=== PATIENT | male | born 1960 | race Caucasian/White ===

== ENCOUNTER 2017-11-05 21:56 | Emergency (ER) | payer MEDICAID, OTHER ==
[~2017-11-05] VITALS: Ht 182.9 cm; Wt 90.7 kg
[~2017-11-05 21:56] MED LIST: IBUPROFEN600 MG PO
[2017-11-05 23:00] VITALS: BP 135/86
[2017-11-05 23:13] VITALS: BP 135/86
--- NOTE | 2017-11-05 23:17 | Emergency Room Report ---
History of Present Illness General Chief Complaint: Behavioral Complaint Source: Patient Present Illness HPI This is a 57-year-old male with no significant past medical history. He presents with chief complaint of bilateral knee pain. Onset for years. He said he needed new placement surgery. He came in with pain. History is through triage and nurse taking care of him. He was waiting for 10 minutes and decided to leave prior to me seeing him. He said he wanted to wait to see the Dr. He now he came in a wheelchair, he put his belongings a chair and walked out without any difficulty. Allergies: Coded Allergies: No Known Allergies (Verified , 11/25/11) Patient History Past Medical History: see triage record, old chart reviewed Past Surgical History: other Pertinent Family History: none Social History: Denies: smoking Immunizations: other Reviewed Nursing Documentation: PMH: Agreed, PSxH: Agreed Nursing Documentation-PMH Hx Cardiac Problems: No Hx Hypertension: No History Of Psychiatric Problem: Yes - SCHIZO Physical Exam Vital Signs Date Time Temp Pulse Resp B/P (MAP) Pulse Ox O2 Delivery O2 Flow Rate FiO2 11/05/17 22:54 98.1 101 16 135/86 96 Room Air 98.1 Medical Decision Making Diagnostic Impression: Primary Impression: Knee pain, bilateral Qualified Codes: M25.561 - Pain in right knee; M25.562 - Pain in left knee; G89.29 - Other chronic pain ER Course Patient with bilateral knee pain. I did not get to see this patient. He left without me seeing him. Last Vital Signs Date Time Temp Pulse Resp B/P (MAP) Pulse Ox O2 Delivery O2 Flow Rate FiO2 11/05/17 23:00 98.1 101 16 135/86 96 Room Air 98.1 Disposition: LEFT W/OUT BEING SEEN Condition: Stable LLOYD DUCKWORTH M.D. Nov 05, 2017 23:17
== END 2017-11-05 23:19 | disposition left against medical advice (07) ==
LOC: EMR 23:08
DX: M25.562 Pain in left knee (principal); M25.561 Pain in right knee; Z53.21 Procedure and treatment not carried out due to patient leaving prior to being seen by health care provider
CPT/HCPCS: 99281

== ENCOUNTER 2018-03-03 15:13 | Emergency (ER) | payer MEDICAID ==
[~2018-03-03] VITALS: Ht 177.8 cm; Wt 90.7 kg
[2018-03-03] MEDS ORDERED: DiphenhydrAMINE 50mg/ml Inj IM ONE (15:45)
[2018-03-03] MEDS ORDERED: LORazepam Inj 2mg/ml 1ml IM ONE (15:45)
[2018-03-03] MEDS ORDERED: Haloperidol 5mg/ml Inj IM ONE (15:45)
[2018-03-03 16:46] VITALS: BP 121/68
[2018-03-03 17:06] LABS: BASOPHILS % (AUTO) 1.5 % (0.0-2.0); EOSINOPHILS % (AUTO) 0.8 % (0.0-3.0); HEMATOCRIT 45.9 % (42.0-52.0); HEMOGLOBIN 15.5 G/DL (14.2-18.0); LYMPHOCYTES % (AUTO) 28.5 % (20.0-45.0); MEAN CORPUSCULAR VOLUME 91 FL (80-99); MONOCYTES % (AUTO) 11.2 % (1.0-10.0); PLATELET COUNT 215 K/UL (150-450); RED BLOOD COUNT 5.04 M/UL (4.70-6.10); RED CELL DISTRIBUTION WIDTH 12.2 % (11.6-14.8); WHITE BLOOD COUNT 9.3 K/UL (4.8-10.8)
[2018-03-03 17:11] LABS: ANION GAP 17 mmol/L (5-15); BLOOD UREA NITROGEN 15 mg/dL (7-18); CALCIUM 9.3 MG/DL (8.5-10.1); CARBON DIOXIDE 18 MMOL/L (21-32); CHLORIDE 102 MMOL/L (98-107); CREATININE 1.5 MG/DL (0.55-1.30); POTASSIUM 4.1 MMOL/L (3.5-5.1); SODIUM 137 MMOL/L (136-145)
[2018-03-03 17:15] LABS: ALANINE AMINOTRANSFERASE 32 U/L (12-78); ALBUMIN 3.8 G/DL (3.4-5.0); ALBUMIN/GLOBULIN RATIO 0.9 (1.0-2.7); ALKALINE PHOSPHATASE 84 U/L (46-116); ASPARTATE AMINO TRANSFERASE 29 U/L (15-37); BILIRUBIN,TOTAL 0.4 MG/DL (0.2-1.0)
[2018-03-03 19:10] VITALS: BP 120/68
--- NOTE | 2018-03-03 21:39 | Emergency Room Report ---
History of Present Illness General Chief Complaint: Behavioral Complaint Source: Patient (Paige Villalobos) Present Illness HPI Pt. presents to the ED For irregular/erratic behavior. Bystander called 911 Because the patient was running in and out of traffic in a very unsafe manner, displaying unusual regard for his safety. Pt. has no complaints at this time. Patient is very uncooperative with history of present illness and ROS questions. During collection of history patient becomes very verbally and physically aggressive due to agitation and being asked questions. (Paige Villalobos) Allergies: Coded Allergies: LISINOPRIL (Unverified Allergy, Unknown, 03/03/18) Patient History Past Medical History: see triage record, old chart reviewed - external medication hx. , unable to obtain - refuses to answer Past Surgical History: unable to obtain Pertinent Family History: unable to obtain Reviewed Nursing Documentation: PMH: Agreed; PSxH: Agreed (Paige Villalobos) Nursing Documentation-PMH Past Medical History: No Stated History Hx Cardiac Problems: Yes - Pacemaker Hx Hypertension: No (Paige Villalobos) Review of Systems All Other Systems: limited - poor pt. cooperation. (Paige Villalobos) Physical Exam Vital Signs Date Time Temp Pulse Resp B/P (MAP) Pulse Ox O2 Delivery O2 Flow Rate FiO2 03/03/18 15:08 98.4 118 18 114/60 98 Room Air 98.4 Sp02 EP Interpretation: reviewed, normal General Appearance: alert, GCS 15, non-toxic, mild distress, other - Disheveled Head: normocephalic, atraumatic Eyes: bilateral eye normal inspection, bilateral eye PERRL ENT: hearing grossly normal, normal voice Neck: full range of motion, no bony tend Respiratory: lungs clear, normal breath sounds, speaking full sentences Cardiovascular #1: tachycardia Gastrointestinal: normal bowel sounds, non tender, soft Rectal: deferred Musculoskeletal: back normal, gait/station normal, normal range of motion, non- tender Neurologic: alert, oriented x3, responsive, motor strength/tone normal, sensory intact, speech normal, grossly normal Psychiatric: judgement/insight normal Skin: normal color, no rash, warm/dry, well hydrated, other - no obvious open wounds or abscess. (Paige Villalobos) Medical Decision Making PA Attestation Dr. Pollard is my supervising physician whom pt. management has been discussed with. (Paige Villalobos) Diagnostic Impression: Primary Impression: Behavioral disorder ER Course Pt. presents to the ED For irregular/erratic behavior. Bystander called 911 Because the patient was running in and out of traffic in a very unsafe manner, displaying unusual regard for his safety. Pt. has no complaints at this time. Patient is very uncooperative with history of present illness and ROS questions. During collection of history patient becomes very verbally and physically aggressive due to agitation and being asked questions. Pt is hyperactive, and has a very anxious and restless affect, He is physically and verbally aggressive. He refuses to answer questions, and is very noncooperative. View of his external medication history shows that several months ago he was prescribed Remeron. He is also prescribed multiple cardiac medications such as carvedilol and Elaquis. Pt. also rx'd two diuretic medications as well as gabapentin. Ddx considered but are not limited to OD, SI/HI, psychosis, UTI, intoxication Vital signs: Tachycardic otherwise WNL, pt. is afebrile H&PE are most consistent with behavioral/mental health issue- severe agitation. ORDERS: -CBC, CMP: Unremarkable -UA: negative for infection see results attached. -UDS: Positive for Cocaine -Salicylates and Acetaminophen - no acute intoxication. ED INTERVENTIONS: - Haldol, Benadryl and ativan IM DISPOSITION: Patient is medically cleared at this time however I do believe he needs psychiatric evaluation and possible psychiatric medication management. PET team valuation was ordered however patient states that he will voluntarily go to a psychiatric facility and therefore transfer to voluntary psychiatric facility is being facilitated. Labs Test 03/03/18 15:45 03/03/18 16:30 Urine Opiates Screen Negative (NEGATIVE) Urine Barbiturates Screen Negative (NEGATIVE) Phencyclidine (PCP) Screen Negative (NEGATIVE) Urine Amphetamines Screen Negative (NEGATIVE) Urine Benzodiazepines Screen Negative (NEGATIVE) Urine Cocaine Screen Positive (NEGATIVE) Urine Marijuana (THC) Screen Negative (NEGATIVE) White Blood Count 9.3 K/UL (4.8-10.8) Red Blood Count 5.04 M/UL (4.70-6.10) Hemoglobin 15.5 G/DL (14.2-18.0) Hematocrit 45.9 % (42.0-52.0) Mean Corpuscular Volume 91 FL (80-99) Mean Corpuscular Hemoglobin 30.7 PG (27.0-31.0) Mean Corpuscular Hemoglobin Concent 33.8 G/DL (32.0-36.0) Red Cell Distribution Width 12.2 % (11.6-14.8) Platelet Count 215 K/UL (150-450) Mean Platelet Volume 5.6 FL (6.5-10.1) Neutrophils (%) (Auto) 58.0 % (45.0-75.0) Lymphocytes (%) (Auto) 28.5 % (20.0-45.0) Monocytes (%) (Auto) 11.2 % (1.0-10.0) Eosinophils (%) (Auto) 0.8 % (0.0-3.0) Basophils (%) (Auto) 1.5 % (0.0-2.0) Sodium Level 137 MMOL/L (136-145) Potassium Level 4.1 MMOL/L (3.5-5.1) Chloride Level 102 MMOL/L (98-107) Carbon Dioxide Level 18 MMOL/L (21-32) Anion Gap 17 mmol/L (5-15) Blood Urea Nitrogen 15 mg/dL (7-18) Creatinine 1.5 MG/DL (0.55-1.30) Estimat Glomerular Filtration Rate 58.4 mL/min (>60) Glucose Level 80 MG/DL (74-106) Calcium Level 9.3 MG/DL (8.5-10.1) Total Bilirubin 0.4 MG/DL (0.2-1.0) Aspartate Amino Transf (AST/SGOT) 29 U/L (15-37) Alanine Aminotransferase (ALT/SGPT) 32 U/L (12-78) Alkaline Phosphatase 84 U/L (46-116) Total Protein 8.0 G/DL (6.4-8.2) Albumin 3.8 G/DL (3.4-5.0) Globulin 4.2 g/dL Albumin/Globulin Ratio 0.9 (1.0-2.7) Salicylates Level 2.7 ug/mL (2.8-20) Acetaminophen Level < 2 MCG/ML (10-30) Serum Alcohol 149 mg/dL (Paige Villalobos) ER Course Received signout from Dr [place] at 630am patient on 5150 Medically cleared previously by other provider On re-eval, patient states he knows why he was here - was trying to kill himself running into traffic last night Still endorses suicidal ideation States previous attempts to kill himself Asking for "another breakfast." Dr Bourgeois consulted 730am, pending her recommendations Patient monitored by sitter 1:1 1112am: Dr Bourgeois saw patient, recommends DC Will break 5150 (PALOMO HEWITT M.D.) Last Vital Signs Date Time Temp Pulse Resp B/P (MAP) Pulse Ox O2 Delivery O2 Flow Rate FiO2 03/03/18 19:10 98.4 100 18 120/68 99 Room Air 98.4 (Paige Villalobos) Status: improved (PALOMO HEWITT M.D.) Disposition: HOME, SELF-CARE Condition: Stable Referrals: [facility],REFERRING (PCP) Patient Instructions: Self-Destructive Behavior Paige Villalobos Mar 03, 2018 21:39 PALOMO HEWITT M.D. Mar 04, 2018 07:35
[2018-03-04 03:00] VITALS: BP 104/67
[2018-03-04 07:15] VITALS: BP 106/70
[2018-03-04 11:14] VITALS: BP 106/70
--- NOTE | 2018-03-04 17:15 | Consultation ---
DATE OF CONSULTATION: 03/04/2018 CONSULTING PHYSICIAN: Joey Bourgeois M.D. HISTORY: The patient is a 57-year-old male with a history of substance abuse disorder and depression who came to the hospital with having thoughts of hurt himself. The patient has been uncooperative during the hospitalization. No behavior issues. He has been demanding and angry. He has apparently been walking in the traffic and today his behavior has improved. He denies any suicidal or homicidal ideation. His urine is positive for cocaine. He stated that he still would like to be discharged to a psychiatric hospital. He denies any suicidal or homicidal ideation. No psychotic symptoms. PAST PSYCHIATRIC HISTORY: He states that he has a history of psychiatric history and depression. PAST MEDICAL HISTORY: None. ALLERGIES: No known drug allergies. SUBSTANCE ABUSE HISTORY: Significant for illicit drugs including cocaine. MENTAL STATUS EXAMINATION: The patient is alert and oriented times self, place, and situation he is in. Mood is depressed. Affect is constricted, congruent with mood. Thought process is concrete. Thought content, no suicidal or homicidal ideations. ASSESSMENT: Selma I Depressive disorder, cocaine abuse. Selma II Deferred. Selma III As above. Selma IV . Selma V Global assessment of functioning is 50. PLAN: The patient will be discharged. He was given referral to a psychiatric facility. At the time of discharge, he is not an imminent danger to self or others. We will continue to follow and readjust the medications. Joey Bourgeois M.D. DR: CHARANJIT JOB#: [id number] CC:
== END 2018-03-04 11:15 | disposition home or self-care (01) ==
LOC: EDBD 15:13 → EMR 15:55
DX: F91.9 Conduct disorder, unspecified (principal); Z95.0 Presence of cardiac pacemaker; F32.9 Major depressive disorder, single episode, unspecified; F14.10 Cocaine abuse, uncomplicated
CPT/HCPCS: 36415; 80053; 80307; 80329; 85025; 99284; J1200; J1630

== ENCOUNTER 2018-05-19 02:16 | Inpatient (IN) | payer MEDICAID ==
[~2018-05-19] VITALS: Ht 182.9 cm; Wt 83.1 kg
[2018-05-19] VITALS (12 sets, daily range): BP systolic 95–135; BP diastolic 54–99
[2018-05-19] MEDS ORDERED: Haloperidol 5mg/ml Inj IM ONE (02:30)
[2018-05-19] MEDS ORDERED: DiphenhydrAMINE 50mg/ml Inj IM ONE (02:30)
[2018-05-19] MEDS ORDERED: LORazepam Inj 2mg/ml 1ml IM ONE (02:30)
--- NOTE | 2018-05-19 02:34 | Emergency Room Report ---
History of Present Illness General Source: Patient, EMS Present Illness HPI Patient brought by EMS. He called us 911 and said that he wanted to hurt people. He stated he wanted to burn places down. Police were summoned also with paramedics and patient was transported here with police and EMS. He's not been violent with them but threatens to kill people. He admits to drinking alcohol. He denies doing other drugs however in February when he was evaluated he was positive for cocaine. The patient states he's not been taking his Risperdal and Seroquel. The patient denies any chest pain, shortness of breath, nausea, vomiting, diarrhea, headache, fever fevers, rash, joint pain. Patient has a wheelchair but is ambulatory. Patient was evaluated in February of this year. He presented similarly and was positive for cocaine and alcohol at that time. He was calm and agreed to voluntary hospitalization and was transferred to psychiatric facility. Allergies: Coded Allergies: LISINOPRIL (Unverified Allergy, Unknown, 03/03/18) Patient History Past Medical History: see triage record Past Surgical History: pacemaker Social History: Reports: alcohol use, drug use Social History Narrative from streets Reviewed Nursing Documentation: PMH: Agreed; PSxH: Agreed Nursing Documentation-PMH Hx Cardiac Problems: Yes - Pacemaker Hx Hypertension: No Review of Systems All Other Systems: negative except mentioned in HPI Physical Exam Vital Signs Date Time Temp Pulse Resp B/P (MAP) Pulse Ox O2 Delivery O2 Flow Rate FiO2 05/19/18 02:18 97.5 109 20 128/97 99 Room Air 97.5 Sp02 EP Interpretation: reviewed, normal General Appearance: well appearing, no apparent distress, GCS 15 Head: normocephalic, atraumatic Eyes: bilateral eye PERRL, bilateral eye EOMI, bilateral eye Scleral Injection ENT: moist mucus membranes Neck: supple Respiratory: lungs clear, normal breath sounds, other - pacer L Cardiovascular #1: tachycardia Cardiovascular #2: 2+ radial (R) Gastrointestinal: normal inspection, normal bowel sounds, non tender, no mass, non-distended, scaphoid Genitourinary: no CVA tenderness Musculoskeletal: back normal, gait/station normal, normal range of motion Neurologic: alert, motor strength/tone normal, DTRs symmetric, sensory intact, cerebellar normal, speech normal - pressured, oriented - X2 Psychiatric: other - Homicidal ideation states that he wants to burn down houses. Agitated and threatening however responds to calming intervention. Skin: normal inspection, warm/dry Medical Decision Making Medical: Substance Abuse, Other Behavioral: Bipolar Disorder Reaction to Intervention: Other - Unpredictable as calm then threatening Restraint Reassesment I, Maxx Barreto MD, have personally evaluated this patient. Laboratory tests have been reviewed and addressed accordingly. The patient is deemed to present a danger to themselves and/or others. This is based on the exam, history ( provided by patient, EMS/[employer]) and observed or reported behavior. Attempts for non-invasive measures have been considered and/or attempted, however, have been futile. It is in the best interest of the nursing staff, the patient, and others involved in this patient's care that behavioral restraints be applied. Patient evaluation reveals the following: see eval Diagnostic Impression: Primary Impression: NSTEMI (non-ST elevated myocardial infarction) Additional Impressions: Homicidal ideation Cocaine abuse ER Course Patient presents with homicidal ideation. Differential includes medication noncompliance, alcohol intoxication, other toxic substance use, exacerbation of bipolar disorder amongst others. Patient needs medical evaluation. At this time is threatening staff and will be placed in restraints. Sedation is been ordered. EKG with sinus tachycardia. No injury. LVH. Chest x-ray with cardiomegaly and pacemaker no infiltrate or effusions. Lab called with positive troponin. Other labs are significant for positive cocaine. Patient was given aspirin and nitroglycerin paste was applied. Sedation was successful and the patient was removed from restraints. Metoprolol given. Patient stable VS. Still sedated. Discussed with Dr. Salinas and Dr. Bourgeois. Admit SDU with sitter (due to HI). Laboratory Tests Test 05/19/18 02:30 05/19/18 02:41 Urine Color Pale yellow Urine Appearance Clear Urine pH 5 (4.5-8.0) Urine Specific Gallant 1.015 (1.005-1.035) Urine Protein 2+ (NEGATIVE) H Urine Glucose (UA) Negative (NEGATIVE) Urine Ketones Negative (NEGATIVE) Urine Blood 1+ (NEGATIVE) H Urine Nitrite Negative (NEGATIVE) Urine Bilirubin Negative (NEGATIVE) Urine Urobilinogen Normal MG/DL (0.0-1.0) Urine Leukocyte Esterase Negative (NEGATIVE) Urine RBC 0-2 /HPF (0 - 0) H Urine WBC 0 /HPF (0 - 0) Urine Squamous Epithelial Cells Few /LPF (NONE/OCC) Urine Bacteria None /HPF (NONE) Urine Opiates Screen Negative (NEGATIVE) Urine Barbiturates Screen Negative (NEGATIVE) Phencyclidine (PCP) Screen Negative (NEGATIVE) Urine Amphetamines Screen Negative (NEGATIVE) Urine Benzodiazepines Screen Negative (NEGATIVE) Urine Cocaine Screen Positive (NEGATIVE) H Urine Marijuana (THC) Screen Positive (NEGATIVE) H White Blood Count 5.8 K/UL (4.8-10.8) Red Blood Count 5.34 M/UL (4.70-6.10) Hemoglobin 16.6 G/DL (14.2-18.0) Hematocrit 49.2 % (42.0-52.0) Mean Corpuscular Volume 92 FL (80-99) Mean Corpuscular Hemoglobin 31.2 PG (27.0-31.0) H Mean Corpuscular Hemoglobin Concent 33.8 G/DL (32.0-36.0) Red Cell Distribution Width 13.2 % (11.6-14.8) Platelet Count 236 K/UL (150-450) Mean Platelet Volume 6.3 FL (6.5-10.1) L Neutrophils (%) (Auto) 55.2 % (45.0-75.0) Lymphocytes (%) (Auto) 29.9 % (20.0-45.0) Monocytes (%) (Auto) 12.6 % (1.0-10.0) H Eosinophils (%) (Auto) 0.7 % (0.0-3.0) Basophils (%) (Auto) 1.7 % (0.0-2.0) Sodium Level 140 MMOL/L (136-145) Potassium Level 3.8 MMOL/L (3.5-5.1) Chloride Level 105 MMOL/L (98-107) Carbon Dioxide Level 20 MMOL/L (21-32) L Anion Gap 15 mmol/L (5-15) Blood Urea Nitrogen 12 mg/dL (7-18) Creatinine 1.7 MG/DL (0.55-1.30) H Estimate Glomerular Filtration Rate 50.7 mL/min (>60) Glucose Level 84 MG/DL (74-106) Calcium Level 8.6 MG/DL (8.5-10.1) Total Bilirubin 0.5 MG/DL (0.2-1.0) Aspartate Amino Transferase (AST) 34 U/L (15-37) Alanine Aminotransferase (ALT) 23 U/L (12-78) Alkaline Phosphatase 83 U/L (46-116) Troponin I 0.609 ng/mL (0.000-0.056) Total Protein 7.8 G/DL (6.4-8.2) Albumin 3.7 G/DL (3.4-5.0) Globulin 4.1 g/dL Thyroid Stimulating Hormone (TSH) 0.823 uiU/mL (0.358-3.740) Salicylates Level 3.4 ug/mL (2.8-20) Acetaminophen Level < 2 MCG/ML (10-30) L Serum Alcohol 154 mg/dL EKG Diagnostic Results Rate: tachycardiac ST Segments: no acute changes Rhythm Strip Diag. Results EP Interpretation: yes Rhythm: no PVC's, no ectopy - ST Chest X-Ray Diagnostic Results Chest X-Ray Diagnostic Results : Chest X-Ray Ordered: Yes # of Views/Limited/Complete: 1 View Indication: Other EP Interpretation: Yes Interpretation: no consolidation, no effusion, no pneumothorax, other - pacer and inc cor Impression: Other Electronically Signed by: Electronically signed by Maxx Barreto MD Last Vital Signs Date Time Temp Pulse Resp B/P (MAP) Pulse Ox O2 Delivery O2 Flow Rate FiO2 05/19/18 20:28 98.4 94 20 101/54 (70) 98 98.4 94 05/19/18 20:00 Room Air Status: improved Disposition: ADMITTED INPATIENT Condition: Serious Maxx Barreto M.D. May 19, 2018 02:34
[2018-05-19 03:00] LABS: APPEARANCE,URINE CLEAR; BILIRUBIN, URINE NEGATIVE (NEGATIVE); COLOR,URINE PALE YELLOW; GLUCOSE, URINE (UA) NEGATIVE (NEGATIVE); KETONES,URINE NEGATIVE (NEGATIVE); LEUKOCYTE ESTERASE ,URINE NEGATIVE (NEGATIVE); NITRITE,URINE NEGATIVE (NEGATIVE); PH,URINE 5 (4.5-8.0); PROTEIN,URINE 2+ (NEGATIVE); UROBILINOGEN,URINE NORMAL MG/DL (0.0-1.0)
[2018-05-19 03:02] LABS: BASOPHILS % (AUTO) 1.7 % (0.0-2.0); EOSINOPHILS % (AUTO) 0.7 % (0.0-3.0); HEMATOCRIT 49.2 % (42.0-52.0); HEMOGLOBIN 16.6 G/DL (14.2-18.0); LYMPHOCYTES % (AUTO) 29.9 % (20.0-45.0); MEAN CORPUSCULAR VOLUME 92 FL (80-99); MONOCYTES % (AUTO) 12.6 % (1.0-10.0); NEUTROPHILS % (AUTO) 55.2 % (45.0-75.0); PLATELET COUNT 236 K/UL (150-450); RED BLOOD COUNT 5.34 M/UL (4.70-6.10); RED CELL DISTRIBUTION WIDTH 13.2 % (11.6-14.8); WHITE BLOOD COUNT 5.8 K/UL (4.8-10.8)
[2018-05-19 03:06] LABS: ANION GAP 15 mmol/L (5-15); BLOOD UREA NITROGEN 12 mg/dL (7-18); CALCIUM 8.6 MG/DL (8.5-10.1); CARBON DIOXIDE 20 MMOL/L (21-32); CHLORIDE 105 MMOL/L (98-107); CREATININE 1.7 MG/DL (0.55-1.30); POTASSIUM 3.8 MMOL/L (3.5-5.1); SODIUM 140 MMOL/L (136-145)
[2018-05-19 03:18] LABS: ALANINE AMINOTRANSFERASE 23 U/L (12-78); ALKALINE PHOSPHATASE 83 U/L (46-116); ASPARTATE AMINO TRANSFERASE 34 U/L (15-37); BILIRUBIN,TOTAL 0.5 MG/DL (0.2-1.0)
[2018-05-19 03:27] LABS: ALBUMIN 3.7 G/DL (3.4-5.0)
[2018-05-19] MEDS ORDERED: Nitroglycerin 2% oint pkt TOPIC ONE (03:30)
[2018-05-19] MEDS ORDERED: Metoprolol 5mg/5ml Inj IVP STA (04:24)
[2018-05-19] MEDS ORDERED: RISPERDAL0.25 MG ORAL (04:48)
[2018-05-19] MEDS ORDERED: QUETIAPINE FUMA25 MG ORAL (04:48)
[2018-05-19] MEDS ORDERED: Albuterol/Ipratropium 3ml neb HHN PRN (07:30)
[2018-05-19] MEDS ORDERED: dilTIAZem HCl 25mg/5ml Inj IV PRN (07:30)
[2018-05-19] MEDS ORDERED: Nitroglycerin Subl 0.4mg tab SL PRN (07:30)
[2018-05-19] MEDS ORDERED: Ketorolac 30mg Inj IV PRN (07:30)
[2018-05-19] MEDS ORDERED: Miralax 17gm pkt ORAL PRN (07:30)
[2018-05-19] MEDS ORDERED: Morphine Sulfate 2mg/ml Inj(IV/IM USE ONLY) IVP PRN (07:30)
[2018-05-19] MEDS: Aspirin Baby 81mg ORAL SCH (09:00)
--- NOTE | 2018-05-19 11:00 | Diagnostic Imaging Report ---
Indication: Dyspnea Comparison: None A single view chest radiograph was obtained. Findings: No definite infiltrate or pulmonary vascular congestion identified. The heart is borderline enlarged. There is a pacemaker on the left with a single lead projected over the right ventricle. Bones are unremarkable. Impression: No acute disease
[2018-05-19] MEDS: Heparin 5000 units/ml inj SUBQ SCH ×2 (12:00→21:55)
--- NOTE | 2018-05-19 18:46 | Cardiology Report ---
APPROVED REPORT EKG Measurement Heart [id number] Sinus tachycardia Right atrial enlargement Voltage criteria for left ventricular hypertrophy Nonspecific T wave abnormality Abnormal ECG
--- NOTE | 2018-05-19 19:02 | Cardiology Report ---
APPROVED REPORT EXAM: Two-dimensional and M-mode echocardiogram with Doppler and color Doppler. INDICATION Left Ventricular Function M-Mode DIMENSIONS IVSd0.9 (0.7-1.1cm)Left Atrium (MM)3.4 (1.6-4.0cm) LVDd7.1 (3.5-5.6cm)Aortic Root2.8 (2.0-3.7cm) PWd0.8 (0.7-1.1cm)Aortic Cusp Exc.2.0 (1.5-2.0cm) LVDs6.1 (2.5-4.0cm) PWs1.1 cm Severe left ventricular enlargement. Mid to apical anteroseptal wall, lateral wall, inferolareal wall akinesia, setal wall dyskinesia. Left ventricular ejection fraction estimated to be 15%. Ischemic cardiomyopathy cannot be excluded. No evidence of left ventricular hypertrophy. No evidence of pericardial effusion. Mild left atrial enlargement. Right cardiac chamber sizes are within normal limits. Focal aortic valve sclerosis with adequate cusp excursion. Mildly thickened mitral valve leaflets with normal excursion. Mild mitral annulus and aortic root calcification. Normal pulmonic valve structure. Normal tricuspid valve structure. IVC dilated at 2.3 cm without physiological collapse, suggestive of increased RA pressure. A color flow and spectral Doppler study was performed and revealed: Moderate aortic insufficiency. LVOT pressure gradient may be underestimated due to low systolic function. Moderate mitral regurgitation. Mitral diastolic velocities suggest mild left ventricular diastolic dysfunction (Grade I). Mild tricuspid regurgitation. Tricuspid systolic velocities suggests peak right ventricular systolic pressure of 37 mmHg, consistent with mild pulmonary hypertension. Trace pulmonic regurgitation present.
--- NOTE | 2018-05-19 22:45 | History and Physical Report ---
DATE OF ADMISSION: 05/19/2018 CHIEF COMPLAINT: Altered mental status, elevated troponin, toxic metabolic encephalopathy, and psychosis. HISTORY OF PRESENT ILLNESS: The patient is a 57-year-old male. He has history of schizophrenia, conduction system disease, status post pacemaker, history of substance abuse, who presented with complaints of altered mental status, agitation, and threatening behavior. He was apparently brought in by police. This history is taken from review of the chart as the patient is currently sedated and unresponsive. The patient has been apparently threatening to hurt people and burn the houses down. He was agitated and combative. He was sedated. He was positive for cocaine. His medical workup was significant for elevated troponin. EKG showed no significant changes. Chest x-ray was clear except for some cardiomegaly. Laboratory showed white count of 5, hemoglobin 13, creatinine 1.7, normal potassium. The patient's toxicology screen was positive for cocaine and marijuana. The patient apparently has not been taking his Risperdal and Seroquel for several days. He is now admitted for further care. PAST MEDICAL HISTORY: As above. PAST SURGICAL HISTORY: Includes a pacemaker. CURRENT MEDICATIONS: Reconciled and reviewed. ALLERGIES: Include [place] inhibitors. FAMILY HISTORY: Noncontributory. SOCIAL HISTORY: There is no known history of tobacco or ethanol use. The patient was positive for cocaine and marijuana. REVIEW OF SYSTEMS: Unobtainable as the patient is sedated. PHYSICAL EXAMINATION: VITAL SIGNS: Temperature 98, pulse 94, respirations 20, and blood pressure 101/54. GENERAL: The patient is in no distress, sedated, difficult to arouse. NECK: Supple. No jugular venous distention. HEART: Regular rate and rhythm. LUNGS: Clear. ABDOMEN: Soft. EXTREMITIES: Without clubbing or cyanosis. LABORATORY DATA: As above. ASSESSMENT: This is a 57-year-old male with complaints of psychosis, agitation, suspect secondary to the patient's underlying schizophrenia in combination with drugs. The patient does have elevated troponin, suspect this is secondary to his cocaine use. PLAN: Observation. Anxiolytics as needed. Serial troponins. Followup echo. Continue baby aspirin. Psychiatric consultation. Anthony Salinas M.D. DR: Mark JOB#: [id number] CC:
[2018-05-20] VITALS: BP 110/64
[2018-05-20 04:00] VITALS: BP 115/74
[2018-05-20 07:44] LABS: BASOPHILS % (AUTO) 1.7 % (0.0-2.0); EOSINOPHILS % (AUTO) 3.3 % (0.0-3.0); HEMATOCRIT 51.1 % (42.0-52.0); LYMPHOCYTES % (AUTO) 29.6 % (20.0-45.0); MEAN CORPUSCULAR VOLUME 92 FL (80-99); MONOCYTES % (AUTO) 15.8 % (1.0-10.0); NEUTROPHILS % (AUTO) 49.7 % (45.0-75.0); PLATELET COUNT 245 K/UL (150-450); RED BLOOD COUNT 5.52 M/UL (4.70-6.10); RED CELL DISTRIBUTION WIDTH 13.2 % (11.6-14.8); WHITE BLOOD COUNT 5.1 K/UL (4.8-10.8)
[2018-05-20 08:05] VITALS: BP 107/59
[2018-05-20] MEDS: Aspirin Baby 81mg ORAL SCH (08:21)
[2018-05-20 08:22] LABS: CHOLESTEROL 152 MG/DL (< 200); HDL CHOLESTEROL 91 MG/DL (40-60); TRIGLYCERIDES 55 MG/DL (30-150)
[2018-05-20] MEDS: Heparin 5000 units/ml inj SUBQ SCH ×2 (08:27→20:42)
[2018-05-20 11:33] VITALS: BP 146/91
[2018-05-20] MEDS ORDERED: Depakote 500mg tab ORAL SCH (11:45)
--- NOTE | 2018-05-20 11:57 | Consultation ---
History of Present Illness General Date patient seen: May 20, 2018 Chief Complaint: Behavioral Complaint Present Illness HPI 57-year-old male WITH history of schizoaffective, conduction system disease, status post pacemaker, history of substance abuse, who presented with complaints of altered mental status, agitation, and threatening behavior. the pt had a sitter the pt was agitated and stated that he didn't have thoughts to hurt himself however hurt others. The pt didn't elaborate on his comments. He stated that he ran out of the money using drugs. the pt stated that he was homeless. the pt denied AVH Allergies: Coded Allergies: LISINOPRIL (Unverified Allergy, Unknown, 03/03/18) Medication History Scheduled Ibuprofen* (Motrin*), 600 MG PO TID Quetiapine Fumarate* (Seroquel*), 25 MG ORAL DAILY, (Reported) Risperidone* (Risperdal*), 0.25 MG ORAL DAILY, (Reported) Patient History Limited by: medical condition History Provided By: Patient, Medical Record, PMD Healthcare decision maker Resuscitation status Full Code Advanced Directive on File Past Medical/Surgical History Past Medical/Surgical History: (1) Cocaine abuse (2) NSTEMI (non-ST elevated myocardial infarction) (3) Homicidal ideation Review of Systems Psychiatric: Reports: prior hx, anxiety, depressed feelings Physical Exam General Appearance: no apparent distress, alert Neurologic: oriented x 3, responsive, depressed affect Last 24 Hour Vital Signs Date Time Temp Pulse Resp B/P (MAP) Pulse Ox O2 Delivery O2 Flow Rate FiO2 05/20/18 11:33 98.1 92 20 146/91 (109) 97 98.1 05/20/18 09:26 92 18 Room Air 21 05/20/18 08:05 98.4 98 20 107/59 (75) 96 98.4 05/20/18 08:00 Room Air 05/20/18 08:00 97 05/20/18 04:00 89 05/20/18 04:00 Room Air 05/20/18 04:00 98.0 88 20 115/74 (88) 99 98.0 88 05/20/18 00:00 97.7 90 20 110/64 (79) 98 97.7 90 05/20/18 00:00 90 05/20/18 00:00 Room Air 05/19/18 20:28 98.4 94 20 101/54 (70) 98 98.4 94 05/19/18 20:00 Room Air 05/19/18 20:00 100 05/19/18 19:30 98 18 Room Air 05/19/18 16:00 95 05/19/18 16:00 Room Air 05/19/18 16:00 98.0 90 20 102/61 (75) 97 98.0 05/19/18 14:10 98.0 90 18 135/70 (91) 100 98.0 05/19/18 12:00 Room Air Intake and Output 05/19/18 05/20/18 19:00 07:00 Intake Total 970 ml 240 ml Output Total 1300 ml 1200 ml Balance -330 ml -960 ml Intake Oral 970 ml 240 ml Output Urine Total 1300 ml 1200 ml Stool Total 0 ml # Voids 2 Laboratory Tests Test 05/20/18 07:25 White Blood Count 5.1 K/UL (4.8-10.8) Red Blood Count 5.52 M/UL (4.70-6.10) Hemoglobin 17.0 G/DL (14.2-18.0) Hematocrit 51.1 % (42.0-52.0) Mean Corpuscular Volume 92 FL (80-99) Mean Corpuscular Hemoglobin 30.7 PG (27.0-31.0) Mean Corpuscular Hemoglobin Concent 33.3 G/DL (32.0-36.0) Red Cell Distribution Width 13.2 % (11.6-14.8) Platelet Count 245 K/UL (150-450) Mean Platelet Volume 5.9 FL (6.5-10.1) L Neutrophils (%) (Auto) 49.7 % (45.0-75.0) Lymphocytes (%) (Auto) 29.6 % (20.0-45.0) Monocytes (%) (Auto) 15.8 % (1.0-10.0) H Eosinophils (%) (Auto) 3.3 % (0.0-3.0) H Basophils (%) (Auto) 1.7 % (0.0-2.0) Prothrombin Time 10.9 SEC (9.30-11.50) Prothromb Time International Ratio 1.0 (0.9-1.1) Activated Partial Thromboplast Time 35 SEC (23-33) H Troponin I 0.493 ng/mL (0.000-0.056) C-Reactive Protein, Quantitative < 0.4 mg/dL (0.00-0.90) Triglycerides Level 55 MG/DL (30-150) Cholesterol Level 152 MG/DL (< 200) LDL Cholesterol 47 mg/dL (<100) HDL Cholesterol 91 MG/DL (40-60) H Cholesterol/HDL Ratio 1.7 (3.3-4.4) L Thyroid Stimulating Hormone (TSH) 0.468 uiU/mL (0.358-3.740) Height (Feet): 6 Weight (Pounds): 186 Medications Current Medications Medications (Trade) Dose Ordered Sig/Sarwat Route PRN Reason Start Time Stop Time Status Last Admin Dose Admin Acetaminophen (Tylenol) 650 mg Q4H PRN ORAL FEVER 05/19/18 07:30 06/18/18 07:29 Albuterol/ Ipratropium (Albuterol/ Ipratropium) 3 ml Q4H PRN HHN Shortness of Breath 05/19/18 07:30 05/24/18 07:29 Aspirin (ASA) 162 mg DAILY ORAL 05/19/18 09:00 06/18/18 08:59 05/20/18 08:21 Diltiazem HCl (Cardizem) 10 mg Q1H PRN IV heart rate more than 120, 05/19/18 07:30 06/18/18 07:29 Heparin Sodium (Porcine) (Heparin 5000 units/ml) 5,000 units EVERY 12 HOURS SUBQ 05/19/18 09:00 06/18/18 08:59 05/20/18 08:27 Ketorolac Tromethamine (Toradol 30mg) 30 mg Q6H PRN IV moderate pain ( 4-6) 05/19/18 07:30 05/24/18 07:29 Morphine Sulfate (Morphine Sulfate) 2 mg Q4H PRN IVP severe Pain (Pain Scale 7-10) 05/19/18 07:30 05/26/18 07:29 05/20/18 11:26 Nitroglycerin (Ntg) 0.4 mg Q5M PRN SL Prn Chest Pain 05/19/18 07:30 06/18/18 07:29 Ondansetron HCl (Zofran) 4 mg Q6H PRN IVP Nausea & Vomiting 05/19/18 07:30 06/18/18 07:29 Polyethylene Glycol (Miralax) 17 gm DAILYPRN PRN ORAL Constipation 05/19/18 07:30 06/18/18 07:29 Quetiapine Fumarate (SEROquel) 25 mg DAILY ORAL 05/19/18 09:00 06/18/18 08:59 05/20/18 08:21 Risperidone (RisperDAL) 0.25 mg DAILY ORAL 05/19/18 09:00 06/18/18 08:59 05/20/18 08:21 Temazepam (Restoril) 15 mg HSPRN PRN ORAL Insomnia 05/19/18 21:00 05/26/18 20:59 Assessment/Plan Status: stable Assessment/Plan Schizoaffective d/o the pt is not a dts/dto the pt should be discharged after medically cleared the pt is not holdable dc risperdal start seroquel 100mg qhs depakote 500mg bid zeke the Joey Mramolejo MD May 20, 2018 11:57
[2018-05-20] MEDS ORDERED: Nitroglycerin Subl 0.4mg tab SL PRN (14:00)
[2018-05-20] MEDS ORDERED: dilTIAZem HCl 25mg/5ml Inj IV PRN (14:00)
[2018-05-20] MEDS ORDERED: Ketorolac 30mg Inj IV PRN (14:00)
[2018-05-20] MEDS ORDERED: Albuterol/Ipratropium 3ml neb HHN PRN (14:00)
[2018-05-20] MEDS ORDERED: Morphine Sulfate 2mg/ml Inj(IV/IM USE ONLY) IVP PRN (15:30)
[2018-05-20 15:43] VITALS: BP 116/78
[2018-05-20 20:00] VITALS: BP 139/88
--- NOTE | 2018-05-20 20:02 | General Progress Note ---
Assessment/Plan Problem List: (1) Cocaine abuse ICD Codes: F14.10 - Cocaine abuse, uncomplicated SNOMED: 03537145 (2) NSTEMI (non-ST elevated myocardial infarction) ICD Codes: I21.4 - Non-ST elevation (NSTEMI) myocardial infarction SNOMED: 397091436 (3) Homicidal ideation ICD Codes: R45.850 - Homicidal ideations SNOMED: 795825353 Status: stable Assessment/Plan antiplt rx acei suspect cocaine related cardiomyopathy to d/w pt further w/u Subjective ROS Limited/Unobtainable: Yes Constitutional: Reports: malaise, weakness HEENT: Reports: no symptoms Cardiovascular: Reports: no symptoms Respiratory: Reports: no symptoms Gastrointestinal/Abdominal: Reports: no symptoms Genitourinary: Reports: no symptoms Neurologic/Psychiatric: Reports: pre-existing deficit Endocrine: Reports: no symptoms Hematologic/Lymphatic: Reports: no symptoms Allergies: Coded Allergies: LISINOPRIL (Unverified Allergy, Unknown, 03/03/18) All Systems: reviewed and negative except above Subjective sedated/sleeping. elevated trop. EF 15% Objective Last 24 Hour Vital Signs Date Time Temp Pulse Resp B/P (MAP) Pulse Ox O2 Delivery O2 Flow Rate FiO2 05/20/18 16:00 87 05/20/18 15:43 98.0 72 20 116/78 (91) 98 98.0 05/20/18 12:00 Room Air 05/20/18 12:00 101 05/20/18 11:33 98.1 92 20 146/91 (109) 97 98.1 05/20/18 09:26 92 18 Room Air 21 05/20/18 08:05 98.4 98 20 107/59 (75) 96 98.4 05/20/18 08:00 Room Air 05/20/18 08:00 97 05/20/18 04:00 89 05/20/18 04:00 Room Air 05/20/18 04:00 98.0 88 20 115/74 (88) 99 98.0 88 05/20/18 00:00 97.7 90 20 110/64 (79) 98 97.7 90 05/20/18 00:00 90 05/20/18 00:00 Room Air 05/19/18 20:28 98.4 94 20 101/54 (70) 98 98.4 94 Intake and Output 8/27/18 8/28/18 19:00 07:00 Intake Total 970 ml 240 ml Output Total 1300 ml 1200 ml Balance -330 ml -960 ml Intake Oral 970 ml 240 ml Output Urine Total 1300 ml 1200 ml Stool Total 0 ml # Voids 2 Laboratory Tests 05/20/18 07:25: White Blood Count 5.1, Red Blood Count 5.52, Hemoglobin 17.0, Hematocrit 51.1, Mean Corpuscular Volume 92, Mean Corpuscular Hemoglobin 30.7, Mean Corpuscular Hemoglobin Concent 33.3, Red Cell Distribution Width 13.2, Platelet Count 245, Mean Platelet Volume 5.9L, Neutrophils (%) (Auto) 49.7, Lymphocytes (%) (Auto) 29.6, Monocytes (%) (Auto) 15.8H, Eosinophils (%) (Auto) 3.3H, Basophils (%) ( Auto) 1.7, Prothrombin Time 10.9, Prothromb Time International Ratio 1.0, Activated Partial Thromboplast Time 35H, Troponin I 0.493H, C-Reactive Protein, Quantitative < 0.4, Triglycerides Level 55, Cholesterol Level 152, LDL Cholesterol 47, HDL Cholesterol 91H, Cholesterol/HDL Ratio 1.7L, Thyroid Stimulating Hormone (TSH) 0.468 Height (Feet): 6 Weight (Pounds): 186 General Appearance: WD/WN, lethargic, confused Neck: supple Cardiovascular: normal rate, regular rhythm Respiratory/Chest: lungs clear, normal breath sounds, no respiratory distress Abdomen: normal bowel sounds, non tender, soft, no organomegaly Edema: no edema noted Arm (L), no edema noted Arm (R), no edema noted Leg (L), no edema noted Leg (R), no edema noted Pedal (L), no edema noted Pedal (R), no edema noted Generalized Neurologic: disoriented Anthony Salinas MD May 20, 2018 20:02
[2018-05-20] MEDS: Depakote 500mg tab ORAL SCH (20:41)
[2018-05-21] VITALS: BP 135/83
[2018-05-21 04:00] VITALS: BP 135/85
--- NOTE | 2018-05-21 05:00 | Consultation ---
DATE OF CONSULTATION: 05/20/2018 CARDIOLOGY CONSULTATION CONSULTING PHYSICIAN: Maxx Dominguez M.D. REQUESTING PHYSICIAN: Anthony Salinas M.D. REASON FOR CONSULTATION: Elevated troponin level. HISTORY OF PRESENT ILLNESS: This 57-year-old male, who has a history of schizophrenia and substance abuse as well as a known history of cardiac disease with permanent pacemaker implant for conduction system disease, who was brought into the hospital emergency room via police and was sedated because he was agitated and combative. On admission, abnormal laboratory values included an elevated troponin level and a tox screen positive for cocaine and marijuana. PAST MEDICAL HISTORY: Includes permanent pacemaker and schizophrenia. MEDICATIONS: Reviewed and reconciled. ALLERGIES: Include angiotensin-converting enzyme inhibitors. SOCIAL HISTORY: Notable for substance abuse. There is no known history of tobacco or alcohol abuse. FAMILY HISTORY: Noncontributory. REVIEW OF SYSTEMS: Not obtainable. PHYSICAL EXAMINATION: GENERAL: No acute respiratory distress. VITAL SIGNS: Blood pressure 101/54, pulse 94, and respirations 20. No fevers. HEENT: Conjunctiva pink. Sclerae are anicteric. Oropharynx clear. Mucous membranes moist. NECK: Supple. No jugular venous distention. LUNGS: Clear. CARDIAC: Regular rhythm and rate. Normal S1, S2 with a fourth heart sound. Chest wall pacemaker site without signs of skin breakdown. EXTREMITIES: Good pulses and no edema. NEUROLOGIC: Limited due to his sedation. LABORATORY AND DIAGNOSTIC DATA: EKG reveals sinus tachycardia, right atrial enlargement, voltage for left ventricular hypertrophy, and nonspecific T-wave changes. Echocardiogram is pending. White count 5.8 and hemoglobin 16. Chemistry panel notable for BUN 12, creatinine 1.7, bicarb 20, sodium 140, potassium 3.8, and troponin 0.609. IMPRESSION: 1. Acute myocardial infarction, likely precipitated by cocaine use. 2. Cardiomyopathy. 3. Acute versus chronic kidney injury. 4. Permanent pacemaker. 5. Psychosis. PLAN: 1. Cardiac monitoring. 2. Antiplatelet therapy. 3. Nitrates. 4. Diltiazem IV for tachyarrhythmias. 5. We will follow. Maxx Dominguez M.D. DR: DAHLIA JOB#: [id number] CC:
[2018-05-21] MEDS: Nitroglycerin 2% oint pkt TOPIC SCH ×2 (06:03→12:09)
[2018-05-21] MEDS ORDERED: Miralax 17gm pkt ORAL PRN (07:30)
[2018-05-21 08:00] VITALS: BP 126/75
[2018-05-21] MEDS: Depakote 500mg tab ORAL SCH (08:27)
[2018-05-21] MEDS: Heparin 5000 units/ml inj SUBQ SCH (08:27)
[2018-05-21] MEDS ORDERED: Aspirin Baby 81mg ORAL SCH (09:00)
[2018-05-21] MEDS ORDERED: LOSARTAN POTASS25 MG ORAL (09:44)
[2018-05-21] MEDS ORDERED: ELIQUIS5 MG PO ×2 (09:44→16:58)
[2018-05-21] MEDS ORDERED: NORCO 10-325 T1 EACH ORAL (09:44)
[2018-05-21] MEDS ORDERED: FUROSEMIDE40 MG ORAL (09:44)
[2018-05-21] MEDS ORDERED: CLONIDINE HCL0.1 MG PO (09:44)
[2018-05-21] MEDS ORDERED: ALDACTONE25 MG ORAL (09:44)
[2018-05-21] MEDS ORDERED: COREG3.125 MG ORAL ×2 (09:44→16:58)
[2018-05-21] MEDS ORDERED: NEURONTIN300 MG ORAL ×2 (09:44→16:57)
--- NOTE | 2018-05-21 10:00 | Progress Note ---
DATE: 05/20/2018 CARDIOLOGY PROGRESS NOTE SUBJECTIVE: The patient is still sedated at times. Episodes of tachyarrhythmias, self-limited. No apparent chest pain. OBJECTIVE: VITAL SIGNS: Blood pressure 139/88, pulse 98, respiratory rate 18, and afebrile. LUNGS: Clear. CARDIAC: Regular. Normal S1, S2 with a fourth heart sound and a 1/6 systolic murmur at the apex. ABDOMEN: Soft. EXTREMITIES: Trace edema. LABORATORY AND DIAGNOSTIC DATA: Echocardiogram revealed ejection fraction of less than 20% with elevated PA systolic pressures and valvular regurgitation. IMPRESSION: 1. Cocaine-associated cardiomyopathy. 2. Acute myocardial infarction. 3. Acute on chronic systolic congestive heart failure. 4. Permanent pacemaker. 5. Hypertension with hypertensive heart disease. 6. Acute on chronic kidney injury. PLAN: 1. Maximize anti-failure therapy. 2. No angiotensin-converting enzyme inhibitor due to allergy. 3. Topical nitrates. 4. Avoid beta-blockers in view of cocaine intoxication. 5. Continue anti-platelet therapy with aspirin. 6. Trend natriuretic peptide assay and troponin levels. Maxx Dominguez M.D. DR: Yoli JOB#: [id number] CC:
[2018-05-21 12:00] VITALS: BP 116/63
--- NOTE | 2018-05-21 12:47 | General Progress Note ---
Assessment/Plan Status: stable Assessment/Plan substance use disorder the pt is not a dts seroquel 100mg qhs the pt does not meet the criteria for hold not psych facility Subjective Date patient seen: May 21, 2018 Neurologic/Psychiatric: Reports: emotional problems Allergies: Coded Allergies: LISINOPRIL (Unverified Allergy, Unknown, 03/03/18) All Systems: reviewed and negative except above Subjective the pt is defiant and uncooperative the pt removed the monitor from his chest and stated that he wont leave till we find him a facility Objective Last 24 Hour Vital Signs Date Time Temp Pulse Resp B/P (MAP) Pulse Ox O2 Delivery O2 Flow Rate FiO2 05/21/18 12:09 126/75 05/21/18 12:00 97.7 70 18 116/63 (80) 97 97.7 05/21/18 09:00 Room Air 05/21/18 08:00 97.7 92 21 126/75 (92) 97 97.7 05/21/18 06:03 135/85 05/21/18 04:00 97.7 91 17 135/85 (102) 96 97.7 05/21/18 00:00 98.1 95 17 135/83 (100) 97 98.1 05/21/18 00:00 85 05/20/18 21:00 Room Air 05/20/18 20:07 95 18 Room Air 21 05/20/18 20:00 98 05/20/18 20:00 98.2 96 16 139/88 (105) 97 98.2 05/20/18 16:00 87 05/20/18 15:43 98.0 72 20 116/78 (91) 98 98.0 Intake and Output 05/20/18 05/21/18 19:00 07:00 Intake Total 600 ml 780 ml Output Total 400 ml Balance 200 ml 780 ml Intake Oral 600 ml 780 ml Output Urine Total 400 ml # Voids 3 Height (Feet): 6 Weight (Pounds): 183 General Appearance: no apparent distress, alert Neurologic: alert, oriented x 3, responsive, normal mood/affect Joey Bourgeois MD May 21, 2018 12:47
[2018-05-21 15:46] LABS: BASOPHILS % (AUTO) 1.5 % (0.0-2.0); EOSINOPHILS % (AUTO) 2.4 % (0.0-3.0); HEMATOCRIT 47.8 % (42.0-52.0); HEMOGLOBIN 16.3 G/DL (14.2-18.0); LYMPHOCYTES % (AUTO) 34.6 % (20.0-45.0); MEAN CORPUSCULAR VOLUME 94 FL (80-99); MONOCYTES % (AUTO) 10.6 % (1.0-10.0); NEUTROPHILS % (AUTO) 50.9 % (45.0-75.0); PLATELET COUNT 213 K/UL (150-450); RED BLOOD COUNT 5.07 M/UL (4.70-6.10); RED CELL DISTRIBUTION WIDTH 13.2 % (11.6-14.8)
[2018-05-21 16:00] VITALS: BP 124/75
[2018-05-21 16:24] LABS: ALANINE AMINOTRANSFERASE 26 U/L (12-78); ALBUMIN 3.2 G/DL (3.4-5.0); ALBUMIN/GLOBULIN RATIO 0.8 (1.0-2.7); ALKALINE PHOSPHATASE 81 U/L (46-116); ANION GAP 8 mmol/L (5-15); ASPARTATE AMINO TRANSFERASE 28 U/L (15-37); BILIRUBIN,TOTAL 0.7 MG/DL (0.2-1.0); BLOOD UREA NITROGEN 16 mg/dL (7-18); CALCIUM 9.3 MG/DL (8.5-10.1); CARBON DIOXIDE 24 MMOL/L (21-32); CHLORIDE 103 MMOL/L (98-107); CREATININE 1.2 MG/DL (0.55-1.30); POTASSIUM 4.1 MMOL/L (3.5-5.1); SODIUM 135 MMOL/L (136-145)
[2018-05-21] MEDS ORDERED: SEROQUEL50 MG ORAL (17:01)
--- NOTE | 2018-05-22 04:45 | Progress Note ---
DATE: 05/21/2018 CARDIOLOGY PROGRESS NOTE SUBJECTIVE: The patient has no chest pain or shortness of breath. He is yet to be transferred to a psych facility. His troponin levels have decreased to 0.222. His chemistry panel is within normal limits. Monitored rhythm sinus with rare atrial ectopics. OBJECTIVE: VITAL SIGNS: Blood pressure 126/75, pulse 92, and respirations 21. LUNGS: With clear breath sounds. CARDIAC: Regular rhythm and rate. Normal S1, S2 with no murmur. ABDOMEN: Soft. EXTREMITIES: No edema. IMPRESSION: 1. Cocaine-associated cardiomyopathy. 2. Acute myocardial infarction. 3. Acute on chronic systolic congestive heart failure, now compensated. 4. Permanent pacemaker. 5. Chronic kidney disease. 6. Hypertensive heart disease. 7. Angiotensin-converting enzyme inhibitor allergy. PLAN: 1. Stable for transfer to psych facility. 2. Maintain current cardiovascular regimen, but not giving beta-blockers in view of cocaine intoxication and risk of vasospasm. 3. Maintain anti-platelet therapy. Maxx Dominguez M.D. DR: CONSUELO JOB#: [id number] CC:
--- NOTE | 2018-05-22 10:00 | Discharge Summary ---
Discharge Summary Discharge Summary _ DATE OF ADMISSION: 05/19/2018 DATE OF DISCHARGE: 05/21/2018 CONSULTANTS: Dr. Joey Dominguez BRIEF HOSPITAL COURSE: Patient is a 57-year-old male, with history of schizophrenia, conduction system disease, status post pacemaker, history of substance abuse, who presented with complaints of altered mental status, agitation, and threatening behavior. He was brought in by police. Patient apparently had been threatening to hurt people and burn the houses down. He was agitated and combative. He was at the emergency room on February 2018 for similar presentation when he was intoxicated with cocaine and alcohol, at that time, he was admitted and was transferred to a psychiatric facility. On evaluation at ED, patient was threatening staff and was placed on restraints. He was given IV sedation. EKG showed sinus tachycardia. Chest x- ray showed cardiomegaly with pacemaker, no infiltrate or effusions. Blood work was without leukocytosis, but troponin was elevated to 0.609. He was given aspirin and nitroglycerin. Urine toxicology was positive for marijuana and cocaine. Sedation was successful, restraints were taken off. He was eventually admitted for further evaluation. He was provided a sitter. He underwent psychiatric evaluation. Patient was agitated and stated he ran out of money using drugs. He was homeless. He was diagnosed with substance abuse and schizoaffective disorder. Risperdal was discontinued. He was started on Seroquel 100 mg daily at bedtime and Depakote 500 mg twice a day. He underwent cardiac evaluation. Cardiac enzymes were monitored. He was given antiplatelet therapy and nitrates. Unable to give beta ivan in view of cocaine intoxication and risk of vasospasms. Unable to give EVERETT inhibitor's due to allergy. He had an echocardiogram done that showed ejection fraction of 15% with elevated PA systolic pressure and valvular regurgitation. Troponins down trended. He was cleared by psychiatrist to be not a danger to self or to others. Patient did not meet criteria for psychiatric hold. He was strongly counseled against drug use. He was given physical and occupational therapy. He was eventually cleared for discharge. FINAL DIAGNOSES: Acute myocardial infarction Cocaine abuse Cocaine associated cardiomyopathy Acute on chronic systolic congestive heart failure Permanent pacemaker Hypertension with hypertensive heart disease Acute on chronic kidney injury EVERETT inhibitor allergy Substance use disorder Schizoaffective disorder Homicidal ideation DISPOSITION: Patient was transferred to [facility]. I have been assigned to dictate discharge summary on this account, and I was not involved in the patient's management. Karen Cota NP May 22, 2018 10:00
== END 2018-05-21 18:30 | DRG 190 ==
LOC: EDBD 02:16 → EMR 02:27 → EDBEDREQ 03:47 → 2W 03:56 → EDBEDREQ 07:41 → 2W 10:00 → 2E 05-20 13:56
DX: I21.9 Acute myocardial infarction, unspecified (principal); I50.23 Acute on chronic systolic (congestive) heart failure; I42.8 Other cardiomyopathies; F25.9 Schizoaffective disorder, unspecified; I13.0 Hypertensive heart and chronic kidney disease with heart failure and stage 1 through stage 4 chronic kidney disease, or unspecified chronic kidney disease; N18.9 Chronic kidney disease, unspecified; F14.188 Cocaine abuse with other cocaine-induced disorder; Z95.0 Presence of cardiac pacemaker; Z88.8 Allergy status to other drugs, medicaments and biological substances; R45.850 Homicidal ideations; R45.1 Restlessness and agitation; Z59.0 Homelessness
CPT/HCPCS: 36415; 71045; 80053; 80061; 80307; 80329; 81003; 83735; 83880; 84443; 84484; 85025; 85610; 85730; 86140; 87081; 93005; 93306; 94664

== ENCOUNTER 2018-06-03 11:47 | Inpatient (IN) | payer MEDICAID ==
[~2018-06-03] VITALS: Ht 175.3 cm; Wt 81.6 kg
[~2018-06-03 11:47] MED LIST changes: +ALDACTONE25 MG ORAL; +CLONIDINE HCL0.1 MG PO; +COREG3.125 MG ORAL; +ELIQUIS5 MG PO; +FUROSEMIDE40 MG ORAL; +LOSARTAN POTASS25 MG ORAL; +NEURONTIN300 MG ORAL; +NORCO 10-325 T1 EACH ORAL; +QUETIAPINE FUMA25 MG ORAL; +RISPERDAL0.25 MG ORAL; +SEROQUEL50 MG ORAL
[2018-06-03 11:50] VITALS: BP 113/78
[2018-06-03] MEDS ORDERED: Ipratropium 0.02% Inh Soln 2.5ml UD HHN ONE (12:00)
[2018-06-03] MEDS ORDERED: Albuterol ud Inhalation HHN ONE (12:00)
[2018-06-03 12:44] LABS: BASOPHILS % (AUTO) 1.8 % (0.0-2.0); HEMOGLOBIN 15.2 G/DL (14.2-18.0); LYMPHOCYTES % (AUTO) 27.4 % (20.0-45.0); MEAN CORPUSCULAR VOLUME 93 FL (80-99); MONOCYTES % (AUTO) 11.7 % (1.0-10.0); NEUTROPHILS % (AUTO) 57.1 % (45.0-75.0); PLATELET COUNT 221 K/UL (150-450); RED BLOOD COUNT 5.04 M/UL (4.70-6.10); RED CELL DISTRIBUTION WIDTH 12.5 % (11.6-14.8); WHITE BLOOD COUNT 5.6 K/UL (4.8-10.8)
[2018-06-03 13:04] LABS: ALANINE AMINOTRANSFERASE 31 U/L (12-78); ALBUMIN/GLOBULIN RATIO 0.8 (1.0-2.7); ALKALINE PHOSPHATASE 89 U/L (46-116); ANION GAP 10 mmol/L (5-15); ASPARTATE AMINO TRANSFERASE 29 U/L (15-37); BILIRUBIN,TOTAL 0.5 MG/DL (0.2-1.0); BLOOD UREA NITROGEN 14 mg/dL (7-18); CALCIUM 8.9 MG/DL (8.5-10.1); CARBON DIOXIDE 23 MMOL/L (21-32); CHLORIDE 107 MMOL/L (98-107); CREATININE 1.3 MG/DL (0.55-1.30); POTASSIUM 4.1 MMOL/L (3.5-5.1); SODIUM 139 MMOL/L (136-145)
--- NOTE | 2018-06-03 13:29 | Diagnostic Imaging Report ---
Indication: Cough Comparison: None A single view chest radiograph was obtained. Findings: There is minimal interstitial density suggestive of edema. Correlate clinically. There is a pacemaker on the left side noted. The heart is enlarged. The aorta is mildly enlarged consistent with atherosclerotic vascular disease. The bones are osteopenic. Impression: Possible mild interstitial edema. Correlate clinically
[2018-06-03 13:58] LABS: CKMB 2.4 NG/ML (0.0-3.6)
[2018-06-03 14:41] LABS: APPEARANCE,URINE CLEAR; BILIRUBIN, URINE NEGATIVE (NEGATIVE); GLUCOSE, URINE (UA) NEGATIVE (NEGATIVE); KETONES,URINE NEGATIVE (NEGATIVE); LEUKOCYTE ESTERASE ,URINE 1+ (NEGATIVE); NITRITE,URINE NEGATIVE (NEGATIVE); PH,URINE 7 (4.5-8.0); PROTEIN,URINE NEGATIVE (NEGATIVE); UROBILINOGEN,URINE 1 MG/DL (0.0-1.0)
[2018-06-03 14:42] LABS: COLOR,URINE YELLOW
[2018-06-03] MEDS ORDERED: Solu-MEDROL 125mg Inj IVP ONE (15:00)
--- NOTE | 2018-06-03 15:07 | Emergency Room Report ---
History of Present Illness General Chief Complaint: Upper Respiratory Illness Source: Patient, Medical Record Present Illness HPI Patient presents emergency department today complaint 2-3 days of worsening shortness of breath. Patient apparently was recently admitted to the hospital for CHF and he signed out AMA. Patient has not been taking his medications and as result he is well worsening shortness breath leg swelling. He denies any fever. Denies any nausea vomiting diarrhea or chills. Symptoms noted to be moderate to severe. No other modifying factors. No other associated signs and symptoms. No other complaints were noted. Allergies: Coded Allergies: LISINOPRIL (Unverified Allergy, Unknown, 03/03/18) Patient History Past Medical History: HTN, CHF Past Surgical History: none Pertinent Family History: none Social History: Denies: smoking, alcohol use, drug use Reviewed Nursing Documentation: PMH: Agreed; PSxH: Agreed Nursing Documentation-PMH Hx Cardiac Problems: Yes - Pacemaker Hx Hypertension: No Review of Systems All Other Systems: negative except mentioned in HPI Physical Exam Vital Signs Date Time Temp Pulse Resp B/P (MAP) Pulse Ox O2 Delivery O2 Flow Rate FiO2 06/03/18 11:26 98.2 60 15 113/78 100 Room Air 98.2 06/03/18 12:14 21 Sp02 EP Interpretation: reviewed, normal General Appearance: alert, moderate distress Head: atraumatic Eyes: bilateral eye normal inspection ENT: normal ENT inspection, hearing grossly normal, normal voice Neck: normal inspection, full range of motion, supple, no bony tend Respiratory: decreased breath sounds, crackles - basilar, wheezing, expiration Cardiovascular #1: regular rate, rhythm, no edema Gastrointestinal: normal inspection, normal bowel sounds, non tender, soft, no guarding, no hernia Genitourinary: no CVA tenderness Musculoskeletal: normal inspection, back normal, normal range of motion Neurologic: normal inspection, alert, responsive, speech normal Psychiatric: normal inspection, memory normal, mood/affect normal, other - decreased insight Skin: normal inspection, normal color, no rash Medical Decision Making Diagnostic Impression: Primary Impression: Acute exacerbation of CHF (congestive heart failure) Additional Impression: COPD (chronic obstructive pulmonary disease) with acute bronchitis ER Course Patient presents emergency department today complaining of shortness of breath. Differential diagnoses include acute pneumonia, CHF, acute coronary syndrome, pneumothorax, asthma, COPD flare, just to name a few.Given the severity of the patient's presentation I felt this is a highly complex patient. This patient required extensive workup. Patient laboratory workup shows evidence of CHF. Patient was given Lasix. Patient was given albuterol and Atrovent as well as signed Medrol. Given severe he patient's presentation of fatty signed out AMA and poor compliance of felt the patient require admission to the hospital. Case was discussed with Dr. Anne Guillory for admission. Labs Test 06/03/18 12:26 06/03/18 14:30 White Blood Count 5.6 K/UL (4.8-10.8) Red Blood Count 5.04 M/UL (4.70-6.10) Hemoglobin 15.2 G/DL (14.2-18.0) Hematocrit 47.0 % (42.0-52.0) Mean Corpuscular Volume 93 FL (80-99) Mean Corpuscular Hemoglobin 30.1 PG (27.0-31.0) Mean Corpuscular Hemoglobin Concent 32.4 G/DL (32.0-36.0) Red Cell Distribution Width 12.5 % (11.6-14.8) Platelet Count 221 K/UL (150-450) Mean Platelet Volume 5.7 FL (6.5-10.1) Neutrophils (%) (Auto) 57.1 % (45.0-75.0) Lymphocytes (%) (Auto) 27.4 % (20.0-45.0) Monocytes (%) (Auto) 11.7 % (1.0-10.0) Eosinophils (%) (Auto) 2.0 % (0.0-3.0) Basophils (%) (Auto) 1.8 % (0.0-2.0) Sodium Level 139 MMOL/L (136-145) Potassium Level 4.1 MMOL/L (3.5-5.1) Chloride Level 107 MMOL/L (98-107) Carbon Dioxide Level 23 MMOL/L (21-32) Anion Gap 10 mmol/L (5-15) Blood Urea Nitrogen 14 mg/dL (7-18) Creatinine 1.3 MG/DL (0.55-1.30) Estimat Glomerular Filtration Rate > 60 mL/min (>60) Glucose Level 87 MG/DL (74-106) Calcium Level 8.9 MG/DL (8.5-10.1) Total Bilirubin 0.5 MG/DL (0.2-1.0) Aspartate Amino Transf (AST/SGOT) 29 U/L (15-37) Alanine Aminotransferase (ALT/SGPT) 31 U/L (12-78) Alkaline Phosphatase 89 U/L (46-116) Creatine Kinase MB 2.4 NG/ML (0.0-3.6) Troponin I 0.072 ng/mL (0.000-0.056) Pro-B-Type Natriuretic Peptide 1638 pg/mL (0-125) Total Protein 6.7 G/DL (6.4-8.2) Albumin 3.0 G/DL (3.4-5.0) Globulin 3.7 g/dL Albumin/Globulin Ratio 0.8 (1.0-2.7) Urine Color Yellow Urine Appearance Clear Urine pH 7 (4.5-8.0) Urine Specific Almo 1.005 (1.005-1.035) Urine Protein Negative (NEGATIVE) Urine Glucose (UA) Negative (NEGATIVE) Urine Ketones Negative (NEGATIVE) Urine Blood Negative (NEGATIVE) Urine Nitrite Negative (NEGATIVE) Urine Bilirubin Negative (NEGATIVE) Urine Urobilinogen 1 MG/DL (0.0-1.0) Urine Leukocyte Esterase 1+ (NEGATIVE) Urine RBC 0 /HPF (0 - 0) Urine WBC 2-4 /HPF (0 - 0) Urine Squamous Epithelial Cells None /LPF (NONE/OCC) Urine Bacteria None /HPF (NONE) EKG Diagnostic Results Rate: normal Rhythm: NSR ST Segments: no acute changes Rhythm Strip Diag. Results EP Interpretation: yes Rate: 90 Rhythm: NSR, no PVC's, no ectopy Chest X-Ray Diagnostic Results Chest X-Ray Diagnostic Results : Chest X-Ray Ordered: Yes # of Views/Limited/Complete: 1 View Indication: Shortness of Breath EP Interpretation: Yes Interpretation: no consolidation, no effusion, no pneumothorax, other - pulmonary congestion Impression: Other - mild CHF Electronically Signed by: Electronically signed by Travon Hercules MD Last Vital Signs Date Time Temp Pulse Resp B/P (MAP) Pulse Ox O2 Delivery O2 Flow Rate FiO2 06/03/18 12:29 65 22 100 Room Air 21 06/03/18 11:50 98.2 113/78 98.2 Status: improved Disposition: ADMITTED INPATIENT Condition: Serious Referrals: [facility],REFERRING (PCP) Travon Hercules MD Jun 03, 2018 15:07
--- NOTE | 2018-06-03 16:49 | Cardiac Electrophysiology PN ---
Subjective Subjective Dictated [id number] Objective Last 24 Hour Vital Signs Date Time Temp Pulse Resp B/P (MAP) Pulse Ox O2 Delivery O2 Flow Rate FiO2 06/03/18 12:29 65 22 100 Room Air 21 06/03/18 12:14 62 19 99 Room Air 21 06/03/18 12:10 62 21 Room Air 06/03/18 11:50 60 15 Room Air 06/03/18 11:50 98.2 89 15 113/78 100 Room Air 98.2 06/03/18 11:26 98.2 60 15 113/78 100 Room Air 98.2 Laboratory Tests Test 06/03/18 12:26 06/03/18 14:30 White Blood Count 5.6 K/UL (4.8-10.8) Red Blood Count 5.04 M/UL (4.70-6.10) Hemoglobin 15.2 G/DL (14.2-18.0) Hematocrit 47.0 % (42.0-52.0) Mean Corpuscular Volume 93 FL (80-99) Mean Corpuscular Hemoglobin 30.1 PG (27.0-31.0) Mean Corpuscular Hemoglobin Concent 32.4 G/DL (32.0-36.0) Red Cell Distribution Width 12.5 % (11.6-14.8) Platelet Count 221 K/UL (150-450) Mean Platelet Volume 5.7 FL (6.5-10.1) L Neutrophils (%) (Auto) 57.1 % (45.0-75.0) Lymphocytes (%) (Auto) 27.4 % (20.0-45.0) Monocytes (%) (Auto) 11.7 % (1.0-10.0) H Eosinophils (%) (Auto) 2.0 % (0.0-3.0) Basophils (%) (Auto) 1.8 % (0.0-2.0) Sodium Level 139 MMOL/L (136-145) Potassium Level 4.1 MMOL/L (3.5-5.1) Chloride Level 107 MMOL/L (98-107) Carbon Dioxide Level 23 MMOL/L (21-32) Anion Gap 10 mmol/L (5-15) Blood Urea Nitrogen 14 mg/dL (7-18) Creatinine 1.3 MG/DL (0.55-1.30) Estimat Glomerular Filtration Rate > 60 mL/min (>60) Glucose Level 87 MG/DL (74-106) Calcium Level 8.9 MG/DL (8.5-10.1) Total Bilirubin 0.5 MG/DL (0.2-1.0) Aspartate Amino Transf (AST/SGOT) 29 U/L (15-37) Alanine Aminotransferase (ALT/SGPT) 31 U/L (12-78) Alkaline Phosphatase 89 U/L (46-116) Creatine Kinase MB 2.4 NG/ML (0.0-3.6) Troponin I 0.072 ng/mL (0.000-0.056) Pro-B-Type Natriuretic Peptide 1638 pg/mL (0-125) H Total Protein 6.7 G/DL (6.4-8.2) Albumin 3.0 G/DL (3.4-5.0) L Globulin 3.7 g/dL Albumin/Globulin Ratio 0.8 (1.0-2.7) L Urine Color Yellow Urine Appearance Clear Urine pH 7 (4.5-8.0) Urine Specific [place] 1.005 (1.005-1.035) Urine Protein Negative (NEGATIVE) Urine Glucose (UA) Negative (NEGATIVE) Urine Ketones Negative (NEGATIVE) Urine Blood Negative (NEGATIVE) Urine Nitrite Negative (NEGATIVE) Urine Bilirubin Negative (NEGATIVE) Urine Urobilinogen 1 MG/DL (0.0-1.0) H Urine Leukocyte Esterase 1+ (NEGATIVE) H Urine RBC 0 /HPF (0 - 0) Urine WBC 2-4 /HPF (0 - 0) Urine Squamous Epithelial Cells None /LPF (NONE/OCC) Urine Bacteria None /HPF (NONE) Microbiology Date/Time Source Procedure Growth Status 06/03/18 16:00 Rectum Received Mitch Butt MD Jun 03, 2018 16:48
[2018-06-03 17:00] VITALS: BP 121/85
[2018-06-03] MEDS ORDERED: HYDROcodone/Acetamin 10/325 tab ORAL PRN (17:00)
[2018-06-03] MEDS: Eliquis 2.5mg tablet ORAL SCH (17:55)
[2018-06-03 20:00] VITALS: BP 132/83
--- NOTE | 2018-06-03 20:30 | Consultation ---
DATE OF CONSULTATION: 06/03/2018 CARDIOLOGY CONSULTATION CONSULTING PHYSICIAN: Mitch Butt M.D. REFERRING PHYSICIAN: Anne Calzada M.D. REASON FOR CONSULTATION: Evaluation of the patient's defibrillator, management of congestive heart failure. HISTORY OF PRESENT ILLNESS: The patient is a 57-year-old gentleman with history of hypertension and severe cardiomyopathy, who had undergone a [employer] defibrillator implantation by ne as well in [facility]. The patient presented to the emergency room for increasing shortness of breath. The patient was recently admitted to the hospital for CHF and signed out against medical advice. The patient states that he has not been taking his medication and is currently homeless. The patient admits that he did use cocaine yesterday. REVIEW OF SYSTEMS: Negative other than what was mentioned in history of present illness. ALLERGIES: He is allergic to lisinopril. PAST MEDICAL HISTORY: 1. Hypertension. 2. Congestive heart failure. 3. Status post [employer] defibrillator implantation. 4. History of bipolar disorder. FAMILY HISTORY: Noncontributory. SOCIAL HISTORY: He is homeless. Continues to use cocaine. PHYSICAL EXAMINATION: VITAL SIGNS: Blood pressure 139/78, pulse is 70, respirations 18, and he is afebrile. HEAD AND NECK: Shows mild JVD. LUNGS: Clear. CARDIOVASCULAR: Shows regular S1 and S2 with no gallop or murmur. CHEST: Defibrillator in left subclavian is intact. ABDOMEN: Soft. EXTREMITIES: No pitting edema. LABORATORY AND DIAGNOSTIC DATA: Labs show white count of 5.6, hemoglobin 15, hematocrit 47. Sodium 139, potassium 4.1, BUN of 14, creatinine 1.3. Troponin is 0.072. ASSESSMENT AND PLAN: 1. Troponin elevation. The patient has history of chronic troponin leak. On May 21, troponin was 0.22 and on May 20, it was 0.49. This is likely due to congestive heart failure. His BNP is 1638. We will start the patient on Coreg and Aldactone as well as hydralazine and nitrate as he states he is allergic to lisinopril. We will give him also Lasix 40 mg IV b.i.d. 2. Status post [employer] defibrillator implantation. We will interrogate defibrillator for further evaluation. 3. Substance abuse with cocaine. Avoid beta-ivan for active cocaine use. Thank you very much, Dr. Calzada, for allowing me to participate in the care of this patient. Please do not hesitate to contact me for any questions regarding my evaluation. Mitch Butt M.D. DR: Saroj JOB#: [id number] CC:
[2018-06-03] MEDS: HydrALAZINE 25mg tab ORAL SCH (21:00)
[2018-06-03 21:48] VITALS: BP 121/82
[2018-06-04] VITALS (7 sets, daily range): BP systolic 109–139; BP diastolic 67–81
[2018-06-04 07:26] LABS: HEMATOCRIT 48.5 % (42.0-52.0); HEMOGLOBIN 16.3 G/DL (14.2-18.0); MEAN CORPUSCULAR VOLUME 92 FL (80-99); PLATELET COUNT 267 K/UL (150-450); RED BLOOD COUNT 5.27 M/UL (4.70-6.10); RED CELL DISTRIBUTION WIDTH 12.6 % (11.6-14.8); WHITE BLOOD COUNT 10.3 K/UL (4.8-10.8)
[2018-06-04 07:45] LABS: ALANINE AMINOTRANSFERASE 31 U/L (12-78); ALBUMIN 3.2 G/DL (3.4-5.0); ALBUMIN/GLOBULIN RATIO 0.7 (1.0-2.7); ALKALINE PHOSPHATASE 89 U/L (46-116); ANION GAP 12 mmol/L (5-15); ASPARTATE AMINO TRANSFERASE 23 U/L (15-37); BILIRUBIN,TOTAL 0.5 MG/DL (0.2-1.0); BLOOD UREA NITROGEN 21 mg/dL (7-18); CALCIUM 9.2 MG/DL (8.5-10.1); CARBON DIOXIDE 23 MMOL/L (21-32); CHLORIDE 101 MMOL/L (98-107); CREATININE 1.5 MG/DL (0.55-1.30); POTASSIUM 3.8 MMOL/L (3.5-5.1); SODIUM 136 MMOL/L (136-145)
[2018-06-04] MEDS: Aspirin EC 81mg tab ORAL SCH (08:45)
[2018-06-04] MEDS: HydrALAZINE 25mg tab ORAL SCH ×2 (08:45→21:00)
[2018-06-04] MEDS: Spironolactone 25mg tab ORAL SCH (08:45)
[2018-06-04] MEDS: Eliquis 2.5mg tablet ORAL SCH ×2 (08:45→17:21)
[2018-06-04] MEDS: Losartan 25mg tab ORAL SCH (08:45)
[2018-06-04] MEDS ORDERED: Furosemide 40mg tab ORAL SCH (09:00)
--- NOTE | 2018-06-04 09:10 | Pulmonology Progress Note ---
Assessment/Plan Assessment/Plan Pulmonary Consultation HPI Patient presents emergency dep artment today complaint 2-3 days of worsening shortness of breath. Patient apparently was recently admitted to the hospital for CHF and he signed out AMA. Patient has not been taking his medications and as result he is well worsening shortness breath leg swelling. He denies any fever. Denies any nausea vomiting diarrhea or chills. Symptoms noted to be moderate to severe. No other modifying factors. No other associated signs and symptoms. No other complaints were noted. PMH: COPD, Hypertension, severe cardiomyopathy, previous ICD, Bipolar Disorder. The patient was recently admitted to the hospital for CHF and signed out against medical advice. The patient has not been taking his medication and is currently homeless. H/o cocaine use. Allergies: LISINOPRIL Patient History Past Medical History: HTN, CHF Past Surgical History: none Pertinent Family History: none Social History: Denies: smoking, alcohol use, drug use Reviewed Nursing Documentation: PMH: Agreed; PSxH: Agreed Review of Systems All Other Systems: negative except mentioned in HPI Physical Exam Vital Signs Date Time Temp Pulse Resp B/P (MAP) Pulse Ox O2 Delivery O2 Flow Rate FiO2 06/03/18 11:26 98.2 60 15 113/78 100 Room Air 98.2 06/03/18 12:14 21 Sp02 EP Interpretation: reviewed, normal General Appearance: alert, moderate distress Head: atraumatic Eyes: bilateral eye normal inspection ENT: normal ENT inspection, hearing grossly normal, normal voice Neck: normal inspection, full range of motion, supple, no bony tend Respiratory: decreased breath sounds, crackles - basilar, wheezing, expiration Cardiovascular #1: regular rate, rhythm, no edema Gastrointestinal: normal inspection, normal bowel sounds, non tender, soft, no guarding, no hernia Genitourinary: no CVA tenderness Musculoskeletal: normal inspection, back normal, normal range of motion Neurologic: normal inspection, alert, responsive, speech normal Psychiatric: normal inspection, memory normal, mood/affect normal, other - decreased insight Skin: normal inspection, normal color, no rash Assessment Acute exacerbation of CHF (congestive heart failure) Cardiomyopathy S/p ICD COPD (chronic obstructive pulmonary disease) with acute bronchitis Bipolar disorder Plan Diuresis PRN per Cardiology Oxygen for O2 sats 90-96% PRN Albuterol/Atrovent HHN Continue Solumedrol, wean as tolerated PPX: Heparin Labs Test 06/03/18 12:26 06/03/18 14:30 White Blood Count 5.6 K/UL (4.8-10.8) Red Blood Count 5.04 M/UL (4.70-6.10) Hemoglobin 15.2 G/DL (14.2-18.0) Hematocrit 47.0 % (42.0-52.0) Mean Corpuscular Volume 93 FL (80-99) Mean Corpuscular Hemoglobin 30.1 PG (27.0-31.0) Mean Corpuscular Hemoglobin Concent 32.4 G/DL (32.0-36.0) Red Cell Distribution Width 12.5 % (11.6-14.8) Platelet Count 221 K/UL (150-450) Mean Platelet Volume 5.7 FL (6.5-10.1) Neutrophils (%) (Auto) 57.1 % (45.0-75.0) Lymphocytes (%) (Auto) 27.4 % (20.0-45.0) Monocytes (%) (Auto) 11.7 % (1.0-10.0) Eosinophils (%) (Auto) 2.0 % (0.0-3.0) Basophils (%) (Auto) 1.8 % (0.0-2.0) Sodium Level 139 MMOL/L (136-145) Potassium Level 4.1 MMOL/L (3.5-5.1) Chloride Level 107 MMOL/L (98-107) Carbon Dioxide Level 23 MMOL/L (21-32) Anion Gap 10 mmol/L (5-15) Blood Urea Nitrogen 14 mg/dL (7-18) Creatinine 1.3 MG/DL (0.55-1.30) Estimat Glomerular Filtration Rate > 60 mL/min (>60) Glucose Level 87 MG/DL (74-106) Calcium Level 8.9 MG/DL (8.5-10.1) Total Bilirubin 0.5 MG/DL (0.2-1.0) Aspartate Amino Transf (AST/SGOT) 29 U/L (15-37) Alanine Aminotransferase (ALT/SGPT) 31 U/L (12-78) Alkaline Phosphatase 89 U/L (46-116) Creatine Kinase MB 2.4 NG/ML (0.0-3.6) Troponin I 0.072 ng/mL (0.000-0.056) Pro-B-Type Natriuretic Peptide 1638 pg/mL (0-125) Total Protein 6.7 G/DL (6.4-8.2) Albumin 3.0 G/DL (3.4-5.0) Globulin 3.7 g/dL Albumin/Globulin Ratio 0.8 (1.0-2.7) Urine Color Yellow Urine Appearance Clear Urine pH 7 (4.5-8.0) Urine Specific [place] 1.005 (1.005-1.035) Urine Protein Negative (NEGATIVE) Urine Glucose (UA) Negative (NEGATIVE) Urine Ketones Negative (NEGATIVE) Urine Blood Negative (NEGATIVE) Urine Nitrite Negative (NEGATIVE) Urine Bilirubin Negative (NEGATIVE) Urine Urobilinogen 1 MG/DL (0.0-1.0) Urine Leukocyte Esterase 1+ (NEGATIVE) Urine RBC 0 /HPF (0 - 0) Urine WBC 2-4 /HPF (0 - 0) Urine Squamous Epithelial Cells None /LPF (NONE/OCC) Urine Bacteria None /HPF (NONE) EKG: Rate: normal Rhythm: NSR ST Segments: no acute changes Rate: 90 Rhythm: NSR, no PVC's, no ectopy Chest X-Ray Diagnostic Results : Chest X-Ray Ordered: Yes # of Views/Limited/Complete: 1 View Indication: Shortness of Breath EP Interpretation: Yes Interpretation: no consolidation, no effusion, no pneumothorax, other - pulmonary congestion Impression: Other - mild CHF Subjective ROS Limited/Unobtainable: No Respiratory: Reports: shortness of breath Allergies: Coded Allergies: LISINOPRIL (Unverified Allergy, Unknown, 03/03/18) Objective Last 24 Hour Vital Signs Date Time Temp Pulse Resp B/P (MAP) Pulse Ox O2 Delivery O2 Flow Rate FiO2 06/04/18 08:45 139/72 06/04/18 08:45 93 139/72 06/04/18 08:45 139/72 06/04/18 08:45 139/72 06/04/18 08:00 97.9 93 20 139/72 (94) 94 97.9 06/04/18 04:00 97.0 90 20 125/70 (88) 99 97.0 06/04/18 04:00 91 06/04/18 00:00 98.1 58 20 136/74 (94) 97 98.1 06/04/18 00:00 100 06/03/18 21:48 92 121/82 (95) 06/03/18 21:00 Room Air 06/03/18 20:00 101 06/03/18 20:00 98.4 89 20 132/83 (99) 97 98.4 06/03/18 17:30 Room Air 06/03/18 17:00 98.1 94 18 121/85 (97) 98 98.1 06/03/18 16:55 98.2 89 22 126/72 100 Room Air 21 98.2 06/03/18 16:30 98 06/03/18 12:29 65 22 100 Room Air 21 06/03/18 12:14 62 19 99 Room Air 21 06/03/18 12:10 62 21 Room Air 06/03/18 11:50 60 15 Room Air 06/03/18 11:50 98.2 89 15 113/78 100 Room Air 98.2 06/03/18 11:26 98.2 60 15 113/78 100 Room Air 98.2 Intake and Output 06/03/18 06/04/18 19:00 07:00 Intake Total 200 ml 600 ml Output Total 300 ml Balance -100 ml 600 ml Intake Oral 200 ml Other 600 ml Output Urine Total 300 ml # Voids 1 4 Microbiology Date/Time Source Procedure Growth Status 06/03/18 16:00 Rectum Received Laboratory Tests 06/03/18 12:26: White Blood Count 5.6, Red Blood Count 5.04, Hemoglobin 15.2, Hematocrit 47.0, Mean Corpuscular Volume 93, Mean Corpuscular Hemoglobin 30.1, Mean Corpuscular Hemoglobin Concent 32.4, Red Cell Distribution Width 12.5, Platelet Count 221, Mean Platelet Volume 5.7L, Neutrophils (%) (Auto) 57.1, Lymphocytes (%) (Auto) 27.4, Monocytes (%) (Auto) 11.7H, Eosinophils (%) (Auto) 2.0, Basophils (%) ( Auto) 1.8, Sodium Level 139, Potassium Level 4.1, Chloride Level 107, Carbon Dioxide Level 23, Anion Gap 10, Blood Urea Nitrogen 14, Creatinine 1.3, Estimat Glomerular Filtration Rate > 60, Glucose Level 87, Calcium Level 8.9, Total Bilirubin 0.5, Aspartate Amino Transf (AST/SGOT) 29, Alanine Aminotransferase ( ALT/SGPT) 31, Alkaline Phosphatase 89, Creatine Kinase MB 2.4, Troponin I 0.072H , Pro-B-Type Natriuretic Peptide 1638H, Total Protein 6.7, Albumin 3.0L, Globulin 3.7, Albumin/Globulin Ratio 0.8L 06/03/18 14:30: Urine Color Yellow, Urine Appearance Clear, Urine pH 7, Urine Specific [place] 1.005, Urine Protein Negative, Urine Glucose (UA) Negative, Urine Ketones Negative, Urine Blood Negative, Urine Nitrite Negative, Urine Bilirubin Negative , Urine Urobilinogen 1H, Urine Leukocyte Esterase 1+H, Urine RBC 0, Urine WBC 2- 4, Urine Squamous Epithelial Cells None, Urine Bacteria None 06/04/18 06:35: White Blood Count 10.3#, Red Blood Count 5.27, Hemoglobin 16.3, Hematocrit 48.5 , Mean Corpuscular Volume 92, Mean Corpuscular Hemoglobin 31.0, Mean Corpuscular Hemoglobin Concent 33.7, Red Cell Distribution Width 12.6, Platelet Count 267, Mean Platelet Volume 5.9L, Neutrophils (%) (Auto) , Lymphocytes (%) ( Auto) , Monocytes (%) (Auto) , Eosinophils (%) (Auto) , Basophils (%) (Auto) , Sodium Level 136, Potassium Level 3.8, Chloride Level 101, Carbon Dioxide Level 23, Anion Gap 12, Blood Urea Nitrogen 21H, Creatinine 1.5H, Estimat Glomerular Filtration Rate 58.4, Glucose Level 121H, Calcium Level 9.2, Total Bilirubin 0.5 , Aspartate Amino Transf (AST/SGOT) 23, Alanine Aminotransferase (ALT/SGPT) 31, Alkaline Phosphatase 89, Troponin I 0.042, Pro-B-Type Natriuretic Peptide 2667H , Total Protein 7.5, Albumin 3.2L, Globulin 4.3, Albumin/Globulin Ratio 0.7L, Neutrophils % (Manual) [Pending], Lymphocytes % (Manual) [Pending], Platelet Estimate [Pending], Platelet Morphology [Pending] Current Medications Medications (Trade) Dose Ordered Sig/[place] Route PRN Reason Start Time Stop Time Status Last Admin Dose Admin Acetaminophen (Tylenol) 650 mg Q4H PRN ORAL fever (temp>100.5F) 06/03/18 17:00 07/03/18 16:59 Acetaminophen/ Hydrocodone Bitart ([place] 10/325) 1 tab Q6H PRN ORAL For Pain 06/03/18 17:00 06/10/18 16:59 Apixaban (Eliquis) 5 mg BID ORAL 06/03/18 18:00 07/03/18 17:59 06/04/18 08:45 Aspirin (Ecotrin) 81 mg DAILY ORAL 06/04/18 09:00 07/04/18 08:59 06/04/18 08:45 Carvedilol (Coreg) 3.125 mg EVERY 12 HOURS ORAL 06/03/18 21:00 07/03/18 20:59 06/04/18 08:45 Dextrose (Dextrose 50%) 25 ml STAT PRN IV Hypoglycemia 06/03/18 17:00 07/03/18 16:59 Dextrose (Dextrose 50%) 50 ml STAT PRN IV Hypoglycemia 06/03/18 17:00 07/03/18 16:59 Furosemide (Lasix) 40 mg EVERY 12 HOURS IV 06/03/18 21:00 07/03/18 20:59 06/04/18 08:46 Gabapentin (Neurontin) 300 mg BEDTIME ORAL 06/03/18 21:00 07/03/18 20:59 06/03/18 21:49 Hydralazine HCl (Apresoline) 25 mg Q12HR ORAL 06/03/18 21:00 07/03/18 20:59 06/04/18 08:45 Isosorbide Dinitrate (Isordil) 10 mg Q12HR ORAL 06/03/18 21:00 07/03/18 20:59 06/04/18 08:45 Losartan Potassium (Cozaar) 25 mg DAILY ORAL 06/04/18 09:00 07/04/18 08:59 06/04/18 08:45 Quetiapine Fumarate (SEROquel) 25 mg BEDTIME ORAL 06/03/18 21:00 07/03/18 20:59 06/03/18 21:49 Risperidone (RisperDAL) 0.25 mg DAILY ORAL 06/04/18 09:00 07/04/18 08:59 06/04/18 08:44 Spironolactone (Aldactone) 25 mg DAILY ORAL 06/04/18 09:00 07/04/18 08:59 06/04/18 08:45 Maxx Ashley MD Jun 04, 2018 09:10
--- NOTE | 2018-06-04 12:10 | Cardiac Electrophysiology PN ---
Assessment/Plan Assessment/Plan 1. Troponin elevation. The patient has history of chronic troponin leak. On May 21, troponin was 0.22 and on May 20, it was 0.49. This is likely due to congestive heart failure. His BNP is 1638. Continue Aldactone as well as hydralazine and nitrate as he states he is allergic to lisinopril. We will give him also Lasix 40 mg IV b.i.d. Off betablocker for cocaine use 2. Status post [employer] defibrillator implantation. With Nl Fx 3. Substance abuse with cocaine. Avoid beta-ivan for active cocaine use. Subjective Subjective Feeling better. Objective Last 24 Hour Vital Signs Date Time Temp Pulse Resp B/P (MAP) Pulse Ox O2 Delivery O2 Flow Rate FiO2 06/04/18 09:00 Room Air 06/04/18 08:45 139/72 06/04/18 08:45 93 139/72 06/04/18 08:45 139/72 06/04/18 08:45 139/72 06/04/18 08:00 92 06/04/18 08:00 97.9 93 20 139/72 (94) 94 97.9 06/04/18 04:00 97.0 90 20 125/70 (88) 99 97.0 06/04/18 04:00 91 06/04/18 00:00 98.1 58 20 136/74 (94) 97 98.1 06/04/18 00:00 100 06/03/18 21:48 92 121/82 (95) 06/03/18 21:00 Room Air 06/03/18 20:00 101 06/03/18 20:00 98.4 89 20 132/83 (99) 97 98.4 06/03/18 17:30 Room Air 06/03/18 17:00 98.1 94 18 121/85 (97) 98 98.1 06/03/18 16:55 98.2 89 22 126/72 100 Room Air 21 98.2 06/03/18 16:30 98 06/03/18 12:29 65 22 100 Room Air 21 06/03/18 12:14 62 19 99 Room Air 21 06/03/18 12:10 62 21 Room Air Intake and Output 06/03/18 06/04/18 19:00 07:00 Intake Total 200 ml 600 ml Output Total 300 ml Balance -100 ml 600 ml Intake Oral 200 ml Other 600 ml Output Urine Total 300 ml # Voids 1 4 Laboratory Tests Test 06/03/18 12:26 06/03/18 14:30 06/04/18 06:35 White Blood Count 5.6 K/UL (4.8-10.8) 10.3 K/UL (4.8-10.8) # Red Blood Count 5.04 M/UL (4.70-6.10) 5.27 M/UL (4.70-6.10) Hemoglobin 15.2 G/DL (14.2-18.0) 16.3 G/DL (14.2-18.0) Hematocrit 47.0 % (42.0-52.0) 48.5 % (42.0-52.0) Mean Corpuscular Volume 93 FL (80-99) 92 FL (80-99) Mean Corpuscular Hemoglobin 30.1 PG (27.0-31.0) 31.0 PG (27.0-31.0) Mean Corpuscular Hemoglobin Concent 32.4 G/DL (32.0-36.0) 33.7 G/DL (32.0-36.0) Red Cell Distribution Width 12.5 % (11.6-14.8) 12.6 % (11.6-14.8) Platelet Count 221 K/UL (150-450) 267 K/UL (150-450) Mean Platelet Volume 5.7 FL (6.5-10.1) L 5.9 FL (6.5-10.1) L Neutrophils (%) (Auto) 57.1 % (45.0-75.0) % (45.0-75.0) Lymphocytes (%) (Auto) 27.4 % (20.0-45.0) % (20.0-45.0) Monocytes (%) (Auto) 11.7 % (1.0-10.0) H % (1.0-10.0) Eosinophils (%) (Auto) 2.0 % (0.0-3.0) % (0.0-3.0) Basophils (%) (Auto) 1.8 % (0.0-2.0) % (0.0-2.0) Sodium Level 139 MMOL/L (136-145) 136 MMOL/L (136-145) Potassium Level 4.1 MMOL/L (3.5-5.1) 3.8 MMOL/L (3.5-5.1) Chloride Level 107 MMOL/L (98-107) 101 MMOL/L (98-107) Carbon Dioxide Level 23 MMOL/L (21-32) 23 MMOL/L (21-32) Anion Gap 10 mmol/L (5-15) 12 mmol/L (5-15) Blood Urea Nitrogen 14 mg/dL (7-18) 21 mg/dL (7-18) H Creatinine 1.3 MG/DL (0.55-1.30) 1.5 MG/DL (0.55-1.30) H Estimat Glomerular Filtration Rate > 60 mL/min (>60) 58.4 mL/min (>60) Glucose Level 87 MG/DL (74-106) 121 MG/DL (74-106) H Calcium Level 8.9 MG/DL (8.5-10.1) 9.2 MG/DL (8.5-10.1) Total Bilirubin 0.5 MG/DL (0.2-1.0) 0.5 MG/DL (0.2-1.0) Aspartate Amino Transf (AST/SGOT) 29 U/L (15-37) 23 U/L (15-37) Alanine Aminotransferase (ALT/SGPT) 31 U/L (12-78) 31 U/L (12-78) Alkaline Phosphatase 89 U/L (46-116) 89 U/L (46-116) Creatine Kinase MB 2.4 NG/ML (0.0-3.6) Troponin I 0.072 ng/mL (0.000-0.056) 0.042 ng/mL (0.000-0.056) Pro-B-Type Natriuretic Peptide 1638 pg/mL (0-125) H 2667 pg/mL (0-125) H Total Protein 6.7 G/DL (6.4-8.2) 7.5 G/DL (6.4-8.2) Albumin 3.0 G/DL (3.4-5.0) L 3.2 G/DL (3.4-5.0) L Globulin 3.7 g/dL 4.3 g/dL Albumin/Globulin Ratio 0.8 (1.0-2.7) L 0.7 (1.0-2.7) L Urine Color Yellow Urine Appearance Clear Urine pH 7 (4.5-8.0) Urine Specific [place] 1.005 (1.005-1.035) Urine Protein Negative (NEGATIVE) Urine Glucose (UA) Negative (NEGATIVE) Urine Ketones Negative (NEGATIVE) Urine Blood Negative (NEGATIVE) Urine Nitrite Negative (NEGATIVE) Urine Bilirubin Negative (NEGATIVE) Urine Urobilinogen 1 MG/DL (0.0-1.0) H Urine Leukocyte Esterase 1+ (NEGATIVE) H Urine RBC 0 /HPF (0 - 0) Urine WBC 2-4 /HPF (0 - 0) Urine Squamous Epithelial Cells None /LPF (NONE/OCC) Urine Bacteria None /HPF (NONE) Differential Total Cells Counted 100 Neutrophils % (Manual) 87 % (45-75) H Lymphocytes % (Manual) 9 % (20-45) L Monocytes % (Manual) 4 % (1-10) Eosinophils % (Manual) 0 % (0-3) Basophils % (Manual) 0 % (0-2) Band Neutrophils 0 % (0-8) Platelet Estimate Adequate Platelet Morphology Normal Red Blood Cell Morphology Normal Microbiology Date/Time Source Procedure Growth Status 06/03/18 16:00 Rectum Received Objective HEAD AND NECK: No JVD. LUNGS: Clear. CARDIOVASCULAR: Shows regular S1 and S2 with no gallop or murmur. CHEST: Defibrillator in left subclavian is intact. ABDOMEN: Soft. EXTREMITIES: No pitting edema. Mitch Butt MD Jun 04, 2018 12:10
--- NOTE | 2018-06-04 19:20 | Cardiology Report ---
APPROVED REPORT EKG Measurement Heart [id number] Normal sinus rhythm Voltage criteria for left ventricular hypertrophy Nonspecific T wave abnormality Prolonged QT Abnormal ECG
--- NOTE | 2018-06-04 22:23 | Consultation ---
History of Present Illness General Date patient seen: Jun 04, 2018 Chief Complaint: Upper Respiratory Illness Present Illness HPI 57-year-old male with history of hypertension and severe cardiomyopathy, who pw anxiety agitation and depressed mood. the pt stated that he has been drinking and has been noncompliant with his meds Allergies: Coded Allergies: LISINOPRIL (Unverified Allergy, Unknown, 03/03/18) Medication History Scheduled Apixaban (Eliquis), 5 MG PO BID, (Reported) Carvedilol (Coreg), 3.125 MG ORAL EVERY 12 HOURS, (Reported) Carvedilol (Coreg), 3.125 MG ORAL EVERY 12 HOURS, (Reported) Furosemide* (Lasix*), 40 MG ORAL DAILY, (Reported) Gabapentin (Neurontin), 300 MG ORAL BEDTIME, (Reported) Gabapentin (Neurontin), 300 MG ORAL THREE TIMES A DAY, (Reported) Ibuprofen* (Motrin*), 600 MG PO TID Losartan Potassium* (Losartan Potassium*), 25 MG ORAL DAILY, (Reported) Quetiapine Fumarate (Seroquel), 25 MG ORAL BEDTIME, (Reported) Quetiapine Fumarate* (Seroquel*), 25 MG ORAL DAILY, (Reported) Risperidone* (Risperdal*), 0.25 MG ORAL DAILY, (Reported) Spironolactone (Aldactone), 25 MG ORAL DAILY, (Reported) Scheduled PRN Hydrocodone Bit/Acetaminophen 10-325* ([place] 10-325*), 1 TAB ORAL Q6H PRN for For Pain, (Reported) Miscellaneous Medications Apixaban (Eliquis), 5 MG PO, (Reported) Clonidine Hcl (Clonidine Hcl), 0.1 MG PO, (Reported) Patient History History Provided By: Patient, Medical Record, PMD Healthcare decision maker Resuscitation status Advanced Directive on File Past Medical/Surgical History Past Medical/Surgical History: (1) COPD (chronic obstructive pulmonary disease) with acute bronchitis (2) ACS (acute coronary syndrome) (3) Acute exacerbation of CHF (congestive heart failure) (4) Acute kidney injury (5) Chronic paranoid schizophrenia (6) Pacemaker Review of Systems Psychiatric: Reports: prior hx, anxiety, depressed feelings Physical Exam General Appearance: no apparent distress, alert Neurologic: oriented x 3, responsive, depressed affect Last 24 Hour Vital Signs Date Time Temp Pulse Resp B/P (MAP) Pulse Ox O2 Delivery O2 Flow Rate FiO2 06/04/18 21:21 100 109/81 (90) 06/04/18 16:00 97 06/04/18 15:59 97.9 100 20 112/67 (82) 95 97.9 06/04/18 12:00 96 06/04/18 12:00 97.0 99 20 126/68 (87) 96 97.0 06/04/18 09:00 Room Air 06/04/18 08:45 139/72 06/04/18 08:45 93 139/72 06/04/18 08:45 139/72 06/04/18 08:45 139/72 06/04/18 08:00 92 06/04/18 08:00 97.9 93 20 139/72 (94) 94 97.9 06/04/18 04:00 97.0 90 20 125/70 (88) 99 97.0 06/04/18 04:00 91 06/04/18 00:00 98.1 58 20 136/74 (94) 97 98.1 06/04/18 00:00 100 Intake and Output 06/03/18 06/04/18 19:00 07:00 Intake Total 200 ml 600 ml Output Total 300 ml Balance -100 ml 600 ml Intake Oral 200 ml Other 600 ml Output Urine Total 300 ml # Voids 1 4 Laboratory Tests Test 06/04/18 06:35 White Blood Count 10.3 K/UL (4.8-10.8) # Red Blood Count 5.27 M/UL (4.70-6.10) Hemoglobin 16.3 G/DL (14.2-18.0) Hematocrit 48.5 % (42.0-52.0) Mean Corpuscular Volume 92 FL (80-99) Mean Corpuscular Hemoglobin 31.0 PG (27.0-31.0) Mean Corpuscular Hemoglobin Concent 33.7 G/DL (32.0-36.0) Red Cell Distribution Width 12.6 % (11.6-14.8) Platelet Count 267 K/UL (150-450) Mean Platelet Volume 5.9 FL (6.5-10.1) L Neutrophils (%) (Auto) % (45.0-75.0) Lymphocytes (%) (Auto) % (20.0-45.0) Monocytes (%) (Auto) % (1.0-10.0) Eosinophils (%) (Auto) % (0.0-3.0) Basophils (%) (Auto) % (0.0-2.0) Differential Total Cells Counted 100 Neutrophils % (Manual) 87 % (45-75) H Lymphocytes % (Manual) 9 % (20-45) L Monocytes % (Manual) 4 % (1-10) Eosinophils % (Manual) 0 % (0-3) Basophils % (Manual) 0 % (0-2) Band Neutrophils 0 % (0-8) Platelet Estimate Adequate Platelet Morphology Normal Red Blood Cell Morphology Normal Sodium Level 136 MMOL/L (136-145) Potassium Level 3.8 MMOL/L (3.5-5.1) Chloride Level 101 MMOL/L (98-107) Carbon Dioxide Level 23 MMOL/L (21-32) Anion Gap 12 mmol/L (5-15) Blood Urea Nitrogen 21 mg/dL (7-18) H Creatinine 1.5 MG/DL (0.55-1.30) H Estimat Glomerular Filtration Rate 58.4 mL/min (>60) Glucose Level 121 MG/DL (74-106) H Calcium Level 9.2 MG/DL (8.5-10.1) Total Bilirubin 0.5 MG/DL (0.2-1.0) Aspartate Amino Transf (AST/SGOT) 23 U/L (15-37) Alanine Aminotransferase (ALT/SGPT) 31 U/L (12-78) Alkaline Phosphatase 89 U/L (46-116) Troponin I 0.042 ng/mL (0.000-0.056) Pro-B-Type Natriuretic Peptide 2667 pg/mL (0-125) H Total Protein 7.5 G/DL (6.4-8.2) Albumin 3.2 G/DL (3.4-5.0) L Globulin 4.3 g/dL Albumin/Globulin Ratio 0.7 (1.0-2.7) L Height (Feet): 5 Height (Inches): 9.00 Weight (Pounds): 182 Medications Current Medications Medications (Trade) Dose Ordered Sig/[place] Route PRN Reason Start Time Stop Time Status Last Admin Dose Admin Acetaminophen (Tylenol) 650 mg Q4H PRN ORAL fever (temp>100.5F) 06/03/18 17:00 07/03/18 16:59 Acetaminophen/ Hydrocodone Bitart ([place] 10/325) 1 tab Q6H PRN ORAL For Pain 06/03/18 17:00 06/10/18 16:59 Apixaban (Eliquis) 5 mg BID ORAL 06/03/18 18:00 07/03/18 17:59 06/04/18 17:21 Aspirin (Ecotrin) 81 mg DAILY ORAL 06/04/18 09:00 07/04/18 08:59 06/04/18 08:45 Carvedilol (Coreg) 3.125 mg EVERY 12 HOURS ORAL 06/03/18 21:00 07/03/18 20:59 06/04/18 08:45 Dextrose (Dextrose 50%) 25 ml STAT PRN IV Hypoglycemia 06/03/18 17:00 07/03/18 16:59 Dextrose (Dextrose 50%) 50 ml STAT PRN IV Hypoglycemia 06/03/18 17:00 07/03/18 16:59 Furosemide (Lasix) 40 mg EVERY 12 HOURS IV 06/03/18 21:00 07/03/18 20:59 06/04/18 21:15 Gabapentin (Neurontin) 300 mg BEDTIME ORAL 06/03/18 21:00 07/03/18 20:59 06/04/18 21:15 Hydralazine HCl (Apresoline) 25 mg Q12HR ORAL 06/03/18 21:00 07/03/18 20:59 06/04/18 08:45 Isosorbide Dinitrate (Isordil) 10 mg Q12HR ORAL 06/03/18 21:00 07/03/18 20:59 06/04/18 08:45 Losartan Potassium (Cozaar) 25 mg DAILY ORAL 06/04/18 09:00 07/04/18 08:59 06/04/18 08:45 Quetiapine Fumarate (SEROquel) 25 mg BEDTIME ORAL 06/03/18 21:00 07/03/18 20:59 06/04/18 21:15 Risperidone (RisperDAL) 0.25 mg DAILY ORAL 06/04/18 09:00 07/04/18 08:59 06/04/18 08:44 Spironolactone (Aldactone) 25 mg DAILY ORAL 06/04/18 09:00 07/04/18 08:59 06/04/18 08:45 Assessment/Plan Assessment/Plan bipolar d/o cont stephanieoJoey Marroquin dc, MD Jun 04, 2018 22:23
[2018-06-05] VITALS: BP 107/74
--- NOTE | 2018-06-05 01:45 | History and Physical Report ---
DATE OF ADMISSION: 06/03/2018 HISTORY OF PRESENT ILLNESS: The patient is admitted for chest pain, rule out acute coronary syndrome. The patient also has been having shortness of breath for three days. He sleeps on one pillow at night. The patient has been having worsening edema in the lower extremity and also diagnosis of CHF as well. The patient has history of UT in the past with a high risk of CAD and hyperlipidemia. The patient also has history of COPD. Troponin was borderline elevated, also has a pacemaker. The patient admitted for CHF exacerbation, chest pain, rule out acute coronary syndrome. PAST MEDICAL HISTORY: History of atrial fibrillation, hypertension, psychosis, CHF, CAD, hyperlipidemia, status post UT, neuropathy, chronic pain syndrome, degenerative joint disease, and atrial fibrillation. PAST SURGICAL HISTORY: Left knee arthroplasty surgery and pacemaker. ALLERGIES: Lisinopril. MEDICATIONS: Eliquis, Coreg, Lasix, Neurontin, Motrin, losartan, Seroquel, Aldactone. FAMILY HISTORY: Noncontributory. SOCIAL HISTORY: History of smoking, history of drug abuse. No history of alcohol abuse. REVIEW OF SYSTEMS: HEENT: Denies headaches. RESPIRATORY: Reports shortness of breath. Denies cough. CARDIOVASCULAR: Does have chest pain x1 day. GASTROINTESTINAL: Denies nausea, vomiting, or diarrhea. heartburn. EXTREMITY: Denies pain in the lower extremity. CENTRAL NERVOUS SYSTEM: Denies changes in vision or speech pattern. PHYSICAL EXAMINATION: VITAL SIGNS: Temperature is 98.1 degrees, pulse , blood pressure 136/74. HEENT: PERRLA. NECK: Supple. No lymphadenopathy. CHEST: Clear to auscultation. CARDIOVASCULAR: Regular rate and rhythm. GASTROINTESTINAL: Soft, nontender, and nondistended. No organomegaly. EXTREMITY: A 1+ edema in the lower extremities. Dorsal pedal pulses are present in both sides. He is able move all extremities. The patient does have some pain in the left knee, which is chronic. He is able to moves all extremities otherwise. LABORATORY AND DIAGNOSTIC DATA: WBC of 5.6, hemoglobin 15.2, and platelets of 221. Sodium 139, potassium 4.1, BUN 14, creatinine 1.3, and glucose of 87. BNP of 1638. ASSESSMENT AND PLAN: Significant EKG changes. The patient has a pacemaker and CHF exacerbation, chest pain, rule out acute coronary syndrome, has history of COPD. I have asked Dr. Tristan Dr. , Dr. Thorne to see the patient for the above-mentioned diagnoses and treatment. Anne Calzada M.D. DR: JOHN JOB#: [id number] CC:
[2018-06-05 04:00] VITALS: BP 107/73
[2018-06-05 08:00] VITALS: BP 121/75
[2018-06-05] MEDS: Spironolactone 25mg tab ORAL SCH (09:25)
[2018-06-05] MEDS: HydrALAZINE 25mg tab ORAL SCH ×2 (09:26→21:17)
[2018-06-05] MEDS: Aspirin EC 81mg tab ORAL SCH (09:26)
[2018-06-05] MEDS: Eliquis 2.5mg tablet ORAL SCH ×2 (09:26→19:10)
[2018-06-05] MEDS: Losartan 25mg tab ORAL SCH (09:26)
--- NOTE | 2018-06-05 10:27 | Cardiac Electrophysiology PN ---
Assessment/Plan Assessment/Plan 1.Chronic Troponin elevation. On May 21, troponin was 0.22 and on May 20 , it was 0.49. This is likely due to congestive heart failure. His BNP is 1638. Continue Aldactone , hydralazine and nitrate as he states he is allergic to lisinopril and Lasix 40 mg IV b.i.d. Off betablocker for cocaine use 2. Status post [employer] defibrillator implantation. With Nl Fx 3. Substance abuse with cocaine. Avoid beta-ivan for active cocaine use. Subjective Subjective Diuresing. No CP or SOB Objective Last 24 Hour Vital Signs Date Time Temp Pulse Resp B/P (MAP) Pulse Ox O2 Delivery O2 Flow Rate FiO2 06/05/18 09:26 121/75 06/05/18 09:26 121/75 06/05/18 09:25 89 121/75 06/05/18 09:25 121/75 06/05/18 08:00 97.3 92 20 121/75 (90) 97 97.3 06/05/18 08:00 89 06/05/18 04:00 97.9 95 18 107/73 (84) 96 97.9 06/05/18 04:00 88 06/05/18 00:00 98.1 91 20 107/74 (85) 96 98.1 06/05/18 00:00 94 06/04/18 21:21 100 109/81 (90) 06/04/18 21:00 Room Air 06/04/18 20:00 98.2 92 20 121/80 (94) 96 98.2 06/04/18 20:00 89 06/04/18 16:00 97 06/04/18 15:59 97.9 100 20 112/67 (82) 95 97.9 06/04/18 12:00 96 06/04/18 12:00 97.0 99 20 126/68 (87) 96 97.0 Intake and Output 06/04/18 06/05/18 19:00 07:00 Intake Total 720 ml Output Total 1300 ml 375 ml Balance -580 ml -375 ml Intake Oral 720 ml Output Urine Total 1300 ml 375 ml # Voids 4 Microbiology Date/Time Source Procedure Growth Status 06/03/18 16:00 Nasal Nares MRSA Culture - Final NO METHICILLIN RESISTANT STAPH AUREUS... Complete 06/03/18 16:00 Rectum - Final NO CARBAPENEM-RESISTANT ENTEROBACTERI... Complete 06/03/18 16:00 Rectum VRE Culture - Final NO VANCOMYCIN RESISTANT ENTEROCOCCUS ... Complete Objective HEAD AND NECK: No JVD. LUNGS: Clear. CARDIOVASCULAR: Shows regular S1 and S2 with no gallop or murmur. CHEST: Defibrillator in left subclavian is intact. ABDOMEN: Soft. EXTREMITIES: No pitting edema. Mitch Butt MD Jun 05, 2018 10:27
[2018-06-05 12:00] VITALS: BP 102/70
--- NOTE | 2018-06-05 14:59 | Pulmonology Progress Note ---
Assessment/Plan Problems: (1) Acute kidney injury (2) Acute exacerbation of CHF (congestive heart failure) (3) ACS (acute coronary syndrome) (4) COPD (chronic obstructive pulmonary disease) with acute bronchitis (5) Chronic paranoid schizophrenia (6) Pacemaker Assessment/Plan Optimize pulmonary hygiene/mobilize as tolerated PRN O2 RTC and PRN ATROVENT HHN Monitor volumes and renal function, cautious diuresis Aspiration precautions DVT Px: Eliquis Needs outpatient pulmonary follow up, needs PFT's, needs a screening CT chest Subjective Allergies: Coded Allergies: LISINOPRIL (Unverified Allergy, Unknown, 03/03/18) Subjective -955, AFVSS, stable on RA, Cr 1.5 + SOB, no wheezing, no cough, no CP, no F/C Objective Last 24 Hour Vital Signs Date Time Temp Pulse Resp B/P (MAP) Pulse Ox O2 Delivery O2 Flow Rate FiO2 06/05/18 12:00 95 06/05/18 09:26 121/75 06/05/18 09:26 121/75 06/05/18 09:25 89 121/75 06/05/18 09:25 121/75 06/05/18 09:00 Room Air 06/05/18 08:00 97.3 92 20 121/75 (90) 97 97.3 06/05/18 08:00 89 06/05/18 04:00 97.9 95 18 107/73 (84) 96 97.9 06/05/18 04:00 88 06/05/18 00:00 98.1 91 20 107/74 (85) 96 98.1 06/05/18 00:00 94 06/04/18 21:21 100 109/81 (90) 06/04/18 21:00 Room Air 06/04/18 20:00 98.2 92 20 121/80 (94) 96 98.2 06/04/18 20:00 89 06/04/18 16:00 97 06/04/18 15:59 97.9 100 20 112/67 (82) 95 97.9 Intake and Output 06/04/18 06/05/18 19:00 07:00 Intake Total 720 ml Output Total 1300 ml 375 ml Balance -580 ml -375 ml Intake Oral 720 ml Output Urine Total 1300 ml 375 ml # Voids 4 General Appearance: WD/WN, no acute distress HEENT: normocephalic, atraumatic, anicteric, mucous membranes moist Respiratory/Chest: chest wall non-tender, lungs clear, normal breath sounds - but decreased @ bases Cardiovascular: normal peripheral pulses, normal rate, regular rhythm Abdomen: normal bowel sounds, soft, non tender, no organomegaly, non distended , no mass Extremities: no cyanosis, no clubbing, no edema Microbiology Date/Time Source Procedure Growth Status 06/03/18 16:00 Nasal Nares MRSA Culture - Final NO METHICILLIN RESISTANT STAPH AUREUS... Complete 06/03/18 16:00 Rectum - Final NO CARBAPENEM-RESISTANT ENTEROBACTERI... Complete 06/03/18 16:00 Rectum VRE Culture - Final NO VANCOMYCIN RESISTANT ENTEROCOCCUS ... Complete Current Medications Medications (Trade) Dose Ordered Sig/[place] Route PRN Reason Start Time Stop Time Status Last Admin Dose Admin Acetaminophen (Tylenol) 650 mg Q4H PRN ORAL fever (temp>100.5F) 06/03/18 17:00 07/03/18 16:59 Acetaminophen/ Hydrocodone Bitart ([place] 10/325) 1 tab Q6H PRN ORAL For Pain 06/03/18 17:00 06/10/18 16:59 Apixaban (Eliquis) 5 mg BID ORAL 06/03/18 18:00 07/03/18 17:59 06/05/18 09:26 Aspirin (Ecotrin) 81 mg DAILY ORAL 06/04/18 09:00 07/04/18 08:59 06/05/18 09:26 Carvedilol (Coreg) 3.125 mg EVERY 12 HOURS ORAL 06/03/18 21:00 07/03/18 20:59 06/05/18 09:25 Dextrose (Dextrose 50%) 25 ml STAT PRN IV Hypoglycemia 06/03/18 17:00 07/03/18 16:59 Dextrose (Dextrose 50%) 50 ml STAT PRN IV Hypoglycemia 06/03/18 17:00 07/03/18 16:59 Furosemide (Lasix) 40 mg EVERY 12 HOURS IV 06/03/18 21:00 07/03/18 20:59 06/04/18 21:15 Gabapentin (Neurontin) 300 mg BEDTIME ORAL 06/03/18 21:00 07/03/18 20:59 06/04/18 21:15 Hydralazine HCl (Apresoline) 25 mg Q12HR ORAL 06/03/18 21:00 07/03/18 20:59 06/05/18 09:26 Ipratropium [place] (Atrovent) 500 mcg Q6HR PRN HHN Shortness of Breath 06/04/18 23:00 06/09/18 22:59 Isosorbide Dinitrate (Isordil) 10 mg Q12HR ORAL 06/03/18 21:00 07/03/18 20:59 06/05/18 09:25 Losartan Potassium (Cozaar) 25 mg DAILY ORAL 06/04/18 09:00 07/04/18 08:59 06/05/18 09:26 Quetiapine Fumarate (SEROquel) 25 mg BEDTIME ORAL 06/03/18 21:00 07/03/18 20:59 06/04/18 21:15 Risperidone (RisperDAL) 0.25 mg DAILY ORAL 06/04/18 09:00 07/04/18 08:59 06/05/18 09:25 Spironolactone (Aldactone) 25 mg DAILY ORAL 06/04/18 09:00 07/04/18 08:59 06/05/18 09:25 Ananda Vance MD Jun 05, 2018 14:59
[2018-06-05 20:00] VITALS: BP 98/71
--- NOTE | 2018-06-05 20:56 | General Progress Note ---
Assessment/Plan Problem List: (1) ACS (acute coronary syndrome) ICD Codes: I24.9 - Acute ischemic heart disease, unspecified SNOMED: 676989374 (2) Acute exacerbation of CHF (congestive heart failure) ICD Codes: I50.9 - Heart failure, unspecified SNOMED: 08746699 (3) Pacemaker ICD Codes: Z95.0 - Presence of cardiac pacemaker SNOMED: 361804764 (4) COPD (chronic obstructive pulmonary disease) with acute bronchitis ICD Codes: J44.0 - Chronic obstructive pulmonary disease with acute lower respiratory infection; J20.9 - Acute bronchitis, unspecified SNOMED: 920482720371020 Status: progressing Assessment/Plan sob is improving afebrile chf r/o acs reviewed chart and labs Subjective ROS Limited/Unobtainable: Yes Allergies: Coded Allergies: LISINOPRIL (Unverified Allergy, Unknown, 03/03/18) Objective Last 24 Hour Vital Signs Date Time Temp Pulse Resp B/P (MAP) Pulse Ox O2 Delivery O2 Flow Rate FiO2 06/05/18 20:39 93 102/70 06/05/18 19:49 93 20 Room Air 21 06/05/18 17:26 73 20 Room Air 21 06/05/18 16:00 98.1 86 20 97 98.1 06/05/18 16:00 101 06/05/18 12:00 95 06/05/18 12:00 98.1 73 20 102/70 (81) 100 98.1 06/05/18 09:26 121/75 06/05/18 09:26 121/75 06/05/18 09:25 89 121/75 06/05/18 09:25 121/75 06/05/18 09:00 Room Air 06/05/18 08:00 97.3 92 20 121/75 (90) 97 97.3 06/05/18 08:00 89 06/05/18 04:00 97.9 95 18 107/73 (84) 96 97.9 06/05/18 04:00 88 06/05/18 00:00 98.1 91 20 107/74 (85) 96 98.1 06/05/18 00:00 94 06/04/18 21:21 100 109/81 (90) 06/04/18 21:00 Room Air Intake and Output 06/04/18 06/05/18 19:00 07:00 Intake Total 720 ml Output Total 1300 ml 375 ml Balance -580 ml -375 ml Intake Oral 720 ml Output Urine Total 1300 ml 375 ml # Voids 4 Height (Feet): 5 Height (Inches): 9.00 Weight (Pounds): 174 Neck: supple Cardiovascular: normal rate Respiratory/Chest: lungs clear Abdomen: soft Anne Calzada MD Jun 05, 2018 20:56
--- NOTE | 2018-06-05 23:01 | General Progress Note ---
Assessment/Plan Status: stable Assessment/Plan bipolar d/o cont seroquel dc risperdal Subjective Date patient seen: Jun 05, 2018 Neurologic/Psychiatric: Reports: anxiety, depressed, emotional problems Allergies: Coded Allergies: LISINOPRIL (Unverified Allergy, Unknown, 03/03/18) Objective Last 24 Hour Vital Signs Date Time Temp Pulse Resp B/P (MAP) Pulse Ox O2 Delivery O2 Flow Rate FiO2 06/05/18 21:17 98/71 06/05/18 21:16 102/70 06/05/18 20:39 93 102/70 06/05/18 19:49 93 20 Room Air 21 06/05/18 17:26 73 20 Room Air 21 06/05/18 16:00 98.1 86 20 97 98.1 06/05/18 16:00 101 06/05/18 12:00 95 06/05/18 12:00 98.1 73 20 102/70 (81) 100 98.1 06/05/18 09:26 121/75 06/05/18 09:26 121/75 06/05/18 09:25 89 121/75 06/05/18 09:25 121/75 06/05/18 09:00 Room Air 06/05/18 08:00 97.3 92 20 121/75 (90) 97 97.3 06/05/18 08:00 89 06/05/18 04:00 97.9 95 18 107/73 (84) 96 97.9 06/05/18 04:00 88 06/05/18 00:00 98.1 91 20 107/74 (85) 96 98.1 06/05/18 00:00 94 Intake and Output 06/04/18 06/05/18 19:00 07:00 Intake Total 720 ml Output Total 1300 ml 375 ml Balance -580 ml -375 ml Intake Oral 720 ml Output Urine Total 1300 ml 375 ml # Voids 4 Height (Feet): 5 Height (Inches): 9.00 Weight (Pounds): 174 General Appearance: no apparent distress, alert Neurologic: oriented x 3, responsive, depressed affect Joey Bourgeois MD Jun 05, 2018 23:00
[2018-06-06] VITALS: BP 136/95
[2018-06-06] MEDS: Ipratropium 0.02% Inh Soln 2.5ml UD HHN PRN ×2 (00:21→14:44)
[2018-06-06 08:00] VITALS: BP 124/65
[2018-06-06] MEDS: Aspirin EC 81mg tab ORAL SCH (09:23)
[2018-06-06] MEDS: Spironolactone 25mg tab ORAL SCH (09:23)
[2018-06-06] MEDS: Eliquis 2.5mg tablet ORAL SCH ×2 (09:23→17:30)
[2018-06-06] MEDS: HydrALAZINE 25mg tab ORAL SCH (09:24)
[2018-06-06] MEDS: Losartan 25mg tab ORAL SCH (09:25)
--- NOTE | 2018-06-06 11:32 | Cardiac Electrophysiology PN ---
Assessment/Plan Assessment/Plan 1.Chronic Troponin elevation. This is likely due to congestive heart failure. His BNP is 1638. Continue Aldactone, Losartan 25 daily and Lasix 40 mg IV b.i.d. Off betablocker for cocaine use. He states he is allergic to lisinopri. DC hydralazine and nitrate 2. Status post [employer] defibrillator implantation. With Nl Fx 3. Substance abuse with cocaine. Avoid beta-ivan for active cocaine use. Subjective Subjective No CP or SOB. BP was low earlier Objective Last 24 Hour Vital Signs Date Time Temp Pulse Resp B/P (MAP) Pulse Ox O2 Delivery O2 Flow Rate FiO2 06/06/18 09:25 125/75 06/06/18 09:24 105 125/75 06/06/18 09:24 125/75 06/06/18 09:24 125/75 06/06/18 09:00 Room Air 06/06/18 08:00 98.1 46 20 124/65 (84) 100 98.1 06/06/18 06:50 88 136/95 06/06/18 04:00 88 06/06/18 00:31 68 18 99 Room Air 21 06/06/18 00:21 68 18 94 Room Air 21 06/06/18 00:00 104 06/06/18 00:00 97.7 52 18 136/95 (109) 100 97.7 06/05/18 21:17 98/71 06/05/18 21:16 102/70 06/05/18 21:00 Room Air 06/05/18 20:39 93 102/70 06/05/18 20:00 97 06/05/18 20:00 98.1 95 20 98/71 (80) 96 98.1 06/05/18 19:49 93 20 Room Air 21 06/05/18 17:26 73 20 Room Air 21 06/05/18 16:00 98.1 86 20 97 98.1 06/05/18 16:00 101 06/05/18 12:00 95 06/05/18 12:00 98.1 73 20 102/70 (81) 100 98.1 Intake and Output 06/05/18 06/06/18 19:00 07:00 Intake Total 480 ml 500 ml Output Total 450 ml 1200 ml Balance 30 ml -700 ml Intake Oral 480 ml 500 ml Output Urine Total 450 ml 1200 ml # Bowel Movements 1 Microbiology Date/Time Source Procedure Growth Status 06/03/18 16:00 Nasal Nares MRSA Culture - Final NO METHICILLIN RESISTANT STAPH AUREUS... Complete 06/03/18 16:00 Rectum - Final NO CARBAPENEM-RESISTANT ENTEROBACTERI... Complete 06/03/18 16:00 Rectum VRE Culture - Final NO VANCOMYCIN RESISTANT ENTEROCOCCUS ... Complete Objective HEAD AND NECK: No JVD. LUNGS: Clear. CARDIOVASCULAR: Shows regular S1 and S2 with no gallop or murmur. CHEST: Defibrillator in left subclavian is intact. ABDOMEN: Soft. EXTREMITIES: No pitting edema. Mitch Butt MD Jun 06, 2018 11:32
[2018-06-06 12:00] VITALS: BP 68/46
--- NOTE | 2018-06-06 14:42 | Pulmonology Progress Note ---
Assessment/Plan Problems: (1) Acute kidney injury (2) Acute exacerbation of CHF (congestive heart failure) (3) ACS (acute coronary syndrome) (4) COPD (chronic obstructive pulmonary disease) with acute bronchitis (5) Chronic paranoid schizophrenia (6) Pacemaker Assessment/Plan Recheck BP Optimize pulmonary hygiene/mobilize as tolerated PRN O2 PRN ATROVENT HHN Monitor volumes and renal function, cautious diuresis Repeat labs ordered F/U cards recs Aspiration precautions DVT Px: Eliquis Needs outpatient pulmonary follow up, needs PFT's, needs a screening CT chest D/W RN Subjective Allergies: Coded Allergies: LISINOPRIL (Unverified Allergy, Unknown, 03/03/18) Subjective JOS, sinus namita, one episode of decreased BP unclear if real, stable on RA, no labs today + SOB, no wheezing, no cough, no CP, no F/C Objective Last 24 Hour Vital Signs Date Time Temp Pulse Resp B/P (MAP) Pulse Ox O2 Delivery O2 Flow Rate FiO2 06/06/18 12:00 97.5 48 20 68/46 (53) 100 97.5 06/06/18 12:00 108 06/06/18 09:25 125/75 06/06/18 09:24 105 125/75 06/06/18 09:24 125/75 06/06/18 09:24 125/75 06/06/18 09:00 Room Air 06/06/18 08:00 98.1 46 20 124/65 (84) 100 98.1 06/06/18 08:00 103 06/06/18 06:50 88 136/95 06/06/18 04:00 88 06/06/18 00:31 68 18 99 Room Air 21 06/06/18 00:21 68 18 94 Room Air 21 06/06/18 00:00 104 06/06/18 00:00 97.7 52 18 136/95 (109) 100 97.7 06/05/18 21:17 98/71 06/05/18 21:16 102/70 06/05/18 21:00 Room Air 06/05/18 20:39 93 102/70 06/05/18 20:00 97 06/05/18 20:00 98.1 95 20 98/71 (80) 96 98.1 06/05/18 19:49 93 20 Room Air 21 06/05/18 17:26 73 20 Room Air 21 06/05/18 16:00 98.1 86 20 97 98.1 06/05/18 16:00 101 Intake and Output 06/05/18 06/06/18 19:00 07:00 Intake Total 480 ml 500 ml Output Total 450 ml 1200 ml Balance 30 ml -700 ml Intake Oral 480 ml 500 ml Output Urine Total 450 ml 1200 ml # Bowel Movements 1 General Appearance: WD/WN, no acute distress HEENT: normocephalic, atraumatic, anicteric, mucous membranes moist Respiratory/Chest: chest wall non-tender, lungs clear, normal breath sounds, no respiratory distress, no accessory muscle use Cardiovascular: bradycardia Abdomen: normal bowel sounds, soft, non tender, no organomegaly, non distended , no mass Extremities: no cyanosis, no clubbing, no edema Microbiology Date/Time Source Procedure Growth Status 06/03/18 16:00 Nasal Nares MRSA Culture - Final NO METHICILLIN RESISTANT STAPH AUREUS... Complete 06/03/18 16:00 Rectum - Final NO CARBAPENEM-RESISTANT ENTEROBACTERI... Complete 06/03/18 16:00 Rectum VRE Culture - Final NO VANCOMYCIN RESISTANT ENTEROCOCCUS ... Complete Current Medications Medications (Trade) Dose Ordered Sig/[place] Route PRN Reason Start Time Stop Time Status Last Admin Dose Admin Acetaminophen (Tylenol) 650 mg Q4H PRN ORAL fever (temp>100.5F) 06/03/18 17:00 07/03/18 16:59 Acetaminophen/ Hydrocodone Bitart ([place] 10/325) 1 tab Q6H PRN ORAL For Pain 06/03/18 17:00 06/10/18 16:59 Apixaban (Eliquis) 5 mg BID ORAL 06/03/18 18:00 07/03/18 17:59 06/06/18 09:23 Aspirin (Ecotrin) 81 mg DAILY ORAL 06/04/18 09:00 07/04/18 08:59 06/06/18 09:23 Carvedilol (Coreg) 3.125 mg EVERY 12 HOURS ORAL 06/03/18 21:00 07/03/18 20:59 06/06/18 09:24 Dextrose (Dextrose 50%) 25 ml STAT PRN IV Hypoglycemia 06/03/18 17:00 07/03/18 16:59 Dextrose (Dextrose 50%) 50 ml STAT PRN IV Hypoglycemia 06/03/18 17:00 07/03/18 16:59 Furosemide (Lasix) 40 mg EVERY 12 HOURS IV 06/03/18 21:00 07/03/18 20:59 06/06/18 09:25 Gabapentin (Neurontin) 300 mg BEDTIME ORAL 06/03/18 21:00 07/03/18 20:59 06/05/18 21:16 Ipratropium [place] (Atrovent) 500 mcg Q6HR PRN HHN Shortness of Breath 06/04/18 23:00 06/09/18 22:59 06/06/18 00:21 Losartan Potassium (Cozaar) 25 mg DAILY ORAL 06/04/18 09:00 07/04/18 08:59 06/06/18 09:25 Quetiapine Fumarate (SEROquel) 25 mg BEDTIME ORAL 06/03/18 21:00 07/03/18 20:59 06/05/18 21:18 Risperidone (RisperDAL) 0.25 mg DAILY ORAL 06/04/18 09:00 07/04/18 08:59 06/06/18 09:24 Spironolactone (Aldactone) 25 mg DAILY ORAL 06/04/18 09:00 07/04/18 08:59 06/06/18 09:23 Ananda Vance MD Jun 06, 2018 14:42
[2018-06-06 15:59] VITALS: BP 117/74
[2018-06-06 16:20] LABS: BASOPHILS % (AUTO) 2.1 % (0.0-2.0); EOSINOPHILS % (AUTO) 2.5 % (0.0-3.0); HEMATOCRIT 48.1 % (42.0-52.0); HEMOGLOBIN 16.4 G/DL (14.2-18.0); LYMPHOCYTES % (AUTO) 37.4 % (20.0-45.0); MEAN CORPUSCULAR VOLUME 93 FL (80-99); MONOCYTES % (AUTO) 10.9 % (1.0-10.0); NEUTROPHILS % (AUTO) 47.2 % (45.0-75.0); PLATELET COUNT 297 K/UL (150-450); RED BLOOD COUNT 5.16 M/UL (4.70-6.10); WHITE BLOOD COUNT 8.3 K/UL (4.8-10.8)
[2018-06-06 16:44] LABS: ALANINE AMINOTRANSFERASE 27 U/L (12-78); ALBUMIN 3.1 G/DL (3.4-5.0); ALBUMIN/GLOBULIN RATIO 0.9 (1.0-2.7); ALKALINE PHOSPHATASE 80 U/L (46-116); ANION GAP 6 mmol/L (5-15); ASPARTATE AMINO TRANSFERASE 15 U/L (15-37); BILIRUBIN,TOTAL 0.4 MG/DL (0.2-1.0); BLOOD UREA NITROGEN 22 mg/dL (7-18); CALCIUM 9.2 MG/DL (8.5-10.1); CARBON DIOXIDE 30 MMOL/L (21-32); CHLORIDE 103 MMOL/L (98-107); CREATININE 1.4 MG/DL (0.55-1.30); SODIUM 139 MMOL/L (136-145)
[2018-06-06 20:00] VITALS: BP 106/72
--- NOTE | 2018-06-06 21:38 | General Progress Note ---
Assessment/Plan Problem List: (1) ACS (acute coronary syndrome) ICD Codes: I24.9 - Acute ischemic heart disease, unspecified SNOMED: 153946645 (2) Acute exacerbation of CHF (congestive heart failure) ICD Codes: I50.9 - Heart failure, unspecified SNOMED: 39142602 (3) Pacemaker ICD Codes: Z95.0 - Presence of cardiac pacemaker SNOMED: 230231432 (4) COPD (chronic obstructive pulmonary disease) with acute bronchitis ICD Codes: J44.0 - Chronic obstructive pulmonary disease with acute lower respiratory infection; J20.9 - Acute bronchitis, unspecified SNOMED: 900597861874138 Status: progressing Assessment/Plan afebrile chf r/o acs no wheezinng resp insuff Subjective ROS Limited/Unobtainable: Yes Allergies: Coded Allergies: LISINOPRIL (Unverified Allergy, Unknown, 03/03/18) Objective Last 24 Hour Vital Signs Date Time Temp Pulse Resp B/P (MAP) Pulse Ox O2 Delivery O2 Flow Rate FiO2 06/06/18 20:00 93 06/06/18 20:00 97.0 93 20 106/72 (83) 98 97.0 06/06/18 19:45 90 117/74 06/06/18 16:00 90 06/06/18 15:59 96.6 97 20 117/74 (88) 100 96.6 06/06/18 14:49 97 18 99 Room Air 21 06/06/18 14:45 98 18 99 Room Air 21 06/06/18 12:00 97.5 48 20 68/46 (53) 100 97.5 06/06/18 12:00 108 06/06/18 09:25 125/75 06/06/18 09:24 105 125/75 06/06/18 09:24 125/75 06/06/18 09:24 125/75 06/06/18 09:00 Room Air 06/06/18 08:00 98.1 46 20 124/65 (84) 100 98.1 06/06/18 08:00 103 06/06/18 06:50 88 136/95 06/06/18 04:00 88 06/06/18 00:31 68 18 99 Room Air 21 06/06/18 00:21 68 18 94 Room Air 21 06/06/18 00:00 104 06/06/18 00:00 97.7 52 18 136/95 (109) 100 97.7 Intake and Output 06/05/18 06/06/18 19:00 07:00 Intake Total 480 ml 500 ml Output Total 450 ml 1200 ml Balance 30 ml -700 ml Intake Oral 480 ml 500 ml Output Urine Total 450 ml 1200 ml # Bowel Movements 1 Laboratory Tests 06/06/18 16:00: White Blood Count 8.3, Red Blood Count 5.16, Hemoglobin 16.4, Hematocrit 48.1, Mean Corpuscular Volume 93, Mean Corpuscular Hemoglobin 31.7H, Mean Corpuscular Hemoglobin Concent 34.1, Red Cell Distribution Width 13.0, Platelet Count 297, Mean Platelet Volume 5.8L, Neutrophils (%) (Auto) 47.2, Lymphocytes (%) (Auto) 37.4, Monocytes (%) (Auto) 10.9H, Eosinophils (%) (Auto) 2.5, Basophils (%) ( Auto) 2.1H, Sodium Level 139, Potassium Level 4.0, Chloride Level 103, Carbon Dioxide Level 30, Anion Gap 6, Blood Urea Nitrogen 22H, Creatinine 1.4H, Estimat Glomerular Filtration Rate > 60, Glucose Level 84, Calcium Level 9.2, Total Bilirubin 0.4, Aspartate Amino Transf (AST/SGOT) 15, Alanine Aminotransferase (ALT/SGPT) 27, Alkaline Phosphatase 80, Total Protein 6.7, Albumin 3.1L, Globulin 3.6, Albumin/Globulin Ratio 0.9L Height (Feet): 5 Height (Inches): 9.00 Weight (Pounds): 182 Cardiovascular: normal rate Respiratory/Chest: lungs clear Abdomen: soft Anne Calzada MD Jun 06, 2018 21:38
--- NOTE | 2018-06-06 23:18 | General Progress Note ---
Assessment/Plan Assessment/Plan bipolar d/o cont seroquel dc risperdal Subjective Date patient seen: Jun 06, 2018 Neurologic/Psychiatric: Reports: anxiety, depressed, emotional problems Allergies: Coded Allergies: LISINOPRIL (Unverified Allergy, Unknown, 03/03/18) Objective Last 24 Hour Vital Signs Date Time Temp Pulse Resp B/P (MAP) Pulse Ox O2 Delivery O2 Flow Rate FiO2 06/06/18 20:00 93 06/06/18 20:00 97.0 93 20 106/72 (83) 98 97.0 06/06/18 19:45 90 117/74 06/06/18 16:00 90 06/06/18 15:59 96.6 97 20 117/74 (88) 100 96.6 06/06/18 14:49 97 18 99 Room Air 21 06/06/18 14:45 98 18 99 Room Air 21 06/06/18 12:00 97.5 48 20 68/46 (53) 100 97.5 06/06/18 12:00 108 06/06/18 09:25 125/75 06/06/18 09:24 105 125/75 06/06/18 09:24 125/75 06/06/18 09:24 125/75 06/06/18 09:00 Room Air 06/06/18 08:00 98.1 46 20 124/65 (84) 100 98.1 06/06/18 08:00 103 06/06/18 06:50 88 136/95 06/06/18 04:00 88 06/06/18 00:31 68 18 99 Room Air 21 06/06/18 00:21 68 18 94 Room Air 21 06/06/18 00:00 104 06/06/18 00:00 97.7 52 18 136/95 (109) 100 97.7 Intake and Output 06/05/18 06/06/18 19:00 07:00 Intake Total 480 ml 500 ml Output Total 450 ml 1200 ml Balance 30 ml -700 ml Intake Oral 480 ml 500 ml Output Urine Total 450 ml 1200 ml # Bowel Movements 1 Laboratory Tests 06/06/18 16:00: White Blood Count 8.3, Red Blood Count 5.16, Hemoglobin 16.4, Hematocrit 48.1, Mean Corpuscular Volume 93, Mean Corpuscular Hemoglobin 31.7H, Mean Corpuscular Hemoglobin Concent 34.1, Red Cell Distribution Width 13.0, Platelet Count 297, Mean Platelet Volume 5.8L, Neutrophils (%) (Auto) 47.2, Lymphocytes (%) (Auto) 37.4, Monocytes (%) (Auto) 10.9H, Eosinophils (%) (Auto) 2.5, Basophils (%) ( Auto) 2.1H, Sodium Level 139, Potassium Level 4.0, Chloride Level 103, Carbon Dioxide Level 30, Anion Gap 6, Blood Urea Nitrogen 22H, Creatinine 1.4H, Estimat Glomerular Filtration Rate > 60, Glucose Level 84, Calcium Level 9.2, Total Bilirubin 0.4, Aspartate Amino Transf (AST/SGOT) 15, Alanine Aminotransferase (ALT/SGPT) 27, Alkaline Phosphatase 80, Total Protein 6.7, Albumin 3.1L, Globulin 3.6, Albumin/Globulin Ratio 0.9L Height (Feet): 5 Height (Inches): 9.00 Weight (Pounds): 182 General Appearance: no apparent distress, alert Neurologic: oriented x 3, responsive, depressed affect Joey Bourgeois MD Jun 06, 2018 23:18
[2018-06-07] VITALS: BP 110/59
[2018-06-07 08:01] VITALS: BP 116/66
[2018-06-07] MEDS: Spironolactone 25mg tab ORAL SCH (08:09)
[2018-06-07] MEDS: Aspirin EC 81mg tab ORAL SCH (08:10)
[2018-06-07] MEDS: Eliquis 2.5mg tablet ORAL SCH ×2 (08:10→17:00)
[2018-06-07] MEDS: Losartan 25mg tab ORAL SCH (08:11)
[2018-06-07 11:54] VITALS: BP 127/76
--- NOTE | 2018-06-07 12:20 | Pulmonology Progress Note ---
Assessment/Plan Problems: (1) Acute kidney injury (2) Acute exacerbation of CHF (congestive heart failure) (3) ACS (acute coronary syndrome) (4) COPD (chronic obstructive pulmonary disease) with acute bronchitis (5) Chronic paranoid schizophrenia (6) Pacemaker Assessment/Plan Optimize pulmonary hygiene/mobilize as tolerated PRN O2 PRN ATROVENT HHN Monitor volumes and renal function, cautious diuresi F/U cards recs Aspiration precautions DVT Px: Eliquis Needs outpatient pulmonary follow up, needs PFT's, needs a screening CT chest D/W RN Subjective Allergies: Coded Allergies: LISINOPRIL (Unverified Allergy, Unknown, 03/03/18) Subjective JOS, AFVSS, stable on RA Denies SOB, no wheezing, no cough, no CP, no F/C Objective Last 24 Hour Vital Signs Date Time Temp Pulse Resp B/P (MAP) Pulse Ox O2 Delivery O2 Flow Rate FiO2 06/07/18 11:54 97.7 51 20 127/76 (93) 98 97.7 06/07/18 09:39 94 20 Room Air 21 06/07/18 09:00 Room Air 06/07/18 08:11 116/66 06/07/18 08:01 97.7 86 20 116/66 (83) 98 97.7 06/07/18 04:00 88 06/07/18 04:00 89 06/07/18 00:00 97.5 90 22 110/59 (76) 96 97.5 06/07/18 00:00 98 06/07/18 00:00 90 06/06/18 22:16 90 20 Room Air 21 06/06/18 21:00 Room Air 06/06/18 20:00 93 06/06/18 20:00 97.0 93 20 106/72 (83) 98 97.0 06/06/18 19:45 90 117/74 06/06/18 16:00 90 06/06/18 15:59 96.6 97 20 117/74 (88) 100 96.6 06/06/18 14:49 97 18 99 Room Air 21 06/06/18 14:45 98 18 99 Room Air 21 Intake and Output 06/06/18 06/07/18 19:00 07:00 Intake Total 1250 ml Output Total 1100 ml 1100 ml Balance 150 ml -1100 ml Intake Oral 1250 ml Output Urine Total 1100 ml 1100 ml General Appearance: WD/WN, no acute distress HEENT: normocephalic, atraumatic, anicteric, mucous membranes moist Respiratory/Chest: chest wall non-tender, lungs clear, normal breath sounds, no respiratory distress, no accessory muscle use Cardiovascular: normal peripheral pulses, normal rate, regular rhythm Abdomen: normal bowel sounds, soft, non tender, no organomegaly, non distended , no mass Extremities: no cyanosis, no clubbing, no edema Laboratory Tests 06/06/18 16:00: White Blood Count 8.3, Red Blood Count 5.16, Hemoglobin 16.4, Hematocrit 48.1, Mean Corpuscular Volume 93, Mean Corpuscular Hemoglobin 31.7H, Mean Corpuscular Hemoglobin Concent 34.1, Red Cell Distribution Width 13.0, Platelet Count 297, Mean Platelet Volume 5.8L, Neutrophils (%) (Auto) 47.2, Lymphocytes (%) (Auto) 37.4, Monocytes (%) (Auto) 10.9H, Eosinophils (%) (Auto) 2.5, Basophils (%) ( Auto) 2.1H, Sodium Level 139, Potassium Level 4.0, Chloride Level 103, Carbon Dioxide Level 30, Anion Gap 6, Blood Urea Nitrogen 22H, Creatinine 1.4H, Estimat Glomerular Filtration Rate > 60, Glucose Level 84, Calcium Level 9.2, Total Bilirubin 0.4, Aspartate Amino Transf (AST/SGOT) 15, Alanine Aminotransferase (ALT/SGPT) 27, Alkaline Phosphatase 80, Total Protein 6.7, Albumin 3.1L, Globulin 3.6, Albumin/Globulin Ratio 0.9L Current Medications Medications (Trade) Dose Ordered Sig/[place]wat Route PRN Reason Start Time Stop Time Status Last Admin Dose Admin Acetaminophen (Tylenol) 650 mg Q4H PRN ORAL fever (temp>100.5F) 06/03/18 17:00 07/03/18 16:59 Acetaminophen/ Hydrocodone Bitart ([place] 10325) 1 tab Q6H PRN ORAL For Pain 06/03/18 17:00 06/10/18 16:59 Apixaban (Eliquis) 5 mg BID ORAL 06/03/18 18:00 07/03/18 17:59 06/07/18 08:10 Aspirin (Ecotrin) 81 mg DAILY ORAL 06/04/18 09:00 07/04/18 08:59 06/07/18 08:10 Carvedilol (Coreg) 3.125 mg EVERY 12 HOURS ORAL 06/03/18 21:00 07/03/18 20:59 06/06/18 19:45 Dextrose (Dextrose 50%) 25 ml STAT PRN IV Hypoglycemia 06/03/18 17:00 07/03/18 16:59 Dextrose (Dextrose 50%) 50 ml STAT PRN IV Hypoglycemia 06/03/18 17:00 07/03/18 16:59 Furosemide (Lasix) 40 mg EVERY 12 HOURS IV 06/03/18 21:00 07/03/18 20:59 06/07/18 08:10 Gabapentin (Neurontin) 300 mg BEDTIME ORAL 06/03/18 21:00 07/03/18 20:59 06/06/18 19:46 Ipratropium [place] (Atrovent) 500 mcg Q6HR PRN HHN Shortness of Breath 06/04/18 23:00 06/09/18 22:59 06/06/18 14:44 Losartan Potassium (Cozaar) 25 mg DAILY ORAL 06/04/18 09:00 07/04/18 08:59 06/06/18 09:25 Quetiapine Fumarate (SEROquel) 25 mg BEDTIME ORAL 06/03/18 21:00 07/03/18 20:59 06/06/18 19:46 Risperidone (RisperDAL) 0.25 mg DAILY ORAL 06/04/18 09:00 07/04/18 08:59 06/07/18 08:11 Spironolactone (Aldactone) 25 mg DAILY ORAL 06/04/18 09:00 07/04/18 08:59 06/07/18 08:09 Ananda Vance MD Jun 07, 2018 12:20
--- NOTE | 2018-06-07 13:12 | Cardiac Electrophysiology PN ---
Assessment/Plan Assessment/Plan 1.Chronic Troponin elevation likely due to congestive heart failure. His BNP is 1638. Continue Aldactone, Losartan 25 daily and Lasix 40 mg IV b.i.d. Off betablocker for cocaine use. He states he is allergic to lisinopril. 2. Status post [employer] defibrillator implantation. With Nl Fx 3. Substance abuse with cocaine. Avoid beta-ivan for active cocaine use. JULIEN RN DC today Subjective Subjective No CP or SOB. DC planning in progress Objective Last 24 Hour Vital Signs Date Time Temp Pulse Resp B/P (MAP) Pulse Ox O2 Delivery O2 Flow Rate FiO2 06/07/18 11:54 97.7 51 20 127/76 (93) 98 97.7 06/07/18 09:39 94 20 Room Air 21 06/07/18 09:00 Room Air 06/07/18 08:11 116/66 06/07/18 08:01 97.7 86 20 116/66 (83) 98 97.7 06/07/18 04:00 88 06/07/18 04:00 89 06/07/18 00:00 97.5 90 22 110/59 (76) 96 97.5 06/07/18 00:00 98 06/07/18 00:00 90 06/06/18 22:16 90 20 Room Air 21 06/06/18 21:00 Room Air 06/06/18 20:00 93 06/06/18 20:00 97.0 93 20 106/72 (83) 98 97.0 06/06/18 19:45 90 117/74 06/06/18 16:00 90 06/06/18 15:59 96.6 97 20 117/74 (88) 100 96.6 06/06/18 14:49 97 18 99 Room Air 21 06/06/18 14:45 98 18 99 Room Air 21 Intake and Output 06/06/18 06/07/18 19:00 07:00 Intake Total 1250 ml Output Total 1100 ml 1100 ml Balance 150 ml -1100 ml Intake Oral 1250 ml Output Urine Total 1100 ml 1100 ml Laboratory Tests Test 06/06/18 16:00 White Blood Count 8.3 K/UL (4.8-10.8) Red Blood Count 5.16 M/UL (4.70-6.10) Hemoglobin 16.4 G/DL (14.2-18.0) Hematocrit 48.1 % (42.0-52.0) Mean Corpuscular Volume 93 FL (80-99) Mean Corpuscular Hemoglobin 31.7 PG (27.0-31.0) H Mean Corpuscular Hemoglobin Concent 34.1 G/DL (32.0-36.0) Red Cell Distribution Width 13.0 % (11.6-14.8) Platelet Count 297 K/UL (150-450) Mean Platelet Volume 5.8 FL (6.5-10.1) L Neutrophils (%) (Auto) 47.2 % (45.0-75.0) Lymphocytes (%) (Auto) 37.4 % (20.0-45.0) Monocytes (%) (Auto) 10.9 % (1.0-10.0) H Eosinophils (%) (Auto) 2.5 % (0.0-3.0) Basophils (%) (Auto) 2.1 % (0.0-2.0) H Sodium Level 139 MMOL/L (136-145) Potassium Level 4.0 MMOL/L (3.5-5.1) Chloride Level 103 MMOL/L (98-107) Carbon Dioxide Level 30 MMOL/L (21-32) Anion Gap 6 mmol/L (5-15) Blood Urea Nitrogen 22 mg/dL (7-18) H Creatinine 1.4 MG/DL (0.55-1.30) H Estimat Glomerular Filtration Rate > 60 mL/min (>60) Glucose Level 84 MG/DL (74-106) Calcium Level 9.2 MG/DL (8.5-10.1) Total Bilirubin 0.4 MG/DL (0.2-1.0) Aspartate Amino Transf (AST/SGOT) 15 U/L (15-37) Alanine Aminotransferase (ALT/SGPT) 27 U/L (12-78) Alkaline Phosphatase 80 U/L (46-116) Total Protein 6.7 G/DL (6.4-8.2) Albumin 3.1 G/DL (3.4-5.0) L Globulin 3.6 g/dL Albumin/Globulin Ratio 0.9 (1.0-2.7) L Objective HEAD AND NECK: No JVD. LUNGS: Clear. CARDIOVASCULAR: Regular S1 and S2 with no gallop or murmur. CHEST: Defibrillator in left subclavian is intact. ABDOMEN: Soft. EXTREMITIES: No pitting edema. Mitch Butt MD Jun 07, 2018 13:12
--- NOTE | 2018-06-07 15:25 | General Progress Note ---
Assessment/Plan Problem List: (1) ACS (acute coronary syndrome) ICD Codes: I24.9 - Acute ischemic heart disease, unspecified SNOMED: 049449703 (2) Acute exacerbation of CHF (congestive heart failure) ICD Codes: I50.9 - Heart failure, unspecified SNOMED: 84351293 (3) Pacemaker ICD Codes: Z95.0 - Presence of cardiac pacemaker SNOMED: 585357981 (4) COPD (chronic obstructive pulmonary disease) with acute bronchitis ICD Codes: J44.0 - Chronic obstructive pulmonary disease with acute lower respiratory infection; J20.9 - Acute bronchitis, unspecified SNOMED: 119950559742484 Status: progressing Assessment/Plan sob improved no acute events chf improving reviewed chart and labs resp insuff Subjective ROS Limited/Unobtainable: Yes Allergies: Coded Allergies: LISINOPRIL (Unverified Allergy, Unknown, 03/03/18) Objective Last 24 Hour Vital Signs Date Time Temp Pulse Resp B/P (MAP) Pulse Ox O2 Delivery O2 Flow Rate FiO2 06/07/18 11:54 97.7 51 20 127/76 (93) 98 97.7 06/07/18 09:39 94 20 Room Air 21 06/07/18 09:00 Room Air 06/07/18 08:11 116/66 06/07/18 08:01 97.7 86 20 116/66 (83) 98 97.7 06/07/18 04:00 88 06/07/18 04:00 89 06/07/18 00:00 97.5 90 22 110/59 (76) 96 97.5 06/07/18 00:00 98 06/07/18 00:00 90 06/06/18 22:16 90 20 Room Air 21 06/06/18 21:00 Room Air 06/06/18 20:00 93 06/06/18 20:00 97.0 93 20 106/72 (83) 98 97.0 06/06/18 19:45 90 117/74 06/06/18 16:00 90 06/06/18 15:59 96.6 97 20 117/74 (88) 100 96.6 Intake and Output 06/06/18 06/07/18 19:00 07:00 Intake Total 1250 ml Output Total 1100 ml 1100 ml Balance 150 ml -1100 ml Intake Oral 1250 ml Output Urine Total 1100 ml 1100 ml Laboratory Tests 06/06/18 16:00: White Blood Count 8.3, Red Blood Count 5.16, Hemoglobin 16.4, Hematocrit 48.1, Mean Corpuscular Volume 93, Mean Corpuscular Hemoglobin 31.7H, Mean Corpuscular Hemoglobin Concent 34.1, Red Cell Distribution Width 13.0, Platelet Count 297, Mean Platelet Volume 5.8L, Neutrophils (%) (Auto) 47.2, Lymphocytes (%) (Auto) 37.4, Monocytes (%) (Auto) 10.9H, Eosinophils (%) (Auto) 2.5, Basophils (%) ( Auto) 2.1H, Sodium Level 139, Potassium Level 4.0, Chloride Level 103, Carbon Dioxide Level 30, Anion Gap 6, Blood Urea Nitrogen 22H, Creatinine 1.4H, Estimat Glomerular Filtration Rate > 60, Glucose Level 84, Calcium Level 9.2, Total Bilirubin 0.4, Aspartate Amino Transf (AST/SGOT) 15, Alanine Aminotransferase (ALT/SGPT) 27, Alkaline Phosphatase 80, Total Protein 6.7, Albumin 3.1L, Globulin 3.6, Albumin/Globulin Ratio 0.9L Height (Feet): 5 Height (Inches): 9.00 Weight (Pounds): 181 Cardiovascular: normal rate Respiratory/Chest: lungs clear Anne Calzada MD Jun 07, 2018 15:25
[2018-06-07 15:33] VITALS: BP 126/62
[2018-06-07 18:45] VITALS: BP 103/65
[2018-06-07] MEDS ORDERED: Ipratropium 0.02% Inh Soln 2.5ml UD HHN PRN (19:00)
[2018-06-07] MEDS ORDERED: HYDROcodone/Acetamin 10/325 tab ORAL PRN (19:00)
[2018-06-07 20:00] VITALS: BP 112/79
--- NOTE | 2018-06-07 23:59 | General Progress Note ---
Assessment/Plan Assessment/Plan bipolar d/o cont seroquel dc risperdal Subjective Neurologic/Psychiatric: Reports: anxiety, depressed, emotional problems Allergies: Coded Allergies: LISINOPRIL (Unverified Allergy, Unknown, 03/03/18) Objective Last 24 Hour Vital Signs Date Time Temp Pulse Resp B/P (MAP) Pulse Ox O2 Delivery O2 Flow Rate FiO2 06/07/18 21:00 Room Air 06/07/18 20:30 93 20 Room Air 21 06/07/18 20:00 98.1 96 17 112/79 (90) 98 98.1 06/07/18 18:45 98.6 77 18 103/65 (78) 98 98.6 06/07/18 16:00 97 06/07/18 15:33 97.3 49 20 126/62 (83) 97 97.3 06/07/18 12:00 95 06/07/18 11:54 97.7 51 20 127/76 (93) 98 97.7 06/07/18 09:39 94 20 Room Air 21 06/07/18 09:00 Room Air 06/07/18 08:11 116/66 06/07/18 08:01 97.7 86 20 116/66 (83) 98 97.7 06/07/18 08:00 93 06/07/18 04:00 88 06/07/18 04:00 89 06/07/18 00:00 97.5 90 22 110/59 (76) 96 97.5 06/07/18 00:00 98 06/07/18 00:00 90 Intake and Output 06/06/18 06/07/18 19:00 07:00 Intake Total 1250 ml Output Total 1100 ml 1100 ml Balance 150 ml -1100 ml Intake Oral 1250 ml Output Urine Total 1100 ml 1100 ml Height (Feet): 5 Height (Inches): 9.00 Weight (Pounds): 181 Joey Bourgeois MD Jun 07, 2018 23:59
[2018-06-08] VITALS: BP 114/68
[2018-06-08 08:00] VITALS: BP 106/65
[2018-06-08] MEDS: Spironolactone 25mg tab ORAL SCH ×2 (09:00→09:56)
[2018-06-08] MEDS: Losartan 25mg tab ORAL SCH (09:00)
[2018-06-08] MEDS: Aspirin EC 81mg tab ORAL SCH (09:55)
[2018-06-08] MEDS: Eliquis 2.5mg tablet ORAL SCH ×2 (09:56→17:01)
[2018-06-08 12:00] VITALS: BP 123/64
[2018-06-08 15:34] VITALS: BP 107/77
--- NOTE | 2018-06-08 16:11 | Cardiology Report ---
APPROVED REPORT EKG Measurement Heart [id number] Sinus tachycardia Right atrial enlargement Voltage criteria for left ventricular hypertrophy T wave abnormality, consider inferolateral ischemia Abnormal ECG
[2018-06-08 19:58] VITALS: BP 117/79
--- NOTE | 2018-06-08 21:20 | General Progress Note ---
Assessment/Plan Problem List: (1) ACS (acute coronary syndrome) ICD Codes: I24.9 - Acute ischemic heart disease, unspecified SNOMED: 495151923 (2) Acute exacerbation of CHF (congestive heart failure) ICD Codes: I50.9 - Heart failure, unspecified SNOMED: 44914566 (3) Pacemaker ICD Codes: Z95.0 - Presence of cardiac pacemaker SNOMED: 101708423 (4) COPD (chronic obstructive pulmonary disease) with acute bronchitis ICD Codes: J44.0 - Chronic obstructive pulmonary disease with acute lower respiratory infection; J20.9 - Acute bronchitis, unspecified SNOMED: 653430412200933 Status: progressing Assessment/Plan no sob no cp afebrile dc planning chf improving resp insuff Subjective ROS Limited/Unobtainable: Yes Allergies: Coded Allergies: LISINOPRIL (Unverified Allergy, Unknown, 03/03/18) Objective Last 24 Hour Vital Signs Date Time Temp Pulse Resp B/P (MAP) Pulse Ox O2 Delivery O2 Flow Rate FiO2 06/08/18 19:58 97.8 93 20 117/79 (92) 98 97.8 06/08/18 15:34 98.1 92 20 107/77 (87) 98 98.1 06/08/18 12:00 98.2 51 18 123/64 (83) 98 98.2 06/08/18 09:00 106/65 06/08/18 09:00 Room Air 06/08/18 08:00 98.0 50 18 106/65 (79) 95 98.0 06/08/18 00:00 98.3 96 18 114/68 (83) 95 98.3 Intake and Output 06/07/18 06/08/18 19:00 07:00 Intake Total 1520 ml 460 ml Output Total 1900 ml 800 ml Balance -380 ml -340 ml Intake Oral 1520 ml 460 ml Output Urine Total 1700 ml 800 ml Stool Total 200 ml Height (Feet): 5 Height (Inches): 9.00 Weight (Pounds): 173 Cardiovascular: normal rate Respiratory/Chest: lungs clear Abdomen: soft Anne Calzada MD Jun 08, 2018 21:20
[2018-06-09 04:00] VITALS: BP 107/69
[2018-06-09 08:00] VITALS: BP 114/71
[2018-06-09] MEDS: Losartan 25mg tab ORAL SCH (09:00)
[2018-06-09] MEDS: Aspirin EC 81mg tab ORAL SCH (09:42)
[2018-06-09] MEDS: Spironolactone 25mg tab ORAL SCH (09:42)
[2018-06-09] MEDS: Eliquis 2.5mg tablet ORAL SCH ×2 (09:42→17:50)
[2018-06-09 12:00] VITALS: BP 145/65
[2018-06-09] MEDS ORDERED: ASPIRIN-LOW81 MG ORAL (12:27)
--- NOTE | 2018-06-09 12:30 | Cardiac Electrophysiology PN ---
Assessment/Plan Assessment/Plan 1.Chronic Troponin elevation likely due to congestive heart failure. His BNP is 1638. Continue Aldactone, Losartan 25 daily and change Lasix to 40 mg po daily Off betablocker for cocaine use. He states he is allergic to lisinopril. 2. Status post [employer] defibrillator implantation. With Nl Fx 3. Substance abuse with cocaine. Avoid beta-ivan for active cocaine use. JULIEN RN Subjective Subjective No CP or SOB. Awaiting SNIF placement Objective Last 24 Hour Vital Signs Date Time Temp Pulse Resp B/P (MAP) Pulse Ox O2 Delivery O2 Flow Rate FiO2 06/09/18 12:00 98.0 90 20 145/65 (91) 100 98.0 06/09/18 09:00 114/71 06/09/18 08:15 Room Air 06/09/18 08:00 98.3 70 19 114/71 (85) 96 98.3 06/09/18 04:00 97.6 91 20 107/69 (82) 98 97.6 06/08/18 21:44 90 20 Room Air 21 06/08/18 21:00 Room Air 06/08/18 19:58 97.8 93 20 117/79 (92) 98 97.8 06/08/18 15:34 98.1 92 20 107/77 (87) 98 98.1 Intake and Output 06/08/18 06/09/18 19:00 07:00 Intake Total 740 ml 300 ml Output Total 1150 ml 900 ml Balance -410 ml -600 ml Intake Oral 740 ml 300 ml Output Urine Total 1150 ml 900 ml # Voids 3 # Bowel Movements 1 Objective HEAD AND NECK: No JVD. LUNGS: Clear. CARDIOVASCULAR: Regular S1 and S2 with no gallop or murmur. CHEST: Defibrillator in left subclavian is intact. ABDOMEN: Soft. EXTREMITIES: No edema. Mitch Butt MD Jun 09, 2018 12:30
[2018-06-09] MEDS ORDERED: FUROSEMIDE40 MG ORAL (12:31)
--- NOTE | 2018-06-09 13:08 | Pulmonology Progress Note ---
Assessment/Plan Problems: (1) Acute kidney injury (2) Acute exacerbation of CHF (congestive heart failure) (3) ACS (acute coronary syndrome) (4) COPD (chronic obstructive pulmonary disease) with acute bronchitis (5) Chronic paranoid schizophrenia (6) Pacemaker Assessment/Plan Optimize pulmonary hygiene/mobilize as tolerated PRN O2 PRN ATROVENT HHN Monitor volumes and renal function, PO lasix per cards F/U cards recs Aspiration precautions DVT Px: Eliquis Needs outpatient pulmonary follow up, needs PFT's, needs a screening CT chest Dispo planning to SNF D/W RN Subjective Allergies: Coded Allergies: LISINOPRIL (Unverified Allergy, Unknown, 03/03/18) Subjective JOS, AFVSS, stable on RA Denies SOB, no wheezing, no cough, no CP, no F/C Objective Last 24 Hour Vital Signs Date Time Temp Pulse Resp B/P (MAP) Pulse Ox O2 Delivery O2 Flow Rate FiO2 06/09/18 12:00 98.0 90 20 145/65 (91) 100 98.0 06/09/18 09:00 114/71 06/09/18 08:15 Room Air 06/09/18 08:00 98.3 70 19 114/71 (85) 96 98.3 06/09/18 04:00 97.6 91 20 107/69 (82) 98 97.6 06/08/18 21:44 90 20 Room Air 21 06/08/18 21:00 Room Air 06/08/18 19:58 97.8 93 20 117/79 (92) 98 97.8 06/08/18 15:34 98.1 92 20 107/77 (87) 98 98.1 Intake and Output 06/08/18 06/09/18 19:00 07:00 Intake Total 740 ml 300 ml Output Total 1150 ml 900 ml Balance -410 ml -600 ml Intake Oral 740 ml 300 ml Output Urine Total 1150 ml 900 ml # Voids 3 # Bowel Movements 1 General Appearance: WD/WN, no acute distress HEENT: normocephalic, atraumatic, anicteric, mucous membranes moist Respiratory/Chest: chest wall non-tender, lungs clear, normal breath sounds, no respiratory distress, no accessory muscle use Cardiovascular: normal peripheral pulses, normal rate, regular rhythm Abdomen: normal bowel sounds, soft, non tender, no organomegaly, non distended , no mass Extremities: no cyanosis, no clubbing, no edema Current Medications Medications (Trade) Dose Ordered Sig/[place] Route PRN Reason Start Time Stop Time Status Last Admin Dose Admin Acetaminophen (Tylenol) 650 mg Q4H PRN ORAL fever (temp>100.5F) 06/07/18 19:00 07/07/18 18:59 Acetaminophen/ Hydrocodone Bitart ([place] 10/325) 1 tab Q6H PRN ORAL For Pain 06/07/18 19:00 06/10/18 18:59 Apixaban (Eliquis) 5 mg BID ORAL 06/08/18 09:00 07/03/18 17:59 06/09/18 09:42 Aspirin (Ecotrin) 81 mg DAILY ORAL 06/08/18 09:00 07/04/18 08:59 06/09/18 09:42 Dextrose (Dextrose 50%) 25 ml STAT PRN IV Hypoglycemia 06/07/18 19:00 07/07/18 18:59 Dextrose (Dextrose 50%) 50 ml STAT PRN IV Hypoglycemia 06/07/18 19:00 07/07/18 18:59 Furosemide (Lasix) 40 mg DAILY ORAL 06/10/18 09:00 07/10/18 08:59 Gabapentin (Neurontin) 300 mg BEDTIME ORAL 06/07/18 21:00 07/03/18 20:59 06/08/18 20:28 Ipratropium [place] (Atrovent) 500 mcg Q6H PRN HHN Shortness of Breath 06/07/18 19:00 06/12/18 18:59 Losartan Potassium (Cozaar) 25 mg DAILY ORAL 06/08/18 09:00 07/04/18 08:59 Quetiapine Fumarate (SEROquel) 25 mg BEDTIME ORAL 06/07/18 21:00 07/03/18 20:59 06/08/18 20:28 Risperidone (RisperDAL) 0.25 mg DAILY ORAL 06/08/18 09:00 07/04/18 08:59 06/09/18 09:42 Spironolactone (Aldactone) 25 mg DAILY ORAL 06/08/18 09:00 07/04/18 08:59 06/09/18 09:42 Ananda Vance MD Jun 09, 2018 13:08
--- NOTE | 2018-06-09 15:09 | General Progress Note ---
Assessment/Plan Status: stable, progressing Assessment/Plan bipolar d/o cont Seroquel provided ro/st Subjective Date patient seen: Jun 09, 2018 Neurologic/Psychiatric: Reports: anxiety, depressed, emotional problems Allergies: Coded Allergies: LISINOPRIL (Unverified Allergy, Unknown, 03/03/18) Objective Last 24 Hour Vital Signs Date Time Temp Pulse Resp B/P (MAP) Pulse Ox O2 Delivery O2 Flow Rate FiO2 06/09/18 14:37 92 20 Room Air 21 06/09/18 12:00 98.0 90 20 145/65 (91) 100 98.0 06/09/18 09:00 114/71 06/09/18 08:15 Room Air 06/09/18 08:00 98.3 70 19 114/71 (85) 96 98.3 06/09/18 04:00 97.6 91 20 107/69 (82) 98 97.6 06/08/18 21:44 90 20 Room Air 21 06/08/18 21:00 Room Air 06/08/18 19:58 97.8 93 20 117/79 (92) 98 97.8 06/08/18 15:34 98.1 92 20 107/77 (87) 98 98.1 Intake and Output 06/08/18 06/09/18 19:00 07:00 Intake Total 740 ml 300 ml Output Total 1150 ml 900 ml Balance -410 ml -600 ml Intake Oral 740 ml 300 ml Output Urine Total 1150 ml 900 ml # Voids 3 # Bowel Movements 1 Height (Feet): 5 Height (Inches): 9.00 Weight (Pounds): 180 General Appearance: no apparent distress, alert Neurologic: oriented x 3, responsive, depressed affect Joey Bourgeois MD Jun 09, 2018 15:09
[2018-06-09 16:00] VITALS: BP 107/74
[2018-06-09 16:10] VITALS: BP 114/71
[2018-06-10] MEDS ORDERED: Furosemide 40mg tab ORAL SCH (09:00)
--- NOTE | 2018-06-12 14:44 | Discharge Summary ---
Discharge Summary Discharge Summary _ DATE OF ADMISSION: 06/03/2018 DATE OF DISCHARGE: 06/09/2018 CONSULTANTS: Dr. Jeoy Vance BRIEF HOSPITAL COURSE: Patient is a 57-year-old male who presented to ED complaining of 2-3 day worsening shortness of breath. He was recently admitted to the hospital for CHF when he signed out AGAINST MEDICAL ADVICE. Patient had not been taking his medications. He noted leg swelling and worsening shortness of breath. He denied any fever, no nausea, no vomiting, no diarrhea or chills. He has medical history significant for atrial fibrillation, hypertension, CHF, CAD, psychosis, hyperlipidemia, status post [place], pacemaker, chronic pain syndrome, and degenerative joint disease.. On evaluation at ED, vital signs were stable. Blood work showed elevated BNP 1638, troponin was 0.072. He had chest x-ray that showed interstitial edema. Due to his risk factors for coronary artery disease, he was admitted for evaluation of elevated troponin. He was seen by housekeeping associate. Patient has history of chronic troponin leak, likely due to congestive heart failure. He was given aspirin and Aldactone. He was given hydralazine. He is allergic to lisinopril. He was given losartan. He was placed on diuretics 40 mg IV twice a day. Unable to give beta- ivan due to cocaine use. He was given respiratory treatments. He was continued on Eliquis for DVT prophylaxis. Patient with agitation, anxiety and depressed mood. He was seen by psychiatrist and was diagnosed with bipolar disorder. He was given Seroquel. Risperdal was discontinued. Troponin down trended. IV diuretics was transitioned to by mouth. Patient is status post [employer] pacemaker implantation with normal function. He was recommended need for outpatient PFT and lung CT for screening. He was strongly counselled against cocaine use. He was given physical therapy. There was less SOB, no wheezing, no cough, no chest pain. He was eventually discharged to SNF. FINAL DIAGNOSES: Acute coronary syndrome Acute CHF exacerbation Status post [employer] defibrillator implantation with normal function COPD with acute bronchitis Bipolar disorder Chronic troponin elevation Substance abuse with cocaine DISPOSITION: Patient was discharged to rehabilitation on [place]. DISCHARGE MEDICATIONS: Refer to Discharge Medication List. DISCHARGE INSTRUCTIONS: Needs outpatient pulmonary follow-up, needs PFT, needs screening CT chest I have been assigned to dictate discharge summary on this account, and I was not involved in the patient's management. Karen Cota NP Jun 12, 2018 14:44
== END 2018-06-09 19:45 | DRG 198 ==
LOC: EDBD 11:47 → EMR 12:05 → 2E 14:28 → EDBEDREQ 15:16 → 3E 06-07 18:36
DX: I24.9 Acute ischemic heart disease, unspecified (principal); N17.9 Acute kidney failure, unspecified; I42.9 Cardiomyopathy, unspecified; F20.0 Paranoid schizophrenia; I50.9 Heart failure, unspecified; I11.0 Hypertensive heart disease with heart failure; J44.9 Chronic obstructive pulmonary disease, unspecified; Z59.0 Homelessness; J20.9 Acute bronchitis, unspecified; J44.0 Chronic obstructive pulmonary disease with (acute) lower respiratory infection; Z88.8 Allergy status to other drugs, medicaments and biological substances; F14.10 Cocaine abuse, uncomplicated; F31.9 Bipolar disorder, unspecified; Z91.14 Patient's other noncompliance with medication regimen; Z95.810 Presence of automatic (implantable) cardiac defibrillator; R74.8 Abnormal levels of other serum enzymes; I25.10 Atherosclerotic heart disease of native coronary artery without angina pectoris; E78.5 Hyperlipidemia, unspecified; G89.4 Chronic pain syndrome
CPT/HCPCS: 36415; 71045; 80053; 81003; 82553; 83880; 84484; 85007; 85025; 87081; 93005; 94640; 94664; 96374; 96375; 99285

== ENCOUNTER 2018-07-16 19:46 | Inpatient (IN) | payer MEDICAID ==
[~2018-07-16] VITALS: Ht 180.3 cm; Wt 90.7 kg
[~2018-07-16 19:46] MED LIST changes: +ASPIRIN-LOW81 MG ORAL
[2018-07-16] MEDS ORDERED: SIMVASTATIN5 MG ORAL (19:54)
--- NOTE | 2018-07-16 20:07 | Emergency Room Report ---
History of Present Illness General Chief Complaint: Dyspnea/Respdistress Source: Patient Present Illness HPI This patient is off meds at least two weeks. He says they were "stolen." He has said this to our staff in the past but later he admits to being noncompliant. He is still using cocaine. Homeless. He c/o constant malaise, weakness, mild sob , +/- mild cp. No cough, no fever, no leg pain. He does have good urine output. echocardiogram: April 2018 Severe left ventricular enlargement. Mid to apical anteroseptal wall, lateral wall, inferolareal wall akinesia, septal wall dyskinesia. Left ventricular ejection fraction estimated to be 15%. Ischemic cardiomyopathy cannot be excluded. Discharge Summary Discharge Summary _ DATE OF ADMISSION: 06/03/2018 DATE OF DISCHARGE: 06/09/2018 CONSULTANTS: Dr. Joey Vance BRIEF HOSPITAL COURSE: Patient is a 57-year-old male who presented to ED complaining of 2-3 day worsening shortness of breath. He was recently admitted to the hospital for CHF when he signed out AGAINST MEDICAL ADVICE. Patient had not been taking his medications. He noted leg swelling and worsening shortness of breath. He denied any fever, no nausea, no vomiting, no diarrhea or chills. He has medical history significant for atrial fibrillation, hypertension, CHF, CAD, psychosis, hyperlipidemia, status post [place], pacemaker, chronic pain syndrome, and degenerative joint disease.. On evaluation at ED, vital signs were stable. Blood work showed elevated BNP 1638, troponin was 0.072. He had chest x-ray that showed interstitial edema. Due to his risk factors for coronary artery disease, he was admitted for evaluation of elevated troponin. He was seen by trade analyst. Patient has history of chronic troponin leak, likely due to congestive heart failure. He was given aspirin and Aldactone. He was given hydralazine. He is allergic to lisinopril. He was given losartan. He was placed on diuretics 40 mg IV twice a day. Unable to give beta- ivan due to cocaine use. He was given respiratory treatments. He was continued on Eliquis for DVT prophylaxis. Patient with agitation, anxiety and depressed mood. He was seen by psychiatrist and was diagnosed with bipolar disorder. He was given Seroquel. Risperdal was discontinued. Troponin down trended. IV diuretics was transitioned to by mouth. Patient is status post [employer] pacemaker implantation with normal function. He was recommended need for outpatient PFT and lung CT for screening. He was strongly counselled against cocaine use. He was given physical therapy. There was less SOB, no wheezing, no cough, no chest pain. He was eventually discharged to SNF. FINAL DIAGNOSES: Acute coronary syndrome Acute CHF exacerbation Status post [employer] defibrillator implantation with normal function COPD with acute bronchitis Bipolar disorder Chronic troponin elevation Substance abuse with cocaine Allergies: Coded Allergies: LISINOPRIL (Unverified Allergy, Unknown, 03/03/18) Nursing Documentation-[facility] Past Medical History: No History, Except For Hx Cardiac Problems: Yes Hx Hypertension: Yes Hx Pacemaker: Yes - Left Pacemaker Hx Cancer: No Hx Gastrointestinal Problems: No Hx Neurological Problems: No Review of Systems Constitutional: Reports: no symptoms Eye: Reports: no symptoms ENT: Reports: no symptoms Respiratory: Reports: shortness of breath Cardiovascular: Reports: see HPI, chest pain Gastrointestinal: Reports: no symptoms Genitourinary: Reports: no symptoms Musculoskeletal: Reports: no symptoms Skin: Reports: no symptoms Psychiatric: Reports: no symptoms Neurological: Reports: no symptoms Endocrine: Reports: no symptoms Hematologic/Lymphatic: Reports: no symptoms Allergic: Reports: no symptoms All Other Systems: negative except mentioned in HPI Physical Exam Vital Signs Date Time Temp Pulse Resp B/P (MAP) Pulse Ox O2 Delivery O2 Flow Rate FiO2 07/16/18 19:49 98.4 105 16 122/79 95 Room Air Sp02 EP Interpretation: reviewed, normal General Appearance: normal inspection, no apparent distress, alert, GCS 15, non -toxic, Chronically Ill - poor hygiene, malodorous Head: normocephalic, atraumatic Eyes: bilateral eye normal inspection, bilateral eye PERRL, bilateral eye EOMI ENT: normal ENT inspection, hearing grossly normal, normal pharynx, no angioedema, normal voice, moist mucus membranes Neck: normal inspection, full range of motion, supple, no meningismus, no bony tend Respiratory: normal inspection, lungs clear, normal breath sounds, no rhonchi, no respiratory distress, no retraction, no accessory muscle use, no wheezing Cardiovascular #1: regular rate, rhythm, other - defibrillator Gastrointestinal: normal inspection, normal bowel sounds, non tender, soft, no mass, non-distended Musculoskeletal: gait/station normal, normal range of motion Neurologic: normal inspection, alert, oriented x3, responsive, motor strength/ tone normal Psychiatric: normal inspection, judgement/insight normal, memory normal Suicide Risk Assessment: Suicidal Ideation: No Had intent to initiate attempt: No Pt's plan for suicide attempt: No Has means to complete attempt: No Skin: normal inspection, normal color, no rash, warm/dry Medical Decision Making Diagnostic Impression: Primary Impression: ACS (acute coronary syndrome) Additional Impression: Noncompliance ER Course DD: ACS, myocardial infarction, angina, pericarditis, aortic dissection, pleurisy, pleural effusion, pneumothorax, pneumonia, PE, costochondritis, PUD, gastritis, GERD, muscular. MDM: no additional complaints. trop 0.54, bnp elevated, cxr mild vasc congestion This patient is severe cardiomyopathy, poor EF and noncompliance, elevated troponin today (higher than most recent.) Received aspirin in ED. Recommend inpatient management to re-start meds. EKG Diagnostic Results EKG Time: 21:14 Rate: normal Rhythm: NSR ST Segments: no acute changes Other Impression LVH, NSST ASA given to the pt in ED: Yes Rhythm Strip Diag. Results Rhythm Strip Time: 20:07 EP Interpretation: yes Rate: 92 Rhythm: NSR Chest X-Ray Diagnostic Results Chest X-Ray Diagnostic Results : Chest X-Ray Ordered: Yes # of Views/Limited/Complete: 1 View Indication: Chest Pain EP Interpretation: Yes Interpretation: no consolidation, no pneumothorax, other - cardiomegaly, defib, some mild congestion Last Vital Signs Date Time Temp Pulse Resp B/P (MAP) Pulse Ox O2 Delivery O2 Flow Rate FiO2 07/16/18 19:49 98.4 105 16 122/79 95 Room Air Disposition: ADMITTED INPATIENT Landen Peacock M.D. Jul 16, 2018 20:07
[2018-07-16 20:21] VITALS: BP 118/70
[2018-07-16 20:26] LABS: BASOPHILS % (AUTO) 1.7 % (0.0-2.0); EOSINOPHILS % (AUTO) 2.1 % (0.0-3.0); HEMATOCRIT 44.3 % (42.0-52.0); HEMOGLOBIN 15.1 G/DL (14.2-18.0); LYMPHOCYTES % (AUTO) 40.1 % (20.0-45.0); MEAN CORPUSCULAR VOLUME 92 FL (80-99); MONOCYTES % (AUTO) 10.3 % (1.0-10.0); NEUTROPHILS % (AUTO) 45.8 % (45.0-75.0); PLATELET COUNT 274 K/UL (150-450); RED BLOOD COUNT 4.84 M/UL (4.70-6.10); RED CELL DISTRIBUTION WIDTH 12.6 % (11.6-14.8); WHITE BLOOD COUNT 6.7 K/UL (4.8-10.8)
[2018-07-16 20:42] LABS: ANION GAP 13 mmol/L (5-15); BLOOD UREA NITROGEN 12 mg/dL (7-18); CALCIUM 8.9 MG/DL (8.5-10.1); CARBON DIOXIDE 21 MMOL/L (21-32); CHLORIDE 106 MMOL/L (98-107); CREATININE 1.6 MG/DL (0.55-1.30); POTASSIUM 3.6 MMOL/L (3.5-5.1); SODIUM 140 MMOL/L (136-145)
[2018-07-16 20:53] LABS: ALANINE AMINOTRANSFERASE 32 U/L (12-78); ALBUMIN 3.2 G/DL (3.4-5.0); ALBUMIN/GLOBULIN RATIO 0.8 (1.0-2.7); ALKALINE PHOSPHATASE 93 U/L (46-116); ASPARTATE AMINO TRANSFERASE 42 U/L (15-37); BILIRUBIN,TOTAL 0.8 MG/DL (0.2-1.0)
[2018-07-16 20:54] LABS: INR 1.1 (0.9-1.1)
[2018-07-16 21:52] VITALS: BP 93/54
[2018-07-17] VITALS: BP 131/82
[2018-07-17 08:00] VITALS: BP 124/88
[2018-07-17 08:21] LABS: INR 1.1 (0.9-1.1)
[2018-07-17 08:25] LABS: BASOPHILS % (AUTO) 2.2 % (0.0-2.0); HEMATOCRIT 44.6 % (42.0-52.0); HEMOGLOBIN 15.2 G/DL (14.2-18.0); LYMPHOCYTES % (AUTO) 28.7 % (20.0-45.0); MEAN CORPUSCULAR VOLUME 90 FL (80-99); MONOCYTES % (AUTO) 10.7 % (1.0-10.0); NEUTROPHILS % (AUTO) 55.4 % (45.0-75.0); PLATELET COUNT 261 K/UL (150-450); RED BLOOD COUNT 4.93 M/UL (4.70-6.10); RED CELL DISTRIBUTION WIDTH 12.3 % (11.6-14.8); WHITE BLOOD COUNT 5.2 K/UL (4.8-10.8)
[2018-07-17 08:47] LABS: ALANINE AMINOTRANSFERASE 35 U/L (12-78); ALBUMIN 2.9 G/DL (3.4-5.0); ALBUMIN/GLOBULIN RATIO 0.9 (1.0-2.7); ALKALINE PHOSPHATASE 111 U/L (46-116); ANION GAP 11 mmol/L (5-15); ASPARTATE AMINO TRANSFERASE 41 U/L (15-37); BILIRUBIN,TOTAL 0.6 MG/DL (0.2-1.0); BLOOD UREA NITROGEN 18 mg/dL (7-18); CALCIUM 8.6 MG/DL (8.5-10.1); CARBON DIOXIDE 23 MMOL/L (21-32); CHLORIDE 107 MMOL/L (98-107); CREATININE 1.5 MG/DL (0.55-1.30); POTASSIUM 4.4 MMOL/L (3.5-5.1); SODIUM 141 MMOL/L (136-145)
--- NOTE | 2018-07-17 09:06 | Consultation ---
History of Present Illness General Date patient seen: Jul 17, 2018 Present Illness Allergies: Coded Allergies: LISINOPRIL (Unverified Allergy, Unknown, 03/03/18) Medication History Discontinued Medications Apixaban (Eliquis), 5 MG PO, (Reported) Discontinued Reason: MD discontinued med Apixaban (Eliquis), 5 MG PO BID, (Reported) Discontinued Reason: MD discontinued med Aspirin (Aspirin EC), 81 MG ORAL DAILY, (Reported) Discontinued Reason: MD discontinued med Carvedilol (Coreg), 3.125 MG ORAL EVERY 12 HOURS, (Reported) Discontinued Reason: MD discontinued med Carvedilol (Coreg), 3.125 MG ORAL EVERY 12 HOURS, (Reported) Discontinued Reason: MD discontinued med Clonidine Hcl (Clonidine Hcl), 0.1 MG PO, (Reported) Discontinued Reason: MD discontinued med Furosemide* (Lasix*), 40 MG ORAL DAILY, (Reported) Discontinued Reason: MD discontinued med Furosemide* (Lasix*), 40 MG ORAL DAILY, (Reported) Discontinued Reason: MD discontinued med Gabapentin (Neurontin), 300 MG ORAL BEDTIME, (Reported) Discontinued Reason: MD discontinued med Gabapentin (Neurontin), 300 MG ORAL THREE TIMES A DAY, (Reported) Discontinued Reason: MD discontinued med Hydrocodone Bit/Acetaminophen 10-325* ([place] 10-325*), 1 TAB ORAL Q6H PRN for For Pain, (Reported) Discontinued Reason: MD discontinued med Ibuprofen* (Motrin*), 600 MG PO TID Discontinued Reason: MD discontinued med Losartan Potassium* (Losartan Potassium*), 25 MG ORAL DAILY, (Reported) Discontinued Reason: MD discontinued med Quetiapine Fumarate (Seroquel), 25 MG ORAL BEDTIME, (Reported) Discontinued Reason: MD discontinued med Quetiapine Fumarate* (Seroquel*), 25 MG ORAL DAILY, (Reported) Discontinued Reason: MD discontinued med Risperidone* (Risperdal*), 0.25 MG ORAL DAILY, (Reported) Discontinued Reason: MD discontinued med Simvastatin (Zocor), Unknown Dose ORAL BEDTIME, (Reported) Discontinued Reason: MD discontinued med Spironolactone (Aldactone), 25 MG ORAL DAILY, (Reported) Discontinued Reason: MD discontinued med Patient History Healthcare decision maker Resuscitation status Full Code Advanced Directive on File Physical Exam Last 24 Hour Vital Signs Date Time Temp Pulse Resp B/P (MAP) Pulse Ox O2 Delivery O2 Flow Rate FiO2 07/17/18 04:00 102 07/17/18 00:00 98.0 94 19 131/82 (98) 96 07/16/18 23:38 Room Air 07/16/18 22:50 98.2 72 17 107/69 94 Room Air 07/16/18 21:52 98.4 95 16 93/54 94 Room Air 07/16/18 20:21 98.4 100 17 118/70 95 Room Air 07/16/18 20:21 100 17 Room Air 100 07/16/18 19:49 98.4 105 16 122/79 95 Room Air Intake and Output 07/16/18 07/17/18 18:59 06:59 Intake Total 780 ml Output Total 525 ml Balance 255 ml Intake Oral 780 ml Output Urine Total 525 ml Laboratory Tests Test 07/16/18 20:15 07/17/18 07:35 White Blood Count 6.7 K/UL (4.8-10.8) 5.2 K/UL (4.8-10.8) Red Blood Count 4.84 M/UL (4.70-6.10) 4.93 M/UL (4.70-6.10) Hemoglobin 15.1 G/DL (14.2-18.0) 15.2 G/DL (14.2-18.0) Hematocrit 44.3 % (42.0-52.0) 44.6 % (42.0-52.0) Mean Corpuscular Volume 92 FL (80-99) 90 FL (80-99) Mean Corpuscular Hemoglobin 31.3 PG (27.0-31.0) H 30.9 PG (27.0-31.0) Mean Corpuscular Hemoglobin Concent 34.1 G/DL (32.0-36.0) 34.2 G/DL (32.0-36.0) Red Cell Distribution Width 12.6 % (11.6-14.8) 12.3 % (11.6-14.8) Platelet Count 274 K/UL (150-450) 261 K/UL (150-450) Mean Platelet Volume 5.1 FL (6.5-10.1) L 5.3 FL (6.5-10.1) L Neutrophils (%) (Auto) 45.8 % (45.0-75.0) 55.4 % (45.0-75.0) Lymphocytes (%) (Auto) 40.1 % (20.0-45.0) 28.7 % (20.0-45.0) Monocytes (%) (Auto) 10.3 % (1.0-10.0) H 10.7 % (1.0-10.0) H Eosinophils (%) (Auto) 2.1 % (0.0-3.0) 3.0 % (0.0-3.0) Basophils (%) (Auto) 1.7 % (0.0-2.0) 2.2 % (0.0-2.0) H Prothrombin Time 11.1 SEC (9.30-11.50) 11.2 SEC (9.30-11.50) Prothromb Time International Ratio 1.1 (0.9-1.1) 1.1 (0.9-1.1) Sodium Level 140 MMOL/L (136-145) 141 MMOL/L (136-145) Potassium Level 3.6 MMOL/L (3.5-5.1) 4.4 MMOL/L (3.5-5.1) Chloride Level 106 MMOL/L (98-107) 107 MMOL/L (98-107) Carbon Dioxide Level 21 MMOL/L (21-32) 23 MMOL/L (21-32) Anion Gap 13 mmol/L (5-15) 11 mmol/L (5-15) Blood Urea Nitrogen 12 mg/dL (7-18) 18 mg/dL (7-18) Creatinine 1.6 MG/DL (0.55-1.30) H 1.5 MG/DL (0.55-1.30) H Estimat Glomerular Filtration Rate 54.1 mL/min (>60) 58.3 mL/min (>60) Glucose Level 117 MG/DL (74-106) H 120 MG/DL (74-106) H Calcium Level 8.9 MG/DL (8.5-10.1) 8.6 MG/DL (8.5-10.1) Total Bilirubin 0.8 MG/DL (0.2-1.0) 0.6 MG/DL (0.2-1.0) Aspartate Amino Transf (AST/SGOT) 42 U/L (15-37) H 41 U/L (15-37) H Alanine Aminotransferase (ALT/SGPT) 32 U/L (12-78) 35 U/L (12-78) Alkaline Phosphatase 93 U/L (46-116) 111 U/L (46-116) Troponin I 0.504 ng/mL (0.000-0.056) 0.460 ng/mL (0.000-0.056) Pro-B-Type Natriuretic Peptide 2606 pg/mL (0-125) H Total Protein 7.2 G/DL (6.4-8.2) 6.3 G/DL (6.4-8.2) L Albumin 3.2 G/DL (3.4-5.0) L 2.9 G/DL (3.4-5.0) L Globulin 4.0 g/dL 3.4 g/dL Albumin/Globulin Ratio 0.8 (1.0-2.7) L 0.9 (1.0-2.7) L Height (Feet): 5 Height (Inches): 11.00 Weight (Pounds): 200 Medications Current Medications Medications (Trade) Dose Ordered Sig/[place] Route PRN Reason Start Time Stop Time Status Last Admin Dose Admin Acetaminophen (Tylenol) 650 mg Q4H PRN ORAL Mild Pain/Temp > 100.5 07/16/18 23:30 08/15/18 23:29 Assessment/Plan Assessment/Plan (1) B/L Knee pain (2) B/L Knee osteoarthritis (3) Cocaine abuse (4) Congestive heart failure (5) Acute coronary syndrome seen dictated Mike De La Rosa Jul 17, 2018 09:06
[2018-07-17] MEDS ORDERED: HYDROcodone/Acetamin 10/325 tab ORAL PRN (09:15)
--- NOTE | 2018-07-17 11:27 | Diagnostic Imaging Report ---
Indication: Chest pain Comparison: 06/03/2018 A single view chest radiograph was obtained. Findings: There is a pacemaker on the left. The heart is enlarged. Mild vascular congestion suspected. IMPRESSION: Mild CHF suspected
[2018-07-17 12:00] VITALS: BP 127/71
--- NOTE | 2018-07-17 12:59 | Consultation ---
Consult Note Consult Note This patient is off meds at least two weeks. He says they were "stolen." He has said this to our staff in the past but later he admits to being noncompliant. He is still using cocaine. Homeless. He c/o constant malaise, weakness, mild sob , +/- mild cp. No cough, no fever, no leg pain. He does have good urine output. echocardiogram: April 2018 Severe left ventricular enlargement. Mid to apical anteroseptal wall, lateral wall, inferolareal wall akinesia, septal wall dyskinesia. Left ventricular ejection fraction estimated to be 15%. Ischemic cardiomyopathy cannot be excluded. Past Medical History: No History, Except For Hx Cardiac Problems: Yes Hx Hypertension: Yes Hx Pacemaker: Yes - Left Pacemaker interviewed examined data reviewed Assessment/Plan (1) Renal failure , acute on chronic (2) Acute exacerbation of CHF (congestive heart failure), Low Ej Fx 15% (3) ACS (acute coronary syndrome) (4) COPD (chronic obstructive pulmonary disease) with acute bronchitis (5) Chronic paranoid schizophrenia (6) Pacemaker (7) Cocaine and Mj abuse (8) Defibrilator Optimize cardiac status urine studies avoid nephrotoxics per orders Elias Thorne MD Jul 17, 2018 12:59
[2018-07-17] MEDS: Losartan 25mg tab ORAL SCH (13:09)
--- NOTE | 2018-07-17 15:33 | Cardiac Electrophysiology PN ---
Subjective Subjective Cardiology consult dictated: [id number] 1.Chronic Troponin elevation likely due to congestive heart failure. His BNP is 1638. Continue Aldactone, Losartan 25 daily and add Lasix 40 iv daily Off betablocker for cocaine use. He states he is allergic to lisinopril. 2. Status post [employer] defibrillator implantation. With Nl Fx 3. Substance abuse with cocaine. Avoid beta-ivan for active cocaine use. Objective Last 24 Hour Vital Signs Date Time Temp Pulse Resp B/P (MAP) Pulse Ox O2 Delivery O2 Flow Rate FiO2 07/17/18 12:00 98.3 97 18 127/71 (89) 98 07/17/18 12:00 92 07/17/18 09:00 Room Air 07/17/18 08:00 99.5 99 18 124/88 (100) 99 07/17/18 08:00 97 07/17/18 04:00 102 07/17/18 00:00 98.0 94 19 131/82 (98) 96 07/16/18 23:38 Room Air 07/16/18 22:50 98.2 72 17 107/69 94 Room Air 07/16/18 21:52 98.4 95 16 93/54 94 Room Air 07/16/18 20:21 98.4 100 17 118/70 95 Room Air 07/16/18 20:21 100 17 Room Air 100 07/16/18 19:49 98.4 105 16 122/79 95 Room Air Intake and Output 07/16/18 07/17/18 19:00 07:00 Intake Total 780 ml Output Total 525 ml Balance 255 ml Intake Oral 780 ml Output Urine Total 525 ml Laboratory Tests Test 07/16/18 20:15 07/17/18 07:35 White Blood Count 6.7 K/UL (4.8-10.8) 5.2 K/UL (4.8-10.8) Red Blood Count 4.84 M/UL (4.70-6.10) 4.93 M/UL (4.70-6.10) Hemoglobin 15.1 G/DL (14.2-18.0) 15.2 G/DL (14.2-18.0) Hematocrit 44.3 % (42.0-52.0) 44.6 % (42.0-52.0) Mean Corpuscular Volume 92 FL (80-99) 90 FL (80-99) Mean Corpuscular Hemoglobin 31.3 PG (27.0-31.0) H 30.9 PG (27.0-31.0) Mean Corpuscular Hemoglobin Concent 34.1 G/DL (32.0-36.0) 34.2 G/DL (32.0-36.0) Red Cell Distribution Width 12.6 % (11.6-14.8) 12.3 % (11.6-14.8) Platelet Count 274 K/UL (150-450) 261 K/UL (150-450) Mean Platelet Volume 5.1 FL (6.5-10.1) L 5.3 FL (6.5-10.1) L Neutrophils (%) (Auto) 45.8 % (45.0-75.0) 55.4 % (45.0-75.0) Lymphocytes (%) (Auto) 40.1 % (20.0-45.0) 28.7 % (20.0-45.0) Monocytes (%) (Auto) 10.3 % (1.0-10.0) H 10.7 % (1.0-10.0) H Eosinophils (%) (Auto) 2.1 % (0.0-3.0) 3.0 % (0.0-3.0) Basophils (%) (Auto) 1.7 % (0.0-2.0) 2.2 % (0.0-2.0) H Prothrombin Time 11.1 SEC (9.30-11.50) 11.2 SEC (9.30-11.50) Prothromb Time International Ratio 1.1 (0.9-1.1) 1.1 (0.9-1.1) Sodium Level 140 MMOL/L (136-145) 141 MMOL/L (136-145) Potassium Level 3.6 MMOL/L (3.5-5.1) 4.4 MMOL/L (3.5-5.1) Chloride Level 106 MMOL/L (98-107) 107 MMOL/L (98-107) Carbon Dioxide Level 21 MMOL/L (21-32) 23 MMOL/L (21-32) Anion Gap 13 mmol/L (5-15) 11 mmol/L (5-15) Blood Urea Nitrogen 12 mg/dL (7-18) 18 mg/dL (7-18) Creatinine 1.6 MG/DL (0.55-1.30) H 1.5 MG/DL (0.55-1.30) H Estimat Glomerular Filtration Rate 54.1 mL/min (>60) 58.3 mL/min (>60) Glucose Level 117 MG/DL (74-106) H 120 MG/DL (74-106) H Calcium Level 8.9 MG/DL (8.5-10.1) 8.6 MG/DL (8.5-10.1) Total Bilirubin 0.8 MG/DL (0.2-1.0) 0.6 MG/DL (0.2-1.0) Aspartate Amino Transf (AST/SGOT) 42 U/L (15-37) H 41 U/L (15-37) H Alanine Aminotransferase (ALT/SGPT) 32 U/L (12-78) 35 U/L (12-78) Alkaline Phosphatase 93 U/L (46-116) 111 U/L (46-116) Troponin I 0.504 ng/mL (0.000-0.056) 0.460 ng/mL (0.000-0.056) Pro-B-Type Natriuretic Peptide 2606 pg/mL (0-125) H Total Protein 7.2 G/DL (6.4-8.2) 6.3 G/DL (6.4-8.2) L Albumin 3.2 G/DL (3.4-5.0) L 2.9 G/DL (3.4-5.0) L Globulin 4.0 g/dL 3.4 g/dL Albumin/Globulin Ratio 0.8 (1.0-2.7) L 0.9 (1.0-2.7) L C-Reactive Protein, Quantitative 0.7 mg/dL (0.00-0.90) Mitch Butt MD Jul 17, 2018 15:33
[2018-07-17 16:00] VITALS: BP 145/93
[2018-07-17] MEDS: Docusate 100mg cap ORAL SCH (17:39)
--- NOTE | 2018-07-17 19:15 | Consultation ---
DATE OF CONSULTATION: 07/17/2018 PAIN MANAGEMENT CONSULTATION CONSULTING PHYSICIAN: Marcela Sanchez M.D. REFERRING PHYSICIAN: Anne Calzada M.D. PHYSICIAN LOAD BUILDER: REJI Arshad. CHIEF COMPLAINT: Bilateral knee pain. HISTORY OF PRESENT ILLNESS: This is a 58-year-old male, who is being seen on the telemetry floor of [facility] for comprehensive pain management consultation. The patient is a known patient from [facility] and now has been admitted under the care of Dr. Calzada here in to [facility] due to acute coronary syndrome. He has a history of cocaine abuse causing congestive heart failure and has been complaining of chest pain with weakness. He still has bilateral knee pain due to osteoarthritis. [facility] showing the patient receiving Arnett 10 45 tablets a month from his physician as an outpatient and now has been admitted to the hospital. We were consulted so that te patient would have adequate pain control while here in the hospital. REVIEW OF SYSTEMS: Denies rash, fever, chills, sweating, dizziness, drowsiness, blurred vision, sore throat, change in her weight. No nausea, vomiting, diarrhea, or blood in the stool or urine. No bowel or bladder incontinence. No dysuria. He is complaining of knee pain. PHYSICAL EXAMINATION: GENERAL: Alert, awake, and oriented. VITAL SIGNS: Blood pressure 131/82, heart rate is 94, oxygen saturation 96%, respiratory rate is 19, and temperature is 98 degrees Fahrenheit. HEENT: PERRLA. LUNGS: Decreased breath sounds bilaterally. HEART: S1 and S2 irregular. ABDOMEN: Benign. EXTREMITIES: Upper and lower extremity range of motion is decreased due to the patient's clinical condition. No cyanosis. No clubbing. Sensory is reduced. Reflexes are not obtainable. No adenopathy. ASSESSMENT AND PLAN: This is a 58-year-old male with bilateral knee pain, bilateral knee osteoarthritis, cocaine abuse, congestive heart failure, and acute coronary syndrome. The patient will be started on Arnett 10/325 one tablet every 8 hours as needed for severe pain. The patient was discussed with Dr. Sanchez and Dr. Sanchez concurred. We will follow the patient. Thank you very much for the courtesy of this consultation. Marcela Sanchez M.D. REJI Arshad DR: FELICITAS JOB#: [id number] CC: NIA
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
[2018-07-17 19:47] VITALS: BP 113/75
[2018-07-18 06:30] LABS: BASOPHILS % (AUTO) 1.2 % (0.0-2.0); HEMATOCRIT 46.1 % (42.0-52.0); LYMPHOCYTES % (AUTO) 37.3 % (20.0-45.0); MEAN CORPUSCULAR VOLUME 91 FL (80-99); MONOCYTES % (AUTO) 11.2 % (1.0-10.0); NEUTROPHILS % (AUTO) 46.3 % (45.0-75.0); PLATELET COUNT 269 K/UL (150-450); RED BLOOD COUNT 5.07 M/UL (4.70-6.10); RED CELL DISTRIBUTION WIDTH 12.3 % (11.6-14.8); WHITE BLOOD COUNT 5.8 K/UL (4.8-10.8)
[2018-07-18 07:02] LABS: ALANINE AMINOTRANSFERASE 24 U/L (12-78); ALBUMIN 2.7 G/DL (3.4-5.0); ALBUMIN/GLOBULIN RATIO 0.7 (1.0-2.7); ALKALINE PHOSPHATASE 83 U/L (46-116); ANION GAP 10 mmol/L (5-15); ASPARTATE AMINO TRANSFERASE 36 U/L (15-37); BILIRUBIN,TOTAL 0.7 MG/DL (0.2-1.0); BLOOD UREA NITROGEN 17 mg/dL (7-18); CALCIUM 8.9 MG/DL (8.5-10.1); CARBON DIOXIDE 23 MMOL/L (21-32); CHLORIDE 105 MMOL/L (98-107); CHOLESTEROL 142 MG/DL (< 200); CREATINE KINASE 114 U/L (26-308); CREATININE 1.4 MG/DL (0.55-1.30); GAMMA GLUTAMYL TRANSPEPTIDASE 29 U/L (5-85); HDL CHOLESTEROL 73 MG/DL (40-60); POTASSIUM 3.9 MMOL/L (3.5-5.1); SODIUM 138 MMOL/L (136-145); TRIGLYCERIDES 65 MG/DL (30-150)
[2018-07-18 08:00] VITALS: BP 118/86
--- NOTE | 2018-07-18 08:30 | History and Physical Report ---
DATE OF ADMISSION: 07/16/2018 HISTORY OF PRESENT ILLNESS: The patient is noncompliant and comes with end-stage cardiomyopathy and CHF. The patient also has a history of drug abuse and has elevated troponin. Chest x-ray showed mild congestion and admitted for CHF exacerbation. Basically, the patient denies nausea, vomiting, or diarrhea. The patient has been off medications since 2 weeks and and reports weakness and shortness of breath as well. Denies cough. Denies fever or chills. most likely due to cocaine use. PAST MEDICAL HISTORY: CHF, CAD, psychosis, hyperlipidemia, status post NM, arrhythmia, chronic pain syndrome, drug abuse, and degenerative joint disease. PAST SURGICAL HISTORY: Pacemaker. The patient has a history of bipolar. . MEDICATIONS: Not taking any at this point. ALLERGIES: Lisinopril. SOCIAL HISTORY: History of smoking and history of drug abuse. REVIEW OF SYSTEMS: HEENT: Denies headaches. Reports shortness of breath. Denies cough. CARDIOVASCULAR: Denies orthopnea. Denies chest pain. GASTROINTESTINAL: Denies nausea, vomiting, or diarrhea. No abdominal pain. EXTREMITIES: Reports leg edema. CENTRAL NERVOUS SYSTEM: No change in vision or speech pattern. PHYSICAL EXAMINATION: VITAL SIGNS: Temperature 99.5, pulse is 97 degrees, blood pressure 124/88. HEENT: PERRLA. NECK: Supple. CHEST: Bibasilar rales. CARDIOVASCULAR: Irregularly irregular. GASTROINTESTINAL: Soft. Positive bowel sounds. EXTREMITIES: Does have edema 1+. NEUROLOGIC: Reflexes equal in both sides. Generalized weakness. LABORATORY DATA: WBC of 6.7, hemoglobin 15.1, and platelets of 274,000. Sodium 140, potassium 3.6, BUN of 12, creatinine 1.6 and glucose of 117. Troponin 0.54. EKG shows irregularly irregular rate. ASSESSMENT: 1. Cocaine-induced cardiomyopathy, rule out acute coronary syndrome. The patient has a history of NM in the past. The patient is noncompliant with drug abuse. Chest x-ray shows mild congestion and elevated troponin. 2. Azotemia. PLAN: I have asked Dr. Thorne, Dr. Butt, and Dr. Sanchez to see the patient for the above-mentioned diagnoses and treatment. Ali Sammy Calzada DR: DALIA JOB#: [id number] CC:
--- NOTE | 2018-07-18 09:10 | General Progress Note ---
Assessment/Plan Assessment/Plan (1) B/L Knee pain (2) B/L Knee osteoarthritis (3) Cocaine abuse (4) Congestive heart failure (5) Acute coronary syndrome Patient to be continued on [place]. D/w Dr. Sanchez and he concurred. Subjective Date patient seen: Jul 18, 2018 Time patient seen: 07:15 - am Allergies: Coded Allergies: LISINOPRIL (Unverified Allergy, Unknown, 03/03/18) Subjective REVIEW OF SYSTEMS: Denies rash, fever, chills, sweating, dizziness, drowsiness, blurred vision, sore throat, change in her weight. No nausea, vomiting, diarrhea, or blood in the stool or urine. No bowel or bladder incontinence. No dysuria. He is complaining of knee pain. SUBJECTIVE: Patient is in bed and showing no signs of pain. Has not requested the [place]. Objective Last 24 Hour Vital Signs Date Time Temp Pulse Resp B/P (MAP) Pulse Ox O2 Delivery O2 Flow Rate FiO2 07/18/18 08:00 98.3 96 18 118/86 (97) 97 07/17/18 21:00 Room Air 07/17/18 19:47 97.9 93 20 113/75 (88) 92 07/17/18 16:00 98.2 99 18 145/93 (110) 99 07/17/18 12:00 98.3 97 18 127/71 (89) 98 07/17/18 12:00 92 Intake and Output 07/17/18 07/18/18 18:59 06:59 Intake Total 360 ml 300 ml Output Total 850 ml Balance -490 ml 300 ml Intake Oral 360 ml 300 ml Output Urine Total 850 ml # Voids 4 Laboratory Tests 07/18/18 04:50: White Blood Count 5.8, Red Blood Count 5.07, Hemoglobin 16.0, Hematocrit 46.1, Mean Corpuscular Volume 91, Mean Corpuscular Hemoglobin 31.6H, Mean Corpuscular Hemoglobin Concent 34.8, Red Cell Distribution Width 12.3, Platelet Count 269, Mean Platelet Volume 5.5L, Neutrophils (%) (Auto) 46.3, Lymphocytes (%) (Auto) 37.3, Monocytes (%) (Auto) 11.2H, Eosinophils (%) (Auto) 4.0H, Basophils (%) ( Auto) 1.2, Sodium Level 138, Potassium Level 3.9, Chloride Level 105, Carbon Dioxide Level 23, Anion Gap 10, Blood Urea Nitrogen 17, Creatinine 1.4H, Estimat Glomerular Filtration Rate > 60, Glucose Level 99, Hemoglobin A1c 5.7, Uric Acid 6.4, Calcium Level 8.9, Phosphorus Level 3.0, Magnesium Level 1.9, Total Bilirubin 0.7, Gamma Glutamyl Transpeptidase 29, Aspartate Amino Transf ( AST/SGOT) 36, Alanine Aminotransferase (ALT/SGPT) 24, Alkaline Phosphatase 83, Total Creatine Kinase 114, Troponin I 0.182H, Pro-B-Type Natriuretic Peptide 1938H, Total Protein 6.5, Albumin 2.7L, Globulin 3.8, Albumin/Globulin Ratio 0.7L, Triglycerides Level 65, Cholesterol Level 142, LDL Cholesterol 56, HDL Cholesterol 73H, Cholesterol/HDL Ratio 1.9L, Thyroid Stimulating Hormone (TSH) 1.088 Height (Feet): 5 Height (Inches): 11.00 Weight (Pounds): 200 Objective GENERAL: Alert, awake, and oriented. LUNGS: Decreased breath sounds bilaterally. HEART: S1 and S2 irregular. ABDOMEN: Benign. EXTREMITIES: No cyanosis. No clubbing. NEURO: No changes. Mike De La Rosa Jul 18, 2018 09:10
[2018-07-18] MEDS: Losartan 25mg tab ORAL SCH (10:06)
[2018-07-18] MEDS: Docusate 100mg cap ORAL SCH ×3 (10:06→18:00)
[2018-07-18] MEDS: Spironolactone 25mg tab ORAL SCH (10:06)
--- NOTE | 2018-07-18 11:04 | Nephrology Progress Note ---
Assessment/Plan Problem List: (1) Acute on chronic renal failure (2) Cardiomyopathy (3) Cocaine abuse (4) Cardiac defibrillator in place Assessment (1) Renal failure , acute on chronic (2) Acute exacerbation of CHF (congestive heart failure), Low Ej Fx 15% (3) ACS (acute coronary syndrome) (4) COPD (chronic obstructive pulmonary disease) with acute bronchitis (5) Chronic paranoid schizophrenia (6) Pacemaker (7) Cocaine and Mj abuse (8) Defibrilator Plan Optimize cardiac status urine studies avoid nephrotoxics per orders Subjective ROS Limited/Unobtainable: No Objective Objective Last 24 Hour Vital Signs Date Time Temp Pulse Resp B/P (MAP) Pulse Ox O2 Delivery O2 Flow Rate FiO2 07/18/18 10:06 118/86 07/18/18 08:00 98.3 96 18 118/86 (97) 97 07/17/18 21:00 Room Air 07/17/18 19:47 97.9 93 20 113/75 (88) 92 07/17/18 16:00 98.2 99 18 145/93 (110) 99 07/17/18 12:00 98.3 97 18 127/71 (89) 98 07/17/18 12:00 92 Intake and Output 07/17/18 07/18/18 18:59 06:59 Intake Total 360 ml 300 ml Output Total 850 ml Balance -490 ml 300 ml Intake Oral 360 ml 300 ml Output Urine Total 850 ml # Voids 4 Laboratory Tests 07/18/18 04:50: White Blood Count 5.8, Red Blood Count 5.07, Hemoglobin 16.0, Hematocrit 46.1, Mean Corpuscular Volume 91, Mean Corpuscular Hemoglobin 31.6H, Mean Corpuscular Hemoglobin Concent 34.8, Red Cell Distribution Width 12.3, Platelet Count 269, Mean Platelet Volume 5.5L, Neutrophils (%) (Auto) 46.3, Lymphocytes (%) (Auto) 37.3, Monocytes (%) (Auto) 11.2H, Eosinophils (%) (Auto) 4.0H, Basophils (%) ( Auto) 1.2, Sodium Level 138, Potassium Level 3.9, Chloride Level 105, Carbon Dioxide Level 23, Anion Gap 10, Blood Urea Nitrogen 17, Creatinine 1.4H, Estimat Glomerular Filtration Rate > 60, Glucose Level 99, Hemoglobin A1c 5.7, Uric Acid 6.4, Calcium Level 8.9, Phosphorus Level 3.0, Magnesium Level 1.9, Total Bilirubin 0.7, Gamma Glutamyl Transpeptidase 29, Aspartate Amino Transf ( AST/SGOT) 36, Alanine Aminotransferase (ALT/SGPT) 24, Alkaline Phosphatase 83, Total Creatine Kinase 114, Troponin I 0.182H, Pro-B-Type Natriuretic Peptide 1938H, Total Protein 6.5, Albumin 2.7L, Globulin 3.8, Albumin/Globulin Ratio 0.7L, Triglycerides Level 65, Cholesterol Level 142, LDL Cholesterol 56, HDL Cholesterol 73H, Cholesterol/HDL Ratio 1.9L, Thyroid Stimulating Hormone (TSH) 1.088 Height (Feet): 5 Height (Inches): 11.00 Weight (Pounds): 200 General Appearance: no apparent distress Cardiovascular: tachycardia Respiratory/Chest: decreased breath sounds Abdomen: soft Elias Thorne MD Jul 18, 2018 11:04
--- NOTE | 2018-07-18 11:48 | Cardiac Electrophysiology PN ---
Assessment/Plan Assessment/Plan 1.Chronic Troponin elevation likely due to congestive heart failure. His BNP is 1638. Continue Aldactone, Losartan 25 daily and Lasix 40 iv daily Off beta ivan for cocaine use. He states he is allergic to lisinopril. 2. Status post [employer] defibrillator implantation. With Nl Fx 3. Substance abuse with cocaine. Avoid beta-ivan for active cocaine use. Subjective Subjective No CP. SOB better. Objective Last 24 Hour Vital Signs Date Time Temp Pulse Resp B/P (MAP) Pulse Ox O2 Delivery O2 Flow Rate FiO2 07/18/18 10:06 118/86 07/18/18 08:00 98.3 96 18 118/86 (97) 97 07/17/18 21:00 Room Air 07/17/18 19:47 97.9 93 20 113/75 (88) 92 07/17/18 16:00 98.2 99 18 145/93 (110) 99 07/17/18 12:00 98.3 97 18 127/71 (89) 98 07/17/18 12:00 92 Intake and Output 07/17/18 07/18/18 18:59 06:59 Intake Total 360 ml 300 ml Output Total 850 ml Balance -490 ml 300 ml Intake Oral 360 ml 300 ml Output Urine Total 850 ml # Voids 4 Laboratory Tests Test 07/18/18 04:50 White Blood Count 5.8 K/UL (4.8-10.8) Red Blood Count 5.07 M/UL (4.70-6.10) Hemoglobin 16.0 G/DL (14.2-18.0) Hematocrit 46.1 % (42.0-52.0) Mean Corpuscular Volume 91 FL (80-99) Mean Corpuscular Hemoglobin 31.6 PG (27.0-31.0) H Mean Corpuscular Hemoglobin Concent 34.8 G/DL (32.0-36.0) Red Cell Distribution Width 12.3 % (11.6-14.8) Platelet Count 269 K/UL (150-450) Mean Platelet Volume 5.5 FL (6.5-10.1) L Neutrophils (%) (Auto) 46.3 % (45.0-75.0) Lymphocytes (%) (Auto) 37.3 % (20.0-45.0) Monocytes (%) (Auto) 11.2 % (1.0-10.0) H Eosinophils (%) (Auto) 4.0 % (0.0-3.0) H Basophils (%) (Auto) 1.2 % (0.0-2.0) Sodium Level 138 MMOL/L (136-145) Potassium Level 3.9 MMOL/L (3.5-5.1) Chloride Level 105 MMOL/L (98-107) Carbon Dioxide Level 23 MMOL/L (21-32) Anion Gap 10 mmol/L (5-15) Blood Urea Nitrogen 17 mg/dL (7-18) Creatinine 1.4 MG/DL (0.55-1.30) H Estimat Glomerular Filtration Rate > 60 mL/min (>60) Glucose Level 99 MG/DL (74-106) Hemoglobin A1c 5.7 % (4.3-6.0) Uric Acid 6.4 MG/DL (2.6-7.2) Calcium Level 8.9 MG/DL (8.5-10.1) Phosphorus Level 3.0 MG/DL (2.5-4.9) Magnesium Level 1.9 MG/DL (1.8-2.4) Total Bilirubin 0.7 MG/DL (0.2-1.0) Gamma Glutamyl Transpeptidase 29 U/L (5-85) Aspartate Amino Transf (AST/SGOT) 36 U/L (15-37) Alanine Aminotransferase (ALT/SGPT) 24 U/L (12-78) Alkaline Phosphatase 83 U/L (46-116) Total Creatine Kinase 114 U/L (26-308) Troponin I 0.182 ng/mL (0.000-0.056) Pro-B-Type Natriuretic Peptide 1938 pg/mL (0-125) H Total Protein 6.5 G/DL (6.4-8.2) Albumin 2.7 G/DL (3.4-5.0) L Globulin 3.8 g/dL Albumin/Globulin Ratio 0.7 (1.0-2.7) L Triglycerides Level 65 MG/DL (30-150) Cholesterol Level 142 MG/DL (< 200) LDL Cholesterol 56 mg/dL (<100) HDL Cholesterol 73 MG/DL (40-60) H Cholesterol/HDL Ratio 1.9 (3.3-4.4) L Thyroid Stimulating Hormone (TSH) 1.088 uiU/mL (0.358-3.740) Objective HEAD AND NECK: Showed no JVD. LUNGS: Decreased breath sounds. CARDIOVASCULAR: Shows regular S1 and S2 with no gallop. ABDOMEN: Soft. EXTREMITIES: He has 1+ pitting edema. SKIN: ICD in the left subclavian is intact. Mitch Butt MD Jul 18, 2018 11:48
[2018-07-18 12:00] VITALS: BP 128/91
--- NOTE | 2018-07-18 12:03 | Consultation ---
History of Present Illness General Date patient seen: Jul 18, 2018 Chief Complaint: Dyspnea/Respdistress Present Illness HPI 58-year-old gentleman with history of hypertension and severe cardiomyopathy as well as history of defibrillator implantation, who presented to the emergency room complaining of shortness of breath. the pt c/o depressed mood, anxiety and insomnia. the pt denied si and requested antidepressants. Allergies: Coded Allergies: LISINOPRIL (Unverified Allergy, Unknown, 03/03/18) Medication History Discontinued Medications Apixaban (Eliquis), 5 MG PO, (Reported) Discontinued Reason: MD discontinued med Apixaban (Eliquis), 5 MG PO BID, (Reported) Discontinued Reason: MD discontinued med Aspirin (Aspirin EC), 81 MG ORAL DAILY, (Reported) Discontinued Reason: MD discontinued med Carvedilol (Coreg), 3.125 MG ORAL EVERY 12 HOURS, (Reported) Discontinued Reason: MD discontinued med Carvedilol (Coreg), 3.125 MG ORAL EVERY 12 HOURS, (Reported) Discontinued Reason: MD discontinued med Clonidine Hcl (Clonidine Hcl), 0.1 MG PO, (Reported) Discontinued Reason: MD discontinued med Furosemide* (Lasix*), 40 MG ORAL DAILY, (Reported) Discontinued Reason: MD discontinued med Furosemide* (Lasix*), 40 MG ORAL DAILY, (Reported) Discontinued Reason: MD discontinued med Gabapentin (Neurontin), 300 MG ORAL BEDTIME, (Reported) Discontinued Reason: MD discontinued med Gabapentin (Neurontin), 300 MG ORAL THREE TIMES A DAY, (Reported) Discontinued Reason: MD discontinued med Hydrocodone Bit/Acetaminophen 10-325* ([place] 10-325*), 1 TAB ORAL Q6H PRN for For Pain, (Reported) Discontinued Reason: MD discontinued med Ibuprofen* (Motrin*), 600 MG PO TID Discontinued Reason: MD discontinued med Losartan Potassium* (Losartan Potassium*), 25 MG ORAL DAILY, (Reported) Discontinued Reason: MD discontinued med Quetiapine Fumarate (Seroquel), 25 MG ORAL BEDTIME, (Reported) Discontinued Reason: MD discontinued med Quetiapine Fumarate* (Seroquel*), 25 MG ORAL DAILY, (Reported) Discontinued Reason: MD discontinued med Risperidone* (Risperdal*), 0.25 MG ORAL DAILY, (Reported) Discontinued Reason: MD discontinued med Simvastatin (Zocor), Unknown Dose ORAL BEDTIME, (Reported) Discontinued Reason: MD discontinued med Spironolactone (Aldactone), 25 MG ORAL DAILY, (Reported) Discontinued Reason: MD discontinued med Patient History History Provided By: Patient, Medical Record, PMD Healthcare decision maker Resuscitation status Full Code Advanced Directive on File Past Medical/Surgical History Past Medical/Surgical History: (1) Acute kidney injury (2) Chronic paranoid schizophrenia (3) Pacemaker (4) Noncompliance (5) Dyspnea (6) ACS (acute coronary syndrome) (7) Acute on chronic renal failure (8) Cardiomyopathy (9) Cocaine abuse (10) Cardiac defibrillator in place Review of Systems Psychiatric: Reports: prior hx, anxiety, depressed feelings, emotional problems Physical Exam General Appearance: no apparent distress, alert Neurologic: oriented x 3, responsive, depressed affect Last 24 Hour Vital Signs Date Time Temp Pulse Resp B/P (MAP) Pulse Ox O2 Delivery O2 Flow Rate FiO2 07/18/18 10:06 118/86 07/18/18 09:00 Room Air 07/18/18 08:00 98.3 96 18 118/86 (97) 97 07/17/18 21:00 Room Air 07/17/18 19:47 97.9 93 20 113/75 (88) 92 07/17/18 16:00 98.2 99 18 145/93 (110) 99 Intake and Output 07/17/18 07/18/18 18:59 06:59 Intake Total 360 ml 300 ml Output Total 850 ml Balance -490 ml 300 ml Intake Oral 360 ml 300 ml Output Urine Total 850 ml # Voids 4 Laboratory Tests Test 07/18/18 04:50 White Blood Count 5.8 K/UL (4.8-10.8) Red Blood Count 5.07 M/UL (4.70-6.10) Hemoglobin 16.0 G/DL (14.2-18.0) Hematocrit 46.1 % (42.0-52.0) Mean Corpuscular Volume 91 FL (80-99) Mean Corpuscular Hemoglobin 31.6 PG (27.0-31.0) H Mean Corpuscular Hemoglobin Concent 34.8 G/DL (32.0-36.0) Red Cell Distribution Width 12.3 % (11.6-14.8) Platelet Count 269 K/UL (150-450) Mean Platelet Volume 5.5 FL (6.5-10.1) L Neutrophils (%) (Auto) 46.3 % (45.0-75.0) Lymphocytes (%) (Auto) 37.3 % (20.0-45.0) Monocytes (%) (Auto) 11.2 % (1.0-10.0) H Eosinophils (%) (Auto) 4.0 % (0.0-3.0) H Basophils (%) (Auto) 1.2 % (0.0-2.0) Sodium Level 138 MMOL/L (136-145) Potassium Level 3.9 MMOL/L (3.5-5.1) Chloride Level 105 MMOL/L (98-107) Carbon Dioxide Level 23 MMOL/L (21-32) Anion Gap 10 mmol/L (5-15) Blood Urea Nitrogen 17 mg/dL (7-18) Creatinine 1.4 MG/DL (0.55-1.30) H Estimat Glomerular Filtration Rate > 60 mL/min (>60) Glucose Level 99 MG/DL (74-106) Hemoglobin A1c 5.7 % (4.3-6.0) Uric Acid 6.4 MG/DL (2.6-7.2) Calcium Level 8.9 MG/DL (8.5-10.1) Phosphorus Level 3.0 MG/DL (2.5-4.9) Magnesium Level 1.9 MG/DL (1.8-2.4) Total Bilirubin 0.7 MG/DL (0.2-1.0) Gamma Glutamyl Transpeptidase 29 U/L (5-85) Aspartate Amino Transf (AST/SGOT) 36 U/L (15-37) Alanine Aminotransferase (ALT/SGPT) 24 U/L (12-78) Alkaline Phosphatase 83 U/L (46-116) Total Creatine Kinase 114 U/L (26-308) Troponin I 0.182 ng/mL (0.000-0.056) Pro-B-Type Natriuretic Peptide 1938 pg/mL (0-125) H Total Protein 6.5 G/DL (6.4-8.2) Albumin 2.7 G/DL (3.4-5.0) L Globulin 3.8 g/dL Albumin/Globulin Ratio 0.7 (1.0-2.7) L Triglycerides Level 65 MG/DL (30-150) Cholesterol Level 142 MG/DL (< 200) LDL Cholesterol 56 mg/dL (<100) HDL Cholesterol 73 MG/DL (40-60) H Cholesterol/HDL Ratio 1.9 (3.3-4.4) L Thyroid Stimulating Hormone (TSH) 1.088 uiU/mL (0.358-3.740) Height (Feet): 5 Height (Inches): 11.00 Weight (Pounds): 200 Medications Current Medications Medications (Trade) Dose Ordered Sig/[place] Route PRN Reason Start Time Stop Time Status Last Admin Dose Admin Acetaminophen (Tylenol) 650 mg Q4H PRN ORAL Mild Pain/Temp > 100.5 07/16/18 23:30 08/15/18 23:29 Acetaminophen/ Hydrocodone Bitart (Andale ) 1 tab Q8H PRN ORAL Severe Pain (Pain Scale 7-10) 07/17/18 09:15 07/24/18 09:14 Docusate Sodium (Colace) 100 mg THREE TIMES A DAY ORAL 07/17/18 18:00 08/16/18 17:59 07/18/18 10:06 Furosemide (Lasix) 40 mg DAILY IV 07/18/18 09:00 08/17/18 08:59 07/18/18 10:06 Losartan Potassium (Cozaar) 25 mg DAILY ORAL 07/17/18 13:09 08/16/18 13:08 07/18/18 10:06 Pantoprazole (Protonix) 40 mg DAILY ORAL 07/18/18 09:00 08/17/18 08:59 07/18/18 10:06 Spironolactone (Aldactone) 25 mg DAILY ORAL 07/18/18 09:00 08/17/18 08:59 07/18/18 10:06 Assessment/Plan Problem List: (1) Cocaine abuse ICD Codes: F14.10 - Cocaine abuse, uncomplicated SNOMED: 17743291 (2) Chronic paranoid schizophrenia ICD Codes: F20.0 - Paranoid schizophrenia SNOMED: 69964706 Status: stable Assessment/Plan MDD remeron 15mg qhs provided doni/Joey Crain MD Jul 18, 2018 12:03
[2018-07-18 16:00] VITALS: BP 121/83
--- NOTE | 2018-07-18 16:14 | Cardiology Report ---
APPROVED REPORT EKG Measurement Heart [id number] Sinus tachycardia Right atrial enlargement Voltage criteria for left ventricular hypertrophy Nonspecific T wave abnormality Abnormal ECG
[2018-07-18 20:00] VITALS: BP 125/96
--- NOTE | 2018-07-18 20:39 | General Progress Note ---
Assessment/Plan Problem List: (1) Noncompliance ICD Codes: Z91.19 - Patient's noncompliance with other medical treatment and regimen SNOMED: 0168841 (2) Cardiomyopathy ICD Codes: I42.9 - Cardiomyopathy, unspecified SNOMED: 27617780 (3) Cardiac defibrillator in place ICD Codes: Z95.810 - Presence of automatic (implantable) cardiac defibrillator SNOMED: 668242164 (4) Cocaine abuse ICD Codes: F14.10 - Cocaine abuse, uncomplicated SNOMED: 17718041 (5) Dyspnea ICD Codes: R06.00 - Dyspnea, unspecified SNOMED: 779831396 (6) Chronic paranoid schizophrenia ICD Codes: F20.0 - Paranoid schizophrenia SNOMED: 00316473 (7) Pacemaker ICD Codes: Z95.0 - Presence of cardiac pacemaker SNOMED: 797880747 (8) ACS (acute coronary syndrome) ICD Codes: I24.9 - Acute ischemic heart disease, unspecified SNOMED: 818517612 Status: progressing Assessment/Plan afebrile chf drug abuse noncompliance cardiomyopathy azotemia fluid management Subjective ROS Limited/Unobtainable: Yes Allergies: Coded Allergies: LISINOPRIL (Unverified Allergy, Unknown, 03/03/18) Objective Last 24 Hour Vital Signs Date Time Temp Pulse Resp B/P (MAP) Pulse Ox O2 Delivery O2 Flow Rate FiO2 07/18/18 20:00 90 07/18/18 20:00 98.6 92 20 125/96 (106) 97 07/18/18 16:00 98.7 93 18 121/83 (96) 97 07/18/18 12:00 92 07/18/18 12:00 98.3 113 18 128/91 (103) 98 07/18/18 10:06 118/86 07/18/18 09:00 Room Air 07/18/18 08:00 86 07/18/18 08:00 98.3 96 18 118/86 (97) 97 07/17/18 21:00 Room Air Intake and Output 07/17/18 07/18/18 19:00 07:00 Intake Total 360 ml 300 ml Output Total 850 ml Balance -490 ml 300 ml Intake Oral 360 ml 300 ml Output Urine Total 850 ml # Voids 4 Laboratory Tests 07/18/18 04:50: White Blood Count 5.8, Red Blood Count 5.07, Hemoglobin 16.0, Hematocrit 46.1, Mean Corpuscular Volume 91, Mean Corpuscular Hemoglobin 31.6H, Mean Corpuscular Hemoglobin Concent 34.8, Red Cell Distribution Width 12.3, Platelet Count 269, Mean Platelet Volume 5.5L, Neutrophils (%) (Auto) 46.3, Lymphocytes (%) (Auto) 37.3, Monocytes (%) (Auto) 11.2H, Eosinophils (%) (Auto) 4.0H, Basophils (%) ( Auto) 1.2, Sodium Level 138, Potassium Level 3.9, Chloride Level 105, Carbon Dioxide Level 23, Anion Gap 10, Blood Urea Nitrogen 17, Creatinine 1.4H, Estimat Glomerular Filtration Rate > 60, Glucose Level 99, Hemoglobin A1c 5.7, Uric Acid 6.4, Calcium Level 8.9, Phosphorus Level 3.0, Magnesium Level 1.9, Total Bilirubin 0.7, Gamma Glutamyl Transpeptidase 29, Aspartate Amino Transf ( AST/SGOT) 36, Alanine Aminotransferase (ALT/SGPT) 24, Alkaline Phosphatase 83, Total Creatine Kinase 114, Troponin I 0.182H, Pro-B-Type Natriuretic Peptide 1938H, Total Protein 6.5, Albumin 2.7L, Globulin 3.8, Albumin/Globulin Ratio 0.7L, Triglycerides Level 65, Cholesterol Level 142, LDL Cholesterol 56, HDL Cholesterol 73H, Cholesterol/HDL Ratio 1.9L, Thyroid Stimulating Hormone (TSH) 1.088 Height (Feet): 5 Height (Inches): 11.00 Weight (Pounds): 200 Respiratory/Chest: crackles/rales Anne Calzada MD Jul 18, 2018 20:39
[2018-07-19] MEDS: Spironolactone 25mg tab ORAL SCH (08:57)
[2018-07-19] MEDS: Losartan 25mg tab ORAL SCH (08:58)
[2018-07-19] MEDS: Docusate 100mg cap ORAL SCH ×3 (08:58→17:38)
--- NOTE | 2018-07-19 11:47 | Cardiac Electrophysiology PN ---
Assessment/Plan Assessment/Plan 1.Chronic Troponin elevation likely due to congestive heart failure. His BNP is 1638. Continue Aldactone, Losartan 25 daily and Lasix 40 iv daily O ff beta ivan for cocaine use. He states he is allergic to lisinopril. 2. Status post [employer] defibrillator implantation. With Nl Fx 3. Substance abuse with cocaine. Avoid beta-ivan for active cocaine use. 4. Noncompliance 5. Homelessness DW RN Subjective Subjective No CP.Very non compliant. Objective Last 24 Hour Vital Signs Date Time Temp Pulse Resp B/P (MAP) Pulse Ox O2 Delivery O2 Flow Rate FiO2 07/19/18 09:00 Room Air 07/19/18 07:53 91 07/19/18 04:00 91 07/19/18 00:00 97 07/18/18 21:00 Room Air 07/18/18 20:00 90 07/18/18 20:00 98.6 92 20 125/96 (106) 97 07/18/18 16:00 98.7 93 18 121/83 (96) 97 07/18/18 12:00 92 07/18/18 12:00 98.3 113 18 128/91 (103) 98 Intake and Output 07/18/18 07/19/18 18:59 06:59 Intake Total 480 ml Output Total 1800 ml Balance -1320 ml Intake Oral 480 ml Output Urine Total 1800 ml # Bowel Movements 1 Microbiology Date/Time Source Procedure Growth Status 07/16/18 20:55 Nasal Nares MRSA Culture - Final NO METHICILLIN RESISTANT STAPH AUREUS... Complete Objective HEAD AND NECK: Showed no JVD. LUNGS: Decreased breath sounds. CARDIOVASCULAR: Shows regular S1 and S2 with no gallop. ICD in the left subclavian is intact. ABDOMEN: Soft. EXTREMITIES: 1+ pitting edema. Mitch Butt MD Jul 19, 2018 11:47
[2018-07-19 12:00] VITALS: BP 113/80
--- NOTE | 2018-07-19 12:56 | Nephrology Progress Note ---
Assessment/Plan Problem List: (1) Acute on chronic renal failure (2) Cardiomyopathy (3) Cocaine abuse (4) Cardiac defibrillator in place Assessment (1) Renal failure , acute on chronic (2) Acute exacerbation of CHF (congestive heart failure), Low Ej Fx 15% (3) ACS (acute coronary syndrome) (4) COPD (chronic obstructive pulmonary disease) with acute bronchitis (5) Chronic paranoid schizophrenia (6) Pacemaker (7) Cocaine and Mj abuse (8) Defibrilator Plan Optimize cardiac status urine studies avoid nephrotoxics per orders Subjective ROS Limited/Unobtainable: No Objective Objective Last 24 Hour Vital Signs Date Time Temp Pulse Resp B/P (MAP) Pulse Ox O2 Delivery O2 Flow Rate FiO2 07/19/18 12:00 98.2 93 22 113/80 (91) 97 07/19/18 09:00 Room Air 07/19/18 07:53 91 07/19/18 04:00 91 07/19/18 00:00 97 07/18/18 21:00 Room Air 07/18/18 20:00 90 07/18/18 20:00 98.6 92 20 125/96 (106) 97 07/18/18 16:00 98.7 93 18 121/83 (96) 97 Intake and Output 07/18/18 07/19/18 18:59 06:59 Intake Total 480 ml Output Total 1800 ml Balance -1320 ml Intake Oral 480 ml Output Urine Total 1800 ml # Bowel Movements 1 Height (Feet): 5 Height (Inches): 11.00 Weight (Pounds): 200 General Appearance: no apparent distress Objective no change Elias Thorne MD Jul 19, 2018 12:56
[2018-07-19 14:02] LABS: APPEARANCE,URINE CLEAR; BILIRUBIN, URINE NEGATIVE (NEGATIVE); COLOR,URINE PALE YELLOW; GLUCOSE, URINE (UA) NEGATIVE (NEGATIVE); KETONES,URINE NEGATIVE (NEGATIVE); LEUKOCYTE ESTERASE ,URINE NEGATIVE (NEGATIVE); NITRITE,URINE NEGATIVE (NEGATIVE); PH,URINE 8 (4.5-8.0); PROTEIN,URINE NEGATIVE (NEGATIVE); UROBILINOGEN,URINE NORMAL MG/DL (0.0-1.0)
[2018-07-19 16:00] VITALS: BP 128/93
[2018-07-19 20:00] VITALS: BP 116/83
--- NOTE | 2018-07-19 21:17 | General Progress Note ---
Assessment/Plan Problem List: (1) Noncompliance ICD Codes: Z91.19 - Patient's noncompliance with other medical treatment and regimen SNOMED: 9341473 (2) Cardiomyopathy ICD Codes: I42.9 - Cardiomyopathy, unspecified SNOMED: 55502793 (3) Cardiac defibrillator in place ICD Codes: Z95.810 - Presence of automatic (implantable) cardiac defibrillator SNOMED: 472320851 (4) Cocaine abuse ICD Codes: F14.10 - Cocaine abuse, uncomplicated SNOMED: 59595314 (5) Dyspnea ICD Codes: R06.00 - Dyspnea, unspecified SNOMED: 471556154 (6) Chronic paranoid schizophrenia ICD Codes: F20.0 - Paranoid schizophrenia SNOMED: 69651063 (7) Pacemaker ICD Codes: Z95.0 - Presence of cardiac pacemaker SNOMED: 988921363 (8) ACS (acute coronary syndrome) ICD Codes: I24.9 - Acute ischemic heart disease, unspecified SNOMED: 873114881 Status: progressing Assessment/Plan no sob no wheezing chf drug abuse noncompliance with meds cardiomyopathy Subjective ROS Limited/Unobtainable: Yes Allergies: Coded Allergies: LISINOPRIL (Unverified Allergy, Unknown, 03/03/18) Objective Last 24 Hour Vital Signs Date Time Temp Pulse Resp B/P (MAP) Pulse Ox O2 Delivery O2 Flow Rate FiO2 07/19/18 16:00 98.0 93 21 128/93 (105) 97 07/19/18 12:00 98.2 93 22 113/80 (91) 97 07/19/18 09:00 Room Air 07/19/18 07:53 91 07/19/18 04:00 91 07/19/18 00:00 97 Intake and Output 07/18/18 07/19/18 19:00 07:00 Intake Total 480 ml Output Total 1800 ml Balance -1320 ml Intake Oral 480 ml Output Urine Total 1800 ml # Bowel Movements 1 Laboratory Tests 07/19/18 13:00: Urine Color Pale yellow, Urine Appearance Clear, Urine pH 8, Urine Specific [place] 1.015, Urine Protein Negative, Urine Glucose (UA) Negative, Urine Ketones Negative, Urine Blood Negative, Urine Nitrite Negative, Urine Bilirubin Negative, Urine Urobilinogen Normal, Urine Leukocyte Esterase Negative, Urine RBC 0, Urine WBC 0, Urine Squamous Epithelial Cells None, Urine Bacteria Occasional, Urine Opiates Screen Negative, Urine Barbiturates Screen Negative, Phencyclidine (PCP) Screen Negative, Urine Amphetamines Screen Negative, Urine Benzodiazepines Screen Negative, Urine Cocaine Screen PositiveH, Urine Marijuana (THC) Screen PositiveH Height (Feet): 5 Height (Inches): 11.00 Weight (Pounds): 200 Neck: supple Cardiovascular: normal rate Respiratory/Chest: lungs clear Abdomen: soft Anne Calzada MD Jul 19, 2018 21:17
[2018-07-20] VITALS: BP 99/62
[2018-07-20 08:00] VITALS: BP 104/66
[2018-07-20] MEDS: Spironolactone 25mg tab ORAL SCH (08:53)
[2018-07-20] MEDS: Docusate 100mg cap ORAL SCH ×3 (08:53→17:44)
[2018-07-20] MEDS: Losartan 25mg tab ORAL SCH (08:53)
--- NOTE | 2018-07-20 10:13 | General Progress Note ---
Assessment/Plan Assessment/Plan (1) B/L Knee pain (2) B/L Knee osteoarthritis (3) Cocaine abuse (4) Congestive heart failure (5) Acute coronary syndrome Patient to be continued on [place]. D/w Dr. Sanchez and he concurred. Subjective Date patient seen: Jul 20, 2018 Time patient seen: 10:00 - am Allergies: Coded Allergies: LISINOPRIL (Unverified Allergy, Unknown, 03/03/18) Subjective REVIEW OF SYSTEMS: Denies rash, fever, chills, sweating, dizziness, drowsiness, blurred vision, sore throat, change in weight. No nausea, vomiting, diarrhea, or blood in the stool or urine. No bowel or bladder incontinence. No dysuria. He is complaining of knee pain. SUBJECTIVE: Patient resting in bed and reports no pain at this time. Pain is worse with movement and reduced on the [place] when used. Objective Last 24 Hour Vital Signs Date Time Temp Pulse Resp B/P (MAP) Pulse Ox O2 Delivery O2 Flow Rate FiO2 07/20/18 09:00 Room Air 07/20/18 08:53 104/66 07/20/18 08:00 97.2 99 21 104/66 (79) 99 07/20/18 07:57 91 07/20/18 04:00 91 07/20/18 00:00 86 07/20/18 00:00 97.9 95 22 99/62 (74) 95 07/19/18 21:00 Room Air 07/19/18 20:00 98.5 93 20 116/83 (94) 97 07/19/18 16:00 98.0 93 21 128/93 (105) 97 07/19/18 12:00 98.2 93 22 113/80 (91) 97 Intake and Output 07/19/18 07/20/18 19:00 07:00 Intake Total 600 ml 500 ml Output Total 1000 ml Balance -400 ml 500 ml Intake Oral 600 ml 500 ml Output Urine Total 1000 ml Laboratory Tests 07/19/18 13:00: Urine Color Pale yellow, Urine Appearance Clear, Urine pH 8, Urine Specific [place] 1.015, Urine Protein Negative, Urine Glucose (UA) Negative, Urine Ketones Negative, Urine Blood Negative, Urine Nitrite Negative, Urine Bilirubin Negative, Urine Urobilinogen Normal, Urine Leukocyte Esterase Negative, Urine RBC 0, Urine WBC 0, Urine Squamous Epithelial Cells None, Urine Bacteria Occasional, Urine Opiates Screen Negative, Urine Barbiturates Screen Negative, Phencyclidine (PCP) Screen Negative, Urine Amphetamines Screen Negative, Urine Benzodiazepines Screen Negative, Urine Cocaine Screen PositiveH, Urine Marijuana (THC) Screen PositiveH Height (Feet): 5 Height (Inches): 11.00 Weight (Pounds): 200 Objective GENERAL: Alert, awake, and oriented. LUNGS: Decreased breath sounds bilaterally. HEART: S1 and S2 irregular. ABDOMEN: Benign. EXTREMITIES: No cyanosis. No clubbing. NEURO: No changes. Mike De La Rosa Jul 20, 2018 10:13
[2018-07-20 12:00] VITALS: BP 117/75
--- NOTE | 2018-07-20 14:59 | Nephrology Progress Note ---
Assessment/Plan Problem List: (1) Acute on chronic renal failure (2) Cardiomyopathy (3) Cocaine abuse (4) Cardiac defibrillator in place Assessment (1) Renal failure , acute on chronic (2) Acute exacerbation of CHF (congestive heart failure), Low Ej Fx 15% (3) ACS (acute coronary syndrome) (4) COPD (chronic obstructive pulmonary disease) with acute bronchitis (5) Chronic paranoid schizophrenia (6) Pacemaker (7) Cocaine and Mj abuse (8) Defibrilator Plan Optimize cardiac status urine studies: indicates Cocaine and Mj avoid nephrotoxics per orders Subjective ROS Limited/Unobtainable: No Constitutional: Reports: malaise Objective Objective Last 24 Hour Vital Signs Date Time Temp Pulse Resp B/P (MAP) Pulse Ox O2 Delivery O2 Flow Rate FiO2 07/20/18 12:00 98.1 91 21 117/75 (89) 97 07/20/18 11:44 99 07/20/18 09:00 Room Air 07/20/18 08:53 104/66 07/20/18 08:00 97.2 99 21 104/66 (79) 99 07/20/18 07:57 91 07/20/18 04:00 91 07/20/18 00:00 86 07/20/18 00:00 97.9 95 22 99/62 (74) 95 07/19/18 21:00 Room Air 07/19/18 20:00 98.5 93 20 116/83 (94) 97 07/19/18 16:00 98.0 93 21 128/93 (105) 97 Intake and Output 07/19/18 07/20/18 18:59 06:59 Intake Total 600 ml 500 ml Output Total 1000 ml Balance -400 ml 500 ml Intake Oral 600 ml 500 ml Output Urine Total 1000 ml Height (Feet): 5 Height (Inches): 11.00 Weight (Pounds): 200 General Appearance: no apparent distress Objective no change Elias Thorne MD Jul 20, 2018 14:59
[2018-07-20 16:00] VITALS: BP 103/66
[2018-07-20 20:00] VITALS: BP 106/75
--- NOTE | 2018-07-20 21:00 | General Progress Note ---
Assessment/Plan Problem List: (1) Noncompliance ICD Codes: Z91.19 - Patient's noncompliance with other medical treatment and regimen SNOMED: 8003211 (2) Cardiomyopathy ICD Codes: I42.9 - Cardiomyopathy, unspecified SNOMED: 22640595 (3) Cardiac defibrillator in place ICD Codes: Z95.810 - Presence of automatic (implantable) cardiac defibrillator SNOMED: 656433029 (4) Cocaine abuse ICD Codes: F14.10 - Cocaine abuse, uncomplicated SNOMED: 73034113 (5) Dyspnea ICD Codes: R06.00 - Dyspnea, unspecified SNOMED: 637429606 (6) Chronic paranoid schizophrenia ICD Codes: F20.0 - Paranoid schizophrenia SNOMED: 81945730 (7) Pacemaker ICD Codes: Z95.0 - Presence of cardiac pacemaker SNOMED: 649597890 (8) ACS (acute coronary syndrome) ICD Codes: I24.9 - Acute ischemic heart disease, unspecified SNOMED: 020803622 Status: progressing Assessment/Plan neg trop no significant arrythmia chf drug abuse noncompliance with meds cardiomyopathy Subjective ROS Limited/Unobtainable: Yes Allergies: Coded Allergies: LISINOPRIL (Unverified Allergy, Unknown, 03/03/18) Objective Last 24 Hour Vital Signs Date Time Temp Pulse Resp B/P (MAP) Pulse Ox O2 Delivery O2 Flow Rate FiO2 07/20/18 16:36 95 07/20/18 16:00 98.7 96 20 103/66 (78) 98 07/20/18 12:00 98.1 91 21 117/75 (89) 97 07/20/18 11:44 99 07/20/18 09:00 Room Air 07/20/18 08:53 104/66 07/20/18 08:00 97.2 99 21 104/66 (79) 99 07/20/18 07:57 91 07/20/18 04:00 91 07/20/18 00:00 86 07/20/18 00:00 97.9 95 22 99/62 (74) 95 Intake and Output 07/19/18 07/20/18 19:00 07:00 Intake Total 600 ml 500 ml Output Total 1000 ml Balance -400 ml 500 ml Intake Oral 600 ml 500 ml Output Urine Total 1000 ml Height (Feet): 5 Height (Inches): 11.00 Weight (Pounds): 200 Neck: normal alignment Cardiovascular: normal rate Respiratory/Chest: lungs clear Abdomen: soft Anne Calzada MD Jul 20, 2018 21:00
[2018-07-21] VITALS: BP 102/69
[2018-07-21 06:07] LABS: BASOPHILS % (AUTO) 1.8 % (0.0-2.0); EOSINOPHILS % (AUTO) 2.7 % (0.0-3.0); HEMATOCRIT 50.4 % (42.0-52.0); HEMOGLOBIN 16.9 G/DL (14.2-18.0); LYMPHOCYTES % (AUTO) 34.4 % (20.0-45.0); MEAN CORPUSCULAR VOLUME 91 FL (80-99); MONOCYTES % (AUTO) 12.7 % (1.0-10.0); NEUTROPHILS % (AUTO) 48.4 % (45.0-75.0); PLATELET COUNT 277 K/UL (150-450); RED BLOOD COUNT 5.54 M/UL (4.70-6.10); RED CELL DISTRIBUTION WIDTH 12.9 % (11.6-14.8); WHITE BLOOD COUNT 6.9 K/UL (4.8-10.8)
[2018-07-21 06:34] LABS: ALANINE AMINOTRANSFERASE 24 U/L (12-78); ALBUMIN 2.9 G/DL (3.4-5.0); ALBUMIN/GLOBULIN RATIO 0.7 (1.0-2.7); ALKALINE PHOSPHATASE 79 U/L (46-116); ANION GAP 9 mmol/L (5-15); ASPARTATE AMINO TRANSFERASE 21 U/L (15-37); BILIRUBIN,TOTAL 0.5 MG/DL (0.2-1.0); BLOOD UREA NITROGEN 19 mg/dL (7-18); CALCIUM 9.3 MG/DL (8.5-10.1); CARBON DIOXIDE 23 MMOL/L (21-32); CHLORIDE 103 MMOL/L (98-107); CREATININE 1.4 MG/DL (0.55-1.30); PHOSPHORUS 4.6 MG/DL (2.5-4.9); POTASSIUM 4.2 MMOL/L (3.5-5.1); SODIUM 135 MMOL/L (136-145)
[2018-07-21 07:54] VITALS: BP 92/64
[2018-07-21] MEDS: Spironolactone 25mg tab ORAL SCH (08:40)
[2018-07-21] MEDS: Docusate 100mg cap ORAL SCH ×3 (08:40→18:29)
[2018-07-21] MEDS: Losartan 25mg tab ORAL SCH (08:40)
--- NOTE | 2018-07-21 08:46 | General Progress Note ---
Assessment/Plan Assessment/Plan (1) B/L Knee pain (2) B/L Knee osteoarthritis (3) Cocaine abuse (4) Congestive heart failure (5) Acute coronary syndrome Patient to be continued on [place]. D/w Dr. Sanchez and he concurred. Subjective Date patient seen: Jul 21, 2018 Time patient seen: 07:30 - am Allergies: Coded Allergies: LISINOPRIL (Unverified Allergy, Unknown, 03/03/18) Subjective REVIEW OF SYSTEMS: Denies rash, fever, chills, sweating, dizziness, drowsiness, blurred vision, sore throat, change in weight. No nausea, vomiting, diarrhea, or blood in the stool or urine. No bowel or bladder incontinence. No dysuria. He is complaining of knee pain. SUBJECTIVE: Patient showing no signs of pain or distress. Objective Last 24 Hour Vital Signs Date Time Temp Pulse Resp B/P (MAP) Pulse Ox O2 Delivery O2 Flow Rate FiO2 07/21/18 08:40 92/64 07/21/18 07:54 98.7 89 18 92/64 (73) 100 07/21/18 04:00 86 07/21/18 00:00 98.2 96 18 102/69 (80) 96 07/21/18 00:00 99 07/20/18 21:00 Room Air 07/20/18 20:00 98.7 95 16 106/75 (85) 98 07/20/18 16:36 95 07/20/18 16:00 98.7 96 20 103/66 (78) 98 07/20/18 12:00 98.1 91 21 117/75 (89) 97 07/20/18 11:44 99 07/20/18 09:00 Room Air 07/20/18 08:53 104/66 Intake and Output 07/20/18 07/21/18 19:00 07:00 Intake Total 600 ml 480 ml Balance 600 ml 480 ml Intake Oral 600 ml 480 ml # Voids 5 4 Laboratory Tests 07/21/18 05:41: White Blood Count 6.9, Red Blood Count 5.54, Hemoglobin 16.9, Hematocrit 50.4, Mean Corpuscular Volume 91, Mean Corpuscular Hemoglobin 30.5, Mean Corpuscular Hemoglobin Concent 33.6, Red Cell Distribution Width 12.9, Platelet Count 277, Mean Platelet Volume 5.6L, Neutrophils (%) (Auto) 48.4, Lymphocytes (%) (Auto) 34.4, Monocytes (%) (Auto) 12.7H, Eosinophils (%) (Auto) 2.7, Basophils (%) ( Auto) 1.8, Sodium Level 135L, Potassium Level 4.2, Chloride Level 103, Carbon Dioxide Level 23, Anion Gap 9, Blood Urea Nitrogen 19H, Creatinine 1.4H, Estimat Glomerular Filtration Rate > 60, Glucose Level 108H, Calcium Level 9.3, Phosphorus Level 4.6, Magnesium Level 1.7L, Total Bilirubin 0.5, Aspartate Amino Transf (AST/SGOT) 21, Alanine Aminotransferase (ALT/SGPT) 24, Alkaline Phosphatase 79, Total Protein 7.1, Albumin 2.9L, Globulin 4.2, Albumin/Globulin Ratio 0.7L Height (Feet): 5 Height (Inches): 11.00 Weight (Pounds): 200 Objective GENERAL: Alert, awake, and oriented. LUNGS: Decreased breath sounds bilaterally. HEART: S1 and S2 irregular. ABDOMEN: Benign. EXTREMITIES: No cyanosis. No clubbing. NEURO: No changes. Mike De La Rosa Jul 21, 2018 08:46
[2018-07-21 12:00] VITALS: BP 110/72
--- NOTE | 2018-07-21 13:57 | Nephrology Progress Note ---
Assessment/Plan Problem List: (1) Acute on chronic renal failure (2) Cardiomyopathy (3) Cocaine abuse (4) Cardiac defibrillator in place Assessment (1) Renal failure , acute on chronic (2) Acute exacerbation of CHF (congestive heart failure), Low Ej Fx 15% (3) ACS (acute coronary syndrome) (4) COPD (chronic obstructive pulmonary disease) with acute bronchitis (5) Chronic paranoid schizophrenia (6) Pacemaker (7) Cocaine and Mj abuse (8) Defibrilator Plan Optimize cardiac status urine studies: indicates Cocaine and Mj avoid nephrotoxics per orders Subjective ROS Limited/Unobtainable: No Constitutional: Reports: malaise Objective Objective Last 24 Hour Vital Signs Date Time Temp Pulse Resp B/P (MAP) Pulse Ox O2 Delivery O2 Flow Rate FiO2 07/21/18 12:00 97.2 91 18 110/72 (85) 100 07/21/18 11:39 94 07/21/18 09:00 Room Air 07/21/18 08:40 92/64 07/21/18 07:54 98.7 89 18 92/64 (73) 100 07/21/18 07:42 91 07/21/18 04:00 86 07/21/18 00:00 98.2 96 18 102/69 (80) 96 07/21/18 00:00 99 07/20/18 21:00 Room Air 07/20/18 20:00 98.7 95 16 106/75 (85) 98 07/20/18 16:36 95 07/20/18 16:00 98.7 96 20 103/66 (78) 98 Intake and Output 07/20/18 07/21/18 19:00 07:00 Intake Total 600 ml 480 ml Balance 600 ml 480 ml Intake Oral 600 ml 480 ml # Voids 5 4 Laboratory Tests 07/21/18 05:41: White Blood Count 6.9, Red Blood Count 5.54, Hemoglobin 16.9, Hematocrit 50.4, Mean Corpuscular Volume 91, Mean Corpuscular Hemoglobin 30.5, Mean Corpuscular Hemoglobin Concent 33.6, Red Cell Distribution Width 12.9, Platelet Count 277, Mean Platelet Volume 5.6L, Neutrophils (%) (Auto) 48.4, Lymphocytes (%) (Auto) 34.4, Monocytes (%) (Auto) 12.7H, Eosinophils (%) (Auto) 2.7, Basophils (%) ( Auto) 1.8, Sodium Level 135L, Potassium Level 4.2, Chloride Level 103, Carbon Dioxide Level 23, Anion Gap 9, Blood Urea Nitrogen 19H, Creatinine 1.4H, Estimat Glomerular Filtration Rate > 60, Glucose Level 108H, Calcium Level 9.3, Phosphorus Level 4.6, Magnesium Level 1.7L, Total Bilirubin 0.5, Aspartate Amino Transf (AST/SGOT) 21, Alanine Aminotransferase (ALT/SGPT) 24, Alkaline Phosphatase 79, Total Protein 7.1, Albumin 2.9L, Globulin 4.2, Albumin/Globulin Ratio 0.7L Height (Feet): 5 Height (Inches): 11.00 Weight (Pounds): 200 General Appearance: no apparent distress Objective no change Elias Thorne MD Jul 21, 2018 13:57
--- NOTE | 2018-07-21 14:54 | Cardiac Electrophysiology PN ---
Assessment/Plan Assessment/Plan 1.Chronic Troponin elevation likely due to congestive heart failure. His BNP is 1638. Continue Aldactone, Losartan 25 daily and Lasix 40 iv daily Off beta ivan for cocaine use. Allergic to lisinopril. 2. Status post [employer] defibrillator implantation. With Nl Fx 3. Substance abuse with cocaine. Avoid beta-ivan for active cocaine use. 4. Noncompliance 5. Homelessness. Wants a new wheel chair JULIEN RN Subjective Subjective No CP or SOB. On tele now. in SR Objective Last 24 Hour Vital Signs Date Time Temp Pulse Resp B/P (MAP) Pulse Ox O2 Delivery O2 Flow Rate FiO2 07/21/18 12:00 97.2 91 18 110/72 (85) 100 07/21/18 11:39 94 07/21/18 09:00 Room Air 07/21/18 08:40 92/64 07/21/18 07:54 98.7 89 18 92/64 (73) 100 07/21/18 07:42 91 07/21/18 04:00 86 07/21/18 00:00 98.2 96 18 102/69 (80) 96 07/21/18 00:00 99 07/20/18 21:00 Room Air 07/20/18 20:00 98.7 95 16 106/75 (85) 98 07/20/18 16:36 95 07/20/18 16:00 98.7 96 20 103/66 (78) 98 Intake and Output 07/20/18 07/21/18 19:00 07:00 Intake Total 600 ml 480 ml Balance 600 ml 480 ml Intake Oral 600 ml 480 ml # Voids 5 4 Laboratory Tests Test 07/21/18 05:41 White Blood Count 6.9 K/UL (4.8-10.8) Red Blood Count 5.54 M/UL (4.70-6.10) Hemoglobin 16.9 G/DL (14.2-18.0) Hematocrit 50.4 % (42.0-52.0) Mean Corpuscular Volume 91 FL (80-99) Mean Corpuscular Hemoglobin 30.5 PG (27.0-31.0) Mean Corpuscular Hemoglobin Concent 33.6 G/DL (32.0-36.0) Red Cell Distribution Width 12.9 % (11.6-14.8) Platelet Count 277 K/UL (150-450) Mean Platelet Volume 5.6 FL (6.5-10.1) L Neutrophils (%) (Auto) 48.4 % (45.0-75.0) Lymphocytes (%) (Auto) 34.4 % (20.0-45.0) Monocytes (%) (Auto) 12.7 % (1.0-10.0) H Eosinophils (%) (Auto) 2.7 % (0.0-3.0) Basophils (%) (Auto) 1.8 % (0.0-2.0) Sodium Level 135 MMOL/L (136-145) L Potassium Level 4.2 MMOL/L (3.5-5.1) Chloride Level 103 MMOL/L (98-107) Carbon Dioxide Level 23 MMOL/L (21-32) Anion Gap 9 mmol/L (5-15) Blood Urea Nitrogen 19 mg/dL (7-18) H Creatinine 1.4 MG/DL (0.55-1.30) H Estimat Glomerular Filtration Rate > 60 mL/min (>60) Glucose Level 108 MG/DL (74-106) H Calcium Level 9.3 MG/DL (8.5-10.1) Phosphorus Level 4.6 MG/DL (2.5-4.9) Magnesium Level 1.7 MG/DL (1.8-2.4) L Total Bilirubin 0.5 MG/DL (0.2-1.0) Aspartate Amino Transf (AST/SGOT) 21 U/L (15-37) Alanine Aminotransferase (ALT/SGPT) 24 U/L (12-78) Alkaline Phosphatase 79 U/L (46-116) Total Protein 7.1 G/DL (6.4-8.2) Albumin 2.9 G/DL (3.4-5.0) L Globulin 4.2 g/dL Albumin/Globulin Ratio 0.7 (1.0-2.7) L Objective HEAD AND NECK: No JVD. LUNGS: Decreased breath sounds. CARDIOVASCULAR: Regular S1 and S2 with no gallop. ICD in the left subclavian is intact. ABDOMEN: Soft. EXTREMITIES: 1+ pitting edema. Mitch Butt MD Jul 21, 2018 14:54
[2018-07-21 16:00] VITALS: BP 115/75
[2018-07-21 20:00] VITALS: BP 101/73
--- NOTE | 2018-07-21 20:15 | General Progress Note ---
Assessment/Plan Problem List: (1) Noncompliance ICD Codes: Z91.19 - Patient's noncompliance with other medical treatment and regimen SNOMED: 9399445 (2) Cardiomyopathy ICD Codes: I42.9 - Cardiomyopathy, unspecified SNOMED: 97316807 (3) Cardiac defibrillator in place ICD Codes: Z95.810 - Presence of automatic (implantable) cardiac defibrillator SNOMED: 391148644 (4) Cocaine abuse ICD Codes: F14.10 - Cocaine abuse, uncomplicated SNOMED: 19137344 (5) Dyspnea ICD Codes: R06.00 - Dyspnea, unspecified SNOMED: 318795816 (6) Chronic paranoid schizophrenia ICD Codes: F20.0 - Paranoid schizophrenia SNOMED: 01371928 (7) Pacemaker ICD Codes: Z95.0 - Presence of cardiac pacemaker SNOMED: 509034544 (8) ACS (acute coronary syndrome) ICD Codes: I24.9 - Acute ischemic heart disease, unspecified SNOMED: 675309914 Status: progressing Assessment/Plan dc in am fluid management chf drug abuse noncompliance with meds cardiomyopathy Subjective ROS Limited/Unobtainable: Yes Allergies: Coded Allergies: LISINOPRIL (Unverified Allergy, Unknown, 03/03/18) Objective Last 24 Hour Vital Signs Date Time Temp Pulse Resp B/P (MAP) Pulse Ox O2 Delivery O2 Flow Rate FiO2 07/21/18 20:00 97.7 94 20 101/73 (82) 94 07/21/18 16:00 97.5 97 18 115/75 (88) 97 07/21/18 15:09 97 07/21/18 12:00 97.2 91 18 110/72 (85) 100 07/21/18 11:39 94 07/21/18 09:00 Room Air 07/21/18 08:40 92/64 07/21/18 07:54 98.7 89 18 92/64 (73) 100 07/21/18 07:42 91 07/21/18 04:00 86 07/21/18 00:00 98.2 96 18 102/69 (80) 96 07/21/18 00:00 99 07/20/18 21:00 Room Air Intake and Output 07/20/18 07/21/18 18:59 06:59 Intake Total 600 ml 480 ml Balance 600 ml 480 ml Intake Oral 600 ml 480 ml # Voids 5 4 Laboratory Tests 07/21/18 05:41: White Blood Count 6.9, Red Blood Count 5.54, Hemoglobin 16.9, Hematocrit 50.4, Mean Corpuscular Volume 91, Mean Corpuscular Hemoglobin 30.5, Mean Corpuscular Hemoglobin Concent 33.6, Red Cell Distribution Width 12.9, Platelet Count 277, Mean Platelet Volume 5.6L, Neutrophils (%) (Auto) 48.4, Lymphocytes (%) (Auto) 34.4, Monocytes (%) (Auto) 12.7H, Eosinophils (%) (Auto) 2.7, Basophils (%) ( Auto) 1.8, Sodium Level 135L, Potassium Level 4.2, Chloride Level 103, Carbon Dioxide Level 23, Anion Gap 9, Blood Urea Nitrogen 19H, Creatinine 1.4H, Estimat Glomerular Filtration Rate > 60, Glucose Level 108H, Calcium Level 9.3, Phosphorus Level 4.6, Magnesium Level 1.7L, Total Bilirubin 0.5, Aspartate Amino Transf (AST/SGOT) 21, Alanine Aminotransferase (ALT/SGPT) 24, Alkaline Phosphatase 79, Total Protein 7.1, Albumin 2.9L, Globulin 4.2, Albumin/Globulin Ratio 0.7L Height (Feet): 5 Height (Inches): 11.00 Weight (Pounds): 200 Neck: supple Cardiovascular: normal rate Respiratory/Chest: lungs clear Abdomen: soft Anne Calzada MD Jul 21, 2018 20:15
[2018-07-22 08:00] VITALS: BP 108/77
--- NOTE | 2018-07-22 08:56 | General Progress Note ---
Assessment/Plan Assessment/Plan (1) B/L Knee pain (2) B/L Knee osteoarthritis (3) Cocaine abuse (4) Congestive heart failure (5) Acute coronary syndrome Patient to be continued on [place]. D/w Dr. Sanchez and he concurred. Subjective Date patient seen: Jul 22, 2018 Time patient seen: 07:00 - am Allergies: Coded Allergies: LISINOPRIL (Unverified Allergy, Unknown, 03/03/18) Subjective REVIEW OF SYSTEMS: Denies rash, fever, chills, sweating, dizziness, drowsiness, blurred vision, sore throat, change in weight. No nausea, vomiting, diarrhea, or blood in the stool or urine. No bowel or bladder incontinence. No dysuria. SUBJECTIVE: Patient in bed no pain at this time. Objective Last 24 Hour Vital Signs Date Time Temp Pulse Resp B/P (MAP) Pulse Ox O2 Delivery O2 Flow Rate FiO2 07/22/18 04:00 92 07/22/18 00:00 88 07/21/18 21:00 Room Air 07/21/18 20:00 93 07/21/18 20:00 97.7 94 20 101/73 (82) 94 07/21/18 16:00 97.5 97 18 115/75 (88) 97 07/21/18 15:09 97 07/21/18 12:00 97.2 91 18 110/72 (85) 100 07/21/18 11:39 94 07/21/18 09:00 Room Air Intake and Output 07/21/18 07/22/18 19:00 07:00 Intake Total 360 ml Output Total 1400 ml 1500 ml Balance -1040 ml -1500 ml Intake Oral 360 ml Output Urine Total 1400 ml 1500 ml Height (Feet): 5 Height (Inches): 11.00 Weight (Pounds): 200 Objective GENERAL: Alert, awake, and oriented. LUNGS: Decreased breath sounds bilaterally. HEART: S1 and S2 irregular. ABDOMEN: Benign. EXTREMITIES: No cyanosis. No clubbing. NEURO: No changes. Mike De La Rosa Jul 22, 2018 08:56
[2018-07-22] MEDS: Docusate 100mg cap ORAL SCH ×2 (10:21→13:14)
[2018-07-22] MEDS: Spironolactone 25mg tab ORAL SCH (10:22)
[2018-07-22] MEDS: Losartan 25mg tab ORAL SCH (10:22)
[2018-07-22 11:34] VITALS: BP 124/68
--- NOTE | 2018-07-22 12:43 | Nephrology Progress Note ---
Assessment/Plan Problem List: (1) Acute on chronic renal failure (2) Cardiomyopathy (3) Cocaine abuse (4) Cardiac defibrillator in place Assessment (1) Renal failure , acute on chronic (2) Acute exacerbation of CHF (congestive heart failure), Low Ej Fx 15% (3) ACS (acute coronary syndrome) (4) COPD (chronic obstructive pulmonary disease) with acute bronchitis (5) Chronic paranoid schizophrenia (6) Pacemaker (7) Cocaine and Mj abuse (8) Defibrilator Plan Optimize cardiac status urine studies: indicates Cocaine and Mj avoid nephrotoxics per orders Subjective ROS Limited/Unobtainable: No Constitutional: Reports: malaise Objective Objective Last 24 Hour Vital Signs Date Time Temp Pulse Resp B/P (MAP) Pulse Ox O2 Delivery O2 Flow Rate FiO2 07/22/18 11:34 97.6 88 18 124/68 (86) 96 07/22/18 10:22 108/77 07/22/18 09:00 Room Air 07/22/18 08:00 97.5 69 21 108/77 (87) 97 07/22/18 08:00 94 07/22/18 04:00 92 07/22/18 00:00 88 07/21/18 21:00 Room Air 07/21/18 20:00 93 07/21/18 20:00 97.7 94 20 101/73 (82) 94 07/21/18 16:00 97.5 97 18 115/75 (88) 97 07/21/18 15:09 97 Intake and Output 07/21/18 07/22/18 19:00 07:00 Intake Total 360 ml Output Total 1400 ml 1500 ml Balance -1040 ml -1500 ml Intake Oral 360 ml Output Urine Total 1400 ml 1500 ml Height (Feet): 5 Height (Inches): 11.00 Weight (Pounds): 200 General Appearance: no apparent distress Objective no change Elias Thorne MD Jul 22, 2018 12:43
--- NOTE | 2018-07-22 13:30 | Cardiology Report ---
APPROVED REPORT EXAM: Two-dimensional and M-mode echocardiogram with Doppler and color Doppler. INDICATION High Troponins M-Mode DIMENSIONS IVSd0.6 (0.7-1.1cm)Left Atrium (MM)4.1 (1.6-4.0cm) LVDd8.5 (3.5-5.6cm)Aortic Root3.2 (2.0-3.7cm) PWd0.8 (0.7-1.1cm)Aortic Cusp Exc.2.1 (1.5-2.0cm) LVDs7.7 (2.5-4.0cm) PWs0.9 cm Severe left ventricular enlargement. Severe global left ventricular hypokinesis. cardiomyopathy cannot be excluded. Left ventricular ejection fraction estimated to be 10-15%. No evidence of left ventricular hypertrophy. No evidence of pericardial effusion. Severe left atrial enlargement. Right cardiac chamber sizes are within normal limits. Mild focal aortic valve sclerosis with adequate cusp excursion. Mildly thickened mitral valve leaflets with normal excursion. Mild mitral annulus and aortic root calcification. Normal pulmonic valve structure. Normal tricuspid valve structure. IVC dilated at 2.4 cm without physiological collapse, suggestive of increased RA pressure. Pacemaker wire present in the right side chambers. A color flow and spectral Doppler study was performed and revealed: Trace aortic insufficiency. Moderate to severe mitral regurgitation. Mitral inflow indicates restrictive pattern, implying severely elevated left atrial pressure (Grade III ). Mild tricuspid regurgitation. Tricuspid systolic velocities suggests peak right ventricular systolic pressure of 53 mmHg, consistent with moderate pulmonary hypertension. Mild pulmonic regurgitation present.
--- NOTE | 2018-07-22 15:10 | Cardiac Electrophysiology PN ---
Assessment/Plan Assessment/Plan 1.Chronic Troponin elevation likely due to congestive heart failure. His BNP is 1638. Continue Aldactone, Losartan 25 daily and Lasix Off beta ivan for cocaine use. Allergic to lisinopril. 2. Status post [employer] defibrillator implantation. With Nl Fx 3. Substance abuse with cocaine. Avoid beta-ivan for active cocaine use. 4. Noncompliance 5. Homelessness. Wants a new wheel chair DW RN OK to DC Subjective Subjective No CP or SOB. Awaiting DC Objective Last 24 Hour Vital Signs Date Time Temp Pulse Resp B/P (MAP) Pulse Ox O2 Delivery O2 Flow Rate FiO2 07/22/18 11:34 97.6 88 18 124/68 (86) 96 07/22/18 10:22 108/77 07/22/18 09:00 Room Air 07/22/18 08:00 97.5 69 21 108/77 (87) 97 07/22/18 08:00 94 07/22/18 04:00 92 07/22/18 00:00 88 07/21/18 21:00 Room Air 07/21/18 20:00 93 07/21/18 20:00 97.7 94 20 101/73 (82) 94 07/21/18 16:00 97.5 97 18 115/75 (88) 97 Intake and Output 07/21/18 07/22/18 19:00 07:00 Intake Total 360 ml Output Total 1400 ml 1500 ml Balance -1040 ml -1500 ml Intake Oral 360 ml Output Urine Total 1400 ml 1500 ml Objective HEAD AND NECK: No JVD. LUNGS: Decreased breath sounds. CARDIOVASCULAR: Regular S1 and S2 with no gallop. ICD in the left subclavian is intact. ABDOMEN: Soft. EXTREMITIES: 1+ pitting edema. Mitch Butt MD Jul 22, 2018 15:10
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
== END 2018-07-22 15:30 | disposition home or self-care (01) | DRG 205 ==
LOC: EMR 20:29 → 2E 20:40 → EDBEDREQ 22:09 → 2E 07-17 22:31
DX: I42.8 Other cardiomyopathies (principal); N17.9 Acute kidney failure, unspecified; I24.9 Acute ischemic heart disease, unspecified; I27.20 Pulmonary hypertension, unspecified; F14.288 Cocaine dependence with other cocaine-induced disorder; F20.0 Paranoid schizophrenia; I50.9 Heart failure, unspecified; I13.0 Hypertensive heart and chronic kidney disease with heart failure and stage 1 through stage 4 chronic kidney disease, or unspecified chronic kidney disease; J44.9 Chronic obstructive pulmonary disease, unspecified; Z95.810 Presence of automatic (implantable) cardiac defibrillator; F31.9 Bipolar disorder, unspecified; Z59.0 Homelessness; Z91.14 Patient's other noncompliance with medication regimen; I34.0 Nonrheumatic mitral (valve) insufficiency; N18.9 Chronic kidney disease, unspecified; M17.0 Bilateral primary osteoarthritis of knee; Z88.8 Allergy status to other drugs, medicaments and biological substances; F12.10 Cannabis abuse, uncomplicated; J20.9 Acute bronchitis, unspecified; I48.91 Unspecified atrial fibrillation; I25.10 Atherosclerotic heart disease of native coronary artery without angina pectoris
CPT/HCPCS: 36415; 71045; 80053; 80061; 80307; 81001; 82550; 82977; 83036; 83735; 83880; 84100; 84443; 84484; 84550; 85025; 85610; 86140; 87081; 93005; 93306; 99285

== ENCOUNTER 2018-09-07 09:47 | Inpatient (IN) | payer MEDICAID, OTHER ==
[~2018-09-07] VITALS: Ht 182.9 cm; Wt 83.2 kg
[2018-09-07] VITALS (8 sets, daily range): BP systolic 100–128; BP diastolic 42–79
[~2018-09-07 09:47] MED LIST changes: +SIMVASTATIN5 MG ORAL
[2018-09-07] MEDS ORDERED: ASPIR 8181 MG ORAL (10:05)
[2018-09-07] MEDS ORDERED: PROCARDIA10 MG ORAL (10:05)
[2018-09-07] MEDS ORDERED: Ipratropium 0.02% Inh Soln 2.5ml UD HHN ONE (10:15)
[2018-09-07] MEDS ORDERED: Albuterol ud Inhalation HHN ONE (10:15)
[2018-09-07] MEDS ORDERED: Aspirin Baby 81mg ORAL ONE (10:15)
--- NOTE | 2018-09-07 10:25 | Emergency Room Report ---
History of Present Illness General Chief Complaint: Dyspnea/Respdistress Source: Patient Present Illness HPI Patient is a 58-year-old male who presented after increased difficulty breathing. Benadryl gradual onset of symptoms. Patient reports having prior history of a blood clot in the past and states he takes Elliquis. The patient reports having a prior history of cardiac failure as well as taking Coreg. He reports having increased nonproductive cough.Per patient's old records he's had prior history of cocaine abuse.The patient reports being a smoker. Allergies: Coded Allergies: LISINOPRIL (Unverified Allergy, Unknown, 03/03/18) Patient History Past Medical History: see triage record Reviewed Nursing Documentation: PMH: Agreed; PSxH: Agreed Nursing Documentation-PMH Past Medical History: No History, Except For Hx Cardiac Problems: Yes - CHF Hx Hypertension: Yes Hx Pacemaker: Yes - left chest Hx Cancer: No Hx Gastrointestinal Problems: No Hx Neurological Problems: No Review of Systems All Other Systems: negative except mentioned in HPI Physical Exam Vital Signs Date Time Temp Pulse Resp B/P (MAP) Pulse Ox O2 Delivery O2 Flow Rate FiO2 09/07/18 09:59 97.5 106 24 123/74 96 Room Air Sp02 EP Interpretation: reviewed, normal General Appearance: normal inspection, well appearing, no apparent distress, alert, GCS 15, Chronically Ill Head: atraumatic ENT: normal ENT inspection, hearing grossly normal, normal voice Neck: normal inspection, full range of motion, supple, no bony tend Respiratory: normal inspection, lungs clear, normal breath sounds, no respiratory distress, no retraction, no wheezing Cardiovascular #1: regular rate, rhythm, no edema Gastrointestinal: normal inspection, normal bowel sounds, non tender, soft, no guarding, no hernia Genitourinary: no CVA tenderness Musculoskeletal: normal inspection, back normal, normal range of motion Neurologic: normal inspection, alert, oriented x3, responsive, speech normal Psychiatric: normal inspection, judgement/insight normal, mood/affect normal Skin: normal inspection, normal color, no rash Medical Decision Making Diagnostic Impression: Primary Impression: ACS (acute coronary syndrome) Additional Impressions: Cardiomyopathy Cocaine abuse ER Course Patient presented for chest discomfort. Differential diagnosis included was not limited to congestive heart failure, arrhythmia, aortic dissection among others.Because of complexity of patient's case laboratory testing and imaging studies were ordered. The laboratory testing was notable for a markedly elevated BNP consistent with congestive heart failure. Patient noted have a minimally elevated troponin. EKG interpreted by me showed sinus tachycardia without acute ST or T wave changes. Urine drug was positive for cocaine as well as marijuana.The patient was given IV Lasix as well as aspirin. Dr. Anne Munguia was contacted for inpatient management Laboratory Tests Test 09/07/18 10:14 09/07/18 11:50 White Blood Count 11.3 K/UL (4.8-10.8) H Red Blood Count 5.60 M/UL (4.70-6.10) Hemoglobin 16.7 G/DL (14.2-18.0) Hematocrit 50.8 % (42.0-52.0) Mean Corpuscular Volume 91 FL (80-99) Mean Corpuscular Hemoglobin 29.8 PG (27.0-31.0) Mean Corpuscular Hemoglobin Concent 32.9 G/DL (32.0-36.0) Red Cell Distribution Width 12.8 % (11.6-14.8) Platelet Count 290 K/UL (150-450) Mean Platelet Volume 5.3 FL (6.5-10.1) L Neutrophils (%) (Auto) 79.2 % (45.0-75.0) H Lymphocytes (%) (Auto) 11.8 % (20.0-45.0) L Monocytes (%) (Auto) 8.0 % (1.0-10.0) Eosinophils (%) (Auto) 0.1 % (0.0-3.0) Basophils (%) (Auto) 0.9 % (0.0-2.0) Prothrombin Time 11.1 SEC (9.30-11.50) Prothrombin Time INR 1.1 (0.9-1.1) PTT 35 SEC (23-33) H D-Dimer 0.76 mg/L FEU (0.00-0.49) H Sodium Level 138 MMOL/L (136-145) Potassium Level 4.6 MMOL/L (3.5-5.1) Chloride Level 103 MMOL/L (98-107) Carbon Dioxide Level 22 MMOL/L (21-32) Anion Gap 13 mmol/L (5-15) Blood Urea Nitrogen 17 mg/dL (7-18) Creatinine 1.4 MG/DL (0.55-1.30) H Estimate Glomerular Filtration Rate > 60 mL/min (>60) Glucose Level 74 MG/DL (74-106) Calcium Level 9.3 MG/DL (8.5-10.1) Total Bilirubin 1.0 MG/DL (0.2-1.0) Aspartate Amino Transferase (AST) 42 U/L (15-37) H Alanine Aminotransferase (ALT) 41 U/L (12-78) Alkaline Phosphatase 97 U/L (46-116) Total Creatine Kinase 311 U/L (26-308) H Creatine Kinase MB 8.1 NG/ML (0.0-3.6) H Creatine Kinase MB Relative Index 2.6 Troponin I 0.131 ng/mL (0.000-0.056) Pro-B-Type Natriuretic Peptide 3389 pg/mL (0-125) H Total Protein 9.0 G/DL (6.4-8.2) H Albumin 3.9 G/DL (3.4-5.0) Globulin 5.1 g/dL Albumin/Globulin Ratio 0.8 (1.0-2.7) L Lipase 80 U/L (73-393) Urine Color Pale yellow Urine Appearance Clear Urine pH 5 (4.5-8.0) Urine Specific [place] 1.015 (1.005-1.035) Urine Protein Negative (NEGATIVE) Urine Glucose (UA) Negative (NEGATIVE) Urine Ketones Negative (NEGATIVE) Urine Blood Negative (NEGATIVE) Urine Nitrite Negative (NEGATIVE) Urine Bilirubin Negative (NEGATIVE) Urine Urobilinogen Normal MG/DL (0.0-1.0) Urine Leukocyte Esterase Negative (NEGATIVE) Urine Opiates Screen Negative (NEGATIVE) Urine Barbiturates Screen Negative (NEGATIVE) Phencyclidine (PCP) Screen Negative (NEGATIVE) Urine Amphetamines Screen Negative (NEGATIVE) Urine Benzodiazepines Screen Negative (NEGATIVE) Urine Cocaine Screen Positive (NEGATIVE) H Urine Marijuana (THC) Screen Positive (NEGATIVE) H EKG Diagnostic Results Rate: tachycardiac Rhythm: NSR ST Segments: no acute changes Last Vital Signs Date Time Temp Pulse Resp B/P (MAP) Pulse Ox O2 Delivery O2 Flow Rate FiO2 09/07/18 09:59 97.5 106 24 123/74 96 Room Air Status: unchanged Disposition: ADMITTED INPATIENT Condition: Stable Clark Saez MD Sep 07, 2018 10:25
[2018-09-07 10:31] LABS: BASOPHILS % (AUTO) 0.9 % (0.0-2.0); EOSINOPHILS % (AUTO) 0.1 % (0.0-3.0); HEMATOCRIT 50.8 % (42.0-52.0); HEMOGLOBIN 16.7 G/DL (14.2-18.0); LYMPHOCYTES % (AUTO) 11.8 % (20.0-45.0); MEAN CORPUSCULAR VOLUME 91 FL (80-99); NEUTROPHILS % (AUTO) 79.2 % (45.0-75.0); PLATELET COUNT 290 K/UL (150-450); RED CELL DISTRIBUTION WIDTH 12.8 % (11.6-14.8); WHITE BLOOD COUNT 11.3 K/UL (4.8-10.8)
[2018-09-07 10:37] LABS: INR 1.1 (0.9-1.1)
[2018-09-07 10:52] LABS: ANION GAP 13 mmol/L (5-15); BLOOD UREA NITROGEN 17 mg/dL (7-18); CALCIUM 9.3 MG/DL (8.5-10.1); CARBON DIOXIDE 22 MMOL/L (21-32); CHLORIDE 103 MMOL/L (98-107); CREATININE 1.4 MG/DL (0.55-1.30); POTASSIUM 4.6 MMOL/L (3.5-5.1); SODIUM 138 MMOL/L (136-145)
[2018-09-07 11:05] LABS: ALANINE AMINOTRANSFERASE 41 U/L (12-78); ALBUMIN 3.9 G/DL (3.4-5.0); ALBUMIN/GLOBULIN RATIO 0.8 (1.0-2.7); ALKALINE PHOSPHATASE 97 U/L (46-116); ASPARTATE AMINO TRANSFERASE 42 U/L (15-37); CKMB 8.1 NG/ML (0.0-3.6); CREATINE KINASE 311 U/L (26-308)
--- NOTE | 2018-09-07 11:07 | Diagnostic Imaging Report ---
EXAM: XR Chest, 1 View CLINICAL HISTORY: SOB TECHNIQUE: Frontal view of the chest. COMPARISON: No relevant prior studies available. FINDINGS: Lungs: Apparent mild accentuation of the bronchovascular and interstitial markings. Mild reticulonodular opacities in the upper lung patrick. Query dominant nodule measuring 12 mm in the left mid - upper lung field. Pleural space: Unremarkable. No pneumothorax. Heart: Cardiomegaly and AICD. Mediastinum: Unremarkable. Bones/joints: No acute fracture. IMPRESSION: 1. Apparent mild accentuation of the bronchovascular and interstitial markings. Could be from mild edema. 2. Mild reticulonodular opacities in the upper lung patrick. Query dominant nodule measuring 12 mm in the left mid - upper lung field.
[2018-09-07 12:03] LABS: APPEARANCE,URINE CLEAR; BILIRUBIN, URINE NEGATIVE (NEGATIVE); COLOR,URINE PALE YELLOW; GLUCOSE, URINE (UA) NEGATIVE (NEGATIVE); KETONES,URINE NEGATIVE (NEGATIVE); LEUKOCYTE ESTERASE ,URINE NEGATIVE (NEGATIVE); NITRITE,URINE NEGATIVE (NEGATIVE); PH,URINE 5 (4.5-8.0); PROTEIN,URINE NEGATIVE (NEGATIVE); UROBILINOGEN,URINE NORMAL MG/DL (0.0-1.0)
[2018-09-07] MEDS ORDERED: ELIQUIS2.5 MG PO (13:40)
[2018-09-07] MEDS ORDERED: COREG3.125 MG ORAL (13:40)
[2018-09-07] MEDS ORDERED: SIMVASTATIN10 MG ORAL (13:40)
[2018-09-07] MEDS ORDERED: FUROSEMIDE20 M1 ORAL (13:40)
--- NOTE | 2018-09-07 18:28 | Pulmonology Progress Note ---
Assessment/Plan Assessment/Plan Pulmonary Consultation Reason for Admission: SOB, cough, hemoptysis HPI Patient is a 58-year-old male who presented after increased difficulty breathing. Had a gradual onset of symptoms. Patient reports having prior history of a blood clot in the past and states he takes Elliquis. The patient reports having a prior history of cardiac failure as well as taking Coreg. He reports having increased nonproductive cough. He has had a prior history of cocaine abuse.The patient reports being a smoker. No h/o previous TB, no loss of weight or night sweats Allergies: LISINOPRIL Past Medical History: Hypertension, Pulmonary Embolism, CHF, PPM, Cocaine use All Other Systems: negative except mentioned in HPI Objective Vital Signs Noted Date Time Temp Pulse Resp B/P (MAP) Pulse Ox O2 Delivery O2 Flow Rate FiO2 09/07/18 09:59 97.5 106 24 123/74 96 Room Air General Appearance: normal inspection, well appearing, no apparent distress, alert, GCS 15, Chronically Ill Head: atraumatic ENT: normal ENT inspection, hearing grossly normal, normal voice Neck: normal inspection, full range of motion, supple, no bony tend Respiratory: normal inspection, lungs clear, normal breath sounds, no respiratory distress, no retraction, no wheezing Cardiovascular #1: regular rate, rhythm, no edema Gastrointestinal: normal inspection, normal bowel sounds, non tender, soft, no guarding, no hernia Genitourinary: no CVA tenderness Musculoskeletal: normal inspection, back normal, normal range of motion Neurologic: normal inspection, alert, oriented x3, responsive, speech normal Psychiatric: normal inspection, judgement/insight normal, mood/affect normal Skin: normal inspection, normal color, no rash Impression: Cough, SOB, hemoptysis, upper zone nodular infiltrates ACS (acute coronary syndrome) NSTEMI Previous Pulmonary Embolism on Eliquis Cardiomyopathy Cocaine abuse Hypertension Plan Admit Telemetry ASA Respiratory isolation ARB sputum x 3 Ceftriaxone and Azithromycin Continue Eliquis Diuresis PRN HHN PRN O2 sats 90-96% VQ scan/LE dupplex Sputum c+s Laboratory Tests EKG: Rate: tachycardiac Rhythm: NSR ST Segments: no acute changes Test 09/07/18 10:14 09/07/18 11:50 White Blood Count 11.3 K/UL (4.8-10.8) H Red Blood Count 5.60 M/UL (4.70-6.10) Hemoglobin 16.7 G/DL (14.2-18.0) Hematocrit 50.8 % (42.0-52.0) Mean Corpuscular Volume 91 FL (80-99) Mean Corpuscular Hemoglobin 29.8 PG (27.0-31.0) Mean Corpuscular Hemoglobin Concent 32.9 G/DL (32.0-36.0) Red Cell Distribution Width 12.8 % (11.6-14.8) Platelet Count 290 K/UL (150-450) Mean Platelet Volume 5.3 FL (6.5-10.1) L Neutrophils (%) (Auto) 79.2 % (45.0-75.0) H Lymphocytes (%) (Auto) 11.8 % (20.0-45.0) L Monocytes (%) (Auto) 8.0 % (1.0-10.0) Eosinophils (%) (Auto) 0.1 % (0.0-3.0) Basophils (%) (Auto) 0.9 % (0.0-2.0) Prothrombin Time 11.1 SEC (9.30-11.50) Prothrombin Time INR 1.1 (0.9-1.1) PTT 35 SEC (23-33) H D-Dimer 0.76 mg/L FEU (0.00-0.49) H Sodium Level 138 MMOL/L (136-145) Potassium Level 4.6 MMOL/L (3.5-5.1) Chloride Level 103 MMOL/L (98-107) Carbon Dioxide Level 22 MMOL/L (21-32) Anion Gap 13 mmol/L (5-15) Blood Urea Nitrogen 17 mg/dL (7-18) Creatinine 1.4 MG/DL (0.55-1.30) H Estimate Glomerular Filtration Rate > 60 mL/min (>60) Glucose Level 74 MG/DL (74-106) Calcium Level 9.3 MG/DL (8.5-10.1) Total Bilirubin 1.0 MG/DL (0.2-1.0) Aspartate Amino Transferase (AST) 42 U/L (15-37) H Alanine Aminotransferase (ALT) 41 U/L (12-78) Alkaline Phosphatase 97 U/L (46-116) Total Creatine Kinase 311 U/L (26-308) H Creatine Kinase MB 8.1 NG/ML (0.0-3.6) H Creatine Kinase MB Relative Index 2.6 Troponin I 0.131 ng/mL (0.000-0.056) Pro-B-Type Natriuretic Peptide 3389 pg/mL (0-125) H Total Protein 9.0 G/DL (6.4-8.2) H Albumin 3.9 G/DL (3.4-5.0) Globulin 5.1 g/dL Albumin/Globulin Ratio 0.8 (1.0-2.7) L Lipase 80 U/L (73-393) Urine Color Pale yellow Urine Appearance Clear Urine pH 5 (4.5-8.0) Urine Specific [place] 1.015 (1.005-1.035) Urine Protein Negative (NEGATIVE) Urine Glucose (UA) Negative (NEGATIVE) Urine Ketones Negative (NEGATIVE) Urine Blood Negative (NEGATIVE) Urine Nitrite Negative (NEGATIVE) Urine Bilirubin Negative (NEGATIVE) Urine Urobilinogen Normal MG/DL (0.0-1.0) Urine Leukocyte Esterase Negative (NEGATIVE) Urine Opiates Screen Negative (NEGATIVE) Urine Barbiturates Screen Negative (NEGATIVE) Phencyclidine (PCP) Screen Negative (NEGATIVE) Urine Amphetamines Screen Negative (NEGATIVE) Urine Benzodiazepines Screen Negative (NEGATIVE) Urine Cocaine Screen Positive (NEGATIVE) H Urine Marijuana (THC) Screen Positive (NEGATIVE) H Subjective ROS Limited/Unobtainable: No Respiratory: Reports: sputum, hemoptysis, shortness of breath Allergies: Coded Allergies: LISINOPRIL (Unverified Allergy, Unknown, 03/03/18) Objective Last 24 Hour Vital Signs Date Time Temp Pulse Resp B/P (MAP) Pulse Ox O2 Delivery O2 Flow Rate FiO2 09/07/18 17:20 98.1 102 24 105/73 93 Room Air 09/07/18 16:00 98.0 105 18 100/58 98 Room Air 09/07/18 15:00 109 23 101/52 97 Room Air 09/07/18 14:00 97.9 106 24 106/71 94 Room Air 09/07/18 13:00 111 19 103/42 94 Room Air 09/07/18 12:00 98.0 106 21 106/54 98 Room Air 09/07/18 11:00 102 22 121/75 98 Room Air 09/07/18 10:29 110 20 97 Room Air 21 12/16/18 10:22 36 09/07/18 10:22 114 18 89 Room Air 21 09/07/18 10:05 97.7 103 18 122/79 96 Room Air 09/07/18 10:05 103 18 Room Air 09/07/18 09:59 97.5 106 24 123/74 96 Room Air Laboratory Tests 09/07/18 10:14: White Blood Count 11.3H, Red Blood Count 5.60, Hemoglobin 16.7, Hematocrit 50.8 , Mean Corpuscular Volume 91, Mean Corpuscular Hemoglobin 29.8, Mean Corpuscular Hemoglobin Concent 32.9, Red Cell Distribution Width 12.8, Platelet Count 290, Mean Platelet Volume 5.3L, Neutrophils (%) (Auto) 79.2H, Lymphocytes (%) (Auto) 11.8L, Monocytes (%) (Auto) 8.0, Eosinophils (%) (Auto) 0.1, Basophils (%) (Auto) 0.9, Prothrombin Time 11.1, Prothromb Time International Ratio 1.1, Activated Partial Thromboplast Time 35H, D-Dimer 0.76H, Sodium Level 138, Potassium Level 4.6, Chloride Level 103, Carbon Dioxide Level 22, Anion Gap 13, Blood Urea Nitrogen 17, Creatinine 1.4H, Estimat Glomerular Filtration Rate > 60, Glucose Level 74, Calcium Level 9.3, Total Bilirubin 1.0, Aspartate Amino Transf (AST/SGOT) 42H, Alanine Aminotransferase (ALT/SGPT) 41, Alkaline Phosphatase 97, Total Creatine Kinase 311H, Creatine Kinase MB 8.1H, Creatine Kinase MB Relative Index 2.6, Troponin I 0.131H, Pro-B-Type Natriuretic Peptide 3389H, Total Protein 9.0H, Albumin 3.9, Globulin 5.1, Albumin/Globulin Ratio 0.8L, Lipase 80 09/07/18 11:50: Urine Color Pale yellow, Urine Appearance Clear, Urine pH 5, Urine Specific [place] 1.015, Urine Protein Negative, Urine Glucose (UA) Negative, Urine Ketones Negative, Urine Blood Negative, Urine Nitrite Negative, Urine Bilirubin Negative, Urine Urobilinogen Normal, Urine Leukocyte Esterase Negative, Urine Opiates Screen Negative, Urine Barbiturates Screen Negative, Phencyclidine (PCP ) Screen Negative, Urine Amphetamines Screen Negative, Urine Benzodiazepines Screen Negative, Urine Cocaine Screen PositiveH, Urine Marijuana (THC) Screen PositiveH Maxx Ashley MD Sep 07, 2018 18:28
[2018-09-07] MEDS ORDERED: Albuterol/Ipratropium 3ml neb HHN PRN (18:30)
[2018-09-07] MEDS: Azithromycin 250 MG in D5W 275 ML IV SCH (20:42)
[2018-09-07] MEDS: cefTRIAXone 1 GM in D5W 55 ML IVPB SCH (20:42)
[2018-09-07 20:44] LABS: ANION GAP 10 mmol/L (5-15); BLOOD UREA NITROGEN 21 mg/dL (7-18); CALCIUM 8.9 MG/DL (8.5-10.1); CARBON DIOXIDE 28 MMOL/L (21-32); CHLORIDE 102 MMOL/L (98-107); CREATININE 1.8 MG/DL (0.55-1.30); POTASSIUM 3.9 MMOL/L (3.5-5.1); SODIUM 140 MMOL/L (136-145)
[2018-09-08] VITALS: BP 109/76
--- NOTE | 2018-09-08 00:45 | History and Physical Report ---
DATE OF ADMISSION: 09/07/2018 HISTORY OF PRESENT ILLNESS: The patient is being admitted for syncopal episodes and shortness of breath. The patient also has a history of cocaine abuse and history of alcohol abuse as well. The patient is having worsening edema and orthopnea. Denies nausea, vomiting, diarrhea, fever, or chills. Also, the patient has hemoptysis. The patient also has shortness of breath and syncopal episodes. PAST MEDICAL HISTORY: History of cocaine, cardiomyopathy, and history of smoking. PAST SURGICAL HISTORY: Pacemaker . ALLERGIES: Denies. MEDICATIONS: The patient medications routinely. FAMILY HISTORY: . SOCIAL HISTORY: History of smoking. History of drug and alcohol abuse. REVIEW OF SYSTEMS: HEENT: Denies headaches. RESPIRATORY: Reports shortness of breath. No hemoptysis or cough. CARDIOVASCULAR: Denies chest pain. Does have shortness of breath. GASTROINTESTINAL: Denies nausea, vomiting, or diarrhea. EXTREMITIES: Reports worsening edema. NEUROLOGIC: No change in vision or speech pattern. Feels very weak. PHYSICAL EXAMINATION: VITAL SIGNS: Temperature 97.2 degrees, pulse 78, and blood pressure 132/70. HEENT: PERRLA. NECK: Supple. CHEST: Bibasilar rhonchi. CARDIOVASCULAR: Tachycardic. GASTROINTESTINAL: Soft. Positive bowel sounds. Abdomen is nontender. No organomegaly. EXTREMITIES: He has 2+ edema. Reflexes in both sides. LABORATORY AND DIAGNOSTIC DATA: Significant for troponin of 0.13 and elevated BNP. EKG shows tachycardia. Chest x-ray shows cardiomegaly azotemia. ASSESSMENT AND PLAN: Azotemia, CHF exacerbation, rule out pulmonary edema, drug-induced cardiomyopathy. The patient needs to be worked up for these symptoms and signs. I have asked Dr. Butt, Dr. Vance, Dr. Jenaro Arredondo, and Dr. Thorne to see the patient for the management and to help with the management and treatment of the above-mentioned diagnoses. Anne Calzada M.D. DR: Joyce JOB#: [id number] CC:
[2018-09-08 04:00] VITALS: BP 115/71
[2018-09-08 04:35] LABS: BASOPHILS % (AUTO) 1.7 % (0.0-2.0); EOSINOPHILS % (AUTO) 1.8 % (0.0-3.0); HEMATOCRIT 42.5 % (42.0-52.0); HEMOGLOBIN 14.5 G/DL (14.2-18.0); LYMPHOCYTES % (AUTO) 39.9 % (20.0-45.0); MEAN CORPUSCULAR VOLUME 89 FL (80-99); MONOCYTES % (AUTO) 13.7 % (1.0-10.0); NEUTROPHILS % (AUTO) 42.9 % (45.0-75.0); PLATELET COUNT 254 K/UL (150-450); RED BLOOD COUNT 4.76 M/UL (4.70-6.10); RED CELL DISTRIBUTION WIDTH 12.6 % (11.6-14.8); WHITE BLOOD COUNT 6.1 K/UL (4.8-10.8)
[2018-09-08 08:00] VITALS: BP 123/89
[2018-09-08] MEDS: Aspirin EC 81mg tab ORAL SCH (09:05)
[2018-09-08] MEDS: cefTRIAXone 1 GM in D5W 55 ML IVPB SCH (09:06)
[2018-09-08] MEDS: Eliquis 2.5mg tablet ORAL SCH (09:08)
--- NOTE | 2018-09-08 10:57 | Consultation ---
Consult Note Consult Note Patient is a 58-year-old male who presented after increased difficulty breathing. Benadryl gradual onset of symptoms. Patient reports having prior history of a blood clot in the past and states he takes Elliquis. The patient reports having a prior history of cardiac failure as well as taking Coreg. He reports having increased nonproductive cough.Per patient's old records he's had prior history of cocaine abuse.The patient reports being a smoker. Allergies: LISINOPRIL (Unverified Allergy, Unknown, 03/03/18) Past Medical History: No History, Except For Hx Cardiac Problems: Yes - CHF Hx Hypertension: Yes Hx Pacemaker: Yes - left chest interviewed examined- data reviewed Assessment/Plan (1) Renal failure , acute on chronic (2) Acute exacerbation of CHF (congestive heart failure), Low Ej Fx 15% (3) ACS (acute coronary syndrome) (4) COPD (chronic obstructive pulmonary disease) with acute bronchitis (5) Chronic paranoid schizophrenia (6) Pacemaker (7) Cocaine and Mj abuse (8) Defibrilator Optimize cardiac status urine studies avoid nephrotoxics per orders Elias Thorne MD Sep 08, 2018 10:57
[2018-09-08 12:00] VITALS: BP 114/73
--- NOTE | 2018-09-08 13:25 | Cardiac Electrophysiology PN ---
Subjective Subjective [id number] Objective Last 24 Hour Vital Signs Date Time Temp Pulse Resp B/P (MAP) Pulse Ox O2 Delivery O2 Flow Rate FiO2 09/08/18 09:05 88 123/89 09/08/18 09:00 Room Air 09/08/18 08:00 97.9 88 18 123/89 (100) 97 09/08/18 08:00 87 09/08/18 04:00 98.8 85 18 115/71 (86) 98 09/08/18 04:00 86 09/08/18 00:00 99 09/08/18 00:00 98.1 98 18 109/76 (87) 98 09/07/18 21:00 Room Air 09/07/18 20:45 99 128/67 09/07/18 20:11 100 18 Room Air 21 09/07/18 20:00 110 09/07/18 20:00 97.0 99 18 128/67 (87) 97 09/07/18 19:00 Room Air 09/07/18 17:20 98.1 102 24 105/73 93 Room Air 09/07/18 16:00 98.0 105 18 100/58 98 Room Air 09/07/18 15:00 109 23 101/52 97 Room Air 09/07/18 14:00 97.9 106 24 106/71 94 Room Air Intake and Output 09/07/18 09/08/18 18:59 06:59 Intake Total 930 ml Output Total 650 ml Balance 280 ml Intake Oral 600 ml IV Total 330 ml Output Urine Total 650 ml # Voids 1 Laboratory Tests Test 09/07/18 20:18 09/08/18 03:35 09/08/18 10:45 Sodium Level 140 MMOL/L (136-145) Potassium Level 3.9 MMOL/L (3.5-5.1) Chloride Level 102 MMOL/L (98-107) Carbon Dioxide Level 28 MMOL/L (21-32) Anion Gap 10 mmol/L (5-15) Blood Urea Nitrogen 21 mg/dL (7-18) H Creatinine 1.8 MG/DL (0.55-1.30) H Estimat Glomerular Filtration Rate 47.1 mL/min (>60) Glucose Level 125 MG/DL (74-106) H Calcium Level 8.9 MG/DL (8.5-10.1) White Blood Count 6.1 K/UL (4.8-10.8) Red Blood Count 4.76 M/UL (4.70-6.10) Hemoglobin 14.5 G/DL (14.2-18.0) Hematocrit 42.5 % (42.0-52.0) Mean Corpuscular Volume 89 FL (80-99) Mean Corpuscular Hemoglobin 30.5 PG (27.0-31.0) Mean Corpuscular Hemoglobin Concent 34.2 G/DL (32.0-36.0) Red Cell Distribution Width 12.6 % (11.6-14.8) Platelet Count 254 K/UL (150-450) Mean Platelet Volume 5.4 FL (6.5-10.1) L Neutrophils (%) (Auto) 42.9 % (45.0-75.0) L Lymphocytes (%) (Auto) 39.9 % (20.0-45.0) Monocytes (%) (Auto) 13.7 % (1.0-10.0) H Eosinophils (%) (Auto) 1.8 % (0.0-3.0) Basophils (%) (Auto) 1.7 % (0.0-2.0) C-Reactive Protein, Quantitative 9.4 mg/dL (0.00-0.90) H M. tuberculosis Complex DNA (PCR) Pending Mitch Butt MD Sep 08, 2018 13:25
--- NOTE | 2018-09-08 15:31 | General Progress Note ---
Assessment/Plan Problem List: (1) Cardiac defibrillator in place ICD Codes: Z95.810 - Presence of automatic (implantable) cardiac defibrillator SNOMED: 342127249 (2) Chronic paranoid schizophrenia ICD Codes: F20.0 - Paranoid schizophrenia SNOMED: 73064311 (3) Pacemaker ICD Codes: Z95.0 - Presence of cardiac pacemaker SNOMED: 861770156 (4) Cocaine abuse ICD Codes: F14.10 - Cocaine abuse, uncomplicated SNOMED: 71204618 (5) Cardiomyopathy ICD Codes: I42.9 - Cardiomyopathy, unspecified SNOMED: 30855575 (6) Dyspnea ICD Codes: R06.00 - Dyspnea, unspecified SNOMED: 415337938 (7) ACS (acute coronary syndrome) ICD Codes: I24.9 - Acute ischemic heart disease, unspecified SNOMED: 742792754 Status: progressing Assessment/Plan afebrile drug induced cardiomyopathy arrythmia homeless consulted for placement no acute complaints today Subjective ROS Limited/Unobtainable: Yes Constitutional: Reports: no symptoms Allergies: Coded Allergies: LISINOPRIL (Unverified Allergy, Unknown, 03/03/18) Objective Last 24 Hour Vital Signs Date Time Temp Pulse Resp B/P (MAP) Pulse Ox O2 Delivery O2 Flow Rate FiO2 09/08/18 12:00 97.5 84 18 114/73 (87) 97 09/08/18 11:52 89 09/08/18 09:05 88 123/89 09/08/18 09:00 Room Air 09/08/18 08:00 97.9 88 18 123/89 (100) 97 09/08/18 08:00 87 09/08/18 04:00 98.8 85 18 115/71 (86) 98 09/08/18 04:00 86 09/08/18 00:00 99 09/08/18 00:00 98.1 98 18 109/76 (87) 98 09/07/18 21:00 Room Air 09/07/18 20:45 99 128/67 09/07/18 20:11 100 18 Room Air 21 09/07/18 20:00 110 09/07/18 20:00 97.0 99 18 128/67 (87) 97 09/07/18 19:00 Room Air 09/07/18 17:20 98.1 102 24 105/73 93 Room Air 09/07/18 16:00 98.0 105 18 100/58 98 Room Air Intake and Output 09/07/18 09/08/18 18:59 06:59 Intake Total 930 ml Output Total 650 ml Balance 280 ml Intake Oral 600 ml IV Total 330 ml Output Urine Total 650 ml # Voids 1 Laboratory Tests 09/07/18 20:18: Sodium Level 140, Potassium Level 3.9, Chloride Level 102, Carbon Dioxide Level 28, Anion Gap 10, Blood Urea Nitrogen 21H, Creatinine 1.8H, Estimat Glomerular Filtration Rate 47.1, Glucose Level 125H, Calcium Level 8.9 09/08/18 03:35: White Blood Count 6.1, Red Blood Count 4.76, Hemoglobin 14.5, Hematocrit 42.5, Mean Corpuscular Volume 89, Mean Corpuscular Hemoglobin 30.5, Mean Corpuscular Hemoglobin Concent 34.2, Red Cell Distribution Width 12.6, Platelet Count 254, Mean Platelet Volume 5.4L, Neutrophils (%) (Auto) 42.9L, Lymphocytes (%) (Auto) 39.9, Monocytes (%) (Auto) 13.7H, Eosinophils (%) (Auto) 1.8, Basophils (%) ( Auto) 1.7, C-Reactive Protein, Quantitative 9.4H 09/08/18 10:45: M. tuberculosis Complex DNA (PCR) [Pending] Height (Feet): 6 Height (Inches): 0.00 Weight (Pounds): 173 General Appearance: alert Neck: supple Respiratory/Chest: lungs clear Abdomen: soft Anne Calzada MD Sep 08, 2018 15:31
[2018-09-08 16:00] VITALS: BP 120/69
[2018-09-08 20:00] VITALS: BP 151/77
[2018-09-08] MEDS: Azithromycin 250 MG in D5W 275 ML IV SCH (20:21)
[2018-09-08] MEDS ORDERED: Carvedilol 6.25mg Tab ORAL SCH (21:00)
--- NOTE | 2018-09-08 22:00 | Consultation ---
DATE OF CONSULTATION: 09/08/2018 CARDIOLOGY CONSULTATION CONSULTING PHYSICIAN: Mitch Butt M.D. REFERRING PHYSICIAN: Anne Calzada M.D. REASON FOR CONSULTATION: Elevated troponin exacerbation of congestive heart failure. HISTORY OF PRESENT ILLNESS: The patient is a 58-year-old gentleman with history of severe cardiomyopathy with ejection fraction of 10% to 15% as well as history of [employer] defibrillator implantation with multiple hospitalizations for CHF exacerbation as well as active cocaine use. The patient presented for increasing shortness of breath. The patient also has a history of DVT and has been on Eliquis. The patient was admitted and a Cardiology consultation was obtained for further evaluation and management. REVIEW OF SYSTEMS: Negative other than what was mentioned in the history of present illness. ALLERGIES: Lisinopril. MEDICATIONS: Per reconciliation. PHYSICAL EXAMINATION: VITAL SIGNS: Blood pressure of 122/89, pulse 80, respirations 18, and temperature is 98. HEAD AND NECK: Positive JVD. LUNGS: Decreased breath sounds. CARDIOVASCULAR: Regular S1 and S2 with no gallop or murmur. GASTROINTESTINAL: His abdomen is soft. EXTREMITIES: 1+ pitting edema. LABORATORY AND DIAGNOSTIC DATA: Echocardiogram showed EF of 10% to 15% from the end of June. His labs show white count of 6.1, hemoglobin of 14, hematocrit 42.5, and platelet count 254,000. Sodium 140, potassium 3.9, BUN of 21, creatinine 1.8, and glucose is 125. Troponin 0.131. BNP is 3389. His urine toxicology positive for cocaine and marijuana. INR is 1.1. D-dimer is 0.6. ASSESSMENT AND PLAN: 1. Exacerbation of congestive heart failure. The patient's ejection fraction of 10%. Discontinue Coreg in view of active cocaine use. Continue Lasix 20 mg daily and Cozaar medical regimen. Watch for risk of hyperkalemia. 2. Status post [employer] defibrillator implantation. 3. Chronic troponin leak. 4. Active cocaine use. 5. History of DVT, on Eliquis. 6. Schizophrenia. Thank you very much, Dr. Calzada, for allowing me to participate in the care of this patient. Please do not hesitate to contact me if you have any questions regarding my evaluation. Sincerely, Mitch Butt M.D. DR: ОЛЕГ JOB#: [id number] CC:
--- NOTE | 2018-09-08 23:06 | Pulmonology Progress Note ---
Assessment/Plan Assessment/Plan Pulmonary Consultation Reason for Admission: SOB, cough, hemoptysis HPI Patient is a 58-year-old male who presented after increased difficulty breathing. Had a gradual onset of symptoms. Patient reports having prior history of a blood clot in the past and states he takes Elliquis. The patient reports having a prior history of cardiac failure as well as taking Coreg. He reports having increased nonproductive cough. He has had a prior history of cocaine abuse.The patient reports being a smoker. No h/o previous TB, no loss of weight or night sweats Allergies: LISINOPRIL Past Medical History: Hypertension, Pulmonary Embolism, CHF, PPM, Cocaine use All Other Systems: negative except mentioned in HPI Objective Vital Signs Noted Date Time Temp Pulse Resp B/P (MAP) Pulse Ox O2 Delivery O2 Flow Rate FiO2 09/07/18 09:59 97.5 106 24 123/74 96 Room Air General Appearance: normal inspection, well appearing, no apparent distress, alert, GCS 15, Chronically Ill Head: atraumatic ENT: normal ENT inspection, hearing grossly normal, normal voice Neck: normal inspection, full range of motion, supple, no bony tend Respiratory: normal inspection, lungs clear, normal breath sounds, no respiratory distress, no retraction, no wheezing Cardiovascular #1: regular rate, rhythm, no edema Gastrointestinal: normal inspection, normal bowel sounds, non tender, soft, no guarding, no hernia Genitourinary: no CVA tenderness Musculoskeletal: normal inspection, back normal, normal range of motion Neurologic: normal inspection, alert, oriented x3, responsive, speech normal Psychiatric: normal inspection, judgement/insight normal, mood/affect normal Skin: normal inspection, normal color, no rash Impression: Cough, SOB, hemoptysis, upper zone nodular infiltrates ACS (acute coronary syndrome) NSTEMI Previous Pulmonary Embolism on Eliquis Cardiomyopathy Cocaine abuse Hypertension Plan Admit Telemetry ASA Respiratory isolation ARB sputum x 3 TB spot Ceftriaxone and Azithromycin Continue Eliquis Diuresis PRN HHN PRN O2 sats 90-96% VQ scan/LE dupplex Sputum c+s Laboratory Tests EKG: Rate: tachycardiac Rhythm: NSR ST Segments: no acute changes Test 09/07/18 10:14 09/07/18 11:50 White Blood Count 11.3 K/UL (4.8-10.8) H Red Blood Count 5.60 M/UL (4.70-6.10) Hemoglobin 16.7 G/DL (14.2-18.0) Hematocrit 50.8 % (42.0-52.0) Mean Corpuscular Volume 91 FL (80-99) Mean Corpuscular Hemoglobin 29.8 PG (27.0-31.0) Mean Corpuscular Hemoglobin Concent 32.9 G/DL (32.0-36.0) Red Cell Distribution Width 12.8 % (11.6-14.8) Platelet Count 290 K/UL (150-450) Mean Platelet Volume 5.3 FL (6.5-10.1) L Neutrophils (%) (Auto) 79.2 % (45.0-75.0) H Lymphocytes (%) (Auto) 11.8 % (20.0-45.0) L Monocytes (%) (Auto) 8.0 % (1.0-10.0) Eosinophils (%) (Auto) 0.1 % (0.0-3.0) Basophils (%) (Auto) 0.9 % (0.0-2.0) Prothrombin Time 11.1 SEC (9.30-11.50) Prothrombin Time INR 1.1 (0.9-1.1) PTT 35 SEC (23-33) H D-Dimer 0.76 mg/L FEU (0.00-0.49) H Sodium Level 138 MMOL/L (136-145) Potassium Level 4.6 MMOL/L (3.5-5.1) Chloride Level 103 MMOL/L (98-107) Carbon Dioxide Level 22 MMOL/L (21-32) Anion Gap 13 mmol/L (5-15) Blood Urea Nitrogen 17 mg/dL (7-18) Creatinine 1.4 MG/DL (0.55-1.30) H Estimate Glomerular Filtration Rate > 60 mL/min (>60) Glucose Level 74 MG/DL (74-106) Calcium Level 9.3 MG/DL (8.5-10.1) Total Bilirubin 1.0 MG/DL (0.2-1.0) Aspartate Amino Transferase (AST) 42 U/L (15-37) H Alanine Aminotransferase (ALT) 41 U/L (12-78) Alkaline Phosphatase 97 U/L (46-116) Total Creatine Kinase 311 U/L (26-308) H Creatine Kinase MB 8.1 NG/ML (0.0-3.6) H Creatine Kinase MB Relative Index 2.6 Troponin I 0.131 ng/mL (0.000-0.056) Pro-B-Type Natriuretic Peptide 3389 pg/mL (0-125) H Total Protein 9.0 G/DL (6.4-8.2) H Albumin 3.9 G/DL (3.4-5.0) Globulin 5.1 g/dL Albumin/Globulin Ratio 0.8 (1.0-2.7) L Lipase 80 U/L (73-393) Urine Color Pale yellow Urine Appearance Clear Urine pH 5 (4.5-8.0) Urine Specific [place] 1.015 (1.005-1.035) Urine Protein Negative (NEGATIVE) Urine Glucose (UA) Negative (NEGATIVE) Urine Ketones Negative (NEGATIVE) Urine Blood Negative (NEGATIVE) Urine Nitrite Negative (NEGATIVE) Urine Bilirubin Negative (NEGATIVE) Urine Urobilinogen Normal MG/DL (0.0-1.0) Urine Leukocyte Esterase Negative (NEGATIVE) Urine Opiates Screen Negative (NEGATIVE) Urine Barbiturates Screen Negative (NEGATIVE) Phencyclidine (PCP) Screen Negative (NEGATIVE) Urine Amphetamines Screen Negative (NEGATIVE) Urine Benzodiazepines Screen Negative (NEGATIVE) Urine Cocaine Screen Positive (NEGATIVE) H Urine Marijuana (THC) Screen Positive (NEGATIVE) H Subjective ROS Limited/Unobtainable: No Allergies: Coded Allergies: LISINOPRIL (Unverified Allergy, Unknown, 03/03/18) Objective Last 24 Hour Vital Signs Date Time Temp Pulse Resp B/P (MAP) Pulse Ox O2 Delivery O2 Flow Rate FiO2 09/08/18 21:00 Room Air 09/08/18 20:00 92 09/08/18 20:00 98.7 76 18 151/77 (101) 98 09/08/18 16:00 97.7 84 20 120/69 (86) 97 09/08/18 15:17 89 09/08/18 12:00 97.5 84 18 114/73 (87) 97 09/08/18 11:52 89 09/08/18 09:05 88 123/89 09/08/18 09:00 Room Air 09/08/18 08:00 97.9 88 18 123/89 (100) 97 09/08/18 08:00 87 09/08/18 04:00 98.8 85 18 115/71 (86) 98 09/08/18 04:00 86 09/08/18 00:00 99 09/08/18 00:00 98.1 98 18 109/76 (87) 98 Intake and Output 09/07/18 09/08/18 19:00 07:00 Intake Total 930 ml Output Total 650 ml Balance 280 ml Intake Oral 600 ml IV Total 330 ml Output Urine Total 650 ml # Voids 1 Laboratory Tests 09/08/18 03:35: White Blood Count 6.1, Red Blood Count 4.76, Hemoglobin 14.5, Hematocrit 42.5, Mean Corpuscular Volume 89, Mean Corpuscular Hemoglobin 30.5, Mean Corpuscular Hemoglobin Concent 34.2, Red Cell Distribution Width 12.6, Platelet Count 254, Mean Platelet Volume 5.4L, Neutrophils (%) (Auto) 42.9L, Lymphocytes (%) (Auto) 39.9, Monocytes (%) (Auto) 13.7H, Eosinophils (%) (Auto) 1.8, Basophils (%) ( Auto) 1.7, C-Reactive Protein, Quantitative 9.4H 09/08/18 10:45: M. tuberculosis Complex DNA (PCR) [Pending] Current Medications Medications (Trade) Dose Ordered Sig/[place] Route PRN Reason Start Time Stop Time Status Last Admin Dose Admin Acetaminophen (Tylenol) 650 mg Q4H PRN ORAL Mild Pain (Pain Scale 1-3) 09/07/18 18:45 10/07/18 18:44 Albuterol/ Ipratropium (Albuterol/ Ipratropium) 3 ml Q4H PRN HHN Shortness of Breath 09/07/18 18:30 09/12/18 18:29 Apixaban (Eliquis) 2.5 mg DAILY ORAL 09/08/18 09:00 10/08/18 08:59 09/08/18 09:08 Aspirin (Ecotrin) 81 mg DAILY ORAL 09/08/18 09:00 10/08/18 08:59 09/08/18 09:05 Azithromycin 250 mg/Dextrose 275 ml @ 275 mls/hr Q24H IV 09/07/18 20:00 09/13/18 20:59 09/08/18 20:21 Ceftriaxone Sodium 1 gm/ Dextrose 55 ml @ 110 mls/hr DAILY IVPB 09/07/18 19:30 09/14/18 19:29 09/08/18 09:06 Dextrose (Dextrose 50%) 25 ml Q30M PRN IV Hypoglycemia 09/07/18 18:45 10/07/18 18:44 Dextrose (Dextrose 50%) 50 ml Q30M PRN IV Hypoglycemia 09/07/18 18:45 10/07/18 18:44 Furosemide (Lasix) 20 mg DAILY ORAL 09/08/18 09:00 10/08/18 08:59 09/08/18 09:08 Losartan Potassium (Cozaar) 25 mg DAILY ORAL 09/09/18 09:00 10/09/18 08:59 Spironolactone (Aldactone) 25 mg DAILY ORAL 09/09/18 09:00 10/09/18 08:59 Maxx Ashley MD Sep 08, 2018 23:06
[2018-09-09] VITALS: BP 109/76
[2018-09-09 04:52] LABS: BASOPHILS % (AUTO) 1.7 % (0.0-2.0); EOSINOPHILS % (AUTO) 2.2 % (0.0-3.0); HEMATOCRIT 44.9 % (42.0-52.0); HEMOGLOBIN 15.3 G/DL (14.2-18.0); LYMPHOCYTES % (AUTO) 42.3 % (20.0-45.0); MEAN CORPUSCULAR VOLUME 90 FL (80-99); MONOCYTES % (AUTO) 12.8 % (1.0-10.0); PLATELET COUNT 260 K/UL (150-450); RED BLOOD COUNT 5.02 M/UL (4.70-6.10); RED CELL DISTRIBUTION WIDTH 12.4 % (11.6-14.8)
[2018-09-09 05:23] LABS: ALANINE AMINOTRANSFERASE 26 U/L (12-78); ALBUMIN 2.7 G/DL (3.4-5.0); ALBUMIN/GLOBULIN RATIO 0.7 (1.0-2.7); ALKALINE PHOSPHATASE 68 U/L (46-116); ANION GAP 10 mmol/L (5-15); ASPARTATE AMINO TRANSFERASE 21 U/L (15-37); BILIRUBIN,TOTAL 0.6 MG/DL (0.2-1.0); BLOOD UREA NITROGEN 21 mg/dL (7-18); CALCIUM 8.8 MG/DL (8.5-10.1); CARBON DIOXIDE 24 MMOL/L (21-32); CHLORIDE 104 MMOL/L (98-107); CHOLESTEROL 149 MG/DL (< 200); CREATINE KINASE 119 U/L (26-308); CREATININE 1.5 MG/DL (0.55-1.30); GAMMA GLUTAMYL TRANSPEPTIDASE 34 U/L (5-85); HDL CHOLESTEROL 64 MG/DL (40-60); PHOSPHORUS 3.7 MG/DL (2.5-4.9); POTASSIUM 3.9 MMOL/L (3.5-5.1); SODIUM 138 MMOL/L (136-145); TRIGLYCERIDES 59 MG/DL (30-150)
--- NOTE | 2018-09-09 08:41 | Diagnostic Imaging Report ---
Clinical Indication: Shortness of breath no comparison CTs. Reference made to chest radiograph 09/07/2018, abnormal recent chest radiograph Technique: Spiral acquisitions obtained through the chest. No IV contrast utilized, recent is dated. Multiplanar reconstructions generated. Total dose length product 649.73 mGycm. CTDIvol(s) 17.31 mGy. Dose reduction achieved using automated exposure control Comparison: none Findings: Minimal scarring and a few subpleural bullae or blebs are seen at the right lung apex. Small subpleural blebs midportion are seen adjacent to the minor fissure on the right as well as midportion of the major fissure. Small focus of scarring is seen adjacent to the inferior major fissure. There is some focal pleural thickening along the inferior major fissure on the left. Minimal atelectasis or scarring is seen in the inferomedial lingula. The lungs are otherwise clear. No infiltrates, effusions, masses, or nodules are demonstrated. No abnormality corresponding to finding reported on recent chest radiograph. The heart size is normal. No pericardial effusion. There is a left chest pacemaker. No mediastinal or hilar mass or adenopathy. There are a few prominent but not frankly enlarged mediastinal nodes measuring up to 16 mm long axis dimension. The included thyroid is unremarkable. No axillary or chest wall mass or adenopathy. The bones are unremarkable. Included upper abdominal anatomy demonstrates hepatic cysts. There are also low-attenuation lesions within the liver which are too small to characterize. Impression: No acute abnormality demonstrated No findings to correlate with left upper lobe abnormality described on recent chest radiograph. That finding was probably just prominent left first costochondral junction Minimal small subpleural blebs or bullae Scattered areas of scarring, as described Pacemaker Hepatic cysts. Low-attenuation hepatic lesions which are too small to characterize, most likely benign simple cysts. No further follow-up necessary The CT scanner at [facility] is accredited by the [employer] and the scans are performed using protocols designed to limit radiation exposure to as low as reasonably achievable to attain images of sufficient resolution adequate for diagnostic evaluation.
[2018-09-09 08:57] VITALS: BP_SYST 109; BP_SYST 117; BP_DIAS 76; BP_DIAS 80
--- NOTE | 2018-09-09 08:59 | Consultation ---
DATE OF CONSULTATION: 09/08/2018 NOTE: POOR AUDIO INFECTIOUS DISEASE CONSULTATION CONSULTING PHYSICIAN: Jenaro Arredondo M.D. PRIMARY ATTENDING: Anne Calzada M.D. REASON FOR CONSULTATION: Pneumonia and hemoptysis. HISTORY OF PRESENT ILLNESS: This is a 58-year-old -[place] male, admitted yesterday complaining of shortness of breath, cough, hemoptysis, substernal chest pain, and mild leukocytosis. PAST MEDICAL HISTORY: Significant for systolic CHF with ejection fraction of 15% and hypertension. The patient is status post pacemaker, cocaine abuse, COPD, coronary artery disease. The patient has history of pulmonary emboli in the past. ALLERGY: Allergic to Losartan. CURRENT MEDICATIONS: Carvedilol, apixaban, aspirin, Lasix, Zithromax, Rocephin, Tylenol, and DuoNeb inhaler. SOCIAL HISTORY: Homeless, single. History of smoking, quit couple of months ago. Denies drug abuse and drinking is one beer a day. REVIEW OF SYSTEMS: No fever. No chills. No sore throat. Coughing better than yesterday. No blood in sputum today. Substernal chest pain has improved. Difficulty of passing urine with decreased flow of urine. PHYSICAL EXAMINATION: VITAL SIGNS: Temperature 97.9, pulse 68, and blood pressure 123/89. GENERAL APPEARANCE: No acute distress. HEAD AND NECK: [place] conjunctivae. No oral lesions. HEART: S1 and S2 regular. He has a pacemaker in the right chest wall. LUNGS: Clear. ABDOMEN: Soft and nontender. EXTREMITIES: No edema. LABORATORY AND DIAGNOSTIC DATA: WBC 6.1, coming down from 11.3; hemoglobin 14.5, hematocrit 42.5, and platelets 354,000. Sodium 140, potassium 3.9, chloride 102, bicarbonate 28, BUN 21, creatinine 1.8, and glucose is 125. BNP 3389. Total protein is 9 and albumin is 3.9. Lipase is 80. Urine toxicology is positive for cocaine and marijuana. Chest x-ray showed mild exacerbation of bronchoalveolar nodular opacity in the right upper lung field, pulmonary nodule up to 12 mm. IMPRESSION: 1. Hemoptysis, likely secondary to pneumonia and bronchitis, ascites, severe infection. The patient has acute renal failure, chronic kidney disease, systolic congestive heart failure, and cardiomyopathy. 2. Paranoid schizophrenia. 3. Cocaine abuse. 4. He is homeless. RECOMMENDATION: We will continue with current antibiotics, Rocephin and Zithromax. Will order CT scan of the chest without contrast for further definition of lung lesions.HIV test was ordered. I thank Dr. Calzada for involving me in the care of this patient. Jenaro Arredondo M.D. DR: CAROLINA JOB#: [id number] CC: NIA
[2018-09-09] MEDS ORDERED: Losartan 25mg tab ORAL SCH (09:00)
[2018-09-09] MEDS: Aspirin EC 81mg tab ORAL SCH (09:29)
[2018-09-09] MEDS: Eliquis 2.5mg tablet ORAL SCH ×2 (09:30→17:22)
[2018-09-09] MEDS: Spironolactone 25mg tab ORAL SCH (09:31)
[2018-09-09] MEDS: cefTRIAXone 1 GM in D5W 55 ML IVPB SCH (09:31)
--- NOTE | 2018-09-09 10:12 | Cardiac Electrophysiology PN ---
Assessment/Plan Assessment/Plan 1. Exacerbation of congestive heart failure. Ejection fraction of 10%. Off Coreg for active cocaine use. Increase Lasix to 40 iv bid. On Aldactone and Cozaar. Watch for risk of hyperkalemia. 2. Status post [place] defibrillator implantation. 3. Chronic troponin leak. 4. Active cocaine use. 5. History of DVT, on Eliquis. 6. Schizophrenia. 7. Cough, on respiratory isolation DW RN Subjective Subjective In respiratory isolation.Going for VQ scan Objective Last 24 Hour Vital Signs Date Time Temp Pulse Resp B/P (MAP) Pulse Ox O2 Delivery O2 Flow Rate FiO2 09/09/18 09:30 117/80 09/09/18 08:57 97.2 87 20 117/80 (92) 98 09/09/18 08:00 93 09/09/18 04:00 81 09/09/18 00:03 97 20 Room Air 21 09/09/18 00:00 98.1 80 20 109/76 (87) 98 09/09/18 00:00 87 09/08/18 21:00 Room Air 09/08/18 20:00 92 09/08/18 20:00 98.7 76 18 151/77 (101) 98 09/08/18 16:00 97.7 84 20 120/69 (86) 97 09/08/18 15:17 89 09/08/18 12:00 97.5 84 18 114/73 (87) 97 09/08/18 11:52 89 Intake and Output 09/08/18 09/09/18 19:00 07:00 Intake Total 805 ml 975 ml Output Total 1000 ml 800 ml Balance -195 ml 175 ml Intake Oral 750 ml 700 ml IV Total 55 ml 275 ml Output Urine Total 1000 ml 800 ml Laboratory Tests Test 09/08/18 10:45 09/09/18 03:40 M. tuberculosis Complex DNA (PCR) Pending White Blood Count 6.0 K/UL (4.8-10.8) Red Blood Count 5.02 M/UL (4.70-6.10) Hemoglobin 15.3 G/DL (14.2-18.0) Hematocrit 44.9 % (42.0-52.0) Mean Corpuscular Volume 90 FL (80-99) Mean Corpuscular Hemoglobin 30.4 PG (27.0-31.0) Mean Corpuscular Hemoglobin Concent 34.0 G/DL (32.0-36.0) Red Cell Distribution Width 12.4 % (11.6-14.8) Platelet Count 260 K/UL (150-450) Mean Platelet Volume 5.7 FL (6.5-10.1) L Neutrophils (%) (Auto) 41.0 % (45.0-75.0) L Lymphocytes (%) (Auto) 42.3 % (20.0-45.0) Monocytes (%) (Auto) 12.8 % (1.0-10.0) H Eosinophils (%) (Auto) 2.2 % (0.0-3.0) Basophils (%) (Auto) 1.7 % (0.0-2.0) Sodium Level 138 MMOL/L (136-145) Potassium Level 3.9 MMOL/L (3.5-5.1) Chloride Level 104 MMOL/L (98-107) Carbon Dioxide Level 24 MMOL/L (21-32) Anion Gap 10 mmol/L (5-15) Blood Urea Nitrogen 21 mg/dL (7-18) H Creatinine 1.5 MG/DL (0.55-1.30) H Estimat Glomerular Filtration Rate 58.3 mL/min (>60) Glucose Level 105 MG/DL (74-106) Uric Acid 6.5 MG/DL (2.6-7.2) Calcium Level 8.8 MG/DL (8.5-10.1) Phosphorus Level 3.7 MG/DL (2.5-4.9) Magnesium Level 1.7 MG/DL (1.8-2.4) L Total Bilirubin 0.6 MG/DL (0.2-1.0) Gamma Glutamyl Transpeptidase 34 U/L (5-85) Aspartate Amino Transf (AST/SGOT) 21 U/L (15-37) Alanine Aminotransferase (ALT/SGPT) 26 U/L (12-78) Alkaline Phosphatase 68 U/L (46-116) Total Creatine Kinase 119 U/L (26-308) Troponin I 0.074 ng/mL (0.000-0.056) Pro-B-Type Natriuretic Peptide 1262 pg/mL (0-125) H Total Protein 6.8 G/DL (6.4-8.2) Albumin 2.7 G/DL (3.4-5.0) L Globulin 4.1 g/dL Albumin/Globulin Ratio 0.7 (1.0-2.7) L Triglycerides Level 59 MG/DL (30-150) Cholesterol Level 149 MG/DL (< 200) LDL Cholesterol 84 mg/dL (<100) HDL Cholesterol 64 MG/DL (40-60) H Cholesterol/HDL Ratio 2.3 (3.3-4.4) L HIV (1&2) Antibody Rapid Negative (NEGATIVE) TB Test (T-Spot) Pending TB Test Nil Control (T-Spot) Pending TB Test Panel A (T-Spot) Pending TB Test Panel B (T-Spot) Pending TB Test Positive Control (T-Spot) Pending Objective HEAD AND NECK: Positive JVD. LUNGS: Decreased breath sounds. CARDIOVASCULAR: Regular S1 and S2 with no gallop or murmur. GASTROINTESTINAL: His abdomen is soft. EXTREMITIES: 1+ pitting edema. Mitch Butt MD Sep 09, 2018 10:12
--- NOTE | 2018-09-09 11:58 | Infectious Diseases Prog Note ---
Assessment/Plan Assessment/Plan A; Hemoptysis COPD Systolic CHF Cocaine abuse Homeless P: Continue Rocephin & Zithromax Discontinue Airborne isolation Case was D/W [place] Subjective ROS Limited/Unobtainable: No Constitutional: Reports: no symptoms Respiratory: Reports: no symptoms Cardiovascular: Reports: chest pain, other - substernal Gastrointestinal/Abdominal: Reports: no symptoms Genitourinary: Reports: no symptoms Allergies: Coded Allergies: LISINOPRIL (Unverified Allergy, Unknown, 03/03/18) Objective Vital Signs Last 24 Hour Vital Signs Date Time Temp Pulse Resp B/P (MAP) Pulse Ox O2 Delivery O2 Flow Rate FiO2 09/09/18 09:30 117/80 09/09/18 09:00 Room Air 09/09/18 08:57 97.2 87 20 117/80 (92) 98 09/09/18 08:00 93 09/09/18 04:00 81 09/09/18 00:03 97 20 Room Air 21 09/09/18 00:00 98.1 80 20 109/76 (87) 98 09/09/18 00:00 87 09/08/18 21:00 Room Air 09/08/18 20:00 92 09/08/18 20:00 98.7 76 18 151/77 (101) 98 09/08/18 16:00 97.7 84 20 120/69 (86) 97 09/08/18 15:17 89 09/08/18 12:00 97.5 84 18 114/73 (87) 97 Height (Feet): 6 Height (Inches): 0.00 Weight (Pounds): 184 General Appearance: no acute distress HEENT: mucous membranes moist Respiratory/Chest: lungs clear Cardiovascular: normal rate Abdomen: soft, non tender Extremities: no edema Neurologic/Psychiatric: alert, oriented x 3, responsive Laboratory Tests Test 09/09/18 03:40 White Blood Count 6.0 K/UL (4.8-10.8) Red Blood Count 5.02 M/UL (4.70-6.10) Hemoglobin 15.3 G/DL (14.2-18.0) Hematocrit 44.9 % (42.0-52.0) Mean Corpuscular Volume 90 FL (80-99) Mean Corpuscular Hemoglobin 30.4 PG (27.0-31.0) Mean Corpuscular Hemoglobin Concent 34.0 G/DL (32.0-36.0) Red Cell Distribution Width 12.4 % (11.6-14.8) Platelet Count 260 K/UL (150-450) Mean Platelet Volume 5.7 FL (6.5-10.1) L Neutrophils (%) (Auto) 41.0 % (45.0-75.0) L Lymphocytes (%) (Auto) 42.3 % (20.0-45.0) Monocytes (%) (Auto) 12.8 % (1.0-10.0) H Eosinophils (%) (Auto) 2.2 % (0.0-3.0) Basophils (%) (Auto) 1.7 % (0.0-2.0) Sodium Level 138 MMOL/L (136-145) Potassium Level 3.9 MMOL/L (3.5-5.1) Chloride Level 104 MMOL/L (98-107) Carbon Dioxide Level 24 MMOL/L (21-32) Anion Gap 10 mmol/L (5-15) Blood Urea Nitrogen 21 mg/dL (7-18) H Creatinine 1.5 MG/DL (0.55-1.30) H Estimat Glomerular Filtration Rate 58.3 mL/min (>60) Glucose Level 105 MG/DL (74-106) Uric Acid 6.5 MG/DL (2.6-7.2) Calcium Level 8.8 MG/DL (8.5-10.1) Phosphorus Level 3.7 MG/DL (2.5-4.9) Magnesium Level 1.7 MG/DL (1.8-2.4) L Total Bilirubin 0.6 MG/DL (0.2-1.0) Gamma Glutamyl Transpeptidase 34 U/L (5-85) Aspartate Amino Transf (AST/SGOT) 21 U/L (15-37) Alanine Aminotransferase (ALT/SGPT) 26 U/L (12-78) Alkaline Phosphatase 68 U/L (46-116) Total Creatine Kinase 119 U/L (26-308) Troponin I 0.074 ng/mL (0.000-0.056) Pro-B-Type Natriuretic Peptide 1262 pg/mL (0-125) H Total Protein 6.8 G/DL (6.4-8.2) Albumin 2.7 G/DL (3.4-5.0) L Globulin 4.1 g/dL Albumin/Globulin Ratio 0.7 (1.0-2.7) L Triglycerides Level 59 MG/DL (30-150) Cholesterol Level 149 MG/DL (< 200) LDL Cholesterol 84 mg/dL (<100) HDL Cholesterol 64 MG/DL (40-60) H Cholesterol/HDL Ratio 2.3 (3.3-4.4) L HIV (1&2) Antibody Rapid Negative (NEGATIVE) TB Test (T-Spot) Pending TB Test Nil Control (T-Spot) Pending TB Test Panel A (T-Spot) Pending TB Test Panel B (T-Spot) Pending TB Test Positive Control (T-Spot) Pending Current Medications Medications (Trade) Dose Ordered Sig/[place] Route PRN Reason Start Time Stop Time Status Last Admin Dose Admin Acetaminophen (Tylenol) 650 mg Q4H PRN ORAL Mild Pain (Pain Scale 1-3) 09/07/18 18:45 10/07/18 18:44 Albuterol/ Ipratropium (Albuterol/ Ipratropium) 3 ml Q4H PRN HHN Shortness of Breath 09/07/18 18:30 09/12/18 18:29 Apixaban (Eliquis) 2.5 mg BID ORAL 09/09/18 18:00 10/08/18 08:59 Aspirin (Ecotrin) 81 mg DAILY ORAL 09/08/18 09:00 10/08/18 08:59 09/09/18 09:29 Azithromycin 250 mg/Dextrose 275 ml @ 275 mls/hr Q24H IV 09/07/18 20:00 09/13/18 20:59 09/08/18 20:21 Ceftriaxone Sodium 1 gm/ Dextrose 55 ml @ 110 mls/hr DAILY IVPB 09/07/18 19:30 09/14/18 19:29 09/09/18 09:31 Dextrose (Dextrose 50%) 25 ml Q30M PRN IV Hypoglycemia 09/07/18 18:45 10/07/18 18:44 Dextrose (Dextrose 50%) 50 ml Q30M PRN IV Hypoglycemia 09/07/18 18:45 10/07/18 18:44 Furosemide (Lasix) 40 mg EVERY 12 HOURS IV 09/09/18 21:00 10/09/18 20:59 Losartan Potassium (Cozaar) 25 mg DAILY ORAL 09/09/18 09:00 10/09/18 08:59 09/09/18 09:30 Spironolactone (Aldactone) 25 mg DAILY ORAL 09/09/18 09:00 10/09/18 08:59 09/09/18 09:31 Jenaro Arredondo MD Sep 09, 2018 11:58
[2018-09-09 12:00] VITALS: BP 112/65
--- NOTE | 2018-09-09 12:23 | Nephrology Progress Note ---
Assessment/Plan Problem List: (1) Acute on chronic renal failure (2) Cardiomyopathy (3) Cocaine abuse (4) Cardiac defibrillator in place Assessment (1) Renal failure , acute on chronic (2) Acute exacerbation of CHF (congestive heart failure), Low Ej Fx 15% (3) ACS (acute coronary syndrome) (4) COPD (chronic obstructive pulmonary disease) with acute bronchitis (5) Chronic paranoid schizophrenia (6) Pacemaker (7) Cocaine and Mj abuse (8) Defibrilator Plan Optimize cardiac status urine studies avoid nephrotoxics per orders Subjective ROS Limited/Unobtainable: No Constitutional: Reports: malaise, weakness Objective Objective Last 24 Hour Vital Signs Date Time Temp Pulse Resp B/P (MAP) Pulse Ox O2 Delivery O2 Flow Rate FiO2 09/09/18 12:00 97.5 86 20 112/65 (81) 99 09/09/18 09:30 117/80 09/09/18 09:00 Room Air 09/09/18 08:57 97.2 87 20 117/80 (92) 98 09/09/18 08:00 93 09/09/18 04:00 81 09/09/18 00:03 97 20 Room Air 21 09/09/18 00:00 98.1 80 20 109/76 (87) 98 09/09/18 00:00 87 09/08/18 21:00 Room Air 09/08/18 20:00 92 09/08/18 20:00 98.7 76 18 151/77 (101) 98 09/08/18 16:00 97.7 84 20 120/69 (86) 97 09/08/18 15:17 89 Intake and Output 09/08/18 09/09/18 19:00 07:00 Intake Total 805 ml 975 ml Output Total 1000 ml 800 ml Balance -195 ml 175 ml Intake Oral 750 ml 700 ml IV Total 55 ml 275 ml Output Urine Total 1000 ml 800 ml Laboratory Tests 09/09/18 03:40: White Blood Count 6.0, Red Blood Count 5.02, Hemoglobin 15.3, Hematocrit 44.9, Mean Corpuscular Volume 90, Mean Corpuscular Hemoglobin 30.4, Mean Corpuscular Hemoglobin Concent 34.0, Red Cell Distribution Width 12.4, Platelet Count 260, Mean Platelet Volume 5.7L, Neutrophils (%) (Auto) 41.0L, Lymphocytes (%) (Auto) 42.3, Monocytes (%) (Auto) 12.8H, Eosinophils (%) (Auto) 2.2, Basophils (%) ( Auto) 1.7, Sodium Level 138, Potassium Level 3.9, Chloride Level 104, Carbon Dioxide Level 24, Anion Gap 10, Blood Urea Nitrogen 21H, Creatinine 1.5H, Estimat Glomerular Filtration Rate 58.3, Glucose Level 105, Uric Acid 6.5, Calcium Level 8.8, Phosphorus Level 3.7, Magnesium Level 1.7L, Total Bilirubin 0.6, Gamma Glutamyl Transpeptidase 34, Aspartate Amino Transf (AST/SGOT) 21, Alanine Aminotransferase (ALT/SGPT) 26, Alkaline Phosphatase 68, Total Creatine Kinase 119, Troponin I 0.074H, Pro-B-Type Natriuretic Peptide 1262H, Total Protein 6.8, Albumin 2.7L, Globulin 4.1, Albumin/Globulin Ratio 0.7L, Triglycerides Level 59, Cholesterol Level 149, LDL Cholesterol 84, HDL Cholesterol 64H, Cholesterol/HDL Ratio 2.3L, HIV (1&2) Antibody Rapid Negative, TB Test (T-Spot) [Pending], TB Test Nil Control (T-Spot) [Pending], TB Test Panel A (T-Spot) [Pending], TB Test Panel B (T-Spot) [Pending], TB Test Positive Control (T-Spot) [Pending] Height (Feet): 6 Height (Inches): 0.00 Weight (Pounds): 184 General Appearance: no apparent distress Respiratory/Chest: decreased breath sounds Objective no change Elias Thorne MD Sep 09, 2018 12:23
--- NOTE | 2018-09-09 13:29 | Consultation ---
Consult Note Consult Note HEMATOLOGY-ONCOLOGY CONSULTATION REFERRING PHYSICIAN: Anne Calzada REASON FOR CONSULT: Monocytosis DATE OF CONSULT: 09/09/2018 HISTORY OF PRESENT ILLNESS: The patient is a 58-year-old gentleman with history of severe cardiomyopathy. The patient presented for increasing shortness of breath. The patient also has a history of DVT and has been on Eliquis. The patient was admitted for further evaluation and management. Hematology service consulted for the evaluation of monocytosis with a current monocyte count of 12.8. PAST MEDICAL HISTORY: systolic CHF with ejection fraction of 15%, hypertension, status post pacemaker, cocaine abuse, COPD, coronary artery disease, pulmonary emboli PAST SURGICAL HISTORY: Pacemaker FAMILY HISTORY: NONCONTRIBUTORY SOCIAL HISTORY: active cocaine use, Homeless, single. History of smoking, quit couple of months ago. Denies drug abuse and drinking is one beer a day. REVIEW OF SYSTEMS: Negative other than what was mentioned in the history of present illness. ALLERGIES: Lisinopril. MEDICATIONS: Have been reviewed PHYSICAL EXAMINATION: VITAL SIGNS: Have been reviewed HEAD AND NECK: Positive JVD. LUNGS: Decreased breath sounds. CARDIOVASCULAR: Regular S1 and S2 with no gallop or murmur. GASTROINTESTINAL: His abdomen is soft. EXTREMITIES: 1+ pitting edema. LABS: wbc 6.0 hgb 15.3 plt 260 monocytes 12.8 IMAGING: CXR --> Apparent mild accentuation of the bronchovascular and interstitial markings. Could be from mild edema. Mild reticulonodular opacities in the upper lung patrick. Query dominant nodule measuring 12 mm in left mid - upper lung field. CT chest --> No acute abnormality ASSESSMENT AND RECOMMENDATIONS # Monocytosis. Likely related to underlying infection versus reactive process. --> ID is following, appreciate recs. --> Peripheral has been ordered, results are pending --> Medications have been reviewed --> Imaging has been reviewed. CXR shows apparent mild accentuation of the bronchovascular and interstitial markings. Could be from mild edema. Mild reticulonodular opacities in the upper lung patrick. Query dominant nodule measuring 12 mm in left mid - upper lung field. --> Blood cultures and urine cultures prn --> On abx, empiric tx per ID. # Lung nodule. CXR shows mild reticulonodular opacities in the upper lung patrick. Query dominant nodule measuring 12 mm in left mid - upper lung field. # Hemoptysis, likely secondary to pneumonia and bronchitis, ascites, severe infection. # Exacerbation of congestive heart failure. Cardiology is following, appreciate recs. --> The patient's ejection fraction of 10%. --> Continue Lasix 20 mg daily and Cozaar # Status post [employer] defibrillator implantation. # History of DVT, on Eliquis. # Schizophrenia. GREATLY APPRECIATE CONSULTATION. Odilon Shay MD Sep 09, 2018 13:29
--- NOTE | 2018-09-09 15:22 | Pulmonology Progress Note ---
Assessment/Plan Assessment/Plan Pulmonary Consultation Reason for Admission: SOB, cough, hemoptysis HPI Patient is a 58-year-old male who presented after increased difficulty breathing. Had a gradual onset of symptoms. Patient reports having prior history of a blood clot in the past and states he takes Elliquis. The patient reports having a prior history of cardiac failure as well as taking Coreg. He reports having increased nonproductive cough. He has had a prior history of cocaine abuse.The patient reports being a smoker. No h/o previous TB, no loss of weight or night sweats No current hemoptysis, CT chest negative, awaiting sputum AFB/monospot Allergies: LISINOPRIL Past Medical History: Hypertension, Pulmonary Embolism, CHF, PPM, Cocaine use All Other Systems: negative except mentioned in HPI Objective Vital Signs Noted Date Time Temp Pulse Resp B/P (MAP) Pulse Ox O2 Delivery O2 Flow Rate FiO2 09/07/18 09:59 97.5 106 24 123/74 96 Room Air General Appearance: normal inspection, well appearing, no apparent distress, alert, GCS 15, Chronically Ill Head: atraumatic ENT: normal ENT inspection, hearing grossly normal, normal voice Neck: normal inspection, full range of motion, supple, no bony tend Respiratory: normal inspection, lungs clear, normal breath sounds, no respiratory distress, no retraction, no wheezing Cardiovascular #1: regular rate, rhythm, no edema Gastrointestinal: normal inspection, normal bowel sounds, non tender, soft, no guarding, no hernia Genitourinary: no CVA tenderness Musculoskeletal: normal inspection, back normal, normal range of motion Neurologic: normal inspection, alert, oriented x3, responsive, speech normal Psychiatric: normal inspection, judgement/insight normal, mood/affect normal Skin: normal inspection, normal color, no rash Impression: Cough, SOB, hemoptysis, upper zone nodular infiltrates ACS (acute coronary syndrome) NSTEMI Previous Pulmonary Embolism on Eliquis Cardiomyopathy Cocaine abuse Hypertension Plan Admit Telemetry ASA Respiratory isolation ARB sputum x 3 TB spot Ceftriaxone and Azithromycin Continue Eliquis Diuresis PRN HHN PRN O2 sats 90-96% VQ scan/LE dupplex Sputum c+s Laboratory Tests CT Chest: mpression: No acute abnormality demonstrated No findings to correlate with left upper lobe abnormality described on recent chest radiograph. That finding was probably just prominent left first costochondral junction Minimal small subpleural blebs or bullae Scattered areas of scarring, as described Pacemaker Hepatic cysts. Low-attenuation hepatic lesions which are too small to characterize, most likely benign simple cysts. No further follow-up necessary EKG: Rate: tachycardiac Rhythm: NSR ST Segments: no acute changes Test 09/07/18 10:14 09/07/18 11:50 White Blood Count 11.3 K/UL (4.8-10.8) H Red Blood Count 5.60 M/UL (4.70-6.10) Hemoglobin 16.7 G/DL (14.2-18.0) Hematocrit 50.8 % (42.0-52.0) Mean Corpuscular Volume 91 FL (80-99) Mean Corpuscular Hemoglobin 29.8 PG (27.0-31.0) Mean Corpuscular Hemoglobin Concent 32.9 G/DL (32.0-36.0) Red Cell Distribution Width 12.8 % (11.6-14.8) Platelet Count 290 K/UL (150-450) Mean Platelet Volume 5.3 FL (6.5-10.1) L Neutrophils (%) (Auto) 79.2 % (45.0-75.0) H Lymphocytes (%) (Auto) 11.8 % (20.0-45.0) L Monocytes (%) (Auto) 8.0 % (1.0-10.0) Eosinophils (%) (Auto) 0.1 % (0.0-3.0) Basophils (%) (Auto) 0.9 % (0.0-2.0) Prothrombin Time 11.1 SEC (9.30-11.50) Prothrombin Time INR 1.1 (0.9-1.1) PTT 35 SEC (23-33) H D-Dimer 0.76 mg/L FEU (0.00-0.49) H Sodium Level 138 MMOL/L (136-145) Potassium Level 4.6 MMOL/L (3.5-5.1) Chloride Level 103 MMOL/L (98-107) Carbon Dioxide Level 22 MMOL/L (21-32) Anion Gap 13 mmol/L (5-15) Blood Urea Nitrogen 17 mg/dL (7-18) Creatinine 1.4 MG/DL (0.55-1.30) H Estimate Glomerular Filtration Rate > 60 mL/min (>60) Glucose Level 74 MG/DL (74-106) Calcium Level 9.3 MG/DL (8.5-10.1) Total Bilirubin 1.0 MG/DL (0.2-1.0) Aspartate Amino Transferase (AST) 42 U/L (15-37) H Alanine Aminotransferase (ALT) 41 U/L (12-78) Alkaline Phosphatase 97 U/L (46-116) Total Creatine Kinase 311 U/L (26-308) H Creatine Kinase MB 8.1 NG/ML (0.0-3.6) H Creatine Kinase MB Relative Index 2.6 Troponin I 0.131 ng/mL (0.000-0.056) Pro-B-Type Natriuretic Peptide 3389 pg/mL (0-125) H Total Protein 9.0 G/DL (6.4-8.2) H Albumin 3.9 G/DL (3.4-5.0) Globulin 5.1 g/dL Albumin/Globulin Ratio 0.8 (1.0-2.7) L Lipase 80 U/L (73-393) Urine Color Pale yellow Urine Appearance Clear Urine pH 5 (4.5-8.0) Urine Specific [place] 1.015 (1.005-1.035) Urine Protein Negative (NEGATIVE) Urine Glucose (UA) Negative (NEGATIVE) Urine Ketones Negative (NEGATIVE) Urine Blood Negative (NEGATIVE) Urine Nitrite Negative (NEGATIVE) Urine Bilirubin Negative (NEGATIVE) Urine Urobilinogen Normal MG/DL (0.0-1.0) Urine Leukocyte Esterase Negative (NEGATIVE) Urine Opiates Screen Negative (NEGATIVE) Urine Barbiturates Screen Negative (NEGATIVE) Phencyclidine (PCP) Screen Negative (NEGATIVE) Urine Amphetamines Screen Negative (NEGATIVE) Urine Benzodiazepines Screen Negative (NEGATIVE) Urine Cocaine Screen Positive (NEGATIVE) H Urine Marijuana (THC) Screen Positive (NEGATIVE) H Subjective ROS Limited/Unobtainable: No Allergies: Coded Allergies: LISINOPRIL (Unverified Allergy, Unknown, 03/03/18) Objective Last 24 Hour Vital Signs Date Time Temp Pulse Resp B/P (MAP) Pulse Ox O2 Delivery O2 Flow Rate FiO2 09/09/18 12:00 97.5 86 20 112/65 (81) 99 09/09/18 12:00 81 09/09/18 09:30 117/80 09/09/18 09:00 Room Air 09/09/18 08:57 97.2 87 20 117/80 (92) 98 09/09/18 08:00 93 09/09/18 07:22 102 20 Room Air 21 09/09/18 04:00 81 09/09/18 00:03 97 20 Room Air 21 09/09/18 00:00 98.1 80 20 109/76 (87) 98 09/09/18 00:00 87 09/08/18 21:00 Room Air 09/08/18 20:00 92 09/08/18 20:00 98.7 76 18 151/77 (101) 98 09/08/18 16:00 97.7 84 20 120/69 (86) 97 Intake and Output 09/08/18 09/09/18 19:00 07:00 Intake Total 805 ml 975 ml Output Total 1000 ml 800 ml Balance -195 ml 175 ml Intake Oral 750 ml 700 ml IV Total 55 ml 275 ml Output Urine Total 1000 ml 800 ml Microbiology Date/Time Source Procedure Growth Status 09/08/18 10:45 Sputum AFB Specimen Processing Tissue - Final Resulted 09/08/18 10:45 Sputum Acid Fast Bacilli Smear - Final Resulted 09/08/18 10:45 Sputum Acid Fast Bacilli Culture Pending Resulted Laboratory Tests 09/09/18 03:40: White Blood Count 6.0, Red Blood Count 5.02, Hemoglobin 15.3, Hematocrit 44.9, Mean Corpuscular Volume 90, Mean Corpuscular Hemoglobin 30.4, Mean Corpuscular Hemoglobin Concent 34.0, Red Cell Distribution Width 12.4, Platelet Count 260, Mean Platelet Volume 5.7L, Neutrophils (%) (Auto) 41.0L, Lymphocytes (%) (Auto) 42.3, Monocytes (%) (Auto) 12.8H, Eosinophils (%) (Auto) 2.2, Basophils (%) ( Auto) 1.7, Sodium Level 138, Potassium Level 3.9, Chloride Level 104, Carbon Dioxide Level 24, Anion Gap 10, Blood Urea Nitrogen 21H, Creatinine 1.5H, Estimat Glomerular Filtration Rate 58.3, Glucose Level 105, Uric Acid 6.5, Calcium Level 8.8, Phosphorus Level 3.7, Magnesium Level 1.7L, Total Bilirubin 0.6, Gamma Glutamyl Transpeptidase 34, Aspartate Amino Transf (AST/SGOT) 21, Alanine Aminotransferase (ALT/SGPT) 26, Alkaline Phosphatase 68, Total Creatine Kinase 119, Troponin I 0.074H, Pro-B-Type Natriuretic Peptide 1262H, Total Protein 6.8, Albumin 2.7L, Globulin 4.1, Albumin/Globulin Ratio 0.7L, Triglycerides Level 59, Cholesterol Level 149, LDL Cholesterol 84, HDL Cholesterol 64H, Cholesterol/HDL Ratio 2.3L, HIV (1&2) Antibody Rapid Negative, TB Test (T-Spot) [Pending], TB Test Nil Control (T-Spot) [Pending], TB Test Panel A (T-Spot) [Pending], TB Test Panel B (T-Spot) [Pending], TB Test Positive Control (T-Spot) [Pending] Current Medications Medications (Trade) Dose Ordered Sig/[place] Route PRN Reason Start Time Stop Time Status Last Admin Dose Admin Acetaminophen (Tylenol) 650 mg Q4H PRN ORAL Mild Pain (Pain Scale 1-3) 09/07/18 18:45 10/07/18 18:44 Albuterol/ Ipratropium (Albuterol/ Ipratropium) 3 ml Q4H PRN HHN Shortness of Breath 09/07/18 18:30 09/12/18 18:29 Apixaban (Eliquis) 2.5 mg BID ORAL 09/09/18 18:00 10/08/18 08:59 Aspirin (Ecotrin) 81 mg DAILY ORAL 09/08/18 09:00 10/08/18 08:59 09/09/18 09:29 Azithromycin 250 mg/Dextrose 275 ml @ 275 mls/hr Q24H IV 09/07/18 20:00 09/13/18 20:59 09/08/18 20:21 Ceftriaxone Sodium 1 gm/ Dextrose 55 ml @ 110 mls/hr DAILY IVPB 09/07/18 19:30 09/14/18 19:29 09/09/18 09:31 Dextrose (Dextrose 50%) 25 ml Q30M PRN IV Hypoglycemia 09/07/18 18:45 10/07/18 18:44 Dextrose (Dextrose 50%) 50 ml Q30M PRN IV Hypoglycemia 09/07/18 18:45 10/07/18 18:44 Furosemide (Lasix) 40 mg EVERY 12 HOURS IV 09/09/18 21:00 10/09/18 20:59 Losartan Potassium (Cozaar) 25 mg DAILY ORAL 09/09/18 09:00 10/09/18 08:59 09/09/18 09:30 Spironolactone (Aldactone) 25 mg DAILY ORAL 09/09/18 09:00 10/09/18 08:59 09/09/18 09:31 Maxx Ashley MD Sep 09, 2018 15:22
[2018-09-09 16:00] VITALS: BP 119/79
[2018-09-09] MEDS: Nitroglycerin Patch 0.4mg TDERMAL SCH (17:21)
[2018-09-09] MEDS: Docusate 100mg cap ORAL SCH (17:22)
[2018-09-09] MEDS: Losartan 25mg tab ORAL SCH (17:22)
[2018-09-09 20:00] VITALS: BP 110/77
[2018-09-09] MEDS: Azithromycin 250 MG in D5W 275 ML IV SCH (20:09)
--- NOTE | 2018-09-09 21:56 | Pulmonology Progress Note ---
Assessment/Plan Assessment/Plan Pulmonary Consultation Reason for Admission: SOB, cough, hemoptysis HPI Patient is a 58-year-old male who presented after increased difficulty breathing. Had a gradual onset of symptoms. Patient reports having prior history of a blood clot in the past and states he takes Elliquis. The patient reports having a prior history of cardiac failure as well as taking Coreg. He reports having increased nonproductive cough. He has had a prior history of cocaine abuse.The patient reports being a smoker. No h/o previous TB, no loss of weight or night sweats No current hemoptysis, CT chest negative, awaiting sputum AFB/monospot Allergies: LISINOPRIL Past Medical History: Hypertension, Pulmonary Embolism, CHF, PPM, Cocaine use All Other Systems: negative except mentioned in HPI Objective Vital Signs Noted Date Time Temp Pulse Resp B/P (MAP) Pulse Ox O2 Delivery O2 Flow Rate FiO2 09/07/18 09:59 97.5 106 24 123/74 96 Room Air General Appearance: normal inspection, well appearing, no apparent distress, alert, GCS 15, Chronically Ill Head: atraumatic ENT: normal ENT inspection, hearing grossly normal, normal voice Neck: normal inspection, full range of motion, supple, no bony tend Respiratory: normal inspection, lungs clear, normal breath sounds, no respiratory distress, no retraction, no wheezing Cardiovascular #1: regular rate, rhythm, no edema Gastrointestinal: normal inspection, normal bowel sounds, non tender, soft, no guarding, no hernia Genitourinary: no CVA tenderness Musculoskeletal: normal inspection, back normal, normal range of motion Neurologic: normal inspection, alert, oriented x3, responsive, speech normal Psychiatric: normal inspection, judgement/insight normal, mood/affect normal Skin: normal inspection, normal color, no rash Impression: Cough, SOB, hemoptysis, upper zone nodular infiltrates ACS (acute coronary syndrome) NSTEMI Previous Pulmonary Embolism on Eliquis Cardiomyopathy Cocaine abuse Hypertension Plan Admit Telemetry ASA Respiratory isolation ARB sputum x 3 TB spot Ceftriaxone and Azithromycin Continue Eliquis Diuresis PRN HHN PRN O2 sats 90-96% VQ scan/LE dupplex Sputum c+s Laboratory Tests CT Chest: mpression: No acute abnormality demonstrated No findings to correlate with left upper lobe abnormality described on recent chest radiograph. That finding was probably just prominent left first costochondral junction Minimal small subpleural blebs or bullae Scattered areas of scarring, as described Pacemaker Hepatic cysts. Low-attenuation hepatic lesions which are too small to characterize, most likely benign simple cysts. No further follow-up necessary EKG: Rate: tachycardiac Rhythm: NSR ST Segments: no acute changes Test 09/07/18 10:14 09/07/18 11:50 White Blood Count 11.3 K/UL (4.8-10.8) H Red Blood Count 5.60 M/UL (4.70-6.10) Hemoglobin 16.7 G/DL (14.2-18.0) Hematocrit 50.8 % (42.0-52.0) Mean Corpuscular Volume 91 FL (80-99) Mean Corpuscular Hemoglobin 29.8 PG (27.0-31.0) Mean Corpuscular Hemoglobin Concent 32.9 G/DL (32.0-36.0) Red Cell Distribution Width 12.8 % (11.6-14.8) Platelet Count 290 K/UL (150-450) Mean Platelet Volume 5.3 FL (6.5-10.1) L Neutrophils (%) (Auto) 79.2 % (45.0-75.0) H Lymphocytes (%) (Auto) 11.8 % (20.0-45.0) L Monocytes (%) (Auto) 8.0 % (1.0-10.0) Eosinophils (%) (Auto) 0.1 % (0.0-3.0) Basophils (%) (Auto) 0.9 % (0.0-2.0) Prothrombin Time 11.1 SEC (9.30-11.50) Prothrombin Time INR 1.1 (0.9-1.1) PTT 35 SEC (23-33) H D-Dimer 0.76 mg/L FEU (0.00-0.49) H Sodium Level 138 MMOL/L (136-145) Potassium Level 4.6 MMOL/L (3.5-5.1) Chloride Level 103 MMOL/L (98-107) Carbon Dioxide Level 22 MMOL/L (21-32) Anion Gap 13 mmol/L (5-15) Blood Urea Nitrogen 17 mg/dL (7-18) Creatinine 1.4 MG/DL (0.55-1.30) H Estimate Glomerular Filtration Rate > 60 mL/min (>60) Glucose Level 74 MG/DL (74-106) Calcium Level 9.3 MG/DL (8.5-10.1) Total Bilirubin 1.0 MG/DL (0.2-1.0) Aspartate Amino Transferase (AST) 42 U/L (15-37) H Alanine Aminotransferase (ALT) 41 U/L (12-78) Alkaline Phosphatase 97 U/L (46-116) Total Creatine Kinase 311 U/L (26-308) H Creatine Kinase MB 8.1 NG/ML (0.0-3.6) H Creatine Kinase MB Relative Index 2.6 Troponin I 0.131 ng/mL (0.000-0.056) Pro-B-Type Natriuretic Peptide 3389 pg/mL (0-125) H Total Protein 9.0 G/DL (6.4-8.2) H Albumin 3.9 G/DL (3.4-5.0) Globulin 5.1 g/dL Albumin/Globulin Ratio 0.8 (1.0-2.7) L Lipase 80 U/L (73-393) Urine Color Pale yellow Urine Appearance Clear Urine pH 5 (4.5-8.0) Urine Specific [place] 1.015 (1.005-1.035) Urine Protein Negative (NEGATIVE) Urine Glucose (UA) Negative (NEGATIVE) Urine Ketones Negative (NEGATIVE) Urine Blood Negative (NEGATIVE) Urine Nitrite Negative (NEGATIVE) Urine Bilirubin Negative (NEGATIVE) Urine Urobilinogen Normal MG/DL (0.0-1.0) Urine Leukocyte Esterase Negative (NEGATIVE) Urine Opiates Screen Negative (NEGATIVE) Urine Barbiturates Screen Negative (NEGATIVE) Phencyclidine (PCP) Screen Negative (NEGATIVE) Urine Amphetamines Screen Negative (NEGATIVE) Urine Benzodiazepines Screen Negative (NEGATIVE) Urine Cocaine Screen Positive (NEGATIVE) H Urine Marijuana (THC) Screen Positive (NEGATIVE) H Subjective ROS Limited/Unobtainable: No Allergies: Coded Allergies: LISINOPRIL (Unverified Allergy, Unknown, 03/03/18) Objective Last 24 Hour Vital Signs Date Time Temp Pulse Resp B/P (MAP) Pulse Ox O2 Delivery O2 Flow Rate FiO2 09/09/18 21:00 Room Air 09/09/18 20:22 85 14 Room Air 21 09/09/18 20:00 98.0 84 20 110/77 (88) 94 09/09/18 19:25 85 09/09/18 17:22 119/79 18 17:21 119/79 09/09/18 16:00 98.4 85 20 119/79 (92) 97 09/09/18 15:54 81 09/09/18 12:00 97.5 86 20 112/65 (81) 99 09/09/18 12:00 81 09/09/18 09:30 117/80 09/09/18 09:00 Room Air 09/09/18 08:57 97.2 87 20 117/80 (92) 98 09/09/18 08:00 93 09/09/18 07:22 102 20 Room Air 21 09/09/18 04:00 81 09/09/18 00:03 97 20 Room Air 21 09/09/18 00:00 98.1 80 20 109/76 (87) 98 09/09/18 00:00 87 Intake and Output 09/08/18 09/09/18 18:59 06:59 Intake Total 805 ml 975 ml Output Total 1000 ml 800 ml Balance -195 ml 175 ml Intake Oral 750 ml 700 ml IV Total 55 ml 275 ml Output Urine Total 1000 ml 800 ml Microbiology Date/Time Source Procedure Growth Status 09/08/18 10:45 Sputum AFB Specimen Processing Tissue - Final Resulted 09/08/18 10:45 Sputum Acid Fast Bacilli Smear - Final Resulted 09/08/18 10:45 Sputum Acid Fast Bacilli Culture Pending Resulted Laboratory Tests 09/09/18 03:40: White Blood Count 6.0, Red Blood Count 5.02, Hemoglobin 15.3, Hematocrit 44.9, Mean Corpuscular Volume 90, Mean Corpuscular Hemoglobin 30.4, Mean Corpuscular Hemoglobin Concent 34.0, Red Cell Distribution Width 12.4, Platelet Count 260, Mean Platelet Volume 5.7L, Neutrophils (%) (Auto) 41.0L, Lymphocytes (%) (Auto) 42.3, Monocytes (%) (Auto) 12.8H, Eosinophils (%) (Auto) 2.2, Basophils (%) ( Auto) 1.7, Sodium Level 138, Potassium Level 3.9, Chloride Level 104, Carbon Dioxide Level 24, Anion Gap 10, Blood Urea Nitrogen 21H, Creatinine 1.5H, Estimat Glomerular Filtration Rate 58.3, Glucose Level 105, Uric Acid 6.5, Calcium Level 8.8, Phosphorus Level 3.7, Magnesium Level 1.7L, Total Bilirubin 0.6, Gamma Glutamyl Transpeptidase 34, Aspartate Amino Transf (AST/SGOT) 21, Alanine Aminotransferase (ALT/SGPT) 26, Alkaline Phosphatase 68, Total Creatine Kinase 119, Troponin I 0.074H, Pro-B-Type Natriuretic Peptide 1262H, Total Protein 6.8, Albumin 2.7L, Globulin 4.1, Albumin/Globulin Ratio 0.7L, Triglycerides Level 59, Cholesterol Level 149, LDL Cholesterol 84, HDL Cholesterol 64H, Cholesterol/HDL Ratio 2.3L, HIV (1&2) Antibody Rapid Negative, TB Test (T-Spot) [Pending], TB Test Nil Control (T-Spot) [Pending], TB Test Panel A (T-Spot) [Pending], TB Test Panel B (T-Spot) [Pending], TB Test Positive Control (T-Spot) [Pending] Current Medications Medications (Trade) Dose Ordered Sig/[place] Route PRN Reason Start Time Stop Time Status Last Admin Dose Admin Acetaminophen (Tylenol) 650 mg Q4H PRN ORAL Mild Pain (Pain Scale 1-3) 09/07/18 18:45 10/07/18 18:44 Albuterol/ Ipratropium (Albuterol/ Ipratropium) 3 ml Q4H PRN HHN Shortness of Breath 09/07/18 18:30 09/12/18 18:29 Apixaban (Eliquis) 2.5 mg BID ORAL 09/09/18 18:00 10/08/18 08:59 09/09/18 17:22 Aspirin (Ecotrin) 81 mg DAILY ORAL 09/08/18 09:00 10/08/18 08:59 09/09/18 09:29 Azithromycin 250 mg/Dextrose 275 ml @ 275 mls/hr Q24H IV 09/07/18 20:00 09/13/18 20:59 09/09/18 20:09 Ceftriaxone Sodium 1 gm/ Dextrose 55 ml @ 110 mls/hr DAILY IVPB 09/07/18 19:30 09/14/18 19:29 09/09/18 09:31 Dextrose (Dextrose 50%) 25 ml Q30M PRN IV Hypoglycemia 09/07/18 18:45 10/07/18 18:44 Dextrose (Dextrose 50%) 50 ml Q30M PRN IV Hypoglycemia 09/07/18 18:45 10/07/18 18:44 Docusate Sodium (Colace) 100 mg THREE TIMES A DAY ORAL 09/09/18 18:00 10/09/18 17:59 09/09/18 17:22 Furosemide (Lasix) 40 mg DAILY ORAL 09/10/18 09:00 10/10/18 08:59 Losartan Potassium (Cozaar) 25 mg BID ORAL 09/09/18 18:00 10/09/18 08:59 09/09/18 17:22 Nitroglycerin (Ntg) 1 patch Q24H TDERMAL 09/09/18 17:00 10/09/18 16:59 09/09/18 17:21 Spironolactone (Aldactone) 25 mg DAILY ORAL 09/09/18 09:00 10/09/18 08:59 09/09/18 09:31 Maxx Ashley MD Sep 09, 2018 21:56
--- NOTE | 2018-09-09 22:01 | General Progress Note ---
Assessment/Plan Problem List: (1) Cardiac defibrillator in place ICD Codes: Z95.810 - Presence of automatic (implantable) cardiac defibrillator SNOMED: 119610116 (2) Chronic paranoid schizophrenia ICD Codes: F20.0 - Paranoid schizophrenia SNOMED: 94659423 (3) Pacemaker ICD Codes: Z95.0 - Presence of cardiac pacemaker SNOMED: 256726897 (4) Cocaine abuse ICD Codes: F14.10 - Cocaine abuse, uncomplicated SNOMED: 43264099 (5) Cardiomyopathy ICD Codes: I42.9 - Cardiomyopathy, unspecified SNOMED: 33996037 (6) Dyspnea ICD Codes: R06.00 - Dyspnea, unspecified SNOMED: 771330795 (7) ACS (acute coronary syndrome) ICD Codes: I24.9 - Acute ischemic heart disease, unspecified SNOMED: 648858232 Status: progressing Assessment/Plan afebrile drug induced cardiomyopathy arrythmia homeless lasix fluid managment needs further diuresis Subjective ROS Limited/Unobtainable: Yes Constitutional: Reports: no symptoms Allergies: Coded Allergies: LISINOPRIL (Unverified Allergy, Unknown, 03/03/18) Objective Last 24 Hour Vital Signs Date Time Temp Pulse Resp B/P (MAP) Pulse Ox O2 Delivery O2 Flow Rate FiO2 09/09/18 21:00 Room Air 09/09/18 20:22 85 14 Room Air 21 09/09/18 20:00 98.0 84 20 110/77 (88) 94 09/09/18 19:25 85 09/09/18 17:22 119/79 18 17:21 119/79 09/09/18 16:00 98.4 85 20 119/79 (92) 97 09/09/18 15:54 81 09/09/18 12:00 97.5 86 20 112/65 (81) 99 09/09/18 12:00 81 09/09/18 09:30 117/80 09/09/18 09:00 Room Air 09/09/18 08:57 97.2 87 20 117/80 (92) 98 09/09/18 08:00 93 09/09/18 07:22 102 20 Room Air 21 09/09/18 04:00 81 09/09/18 00:03 97 20 Room Air 21 09/09/18 00:00 98.1 80 20 109/76 (87) 98 09/09/18 00:00 87 Intake and Output 09/08/18 09/09/18 18:59 06:59 Intake Total 805 ml 975 ml Output Total 1000 ml 800 ml Balance -195 ml 175 ml Intake Oral 750 ml 700 ml IV Total 55 ml 275 ml Output Urine Total 1000 ml 800 ml Laboratory Tests 09/09/18 03:40: White Blood Count 6.0, Red Blood Count 5.02, Hemoglobin 15.3, Hematocrit 44.9, Mean Corpuscular Volume 90, Mean Corpuscular Hemoglobin 30.4, Mean Corpuscular Hemoglobin Concent 34.0, Red Cell Distribution Width 12.4, Platelet Count 260, Mean Platelet Volume 5.7L, Neutrophils (%) (Auto) 41.0L, Lymphocytes (%) (Auto) 42.3, Monocytes (%) (Auto) 12.8H, Eosinophils (%) (Auto) 2.2, Basophils (%) ( Auto) 1.7, Sodium Level 138, Potassium Level 3.9, Chloride Level 104, Carbon Dioxide Level 24, Anion Gap 10, Blood Urea Nitrogen 21H, Creatinine 1.5H, Estimat Glomerular Filtration Rate 58.3, Glucose Level 105, Uric Acid 6.5, Calcium Level 8.8, Phosphorus Level 3.7, Magnesium Level 1.7L, Total Bilirubin 0.6, Gamma Glutamyl Transpeptidase 34, Aspartate Amino Transf (AST/SGOT) 21, Alanine Aminotransferase (ALT/SGPT) 26, Alkaline Phosphatase 68, Total Creatine Kinase 119, Troponin I 0.074H, Pro-B-Type Natriuretic Peptide 1262H, Total Protein 6.8, Albumin 2.7L, Globulin 4.1, Albumin/Globulin Ratio 0.7L, Triglycerides Level 59, Cholesterol Level 149, LDL Cholesterol 84, HDL Cholesterol 64H, Cholesterol/HDL Ratio 2.3L, HIV (1&2) Antibody Rapid Negative, TB Test (T-Spot) [Pending], TB Test Nil Control (T-Spot) [Pending], TB Test Panel A (T-Spot) [Pending], TB Test Panel B (T-Spot) [Pending], TB Test Positive Control (T-Spot) [Pending] Height (Feet): 6 Height (Inches): 0.00 Weight (Pounds): 184 Cardiovascular: normal rate Respiratory/Chest: lungs clear Abdomen: soft Anne Calzada MD Sep 09, 2018 22:01
[2018-09-10 04:00] VITALS: BP 121/82
--- NOTE | 2018-09-10 07:46 | Cardiology Report ---
APPROVED REPORT EKG Measurement Heart [id number] 190P56 [id number] Sinus tachycardia with premature atrial complexes with aberrant conduction Possible Left atrial enlargement Left ventricular hypertrophy Nonspecific T wave abnormality Abnormal ECG
[2018-09-10 08:00] VITALS: BP 117/70
[2018-09-10] MEDS: Eliquis 2.5mg tablet ORAL SCH ×2 (08:20→18:18)
[2018-09-10] MEDS: Docusate 100mg cap ORAL SCH ×3 (08:20→18:00)
[2018-09-10] MEDS: Aspirin EC 81mg tab ORAL SCH (08:20)
[2018-09-10] MEDS: Losartan 25mg tab ORAL SCH ×2 (08:21→18:28)
[2018-09-10] MEDS: Furosemide 40mg tab ORAL SCH (08:22)
[2018-09-10] MEDS: Spironolactone 25mg tab ORAL SCH (08:22)
[2018-09-10] MEDS: cefTRIAXone 1 GM in D5W 55 ML IVPB SCH (08:23)
[2018-09-10 12:00] VITALS: BP 116/72
--- NOTE | 2018-09-10 13:31 | Infectious Diseases Prog Note ---
Assessment/Plan Assessment/Plan A; Hemoptysis COPD Systolic CHF Cocaine abuse Homeless P: Continue Rocephin & Zithromax AFB X smear X 1 : negative Subjective ROS Limited/Unobtainable: No Constitutional: Reports: no symptoms, other - doing better Respiratory: Reports: shortness of breath, other - very little Cardiovascular: Reports: no symptoms Gastrointestinal/Abdominal: Reports: no symptoms Genitourinary: Reports: no symptoms Allergies: Coded Allergies: LISINOPRIL (Unverified Allergy, Unknown, 03/03/18) Objective Vital Signs Last 24 Hour Vital Signs Date Time Temp Pulse Resp B/P (MAP) Pulse Ox O2 Delivery O2 Flow Rate FiO2 09/10/18 12:00 97.8 91 18 116/72 (87) 95 09/10/18 12:00 88 09/10/18 09:00 Room Air 09/10/18 08:21 117/70 09/10/18 08:00 97.5 96 22 117/70 (86) 93 09/10/18 08:00 98 09/10/18 07:40 102 09/10/18 04:00 98.4 88 20 121/82 (95) 99 09/10/18 03:43 81 09/09/18 23:44 88 09/09/18 21:00 Room Air 09/09/18 20:22 85 14 Room Air 21 09/09/18 20:00 98.0 84 20 110/77 (88) 94 09/09/18 19:25 85 09/09/18 17:22 119/79 18 17:21 119/79 09/09/18 16:00 98.4 85 20 119/79 (92) 97 09/09/18 15:54 81 Height (Feet): 6 Height (Inches): 0.00 Weight (Pounds): 183 HEENT: mucous membranes moist Respiratory/Chest: lungs clear Cardiovascular: normal rate Abdomen: soft, non tender Extremities: no edema Neurologic/Psychiatric: alert, oriented x 3, responsive Microbiology Date/Time Source Procedure Growth Status 09/08/18 10:45 Sputum AFB Specimen Processing Tissue - Final Resulted 09/08/18 10:45 Sputum Acid Fast Bacilli Smear - Final Resulted 09/08/18 10:45 Sputum Acid Fast Bacilli Culture Pending Resulted Current Medications Medications (Trade) Dose Ordered Sig/Sarwat Route PRN Reason Start Time Stop Time Status Last Admin Dose Admin Acetaminophen (Tylenol) 650 mg Q4H PRN ORAL Mild Pain (Pain Scale 1-3) 09/07/18 18:45 10/07/18 18:44 Albuterol/ Ipratropium (Albuterol/ Ipratropium) 3 ml Q4H PRN HHN Shortness of Breath 09/07/18 18:30 09/12/18 18:29 Apixaban (Eliquis) 2.5 mg BID ORAL 09/09/18 18:00 10/08/18 08:59 09/10/18 08:20 Aspirin (Ecotrin) 81 mg DAILY ORAL 09/08/18 09:00 10/08/18 08:59 09/10/18 08:20 Azithromycin 250 mg/Dextrose 275 ml @ 275 mls/hr Q24H IV 09/07/18 20:00 09/13/18 20:59 09/09/18 20:09 Ceftriaxone Sodium 1 gm/ Dextrose 55 ml @ 110 mls/hr DAILY IVPB 09/07/18 19:30 09/14/18 19:29 09/10/18 08:23 Dextrose (Dextrose 50%) 25 ml Q30M PRN IV Hypoglycemia 09/07/18 18:45 10/07/18 18:44 Dextrose (Dextrose 50%) 50 ml Q30M PRN IV Hypoglycemia 09/07/18 18:45 10/07/18 18:44 Docusate Sodium (Colace) 100 mg THREE TIMES A DAY ORAL 09/09/18 18:00 10/09/18 17:59 09/10/18 08:20 Furosemide (Lasix) 40 mg DAILY ORAL 09/10/18 09:00 10/10/18 08:59 09/10/18 08:22 Losartan Potassium (Cozaar) 25 mg BID ORAL 09/09/18 18:00 10/09/18 08:59 09/10/18 08:21 Nitroglycerin (Ntg) 1 patch Q24H TDERMAL 09/09/18 17:00 10/09/18 16:59 09/09/18 17:21 Spironolactone (Aldactone) 25 mg DAILY ORAL 09/09/18 09:00 10/09/18 08:59 09/10/18 08:22 Jenaro Arredondo MD Sep 10, 2018 13:31
--- NOTE | 2018-09-10 13:49 | Cardiac Electrophysiology PN ---
Assessment/Plan Assessment/Plan 1. Exacerbation of congestive heart failure. Ejection fraction of 10%. Off Coreg for cocaine use. On Lasix 40 po qd, Aldactone and Cozaar. Watch for risk of hyperkalemia. 2. Status post [facility] defibrillator implantation. 3. Chronic troponin leak. 4. Active cocaine use. 5. History of DVT, on Eliquis. 6. Schizophrenia. 7. 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 Subjective Subjective Off respiratory isolation.Chest CT no acute findings Objective Last 24 Hour Vital Signs Date Time Temp Pulse Resp B/P (MAP) Pulse Ox O2 Delivery O2 Flow Rate FiO2 09/10/18 12:00 97.8 91 18 116/72 (87) 95 09/10/18 12:00 88 09/10/18 09:00 Room Air 09/10/18 08:21 117/70 09/10/18 08:00 97.5 96 22 117/70 (86) 93 09/10/18 08:00 98 09/10/18 07:40 102 09/10/18 04:00 98.4 88 20 121/82 (95) 99 09/10/18 03:43 81 09/09/18 23:44 88 09/09/18 21:00 Room Air 09/09/18 20:22 85 14 Room Air 21 09/09/18 20:00 98.0 84 20 110/77 (88) 94 09/09/18 19:25 85 09/09/18 17:22 119/79 18 17:21 119/79 09/09/18 16:00 98.4 85 20 119/79 (92) 97 09/09/18 15:54 81 Intake and Output 09/09/18 09/10/18 19:00 07:00 Intake Total 855 ml 275 ml Output Total 500 ml 800 ml Balance 355 ml -525 ml Intake Oral 800 ml IV Total 55 ml 275 ml Output Urine Total 500 ml 800 ml Microbiology Date/Time Source Procedure Growth Status 09/08/18 10:45 Sputum AFB Specimen Processing Tissue - Final Resulted 09/08/18 10:45 Sputum Acid Fast Bacilli Smear - Final Resulted 09/08/18 10:45 Sputum Acid Fast Bacilli Culture Pending Resulted Objective HEAD AND NECK: Positive JVD. LUNGS: Decreased breath sounds. CARDIOVASCULAR: Regular S1 and S2 with no gallop or murmur. GASTROINTESTINAL: His abdomen is soft. EXTREMITIES: 1+ pitting edema. Mitch Butt MD Sep 10, 2018 13:49
--- NOTE | 2018-09-10 15:39 | Nephrology Progress Note ---
Assessment/Plan Problem List: (1) Acute on chronic renal failure (2) Cardiomyopathy (3) Cocaine abuse (4) Cardiac defibrillator in place Assessment (1) Renal failure , acute on chronic (2) Acute exacerbation of CHF (congestive heart failure), Low Ej Fx 15% (3) ACS (acute coronary syndrome) (4) COPD (chronic obstructive pulmonary disease) with acute bronchitis (5) Chronic paranoid schizophrenia (6) Pacemaker (7) Cocaine and Mj abuse (8) Defibrilator Plan no labs today- Optimize cardiac status urine studies avoid nephrotoxics per orders Subjective ROS Limited/Unobtainable: No Objective Objective Last 24 Hour Vital Signs Date Time Temp Pulse Resp B/P (MAP) Pulse Ox O2 Delivery O2 Flow Rate FiO2 09/10/18 12:00 97.8 91 18 116/72 (87) 95 09/10/18 12:00 88 09/10/18 09:00 Room Air 09/10/18 08:24 101 20 Room Air 21 09/10/18 08:21 117/70 09/10/18 08:00 97.5 96 22 117/70 (86) 93 09/10/18 08:00 98 09/10/18 07:40 102 09/10/18 04:00 98.4 88 20 121/82 (95) 99 09/10/18 03:43 81 09/09/18 23:44 88 09/09/18 21:00 Room Air 09/09/18 20:22 85 14 Room Air 21 09/09/18 20:00 98.0 84 20 110/77 (88) 94 09/09/18 19:25 85 09/09/18 17:22 119/79 18 17:21 119/79 09/09/18 16:00 98.4 85 20 119/79 (92) 97 09/09/18 15:54 81 Intake and Output 09/09/18 09/10/18 19:00 07:00 Intake Total 855 ml 275 ml Output Total 500 ml 800 ml Balance 355 ml -525 ml Intake Oral 800 ml IV Total 55 ml 275 ml Output Urine Total 500 ml 800 ml Height (Feet): 6 Height (Inches): 0.00 Weight (Pounds): 183 General Appearance: no apparent distress Objective no change Elias Thorne MD Sep 10, 2018 15:39
[2018-09-10 16:00] VITALS: BP 104/72
[2018-09-10] MEDS: Nitroglycerin Patch 0.4mg TDERMAL SCH (17:00)
[2018-09-10 20:00] VITALS: BP 108/80
[2018-09-10] MEDS ORDERED: Azithromycin 250mg tab ORAL SCH (20:00)
--- NOTE | 2018-09-10 21:30 | General Progress Note ---
Assessment/Plan Problem List: (1) Cardiac defibrillator in place ICD Codes: Z95.810 - Presence of automatic (implantable) cardiac defibrillator SNOMED: 640888426 (2) Chronic paranoid schizophrenia ICD Codes: F20.0 - Paranoid schizophrenia SNOMED: 78291877 (3) Pacemaker ICD Codes: Z95.0 - Presence of cardiac pacemaker SNOMED: 013893009 (4) Cocaine abuse ICD Codes: F14.10 - Cocaine abuse, uncomplicated SNOMED: 61711161 (5) Cardiomyopathy ICD Codes: I42.9 - Cardiomyopathy, unspecified SNOMED: 93323046 (6) Dyspnea ICD Codes: R06.00 - Dyspnea, unspecified SNOMED: 284914271 (7) ACS (acute coronary syndrome) ICD Codes: I24.9 - Acute ischemic heart disease, unspecified SNOMED: 195901206 Status: progressing Assessment/Plan will dc to safe place once cleared by dr souza and dr haywood drug induced cardiomyopathy arrythmia homeless fluid managment Subjective ROS Limited/Unobtainable: Yes Allergies: Coded Allergies: LISINOPRIL (Unverified Allergy, Unknown, 03/03/18) Objective Last 24 Hour Vital Signs Date Time Temp Pulse Resp B/P (MAP) Pulse Ox O2 Delivery O2 Flow Rate FiO2 09/10/18 21:00 Room Air 09/10/18 20:07 94 20 Room Air 21 09/10/18 20:00 98.0 88 19 108/80 (89) 98 09/10/18 20:00 116 09/10/18 18:28 104/72 09/10/18 16:00 101 09/10/18 16:00 98.5 94 18 104/72 (83) 96 09/10/18 12:00 97.8 91 18 116/72 (87) 95 09/10/18 12:00 88 09/10/18 09:00 Room Air 09/10/18 08:24 101 20 Room Air 21 09/10/18 08:21 117/70 09/10/18 08:00 97.5 96 22 117/70 (86) 93 09/10/18 08:00 98 09/10/18 07:40 102 09/10/18 04:00 98.4 88 20 121/82 (95) 99 09/10/18 03:43 81 09/09/18 23:44 88 Intake and Output 09/09/18 09/10/18 18:59 06:59 Intake Total 855 ml 275 ml Output Total 500 ml 800 ml Balance 355 ml -525 ml Intake Oral 800 ml IV Total 55 ml 275 ml Output Urine Total 500 ml 800 ml Height (Feet): 6 Height (Inches): 0.00 Weight (Pounds): 183 Neck: supple Cardiovascular: normal rate Respiratory/Chest: lungs clear Anne Calzada MD Sep 10, 2018 21:30
--- NOTE | 2018-09-10 23:26 | Pulmonology Progress Note ---
Assessment/Plan Assessment/Plan Pulmonary Consultation Reason for Admission: SOB, cough, hemoptysis HPI Patient is a 58-year-old male who presented after increased difficulty breathing. Had a gradual onset of symptoms. Patient reports having prior history of a blood clot in the past and states he takes Elliquis. The patient reports having a prior history of cardiac failure as well as taking Coreg. He reports having increased nonproductive cough. He has had a prior history of cocaine abuse.The patient reports being a smoker. No h/o previous TB, no loss of weight or night sweats No current hemoptysis, CT chest negative, awaiting sputum AFB/monospot Much improved Allergies: LISINOPRIL Past Medical History: Hypertension, Pulmonary Embolism, CHF, PPM, Cocaine use All Other Systems: negative except mentioned in HPI Objective Vital Signs Noted Date Time Temp Pulse Resp B/P (MAP) Pulse Ox O2 Delivery O2 Flow Rate FiO2 09/07/18 09:59 97.5 106 24 123/74 96 Room Air General Appearance: normal inspection, well appearing, no apparent distress, alert, GCS 15, Chronically Ill Head: atraumatic ENT: normal ENT inspection, hearing grossly normal, normal voice Neck: normal inspection, full range of motion, supple, no bony tend Respiratory: normal inspection, lungs clear, normal breath sounds, no respiratory distress, no retraction, no wheezing Cardiovascular #1: regular rate, rhythm, no edema Gastrointestinal: normal inspection, normal bowel sounds, non tender, soft, no guarding, no hernia Genitourinary: no CVA tenderness Musculoskeletal: normal inspection, back normal, normal range of motion Neurologic: normal inspection, alert, oriented x3, responsive, speech normal Psychiatric: normal inspection, judgement/insight normal, mood/affect normal Skin: normal inspection, normal color, no rash Impression: Cough, SOB, hemoptysis, upper zone nodular infiltrates ACS (acute coronary syndrome) NSTEMI Previous Pulmonary Embolism on Eliquis Cardiomyopathy Cocaine abuse Hypertension Plan Admit Telemetry ASA Respiratory isolation ARB sputum x 3 TB spot Ceftriaxone and Azithromycin Continue Eliquis Diuresis PRN HHN PRN O2 sats 90-96% VQ scan/LE dupplex Sputum c+s Laboratory Tests CT Chest: mpression: No acute abnormality demonstrated No findings to correlate with left upper lobe abnormality described on recent chest radiograph. That finding was probably just prominent left first costochondral junction Minimal small subpleural blebs or bullae Scattered areas of scarring, as described Pacemaker Hepatic cysts. Low-attenuation hepatic lesions which are too small to characterize, most likely benign simple cysts. No further follow-up necessary EKG: Rate: tachycardiac Rhythm: NSR ST Segments: no acute changes Test 09/07/18 10:14 09/07/18 11:50 White Blood Count 11.3 K/UL (4.8-10.8) H Red Blood Count 5.60 M/UL (4.70-6.10) Hemoglobin 16.7 G/DL (14.2-18.0) Hematocrit 50.8 % (42.0-52.0) Mean Corpuscular Volume 91 FL (80-99) Mean Corpuscular Hemoglobin 29.8 PG (27.0-31.0) Mean Corpuscular Hemoglobin Concent 32.9 G/DL (32.0-36.0) Red Cell Distribution Width 12.8 % (11.6-14.8) Platelet Count 290 K/UL (150-450) Mean Platelet Volume 5.3 FL (6.5-10.1) L Neutrophils (%) (Auto) 79.2 % (45.0-75.0) H Lymphocytes (%) (Auto) 11.8 % (20.0-45.0) L Monocytes (%) (Auto) 8.0 % (1.0-10.0) Eosinophils (%) (Auto) 0.1 % (0.0-3.0) Basophils (%) (Auto) 0.9 % (0.0-2.0) Prothrombin Time 11.1 SEC (9.30-11.50) Prothrombin Time INR 1.1 (0.9-1.1) PTT 35 SEC (23-33) H D-Dimer 0.76 mg/L FEU (0.00-0.49) H Sodium Level 138 MMOL/L (136-145) Potassium Level 4.6 MMOL/L (3.5-5.1) Chloride Level 103 MMOL/L (98-107) Carbon Dioxide Level 22 MMOL/L (21-32) Anion Gap 13 mmol/L (5-15) Blood Urea Nitrogen 17 mg/dL (7-18) Creatinine 1.4 MG/DL (0.55-1.30) H Estimate Glomerular Filtration Rate > 60 mL/min (>60) Glucose Level 74 MG/DL (74-106) Calcium Level 9.3 MG/DL (8.5-10.1) Total Bilirubin 1.0 MG/DL (0.2-1.0) Aspartate Amino Transferase (AST) 42 U/L (15-37) H Alanine Aminotransferase (ALT) 41 U/L (12-78) Alkaline Phosphatase 97 U/L (46-116) Total Creatine Kinase 311 U/L (26-308) H Creatine Kinase MB 8.1 NG/ML (0.0-3.6) H Creatine Kinase MB Relative Index 2.6 Troponin I 0.131 ng/mL (0.000-0.056) Pro-B-Type Natriuretic Peptide 3389 pg/mL (0-125) H Total Protein 9.0 G/DL (6.4-8.2) H Albumin 3.9 G/DL (3.4-5.0) Globulin 5.1 g/dL Albumin/Globulin Ratio 0.8 (1.0-2.7) L Lipase 80 U/L (73-393) Urine Color Pale yellow Urine Appearance Clear Urine pH 5 (4.5-8.0) Urine Specific [place] 1.015 (1.005-1.035) Urine Protein Negative (NEGATIVE) Urine Glucose (UA) Negative (NEGATIVE) Urine Ketones Negative (NEGATIVE) Urine Blood Negative (NEGATIVE) Urine Nitrite Negative (NEGATIVE) Urine Bilirubin Negative (NEGATIVE) Urine Urobilinogen Normal MG/DL (0.0-1.0) Urine Leukocyte Esterase Negative (NEGATIVE) Urine Opiates Screen Negative (NEGATIVE) Urine Barbiturates Screen Negative (NEGATIVE) Phencyclidine (PCP) Screen Negative (NEGATIVE) Urine Amphetamines Screen Negative (NEGATIVE) Urine Benzodiazepines Screen Negative (NEGATIVE) Urine Cocaine Screen Positive (NEGATIVE) H Urine Marijuana (THC) Screen Positive (NEGATIVE) H Subjective ROS Limited/Unobtainable: No Allergies: Coded Allergies: LISINOPRIL (Unverified Allergy, Unknown, 03/03/18) Objective Last 24 Hour Vital Signs Date Time Temp Pulse Resp B/P (MAP) Pulse Ox O2 Delivery O2 Flow Rate FiO2 09/10/18 21:00 Room Air 09/10/18 20:07 94 20 Room Air 21 09/10/18 20:00 98.0 88 19 108/80 (89) 98 09/10/18 20:00 116 09/10/18 18:28 104/72 09/10/18 16:00 101 09/10/18 16:00 98.5 94 18 104/72 (83) 96 09/10/18 12:00 97.8 91 18 116/72 (87) 95 09/10/18 12:00 88 09/10/18 09:00 Room Air 09/10/18 08:24 101 20 Room Air 21 09/10/18 08:21 117/70 09/10/18 08:00 97.5 96 22 117/70 (86) 93 09/10/18 08:00 98 09/10/18 07:40 102 09/10/18 04:00 98.4 88 20 121/82 (95) 99 09/10/18 03:43 81 09/09/18 23:44 88 Intake and Output 09/09/18 09/10/18 18:59 06:59 Intake Total 855 ml 275 ml Output Total 500 ml 800 ml Balance 355 ml -525 ml Intake Oral 800 ml IV Total 55 ml 275 ml Output Urine Total 500 ml 800 ml Microbiology Date/Time Source Procedure Growth Status 09/08/18 10:45 Sputum AFB Specimen Processing Tissue - Final Resulted 09/08/18 10:45 Sputum Acid Fast Bacilli Smear - Final Resulted 09/08/18 10:45 Sputum Acid Fast Bacilli Culture Pending Resulted Current Medications Medications (Trade) Dose Ordered Sig/Sarwat Route PRN Reason Start Time Stop Time Status Last Admin Dose Admin Acetaminophen (Tylenol) 650 mg Q4H PRN ORAL Mild Pain (Pain Scale 1-3) 09/07/18 18:45 10/07/18 18:44 Albuterol/ Ipratropium (Albuterol/ Ipratropium) 3 ml Q4H PRN HHN Shortness of Breath 09/07/18 18:30 18 18:29 Apixaban (Eliquis) 2.5 mg BID ORAL 09/09/18 18:00 10/08/18 08:59 09/10/18 18:18 Aspirin (Ecotrin) 81 mg DAILY ORAL 09/08/18 09:00 10/08/18 08:59 09/10/18 08:20 Azithromycin (Zithromax) 250 mg Q24H ORAL 09/10/18 20:00 09/13/19 19:59 09/10/18 20:11 Ceftriaxone Sodium 1 gm/ Dextrose 55 ml @ 110 mls/hr DAILY IVPB 09/07/18 19:30 09/14/18 19:29 09/10/18 08:23 Dextrose (Dextrose 50%) 25 ml Q30M PRN IV Hypoglycemia 09/07/18 18:45 10/07/18 18:44 Dextrose (Dextrose 50%) 50 ml Q30M PRN IV Hypoglycemia 09/07/18 18:45 10/07/18 18:44 Docusate Sodium (Colace) 100 mg THREE TIMES A DAY ORAL 09/09/18 18:00 10/09/18 17:59 09/10/18 08:20 Furosemide (Lasix) 40 mg DAILY ORAL 09/10/18 09:00 10/10/18 08:59 09/10/18 08:22 Losartan Potassium (Cozaar) 25 mg BID ORAL 09/09/18 18:00 10/09/18 08:59 09/10/18 18:28 Nitroglycerin (Ntg) 1 patch Q24H TDERMAL 09/09/18 17:00 10/09/18 16:59 09/09/18 17:21 Spironolactone (Aldactone) 25 mg DAILY ORAL 09/09/18 09:00 10/09/18 08:59 09/10/18 08:22 Maxx Ashley MD Sep 10, 2018 23:26
[2018-09-10 23:51] VITALS: BP 133/65
[2018-09-11 03:46] VITALS: BP 150/81
[2018-09-11 08:00] VITALS: BP 113/75
[2018-09-11] MEDS: Furosemide 40mg tab ORAL SCH (09:00)
[2018-09-11] MEDS: Docusate 100mg cap ORAL SCH ×2 (09:00→13:00)
[2018-09-11] MEDS: cefTRIAXone 1 GM in D5W 55 ML IVPB SCH (09:17)
[2018-09-11] MEDS: Eliquis 2.5mg tablet ORAL SCH (09:18)
[2018-09-11] MEDS: Aspirin EC 81mg tab ORAL SCH (09:18)
[2018-09-11] MEDS: Losartan 25mg tab ORAL SCH (09:31)
[2018-09-11] MEDS: Spironolactone 25mg tab ORAL SCH (09:32)
[2018-09-11 12:00] VITALS: BP 118/73
--- NOTE | 2018-09-11 12:31 | Infectious Diseases Prog Note ---
Assessment/Plan Assessment/Plan A; Hemoptysis resolved COPD Systolic CHF Cocaine abuse Homeless P: Agree with discharge without antibiotic AFB X smear X 1 : negative Subjective ROS Limited/Unobtainable: No Respiratory: Reports: no symptoms Cardiovascular: Reports: no symptoms Gastrointestinal/Abdominal: Reports: no symptoms Genitourinary: Reports: no symptoms Allergies: Coded Allergies: LISINOPRIL (Unverified Allergy, Unknown, 03/03/18) Objective Vital Signs Last 24 Hour Vital Signs Date Time Temp Pulse Resp B/P (MAP) Pulse Ox O2 Delivery O2 Flow Rate FiO2 09/11/18 09:31 113/75 09/11/18 09:00 Room Air 09/11/18 08:00 62 09/11/18 08:00 97.7 85 20 113/75 (88) 99 09/11/18 08:00 97.7 62 20 113/75 (88) 99 09/11/18 04:00 87 09/11/18 03:46 98.0 61 18 150/81 (104) 98 09/11/18 00:00 89 09/10/18 23:51 97.0 61 18 133/65 (87) 98 09/10/18 21:00 Room Air 09/10/18 20:07 94 20 Room Air 21 09/10/18 20:00 98.0 88 19 108/80 (89) 98 09/10/18 20:00 116 09/10/18 18:28 104/72 09/10/18 16:00 101 09/10/18 16:00 98.5 94 18 104/72 (83) 96 Height (Feet): 6 Height (Inches): 0.00 Weight (Pounds): 183 General Appearance: no acute distress HEENT: mucous membranes moist Respiratory/Chest: lungs clear Cardiovascular: normal rate Abdomen: soft, non tender Extremities: no edema Neurologic/Psychiatric: alert, oriented x 3, responsive Current Medications Medications (Trade) Dose Ordered Sig/[place] Route PRN Reason Start Time Stop Time Status Last Admin Dose Admin Acetaminophen (Tylenol) 650 mg Q4H PRN ORAL Mild Pain (Pain Scale 1-3) 09/07/18 18:45 10/07/18 18:44 Albuterol/ Ipratropium (Albuterol/ Ipratropium) 3 ml Q4H PRN HHN Shortness of Breath 09/07/18 18:30 09/12/18 18:29 Apixaban (Eliquis) 2.5 mg BID ORAL 09/09/18 18:00 10/08/18 08:59 09/11/18 09:18 Aspirin (Ecotrin) 81 mg DAILY ORAL 09/08/18 09:00 10/08/18 08:59 09/11/18 09:18 Azithromycin (Zithromax) 250 mg Q24H ORAL 09/10/18 20:00 09/13/19 19:59 09/10/18 20:11 Ceftriaxone Sodium 1 gm/ Dextrose 55 ml @ 110 mls/hr DAILY IVPB 09/07/18 19:30 09/14/18 19:29 09/11/18 09:17 Dextrose (Dextrose 50%) 25 ml Q30M PRN IV Hypoglycemia 09/07/18 18:45 10/07/18 18:44 Dextrose (Dextrose 50%) 50 ml Q30M PRN IV Hypoglycemia 09/07/18 18:45 10/07/18 18:44 Docusate Sodium (Colace) 100 mg THREE TIMES A DAY ORAL 09/09/18 18:00 10/09/18 17:59 09/10/18 08:20 Furosemide (Lasix) 40 mg DAILY ORAL 09/10/18 09:00 10/10/18 08:59 09/10/18 08:22 Losartan Potassium (Cozaar) 25 mg BID ORAL 09/09/18 18:00 10/09/18 08:59 09/11/18 09:31 Nitroglycerin (Ntg) 1 patch Q24H TDERMAL 09/09/18 17:00 10/09/18 16:59 09/09/18 17:21 Spironolactone (Aldactone) 25 mg DAILY ORAL 09/09/18 09:00 10/09/18 08:59 09/11/18 09:32 Jenaro Arredondo MD Sep 11, 2018 12:31
[2018-09-11] MEDS ORDERED: NS 275ml ONE (12:49)
[2018-09-11] MEDS ORDERED: Tubing IV Secondary IV ONE (12:49)
--- NOTE | 2018-09-11 13:42 | Nephrology Progress Note ---
Assessment/Plan Problem List: (1) Acute on chronic renal failure (2) Cardiomyopathy (3) Cocaine abuse (4) Cardiac defibrillator in place Assessment (1) Renal failure , acute on chronic (2) Acute exacerbation of CHF (congestive heart failure), Low Ej Fx 15% (3) ACS (acute coronary syndrome) (4) COPD (chronic obstructive pulmonary disease) with acute bronchitis (5) Chronic paranoid schizophrenia (6) Pacemaker (7) Cocaine and Mj abuse (8) Defibrilator Plan no labs today- Optimize cardiac status urine studies avoid nephrotoxics per orders Subjective ROS Limited/Unobtainable: No Objective Objective Last 24 Hour Vital Signs Date Time Temp Pulse Resp B/P (MAP) Pulse Ox O2 Delivery O2 Flow Rate FiO2 09/11/18 12:00 87 09/11/18 12:00 97.7 65 22 118/73 (88) 98 09/11/18 09:31 113/75 09/11/18 09:00 Room Air 09/11/18 08:00 89 09/11/18 08:00 97.7 85 20 113/75 (88) 99 09/11/18 08:00 97.7 62 20 113/75 (88) 99 09/11/18 04:00 87 09/11/18 03:46 98.0 61 18 150/81 (104) 98 09/11/18 00:00 89 09/10/18 23:51 97.0 61 18 133/65 (87) 98 09/10/18 21:00 Room Air 09/10/18 20:07 94 20 Room Air 21 09/10/18 20:00 98.0 88 19 108/80 (89) 98 09/10/18 20:00 116 18 18:28 104/72 09/10/18 16:00 101 09/10/18 16:00 98.5 94 18 104/72 (83) 96 Intake and Output 09/10/18 09/11/18 19:00 07:00 Intake Total 480 ml Output Total 1250 ml 1000 ml Balance -770 ml -1000 ml Intake Oral 480 ml Output Urine Total 1250 ml 1000 ml # Voids 2 Height (Feet): 6 Height (Inches): 0.00 Weight (Pounds): 183 General Appearance: no apparent distress Objective no change Elias Thorne MD Sep 11, 2018 13:42
--- NOTE | 2018-09-12 11:46 | Discharge Summary ---
Discharge Summary Discharge Summary _ DATE OF ADMISSION: 09/07/2018 DATE OF DISCHARGE: 09/11/2018 DISCHARGED BY: Dr. Anne Guillory CONSULTANTS: Dr. Elias Casey [facility]: Is a 58-year-old male, who presented after increased difficulty breathing. He had gradual onset of symptoms. He had a prior history of blood clots in the past and takes Eliquis. He reported history of cardiac failure. He has a pacemaker. He had increased nonproductive cough and per old records he had a prior history of cocaine abuse. On evaluation at the ED, blood work showed mild leukocytosis. BNP was elevated to 8389. Creatinine was 1.4. Troponin was 0.13. D-dimer 0.76. Urinalysis was negative. Urine toxicology was positive for cocaine and marijuana. He was given aspirin and Lasix. He was admitted for evaluation of ACS, cardiomyopathy and cocaine abuse. He Was admitted to telemetry. He was placed on respiratory isolation because of hemoptysis. He was started empirically on ceftriaxone and azithromycin. There was no history of prior TB, no loss of weight or night sweats. He was given nebulizer treatment. Chest x-ray showed mild exacerbation of bronchoalveolar nodular opacity in the right upper lung field, pulmonary nodule up to 12 mm. Patient has renal failure. Kidney function was monitored. Patient had exacerbation of CHF. Ejection fraction 10%. Coreg was discontinued in view of active cocaine use. He was given Lasix and Aldactone. He was given Cozaar for blood pressure control. He was continued on Eliquis. Venous duplex of lower extremity was negative for DVT. CT chest done was negative. He was taken off respiratory isolation. Social service consulted to aid with discharge plan. He was then cleared for discharge, patient to return back to custodial. FINAL DIAGNOSES: Acute on chronic renal failure Cardiomyopathy Cocaine abuse [employer] defibrillator Acute exacerbation of systolic CHF COPD with acute bronchitis Chronic paranoid schizophrenia Cocaine and marijuana abuse Hemoptysis, resolved Previous PE on Eliquis Hypertension Chronic troponin leak Monocytosis Daniel nodule DISPOSITION: Patient was discharged home. DISCHARGE MEDICATIONS: Refer to Discharge Medication List. DISCHARGE INSTRUCTIONS: Follow-up in a week. I have been assigned to dictate discharge summary on this account, and I was not involved in the patient's management. Karen Cota NP Sep 12, 2018 11:46
== END 2018-09-11 12:50 | disposition home or self-care (01) | DRG 194 ==
LOC: EMR 10:30 → 2W 12:43 → EDBEDREQ 15:26 → 2W 17:10 → 2E 09-10 08:42
DX: I13.0 Hypertensive heart and chronic kidney disease with heart failure and stage 1 through stage 4 chronic kidney disease, or unspecified chronic kidney disease (principal); N17.9 Acute kidney failure, unspecified; I42.9 Cardiomyopathy, unspecified; F20.0 Paranoid schizophrenia; R04.2 Hemoptysis; N18.9 Chronic kidney disease, unspecified; I50.23 Acute on chronic systolic (congestive) heart failure; J44.9 Chronic obstructive pulmonary disease, unspecified; J20.9 Acute bronchitis, unspecified; F14.10 Cocaine abuse, uncomplicated; F12.10 Cannabis abuse, uncomplicated; Z86.711 Personal history of pulmonary embolism; Z95.810 Presence of automatic (implantable) cardiac defibrillator; R74.9 Abnormal serum enzyme level, unspecified; D72.821 Monocytosis (symptomatic); R91.1 Solitary pulmonary nodule; Z79.01 Long term (current) use of anticoagulants; F17.200 Nicotine dependence, unspecified, uncomplicated; Z88.8 Allergy status to other drugs, medicaments and biological substances; Z79.82 Long term (current) use of aspirin; Z59.0 Homelessness
CPT/HCPCS: 36415; 71045; 71250; 80048; 80053; 80061; 80307; 81003; 82550; 82553; 82977; 83690; 83735; 83880; 84100; 84484; 84550; 85025; 85379; 85610; 85730; 86140; 86703; 87116; 87556; 93005; 93970; 94640; 94664; 96365; 96375; 99285

== ENCOUNTER 2018-10-15 15:19 | Emergency (ER) | payer OTHER ==
[~2018-10-15] VITALS: Ht 182.9 cm; Wt 90.7 kg
[~2018-10-15 15:19] MED LIST changes: +ASPIR 8181 MG ORAL; +ELIQUIS2.5 MG PO; +FUROSEMIDE20 M1 ORAL; +PROCARDIA10 MG ORAL; +SIMVASTATIN10 MG ORAL
[2018-10-15 15:22] VITALS: BP 119/81
[2018-10-15] MEDS ORDERED: Tetanus/Diptheria/Pertussis Vaccine 0.5ml Syr IM ONE (15:45)
[2018-10-15] MEDS ORDERED: Tylenol #3 tab (300mg/30mg) ORAL ONE (15:45)
--- NOTE | 2018-10-15 17:34 | Emergency Room Report ---
History of Present Illness General Chief Complaint: Pain Source: Patient Present Illness HPI 58-year-old male presents to the emergency department complaining of 9 out of 10 in severity pain, swelling and erythema to the right foot that has been progressive 3 weeks. Patient reports several open abrasions to the toes distally and states that erythema did occur in that area first. Patient denies history of diabetes or vascular insufficiency. Patient denies history of immunocompromise. Patient denies fevers or chills, trauma or fall. Patient reports pain is exacerbated upon palpation or walking. Denies discharge from the wounds or weeping of liquid from the affected extremity. Patient denies claudication/calf pain. He denies history of gout or pseudogout. Denies numbness or tingling, denies suspicion or known ST FB. Not UTD with Tdap. Allergies: Coded Allergies: LISINOPRIL (Unverified Allergy, Unknown, 03/03/18) Patient History Past Medical History: see triage record Past Surgical History: none Reviewed Nursing Documentation: PMH: Agreed; PSxH: Agreed Nursing Documentation-PMH Past Medical History: No History, Except For Hx Cardiac Problems: Yes - CHF Hx Hypertension: Yes Hx Pacemaker: Yes - left chest Hx Cancer: No Hx Gastrointestinal Problems: No Hx Neurological Problems: No Review of Systems All Other Systems: negative except mentioned in HPI Physical Exam Vital Signs Date Time Temp Pulse Resp B/P (MAP) Pulse Ox O2 Delivery O2 Flow Rate FiO2 10/15/18 15:22 98.4 98 15 119/81 94 Sp02 EP Interpretation: reviewed, normal General Appearance: no apparent distress, alert, GCS 15, non-toxic Head: normocephalic, atraumatic Eyes: bilateral eye normal inspection, bilateral eye PERRL ENT: hearing grossly normal, normal voice Neck: full range of motion Respiratory: lungs clear, normal breath sounds, speaking full sentences Cardiovascular #1: regular rate, rhythm, normal capillary refill Cardiovascular #2: 2+ dorsalis pedis (R) Musculoskeletal: back normal, gait/station normal, normal range of motion, inflammation - Right foot, swelling - Right foot, tender - Right foot Neurologic: alert, oriented x3, responsive, motor strength/tone normal, sensory intact, speech normal, grossly normal Psychiatric: judgement/insight normal Skin: no rash, warm/dry, well hydrated, other - erythema and warmth generalized right foot, NVI, small abrasion to the dorsum of the second and 5th digits, no other open wounds noted. Lymphatic: no adenopathy Medical Decision Making PA Attestation Dr. Saez is my supervising Physician whom patient management has been discussed with. Diagnostic Impression: Primary Impression: Cellulitis Qualified Codes: L03.115 - Cellulitis of right lower limb ER Course 58-year-old male presents to the emergency department complaining of 9 out of 10 in severity pain, swelling and erythema to the right foot that has been progressive 3 weeks. Patient reports several open abrasions to the toes distally and states that erythema did occur in that area first. Patient denies history of diabetes or vascular insufficiency. Patient denies history of immunocompromise. Patient denies fevers or chills, trauma or fall. Patient reports pain is exacerbated upon palpation or walking. Denies discharge from the wounds or weeping of liquid from the affected extremity. Patient denies claudication/calf pain. He denies history of gout or pseudogout. Denies numbness or tingling, denies suspicion or known ST FB. Not UTD with Tdap. Ddx considered but are not limited to cellulitis, paronychia/eponychia, ingrown toe nail, fracture, d/L, gout, just to name a few Vital signs: are WNL, pt. is afebrile H&PE are most consistent with Cellulitis ORDERS: none required at this time, the diagnosis is clinical ED INTERVENTIONS: --Tdap IM -Tylenol #3 PO -Clindamycin PO -I do not identify an emergent condition at this time. With current presentation , pt. is stable for close outpatient follow up and conservative treatment. D/ w pt. to return promptly to ED with worsening or new symptoms.- Pt. verbalizes' understanding and agreement with proposed treatment plan. -Review of [employer] web-site : She has an open prescription for [place] for which she still should have adequate supply he was prescribed 45 pills on the ninth of this month. DISCHARGE: At this time pt. is stable for d/c to home. Will provide printed patient care instructions, and any necessary prescriptions. Care plan and follow up instructions have been discussed with the patient prior to discharge. Last Vital Signs Date Time Temp Pulse Resp B/P (MAP) Pulse Ox O2 Delivery O2 Flow Rate FiO2 10/15/18 15:22 98.4 98 15 119/81 94 Disposition: HOME, SELF-CARE Condition: Stable Patient Instructions: Cellulitis, [id number] Additional Instructions: Take medications as directed, Continue taking the [place] you have been previously prescribed on October 01, 2018. Follow up with a Primary Care Provider in 3-5 days, even if your symptoms have resolved. --Please review list of primary care clinics, if you do not already have a primary care provider Return sooner to ED if new symptoms occur, or current symptoms become worse. - Please note that this Emergency Department Report was dictated using eMar[employer] cone machine operator technology software, occasionally this can lead to erroneous entry secondary to interpretation by the dictation equipment. Paige Villalobos Oct 15, 2018 17:34
[2018-10-15 17:50] VITALS: BP 122/84
--- NOTE | 2018-10-15 17:50 | NUR ---
ED Nurse Note: Pt was seen due to right foot cellulitis x 3 weeks. Pt cleared by Health Care provider for discharge. Pt refused to sign Dc papers and refused prescription. Paige MENDOZA aware. All medical devices such as ID band removed. Pt left with all personal belongings, AAO x4, and went home with his wheelchair.
[2018-10-15] MEDS: Clindamycin 150mg cap ORAL SCH ×2 (17:52→17:54)
== END 2018-10-15 17:50 | disposition home or self-care (01) ==
LOC: EMR 17:28
DX: L03.115 Cellulitis of right lower limb (principal); Z23 Encounter for immunization; I11.0 Hypertensive heart disease with heart failure; I50.9 Heart failure, unspecified; Z95.0 Presence of cardiac pacemaker
CPT/HCPCS: 90471; 90715; 99283

== ENCOUNTER 2018-10-19 19:20 | Inpatient (IN) | payer OTHER ==
[~2018-10-19] VITALS: Ht 182.9 cm; Wt 85.8 kg
[2018-10-19] MEDS ORDERED: Isovue-370 150ml vial INJ PRN (20:00)
[2018-10-19 20:12] VITALS: BP 104/60
[2018-10-19] MEDS ORDERED: Ipratropium 0.02% Inh Soln 2.5ml UD HHN ONE (20:15)
[2018-10-19] MEDS ORDERED: Albuterol ud Inhalation HHN ONE (20:15)
[2018-10-19 20:19] LABS: BASOPHILS % (AUTO) 1.6 % (0.0-2.0); EOSINOPHILS % (AUTO) 2.7 % (0.0-3.0); HEMATOCRIT 45.5 % (42.0-52.0); HEMOGLOBIN 14.7 G/DL (14.2-18.0); LYMPHOCYTES % (AUTO) 31.1 % (20.0-45.0); MEAN CORPUSCULAR VOLUME 93 FL (80-99); MONOCYTES % (AUTO) 12.2 % (1.0-10.0); NEUTROPHILS % (AUTO) 52.4 % (45.0-75.0); PLATELET COUNT 222 K/UL (150-450); RED BLOOD COUNT 4.87 M/UL (4.70-6.10); RED CELL DISTRIBUTION WIDTH 13.9 % (11.6-14.8); WHITE BLOOD COUNT 6.1 K/UL (4.8-10.8)
[2018-10-19 20:28] LABS: ANION GAP 13 mmol/L (5-15); BLOOD UREA NITROGEN 13 mg/dL (7-18); CALCIUM 8.8 MG/DL (8.5-10.1); CARBON DIOXIDE 22 MMOL/L (21-32); CHLORIDE 104 MMOL/L (98-107); CREATININE 1.5 MG/DL (0.55-1.30); POTASSIUM 3.7 MMOL/L (3.5-5.1); SODIUM 139 MMOL/L (136-145)
[2018-10-19 20:48] LABS: ALANINE AMINOTRANSFERASE 21 U/L (12-78); ALBUMIN 3.1 G/DL (3.4-5.0); ALBUMIN/GLOBULIN RATIO 0.8 (1.0-2.7); ALKALINE PHOSPHATASE 94 U/L (46-116); ASPARTATE AMINO TRANSFERASE 26 U/L (15-37); BILIRUBIN,TOTAL 0.3 MG/DL (0.2-1.0); CKMB 3.2 NG/ML (0.0-3.6); CREATINE KINASE 301 U/L (26-308)
[2018-10-19] MEDS ORDERED: LORazepam Inj 2mg/ml 1ml IV ONE (21:00)
[2018-10-19] MEDS ORDERED: Morphine Sulfate 4mg/ml Inj (IV/IM USE ONLY) IVP ONE (21:00)
--- NOTE | 2018-10-19 21:53 | Emergency Room Report ---
History of Present Illness General Chief Complaint: General Complaint Source: Patient Present Illness HPI 58-year-old male presents ED for evaluation. Complaining of cough and chest pain 2 days. Pain is sharp, 8 out of 10, nonradiating. States he sees blood in his sputum. History of DVT and PE. Takes Eliquis. States he is compliant with his medications. Denies fevers or chills. Denies drug use. Denies smoking. No other aggravating relieving factors. Denies any other associated symptoms Allergies: Coded Allergies: LISINOPRIL (Unverified Allergy, Unknown, 03/03/18) Patient History Past Medical History: HTN, CHF, other - PE Past Surgical History: pacemaker Pertinent Family History: none Social History: Denies: smoking, alcohol use, drug use Immunizations: UTD Reviewed Nursing Documentation: PMH: Agreed; PSxH: Agreed Nursing Documentation-PMH Hx Cardiac Problems: Yes - CHF Hx Hypertension: Yes Hx Pacemaker: Yes Hx Cancer: No Hx Gastrointestinal Problems: No Hx Neurological Problems: No Review of Systems All Other Systems: negative except mentioned in HPI Physical Exam Vital Signs Date Time Temp Pulse Resp B/P (MAP) Pulse Ox O2 Delivery O2 Flow Rate FiO2 10/19/18 19:24 98.4 91 15 90/50 99 Room Air 10/19/18 20:00 21 Sp02 EP Interpretation: reviewed, normal General Appearance: no apparent distress, alert, GCS 15, non-toxic Head: normocephalic, atraumatic Eyes: bilateral eye normal inspection, bilateral eye PERRL ENT: hearing grossly normal, normal pharynx, no angioedema, normal voice Neck: full range of motion, supple/symm/no masses Respiratory: chest non-tender, lungs clear, normal breath sounds, speaking full sentences Cardiovascular #1: regular rate, rhythm, no edema Cardiovascular #2: 2+ carotid (R), 2+ carotid (L), 2+ radial (R), 2+ radial (L) , 2+ dorsalis pedis (R), 2+ dorsalis pedis (L) Gastrointestinal: normal bowel sounds, non tender, soft, non-distended, no guarding, no rebound Rectal: deferred Genitourinary: normal inspection, no CVA tenderness Musculoskeletal: back normal, gait/station normal, normal range of motion, non- tender Neurologic: alert, oriented x3, responsive, motor strength/tone normal, sensory intact, speech normal Psychiatric: judgement/insight normal, memory normal, mood/affect normal, no suicidal/homicidal ideation Reflexes: 3+ bicep (R), 3+ bicep (L), 3+ tricep (R), 3+ tricep (L), 3+ knee (R) , 3+ knee (L) Skin: normal color, no rash, warm/dry, well hydrated Lymphatic: no adenopathy Medical Decision Making Diagnostic Impression: Primary Impression: ACS (acute coronary syndrome) Additional Impression: Pacemaker ER Course Hospital Course 58 yo M presents with chest pain, coughing bloody sputum. h/o PE Differential diagnoses include: OK/unstable angina, contusion, muscle strain, PTX, rib fracture Clinical course Patient placed on stretcher. 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 After initial history and physical I ordered labs, EKG, chest x-ray, morphine, CTA chest, chest xray labs reviewed- no leukocytosis, hb/hct stable, electrolytes ok, trop 0.044, coags ok EKG - NSR, no acute ischemic changes interpreted by me Chest x-ray- cardiomegaly, pacemaker CTA chest - inconclusive due to incorrect timing of contrast Case discussed with Dr. Calzada and he agreed to accept the patient to his service for further care and support I. I feel this is a highly complex case requiring extensive working including EKG/Rhythm strip, Xray/CT/US, Blood/urine lab work, repeat exams while in ED, and administration of strong opiates/narcotics for pain control, admission to hospital or close patient follow up. Diagnosis - ACS, pacemaker admitted to telemetry in serious condition Labs Test 10/19/18 19:55 White Blood Count 6.1 K/UL (4.8-10.8) Red Blood Count 4.87 M/UL (4.70-6.10) Hemoglobin 14.7 G/DL (14.2-18.0) Hematocrit 45.5 % (42.0-52.0) Mean Corpuscular Volume 93 FL (80-99) Mean Corpuscular Hemoglobin 30.2 PG (27.0-31.0) Mean Corpuscular Hemoglobin Concent 32.3 G/DL (32.0-36.0) Red Cell Distribution Width 13.9 % (11.6-14.8) Platelet Count 222 K/UL (150-450) Mean Platelet Volume 5.4 FL (6.5-10.1) Neutrophils (%) (Auto) 52.4 % (45.0-75.0) Lymphocytes (%) (Auto) 31.1 % (20.0-45.0) Monocytes (%) (Auto) 12.2 % (1.0-10.0) Eosinophils (%) (Auto) 2.7 % (0.0-3.0) Basophils (%) (Auto) 1.6 % (0.0-2.0) Prothrombin Time 10.8 SEC (9.30-11.50) Prothromb Time International Ratio 1.0 (0.9-1.1) Activated Partial Thromboplast Time 37 SEC (23-33) Sodium Level 139 MMOL/L (136-145) Potassium Level 3.7 MMOL/L (3.5-5.1) Chloride Level 104 MMOL/L (98-107) Carbon Dioxide Level 22 MMOL/L (21-32) Anion Gap 13 mmol/L (5-15) Blood Urea Nitrogen 13 mg/dL (7-18) Creatinine 1.5 MG/DL (0.55-1.30) Estimat Glomerular Filtration Rate 58.3 mL/min (>60) Glucose Level 80 MG/DL (74-106) Calcium Level 8.8 MG/DL (8.5-10.1) Total Bilirubin 0.3 MG/DL (0.2-1.0) Aspartate Amino Transf (AST/SGOT) 26 U/L (15-37) Alanine Aminotransferase (ALT/SGPT) 21 U/L (12-78) Alkaline Phosphatase 94 U/L (46-116) Total Creatine Kinase 301 U/L (26-308) Creatine Kinase MB 3.2 NG/ML (0.0-3.6) Creatine Kinase MB Relative Index 1.0 Troponin I 0.044 ng/mL (0.000-0.056) Pro-B-Type Natriuretic Peptide 1197 pg/mL (0-125) Total Protein 6.9 G/DL (6.4-8.2) Albumin 3.1 G/DL (3.4-5.0) Globulin 3.8 g/dL Albumin/Globulin Ratio 0.8 (1.0-2.7) EKG Diagnostic Results Rate: normal Rhythm: NSR ST Segments: no acute changes ASA given to the pt in ED: No Rhythm Strip Diag. Results EP Interpretation: yes Rhythm: NSR, no PVC's, no ectopy Chest X-Ray Diagnostic Results Chest X-Ray Diagnostic Results : Chest X-Ray Ordered: Yes # of Views/Limited/Complete: 1 View Indication: Chest Pain EP Interpretation: Yes Interpretation: no effusion, no pneumothorax, other - pacemaker. cardiomegaly. pacemaker. \ Impression: Other - chf Electronically Signed by: Electronically signed by Ronny Ho MD Last Vital Signs Date Time Temp Pulse Resp B/P (MAP) Pulse Ox O2 Delivery O2 Flow Rate FiO2 10/19/18 21:33 98.4 10/19/18 20:12 92 20 Room Air 10/19/18 20:12 104/60 99 21 Status: improved Disposition: ADMITTED INPATIENT Condition: Serious Referrals: NOT CHOSEN IPA/,REFERRING (PCP) Ronny Ho MD Oct 19, 2018 21:53
[2018-10-19] MEDS ORDERED: Acetaminophen 500mg (ES) tab ORAL PRN (23:45)
[2018-10-20 04:00] VITALS: BP 100/66
[2018-10-20 07:40] LABS: BASOPHILS % (AUTO) 1.1 % (0.0-2.0); EOSINOPHILS % (AUTO) 3.1 % (0.0-3.0); HEMATOCRIT 42.6 % (42.0-52.0); HEMOGLOBIN 14.1 G/DL (14.2-18.0); LYMPHOCYTES % (AUTO) 26.6 % (20.0-45.0); MEAN CORPUSCULAR VOLUME 93 FL (80-99); MONOCYTES % (AUTO) 16.3 % (1.0-10.0); NEUTROPHILS % (AUTO) 52.9 % (45.0-75.0); PLATELET COUNT 221 K/UL (150-450); RED BLOOD COUNT 4.58 M/UL (4.70-6.10); RED CELL DISTRIBUTION WIDTH 13.8 % (11.6-14.8); WHITE BLOOD COUNT 5.4 K/UL (4.8-10.8)
[2018-10-20 08:00] VITALS: BP 100/63
[2018-10-20] MEDS: Eliquis 2.5mg tablet ORAL SCH ×2 (08:30→17:18)
[2018-10-20] MEDS: Aspirin EC 81mg tab ORAL SCH (08:30)
[2018-10-20 08:41] LABS: ALANINE AMINOTRANSFERASE 21 U/L (12-78); ALBUMIN 2.8 G/DL (3.4-5.0); ALBUMIN/GLOBULIN RATIO 0.8 (1.0-2.7); ALKALINE PHOSPHATASE 83 U/L (46-116); ANION GAP 8 mmol/L (5-15); ASPARTATE AMINO TRANSFERASE 25 U/L (15-37); BILIRUBIN,TOTAL 0.4 MG/DL (0.2-1.0); BLOOD UREA NITROGEN 11 mg/dL (7-18); CALCIUM 8.6 MG/DL (8.5-10.1); CARBON DIOXIDE 24 MMOL/L (21-32); CHLORIDE 105 MMOL/L (98-107); CREATININE 1.5 MG/DL (0.55-1.30); POTASSIUM 3.8 MMOL/L (3.5-5.1); SODIUM 137 MMOL/L (136-145)
[2018-10-20] MEDS ORDERED: Furosemide 40mg tab ORAL SCH (09:00)
[2018-10-20 09:15] LABS: CHOLESTEROL 135 MG/DL (< 200); HDL CHOLESTEROL 66 MG/DL (40-60); TRIGLYCERIDES 34 MG/DL (30-150)
--- NOTE | 2018-10-20 10:09 | Diagnostic Imaging Report ---
Indication: Chest pain Technique: One view of the chest Comparison: 09/07/2018 Findings: Less optimal inspiration currently. There is mild interstitial congestion, slightly worse than on the prior study. The heart is enlarged. There is a left chest bifocal pacemaker. Impression: Cardiomegaly with mild interstitial congestion
--- NOTE | 2018-10-20 10:29 | Diagnostic Imaging Report ---
ndication: Shortness of breath, chest pain Technique: IV administration nonionic contrast. Spiral acquisitions obtained from the lung bases to the lung apices. Multiplanar and 3-D reconstructions were generated. Total dose length product 1770.4 mGycm. CTDIvol(s) 21.71,20.22 mGy. Dose reduction achieved using automated exposure control Comparison: Conventional chest CT without contrast dated 09/08/2018 Findings: For quality contrast opacification of the pulmonary arteries, despite repeat injection. Likely due to timing issues, as the abdominal aorta is well-opacified. This precludes exclusion of distal pulmonary emboli. No gross large vessel central pulmonary emboli demonstrated. No pulmonary arterial dilatation or right ventricular dilatation. Normal caliber thoracic aorta. Unremarkable great neck vessels. No gross evidence of dissection although evaluation for such is somewhat limited due to the poor quality of contrast opacification. The heart is mildly enlarged. There is a pacemaker. The lungs demonstrate minimal basilar atelectasis. There is. Mild bronchial wall thickening. Small apical bullae and blebs are again demonstrated. Some linear branching structures are seen in the right middle lobe, possibly representing bronchiolitis Lungs and pleural spaces are otherwise clear. No evidence of pericardial effusion. The esophagus is unremarkable. There are prominent but not frankly enlarged mediastinal lymph nodes. The included portions of the thyroid are unremarkable. No axillary or chest wall mass or adenopathy. The bones are unremarkable. The included upper abdominal viscera demonstrate multiple hepatic cysts. Impression: Limited exam, due to poor quality bolus opacification. Distal pulmonary emboli not excluded. No gross large vessel central pulmonary emboli Possible right middle lobe bronchiolitis Basilar atelectatic changes Liver cysts Cardiomegaly This agrees with the preliminary interpretation provided overnight by [facility] teleradiology service. The CT scanner at [facility] is accredited by the [employer] and the scans are performed using protocols designed to limit radiation exposure to as low as reasonably achievable to attain images of sufficient resolution adequate for diagnostic evaluation.
[2018-10-20 12:00] VITALS: BP 120/77
[2018-10-20] MEDS ORDERED: Azithromycin 250mg tab ORAL SCH (12:55)
--- NOTE | 2018-10-20 12:55 | Consultation ---
Consult Note Assessment/Plan DICT # [id number] Ananda Vance MD Oct 20, 2018 12:55
[2018-10-20] MEDS ORDERED: Albuterol/Ipratropium 3ml neb HHN PRN (13:00)
[2018-10-20] MEDS ORDERED: Nitroglycerin Subl 0.4mg tab SL PRN (13:30)
--- NOTE | 2018-10-20 13:37 | Consultation ---
Consult Note Consult Note 58-year-old male presents ED for evaluation. Complaining of cough and chest pain 2 days. Pain is sharp, 8 out of 10, nonradiating. States he sees blood in his sputum. History of DVT and PE. Takes Eliquis. States he is compliant with his medications. Denies fevers or chills. Denies drug use. Denies smoking. No other aggravating relieving factors. Denies any other associated symptoms Allergies: LISINOPRIL (Unverified Allergy, Unknown, 03/03/18) Past Medical History: HTN, CHF, other - PE Past Surgical History: pacemaker Pertinent Family History: none Hx Cardiac Problems: Yes - CHF Hx Hypertension: Yes Hx Pacemaker: Yes examined interviewed Assessment/Plan Renal failure, likely chronic CHF Pacer HTN Low Albumin Plan: UA optimize cardiac status Z Pack for RML Bronchitis Elias Thorne MD Oct 20, 2018 13:37
[2018-10-20 14:21] LABS: APPEARANCE,URINE CLEAR; BILIRUBIN, URINE NEGATIVE (NEGATIVE); COLOR,URINE PALE YELLOW; GLUCOSE, URINE (UA) NEGATIVE (NEGATIVE); KETONES,URINE NEGATIVE (NEGATIVE); LEUKOCYTE ESTERASE ,URINE NEGATIVE (NEGATIVE); NITRITE,URINE NEGATIVE (NEGATIVE); PH,URINE 7 (4.5-8.0); PROTEIN,URINE NEGATIVE (NEGATIVE); UROBILINOGEN,URINE NORMAL MG/DL (0.0-1.0)
[2018-10-20 16:00] VITALS: BP 106/74
--- NOTE | 2018-10-20 16:14 | Consultation ---
History of Present Illness General Date patient seen: Oct 20, 2018 Chief Complaint: General Complaint Present Illness Allergies: Coded Allergies: LISINOPRIL (Unverified Allergy, Unknown, 03/03/18) Medication History Scheduled Aspirin* (Aspir 81*), 81 MG ORAL DAILY, (Reported) Carvedilol (Coreg), 3.125 MG ORAL EVERY 12 HOURS, (Reported) Furosemide* (Lasix*), Unknown Dose ORAL DAILY, (Reported) Simvastatin (Zocor), 10 MG ORAL BEDTIME, (Reported) Miscellaneous Medications Apixaban (Eliquis), Unknown Dose PO, (Reported) Patient History Healthcare decision maker Resuscitation status Full Code Advanced Directive on File No Physical Exam Last 24 Hour Vital Signs Date Time Temp Pulse Resp B/P (MAP) Pulse Ox O2 Delivery O2 Flow Rate FiO2 10/20/18 12:00 98.7 88 16 120/77 (91) 97 10/20/18 12:00 84 10/20/18 09:00 Room Air 10/20/18 09:00 89 100/63 10/20/18 08:00 90 10/20/18 08:00 98.4 96 18 100/63 (75) 97 10/20/18 04:00 97.6 89 18 100/66 (77) 97 10/20/18 04:00 90 10/20/18 00:25 98.4 87 20 100/65 96 Room Air 10/20/18 00:25 Room Air 10/20/18 00:10 92 10/19/18 21:33 98.4 10/19/18 20:12 92 20 Room Air 10/19/18 20:12 98.4 78 20 104/60 99 Room Air 21 10/19/18 20:12 92 20 99 Room Air 21 10/19/18 20:00 88 18 Room Air 21 10/19/18 20:00 88 18 98 Room Air 21 10/19/18 19:24 98.4 91 15 90/50 99 Room Air Intake and Output 10/19/18 10/20/18 18:59 06:59 Intake Total 1260 ml Output Total 400 ml Balance 860 ml Intake Oral 260 ml IV Total 1000 ml Output Urine Total 400 ml # Voids 3 Laboratory Tests Test 10/19/18 19:55 10/20/18 07:18 10/20/18 14:00 White Blood Count 6.1 K/UL (4.8-10.8) 5.4 K/UL (4.8-10.8) Red Blood Count 4.87 M/UL (4.70-6.10) 4.58 M/UL (4.70-6.10) L Hemoglobin 14.7 G/DL (14.2-18.0) 14.1 G/DL (14.2-18.0) L Hematocrit 45.5 % (42.0-52.0) 42.6 % (42.0-52.0) Mean Corpuscular Volume 93 FL (80-99) 93 FL (80-99) Mean Corpuscular Hemoglobin 30.2 PG (27.0-31.0) 30.7 PG (27.0-31.0) Mean Corpuscular Hemoglobin Concent 32.3 G/DL (32.0-36.0) 33.1 G/DL (32.0-36.0) Red Cell Distribution Width 13.9 % (11.6-14.8) 13.8 % (11.6-14.8) Platelet Count 222 K/UL (150-450) 221 K/UL (150-450) Mean Platelet Volume 5.4 FL (6.5-10.1) L 6.2 FL (6.5-10.1) L Neutrophils (%) (Auto) 52.4 % (45.0-75.0) 52.9 % (45.0-75.0) Lymphocytes (%) (Auto) 31.1 % (20.0-45.0) 26.6 % (20.0-45.0) Monocytes (%) (Auto) 12.2 % (1.0-10.0) H 16.3 % (1.0-10.0) H Eosinophils (%) (Auto) 2.7 % (0.0-3.0) 3.1 % (0.0-3.0) H Basophils (%) (Auto) 1.6 % (0.0-2.0) 1.1 % (0.0-2.0) Prothrombin Time 10.8 SEC (9.30-11.50) Prothromb Time International Ratio 1.0 (0.9-1.1) Activated Partial Thromboplast Time 37 SEC (23-33) H Sodium Level 139 MMOL/L (136-145) 137 MMOL/L (136-145) Potassium Level 3.7 MMOL/L (3.5-5.1) 3.8 MMOL/L (3.5-5.1) Chloride Level 104 MMOL/L (98-107) 105 MMOL/L (98-107) Carbon Dioxide Level 22 MMOL/L (21-32) 24 MMOL/L (21-32) Anion Gap 13 mmol/L (5-15) 8 mmol/L (5-15) Blood Urea Nitrogen 13 mg/dL (7-18) 11 mg/dL (7-18) Creatinine 1.5 MG/DL (0.55-1.30) H 1.5 MG/DL (0.55-1.30) H Estimat Glomerular Filtration Rate 58.3 mL/min (>60) 58.3 mL/min (>60) Glucose Level 80 MG/DL (74-106) 96 MG/DL (74-106) Calcium Level 8.8 MG/DL (8.5-10.1) 8.6 MG/DL (8.5-10.1) Total Bilirubin 0.3 MG/DL (0.2-1.0) 0.4 MG/DL (0.2-1.0) Aspartate Amino Transf (AST/SGOT) 26 U/L (15-37) 25 U/L (15-37) Alanine Aminotransferase (ALT/SGPT) 21 U/L (12-78) 21 U/L (12-78) Alkaline Phosphatase 94 U/L (46-116) 83 U/L (46-116) Total Creatine Kinase 301 U/L (26-308) Creatine Kinase MB 3.2 NG/ML (0.0-3.6) Creatine Kinase MB Relative Index 1.0 Troponin I 0.044 ng/mL (0.000-0.056) 0.063 ng/mL (0.000-0.056) Pro-B-Type Natriuretic Peptide 1197 pg/mL (0-125) H Total Protein 6.9 G/DL (6.4-8.2) 6.2 G/DL (6.4-8.2) L Albumin 3.1 G/DL (3.4-5.0) L 2.8 G/DL (3.4-5.0) L Globulin 3.8 g/dL 3.4 g/dL Albumin/Globulin Ratio 0.8 (1.0-2.7) L 0.8 (1.0-2.7) L Hemoglobin A1c 5.9 % (4.3-6.0) Uric Acid 7.0 MG/DL (2.6-7.2) C-Reactive Protein, Quantitative 0.8 mg/dL (0.00-0.90) Triglycerides Level 34 MG/DL (30-150) Cholesterol Level 135 MG/DL (< 200) LDL Cholesterol 64 mg/dL (<100) HDL Cholesterol 66 MG/DL (40-60) H Cholesterol/HDL Ratio 2.0 (3.3-4.4) L Urine Color Pale yellow Urine Appearance Clear Urine pH 7 (4.5-8.0) Urine Specific [place] 1.005 (1.005-1.035) Urine Protein Negative (NEGATIVE) Urine Glucose (UA) Negative (NEGATIVE) Urine Ketones Negative (NEGATIVE) Urine Blood Negative (NEGATIVE) Urine Nitrite Negative (NEGATIVE) Urine Bilirubin Negative (NEGATIVE) Urine Urobilinogen Normal MG/DL (0.0-1.0) Urine Leukocyte Esterase Negative (NEGATIVE) Urine RBC 0 /HPF (0 - 0) Urine WBC 0 /HPF (0 - 0) Urine Squamous Epithelial Cells None /LPF (NONE/OCC) Urine Bacteria None /HPF (NONE) Microbiology Date/Time Source Procedure Growth Status 10/20/18 00:10 Rectum Received Height (Feet): 6 Height (Inches): 0.00 Weight (Pounds): 190 Medications Current Medications Medications (Trade) Dose Ordered Sig/Sar[place] Route PRN Reason Start Time Stop Time Status Last Admin Dose Admin Acetaminophen (Tylenol) 500 mg Q4H PRN ORAL Mild Pain/Temp > 100.5 10/19/18 23:45 11/18/18 23:44 Albuterol/ Ipratropium (Albuterol/ Ipratropium) 3 ml Q4H PRN HHN Shortness of Breath 10/20/18 13:00 10/25/18 12:59 Apixaban (Eliquis) 5 mg BID ORAL 10/20/18 09:00 11/19/18 08:59 10/20/18 08:30 Aspirin (Ecotrin) 81 mg DAILY ORAL 10/20/18 09:00 11/19/18 08:59 10/20/18 08:30 Atorvastatin Calcium (Lipitor) 10 mg BEDTIME ORAL 10/20/18 21:00 11/19/18 20:59 Azithromycin (Zithromax) 250 mg DAILY ORAL 10/21/18 09:00 10/28/18 08:59 Carvedilol (Coreg) 3.125 mg EVERY 12 HOURS ORAL 10/20/18 21:00 11/19/18 08:59 Furosemide (Lasix) 40 mg EVERY 12 HOURS ORAL 10/20/18 21:00 11/19/18 08:59 Iopamidol (Isovue-370 150ml) 150 ml NOW PRN INJ Radiology Procedure 10/19/18 20:00 10/21/18 19:52 Nitroglycerin (Ntg) 0.4 mg Q5M PRN SL Prn Chest Pain 10/20/18 13:30 11/19/18 13:29 Assessment/Plan Assessment/Plan HEMATOLOGY-ONCOLOGY CONSULTATION REFERRING PHYSICIAN: Anne Calzada REASON FOR CONSULT: Monocytosis DATE OF CONSULT: 10/20/18 HISTORY OF PRESENT ILLNESS: [age]-year-old gentleman with history of severe cardiomyopathy. The patient presented for increasing shortness of breath. The patient also has a history of DVT as wel as pe and has been on Eliquis. The patient was admitted for further evaluation and management. Hematology service consulted for the evaluation of monocytosis with a current monocyte count of 12.8. Has been fatigued over last several days and is here to r/o acs. No fevers or chills noted, no other events. PAST MEDICAL HISTORY: systolic CHF with ejection fraction of 15%, hypertension, status post pacemaker, cocaine abuse, COPD, coronary artery disease, pulmonary emboli PAST SURGICAL HISTORY: Pacemaker FAMILY HISTORY: NONCONTRIBUTORY SOCIAL HISTORY: active cocaine use, Homeless, single. History of smoking, quit couple of months ago. Denies drug abuse and drinking is one beer a day. REVIEW OF SYSTEMS: Negative other than what was mentioned in the history of present illness. ALLERGIES: Lisinopril. MEDICATIONS: Have been reviewed PHYSICAL EXAMINATION: VITAL SIGNS: Have been reviewed HEAD AND NECK: Positive JVD. LUNGS: Decreased breath sounds. CARDIOVASCULAR: Regular S1 and S2 with no gallop or murmur. GASTROINTESTINAL: His abdomen is soft. EXTREMITIES: 1+ pitting edema. LABS: Laboratory Tests Test 10/19/18 19:55 10/20/18 07:18 10/20/18 14:00 White Blood Count 6.1 K/UL (4.8-10.8) 5.4 K/UL (4.8-10.8) Red Blood Count 4.87 M/UL (4.70-6.10) 4.58 M/UL (4.70-6.10) L Hemoglobin 14.7 G/DL (14.2-18.0) 14.1 G/DL (14.2-18.0) L Hematocrit 45.5 % (42.0-52.0) 42.6 % (42.0-52.0) Mean Corpuscular Volume 93 FL (80-99) 93 FL (80-99) Mean Corpuscular Hemoglobin 30.2 PG (27.0-31.0) 30.7 PG (27.0-31.0) Mean Corpuscular Hemoglobin Concent 32.3 G/DL (32.0-36.0) 33.1 G/DL (32.0-36.0) Red Cell Distribution Width 13.9 % (11.6-14.8) 13.8 % (11.6-14.8) Platelet Count 222 K/UL (150-450) 221 K/UL (150-450) Mean Platelet Volume 5.4 FL (6.5-10.1) L 6.2 FL (6.5-10.1) L Neutrophils (%) (Auto) 52.4 % (45.0-75.0) 52.9 % (45.0-75.0) Lymphocytes (%) (Auto) 31.1 % (20.0-45.0) 26.6 % (20.0-45.0) Monocytes (%) (Auto) 12.2 % (1.0-10.0) H 16.3 % (1.0-10.0) H Eosinophils (%) (Auto) 2.7 % (0.0-3.0) 3.1 % (0.0-3.0) H Basophils (%) (Auto) 1.6 % (0.0-2.0) 1.1 % (0.0-2.0) Prothrombin Time 10.8 SEC (9.30-11.50) Prothromb Time International Ratio 1.0 (0.9-1.1) Activated Partial Thromboplast Time 37 SEC (23-33) H Sodium Level 139 MMOL/L (136-145) 137 MMOL/L (136-145) Potassium Level 3.7 MMOL/L (3.5-5.1) 3.8 MMOL/L (3.5-5.1) Chloride Level 104 MMOL/L (98-107) 105 MMOL/L (98-107) Carbon Dioxide Level 22 MMOL/L (21-32) 24 MMOL/L (21-32) Anion Gap 13 mmol/L (5-15) 8 mmol/L (5-15) Blood Urea Nitrogen 13 mg/dL (7-18) 11 mg/dL (7-18) Creatinine 1.5 MG/DL (0.55-1.30) H 1.5 MG/DL (0.55-1.30) H Estimat Glomerular Filtration Rate 58.3 mL/min (>60) 58.3 mL/min (>60) Glucose Level 80 MG/DL (74-106) 96 MG/DL (74-106) Calcium Level 8.8 MG/DL (8.5-10.1) 8.6 MG/DL (8.5-10.1) Total Bilirubin 0.3 MG/DL (0.2-1.0) 0.4 MG/DL (0.2-1.0) Aspartate Amino Transf (AST/SGOT) 26 U/L (15-37) 25 U/L (15-37) Alanine Aminotransferase (ALT/SGPT) 21 U/L (12-78) 21 U/L (12-78) Alkaline Phosphatase 94 U/L (46-116) 83 U/L (46-116) Total Creatine Kinase 301 U/L (26-308) Creatine Kinase MB 3.2 NG/ML (0.0-3.6) Creatine Kinase MB Relative Index 1.0 Troponin I 0.044 ng/mL (0.000-0.056) 0.063 ng/mL (0.000-0.056) Pro-B-Type Natriuretic Peptide 1197 pg/mL (0-125) H Total Protein 6.9 G/DL (6.4-8.2) 6.2 G/DL (6.4-8.2) L Albumin 3.1 G/DL (3.4-5.0) L 2.8 G/DL (3.4-5.0) L Globulin 3.8 g/dL 3.4 g/dL Albumin/Globulin Ratio 0.8 (1.0-2.7) L 0.8 (1.0-2.7) L Hemoglobin A1c 5.9 % (4.3-6.0) Uric Acid 7.0 MG/DL (2.6-7.2) C-Reactive Protein, Quantitative 0.8 mg/dL (0.00-0.90) Triglycerides Level 34 MG/DL (30-150) Cholesterol Level 135 MG/DL (< 200) LDL Cholesterol 64 mg/dL (<100) HDL Cholesterol 66 MG/DL (40-60) H Cholesterol/HDL Ratio 2.0 (3.3-4.4) L Urine Color Pale yellow Urine Appearance Clear Urine pH 7 (4.5-8.0) Urine Specific [place] 1.005 (1.005-1.035) Urine Protein Negative (NEGATIVE) Urine Glucose (UA) Negative (NEGATIVE) Urine Ketones Negative (NEGATIVE) Urine Blood Negative (NEGATIVE) Urine Nitrite Negative (NEGATIVE) Urine Bilirubin Negative (NEGATIVE) Urine Urobilinogen Normal MG/DL (0.0-1.0) Urine Leukocyte Esterase Negative (NEGATIVE) Urine RBC 0 /HPF (0 - 0) Urine WBC 0 /HPF (0 - 0) Urine Squamous Epithelial Cells None /LPF (NONE/OCC) Urine Bacteria None /HPF (NONE) IMAGING: CXR --> Apparent mild accentuation of the bronchovascular and interstitial markings. Could be from mild edema. Mild reticulonodular opacities in the upper lung patrick. Query dominant nodule measuring 12 mm in left mid - upper lung field. CT chest --> No acute abnormality ASSESSMENT AND RECOMMENDATIONS # Monocytosis. Likely related to underlying infection versus reactive process. Continues to persist from last admission 10-20% --> ID has seen him before, and s/p course of antibiotics on prior admission --> Peripheral has been ordered, results are pending --> Medications have been reviewed --> Imaging has been reviewed. CXR shows apparent mild accentuation of the bronchovascular and interstitial markings. Could be from mild edema. Mild reticulonodular opacities in the upper lung patrick. Query dominant nodule measuring 12 mm in left mid - upper lung field. --> Blood cultures and urine cultures prn --> On abx, empiric tx per ID. # History of DVT and history of PE as well, on Eliquis. --> CTA was completed and is negative for acute pe --> as per pulm management, given now new episodes/events, continue same anticoagulation # Lung nodule. CXR shows mild reticulonodular opacities in the upper lung patrick. --> pulm is aware, continue recs. Query dominant nodule measuring 12 mm in left mid - upper lung field. # Hemoptysis, likely secondary to pneumonia and bronchitis, ascites, severe infection. # Exacerbation of congestive heart failure. Cardiology is following, appreciate recs. --> The patient's ejection fraction of 10%. --> Continue Lasix 20 mg daily and Cozaar # Status post [employer] defibrillator implantation. # Schizophrenia. GREATLY APPRECIATE CONSULTATION. Odilon Shay MD Oct 20, 2018 16:14
--- NOTE | 2018-10-20 17:45 | Consultation ---
DATE OF CONSULTATION: 10/20/2018 PULMONARY CONSULTATION CONSULTING PHYSICIAN: Ananda Vance M.D. REFERRING PHYSICIAN: Anne Calzada M.D. REASON FOR CONSULTATION: History of PE. HISTORY OF PRESENT ILLNESS: The patient is a 58-year-old male with a history of CHF with an EF of 10 to 15%, schizophrenia, cocaine abuse, dyspnea, cardiac defibrillator, and DVT and PE in the past, on Eliquis, presenting with several days of atypical chest pain. He is unable to really describe it, but he stated that he has had associated cough and shortness of breath as well. He has also had some blood-tinged sputum. He denies any fevers, chills, headaches, dizziness, nausea, vomiting, or other complaints. PAST MEDICAL HISTORY: 1. PE/DVT. 2. CHF with ischemic cardiomyopathy, ejection fraction of 10%. 3. AICD. 4. Hypertension. 5. CKD. 6. Hyperlipidemia. ALLERGIES: Lisinopril. MEDICATIONS: Prior to admission medications reviewed. Current medications reviewed. SOCIAL HISTORY: He denies current tobacco use. He has a history of tobacco in the past and cocaine abuse. No alcohol. FAMILY HISTORY: Noncontributory. REVIEW OF SYSTEMS: Negative other than history of present illness. PHYSICAL EXAMINATION: VITAL SIGNS: Temperature 98.4, pulse 96, blood pressure 100/60, respiratory rate 18, and saturating 97% on room air. GENERAL: He is a well-developed and well-nourished male, in no acute distress. Awake, alert, and oriented x3. HEENT: Normocephalic and atraumatic. Oropharynx is clear with moist mucous membranes. NECK: Supple without lymphadenopathy or JVD. CHEST: Scattered coarse breath sounds. HEART: Regular rate and rhythm. ABDOMEN: Soft, nontender, and nondistended. EXTREMITIES: No cyanosis, clubbing, or edema. ANCILLARY DATA: White count 5.4, hemoglobin 14.1, and platelet count 221,000. INR 1. Sodium 137, potassium 3.8, chloride 105, bicarb 24, BUN 11, and creatinine 1.5. Glucose 96 and hemoglobin A1c 5.9. Uric acid 7. LFTs within normal limits. Troponin 0.04 0.06. BNP is 1197. Imaging, CT of the chest negative for PE. Some bronchiolitis is noted due to poor study, so there maybe distal clots. Chest x-ray just shows interstitial congestion. Echocardiogram from 10/19/2018 shows severe LV enlargement, global LV hypokinesis, ischemic cardiomyopathy with LVEF of 15%, no evidence of LVH, no evidence of pericardial effusion, severe left atrial enlargement, right cardiac size within normal limits, mild focal aortic valve sclerosis with adequate cusp excursion, mildly thickened mitral valve leaflets with normal excursion, mild mitral anulus and aortic root calcification, normal pulmonic valve structure, normal tricuspid valve structure, IVC 2.1 cm without physiologic collapse, PA pressure of 33, and mild TR. ASSESSMENT: The patient is a 58-year-old male former smoker with history of cocaine abuse, chronic paranoid schizophrenia, CHF with an EF of 15%, ischemic cardiomyopathy, and DVT and PE on anticoagulation, presenting with cough, congestion, and atypical chest pain. He has mild elevation of his cardiac biomarkers, likely demand ischemia and CTA though limited, does not demonstrate any evidence of obvious PE. His signs and symptoms are likely secondary to bronchitis/URI with possible underlying COPD. PROBLEM LIST: 1. Bronchitis/URI. 2. Trace hemoptysis likely in the setting of bronchitis and anticoagulation. 3. CHF with ischemic cardiomyopathy, EF of 15%, status post AICD, now with decompensated heart failure. 4. Likely underlying COPD. 5. Faint bronchiolitis. 6. DVT and PE, on anticoagulation. 7. CKD. 8. Schizophrenia. 9. History of cocaine use in the past. 10. History of tobacco use in the past. 11. Recent cellulitis. TREATMENT PLAN: 1. Optimize pulmonary hygiene/mobilize as tolerated. 2. Titrate on FiO2 to keep saturations greater than 90%. 3. Continue Eliquis 5 mg p.o. b.i.d. 4. Monitor for further bleeding. 5. Monitor volumes and renal function, continue p.o. Lasix as tolerated. 6. We will start azithromycin p.o. (today is day #1). 7. Monitor for signs of worsening respiratory infection. 8. P.r.n. breathing treatments. 9. Aspiration precautions. 10. Cardiology evaluation is pending. 11. Continue to abstain from smoking. Dr. Calzada, thank you for allowing me to assist in the care of your patient. If I may be of any assistance in the future, please do not hesitate to ask. Ananda Vance M.D. DR: LUCHO JOB#: [id number] CC:
[2018-10-20 20:00] VITALS: BP 107/71
[2018-10-20] MEDS: Furosemide 40mg tab ORAL SCH (21:34)
--- NOTE | 2018-10-20 23:50 | Cardiology Progress Note ---
Assessment/Plan Assessment/Plan The patient is seen and examined, full consult note will be dictated shortly. Objective Last 24 Hour Vital Signs Date Time Temp Pulse Resp B/P (MAP) Pulse Ox O2 Delivery O2 Flow Rate FiO2 10/20/18 21:34 96 107/71 10/20/18 21:00 Room Air 10/20/18 20:00 96 10/20/18 20:00 98.2 93 20 107/71 (83) 98 10/20/18 16:00 97.5 93 16 106/74 (85) 99 10/20/18 16:00 93 10/20/18 12:00 98.7 88 16 120/77 (91) 97 10/20/18 12:00 84 10/20/18 09:00 Room Air 10/20/18 09:00 89 100/63 10/20/18 08:00 90 10/20/18 08:00 98.4 96 18 100/63 (75) 97 10/20/18 04:00 97.6 89 18 100/66 (77) 97 10/20/18 04:00 90 10/20/18 00:25 98.4 87 20 100/65 96 Room Air 10/20/18 00:25 Room Air 10/20/18 00:10 92 Intake and Output 10/19/18 10/20/18 19:00 07:00 Intake Total 1260 ml Output Total 400 ml Balance 860 ml Intake Oral 260 ml IV Total 1000 ml Output Urine Total 400 ml # Voids 3 Laboratory Tests Test 10/20/18 07:18 10/20/18 14:00 White Blood Count 5.4 K/UL (4.8-10.8) Red Blood Count 4.58 M/UL (4.70-6.10) L Hemoglobin 14.1 G/DL (14.2-18.0) L Hematocrit 42.6 % (42.0-52.0) Mean Corpuscular Volume 93 FL (80-99) Mean Corpuscular Hemoglobin 30.7 PG (27.0-31.0) Mean Corpuscular Hemoglobin Concent 33.1 G/DL (32.0-36.0) Red Cell Distribution Width 13.8 % (11.6-14.8) Platelet Count 221 K/UL (150-450) Mean Platelet Volume 6.2 FL (6.5-10.1) L Neutrophils (%) (Auto) 52.9 % (45.0-75.0) Lymphocytes (%) (Auto) 26.6 % (20.0-45.0) Monocytes (%) (Auto) 16.3 % (1.0-10.0) H Eosinophils (%) (Auto) 3.1 % (0.0-3.0) H Basophils (%) (Auto) 1.1 % (0.0-2.0) Sodium Level 137 MMOL/L (136-145) Potassium Level 3.8 MMOL/L (3.5-5.1) Chloride Level 105 MMOL/L (98-107) Carbon Dioxide Level 24 MMOL/L (21-32) Anion Gap 8 mmol/L (5-15) Blood Urea Nitrogen 11 mg/dL (7-18) Creatinine 1.5 MG/DL (0.55-1.30) H Estimat Glomerular Filtration Rate 58.3 mL/min (>60) Glucose Level 96 MG/DL (74-106) Hemoglobin A1c 5.9 % (4.3-6.0) Uric Acid 7.0 MG/DL (2.6-7.2) Calcium Level 8.6 MG/DL (8.5-10.1) Total Bilirubin 0.4 MG/DL (0.2-1.0) Aspartate Amino Transf (AST/SGOT) 25 U/L (15-37) Alanine Aminotransferase (ALT/SGPT) 21 U/L (12-78) Alkaline Phosphatase 83 U/L (46-116) Troponin I 0.063 ng/mL (0.000-0.056) C-Reactive Protein, Quantitative 0.8 mg/dL (0.00-0.90) Total Protein 6.2 G/DL (6.4-8.2) L Albumin 2.8 G/DL (3.4-5.0) L Globulin 3.4 g/dL Albumin/Globulin Ratio 0.8 (1.0-2.7) L Triglycerides Level 34 MG/DL (30-150) Cholesterol Level 135 MG/DL (< 200) LDL Cholesterol 64 mg/dL (<100) HDL Cholesterol 66 MG/DL (40-60) H Cholesterol/HDL Ratio 2.0 (3.3-4.4) L Urine Color Pale yellow Urine Appearance Clear Urine pH 7 (4.5-8.0) Urine Specific [place] 1.005 (1.005-1.035) Urine Protein Negative (NEGATIVE) Urine Glucose (UA) Negative (NEGATIVE) Urine Ketones Negative (NEGATIVE) Urine Blood Negative (NEGATIVE) Urine Nitrite Negative (NEGATIVE) Urine Bilirubin Negative (NEGATIVE) Urine Urobilinogen Normal MG/DL (0.0-1.0) Urine Leukocyte Esterase Negative (NEGATIVE) Urine RBC 0 /HPF (0 - 0) Urine WBC 0 /HPF (0 - 0) Urine Squamous Epithelial Cells None /LPF (NONE/OCC) Urine Bacteria None /HPF (NONE) Microbiology Date/Time Source Procedure Growth Status 10/20/18 00:10 Rectum Received Mitch Santiago MD Oct 20, 2018 23:50
[2018-10-21] VITALS: BP 114/68
--- NOTE | 2018-10-21 03:45 | History and Physical Report ---
DATE OF ADMISSION: 10/19/2018 HISTORY OF PRESENT ILLNESS: The patient is admitted for chest pain and to rule out acute coronary syndrome. The patient is also on Eliquis with pulmonary embolism, was admitted for CHF exacerbation. The patient basically complains of chest pain. The pain has been for two days. The patient also had blood in his sputum. After shock impedance and DVT, he takes Eliquis. The patient denies nausea, vomiting, or diarrhea. Denies shortness of breath. Denies chills. Denies orthopnea. PAST MEDICAL HISTORY: Significant for hypertension, CHF, PE, arrhythmia, and atrial fibrillation. PAST SURGICAL HISTORY: Pacemaker. SOCIAL HISTORY: Denies smoking tobacco, alcohol, or illicit drugs. REVIEW OF SYSTEMS: HEENT: Denies headaches. RESPIRATORY: Denies shortness of breath. Denies cough. CARDIOVASCULAR: Reports chest pain for 2 days, not radiating to the heart. Denies orthopnea. He does have occasional heartburn. GASTROINTESTINAL: Denies nausea, vomiting, or diarrhea. EXTREMITIES: Denies pain in lower extremities. CENTRAL NERVOUS SYSTEM: Denies change in vision or speech pattern. PHYSICAL EXAMINATION: VITAL SIGNS: Temperature is 97.6 degrees, pulse is 90, and blood pressure 100/66. HEENT: PERRLA. NECK: Supple. No lymphadenopathy. CHEST: Clear to auscultation. CARDIOVASCULAR: Regular rate and rhythm. GASTROINTESTINAL: Soft. Positive bowel sounds. EXTREMITIES: No edema. Reflexes in both sides. ABDOMEN: Soft and nontender. NEUROLOGIC: Headaches on both sides. LABORATORY DATA: White count is 6.1, hemoglobin 14.7, and platelets 222,000. Sodium 139, potassium 3.7, BUN of 13, creatinine of 0.5, and glucose of 80. Elevated BNP is 1197. ASSESSMENT AND PLAN: 1. CHF, rule out chest pain, rule out acute coronary syndrome. 2. Hemoptysis. The patient is on Eliquis for PE. 3. I have asked Dr. Vance and Dr. Thorne to see the patient for the above-mentioned diagnoses and treatment. Anne Calzada M.D. DR: OVI JOB#: [id number] CC:
[2018-10-21 06:37] LABS: BASOPHILS % (AUTO) 1.7 % (0.0-2.0); EOSINOPHILS % (AUTO) 3.9 % (0.0-3.0); HEMATOCRIT 46.6 % (42.0-52.0); HEMOGLOBIN 15.6 G/DL (14.2-18.0); MEAN CORPUSCULAR VOLUME 93 FL (80-99); MONOCYTES % (AUTO) 13.3 % (1.0-10.0); NEUTROPHILS % (AUTO) 48.1 % (45.0-75.0); PLATELET COUNT 228 K/UL (150-450); RED BLOOD COUNT 4.99 M/UL (4.70-6.10); RED CELL DISTRIBUTION WIDTH 13.7 % (11.6-14.8); WHITE BLOOD COUNT 5.3 K/UL (4.8-10.8)
[2018-10-21 07:04] LABS: ALANINE AMINOTRANSFERASE 20 U/L (12-78); ALBUMIN/GLOBULIN RATIO 0.8 (1.0-2.7); ALKALINE PHOSPHATASE 81 U/L (46-116); ANION GAP 8 mmol/L (5-15); ASPARTATE AMINO TRANSFERASE 25 U/L (15-37); BLOOD UREA NITROGEN 12 mg/dL (7-18); CALCIUM 9.3 MG/DL (8.5-10.1); CARBON DIOXIDE 26 MMOL/L (21-32); CHLORIDE 103 MMOL/L (98-107); CREATINE KINASE 148 U/L (26-308); CREATININE 1.5 MG/DL (0.55-1.30); GAMMA GLUTAMYL TRANSPEPTIDASE 18 U/L (5-85); POTASSIUM 3.7 MMOL/L (3.5-5.1); SODIUM 137 MMOL/L (136-145)
[2018-10-21 07:49] LABS: BILIRUBIN,TOTAL 0.5 MG/DL (0.2-1.0)
[2018-10-21 08:00] VITALS: BP 124/54
[2018-10-21] MEDS: Furosemide 40mg tab ORAL SCH ×2 (08:30→20:52)
[2018-10-21] MEDS: Eliquis 2.5mg tablet ORAL SCH ×2 (08:31→18:12)
[2018-10-21] MEDS: Aspirin EC 81mg tab ORAL SCH (08:31)
[2018-10-21] MEDS: Azithromycin 250mg tab ORAL SCH (08:31)
[2018-10-21 12:00] VITALS: BP 97/64
--- NOTE | 2018-10-21 16:22 | Pulmonology Progress Note ---
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 He has mild elevation of his cardiac biomarkers, likely demand ischemia and CTA though limited, does not demonstrate any evidence of obvious PE. His signs and symptoms are likely secondary to bronchitis/URI with possible underlying COPD. PROBLEM LIST: 1. Bronchitis/URI. 2. Trace hemoptysis likely in the setting of bronchitis and anticoagulation. 3. CHF with ischemic cardiomyopathy, EF of 15%, status post AICD, now with decompensated heart failure. 4. Likely underlying COPD. 5. Faint bronchiolitis. 6. DVT and PE, on anticoagulation. 7. CKD. 8. Schizophrenia. 9. History of cocaine use in the past. 10. History of tobacco use in the past. 11. Recent cellulitis. TREATMENT PLAN: 1. Optimize pulmonary hygiene/mobilize as tolerated. 2. Titrate on FiO2 to keep saturations greater than 90%. 3. Continue Eliquis 5 mg p.o. b.i.d. 4. Monitor for further bleeding. 5. Monitor volumes and renal function, continue p.o. Lasix as tolerated. 6. Continue azithromycin p.o. (today is day #2). 7. Monitor for signs of worsening respiratory infection. 8. P.r.n. breathing treatments. 9. Aspiration precautions. 10. Cardiology recs 11. Continue to abstain from smoking. Subjective Allergies: Coded Allergies: LISINOPRIL (Unverified Allergy, Unknown, 03/03/18) Subjective AFVSS O2 needs stable + cough no hemoptysis demetria AC no FC no wheezing Objective Last 24 Hour Vital Signs Date Time Temp Pulse Resp B/P (MAP) Pulse Ox O2 Delivery O2 Flow Rate FiO2 10/21/18 16:00 97 10/21/18 12:00 97.7 86 19 97/64 (75) 99 10/21/18 12:00 91 10/21/18 09:00 Room Air 10/21/18 08:31 93 124/54 10/21/18 08:00 98.8 88 19 124/54 (77) 96 10/21/18 08:00 94 10/21/18 04:00 83 10/21/18 00:00 94 10/21/18 00:00 98.3 94 18 114/68 (83) 96 10/20/18 21:34 96 107/71 10/20/18 21:00 Room Air 10/20/18 20:00 96 10/20/18 20:00 98.2 93 20 107/71 (83) 98 Intake and Output 10/20/18 10/21/18 19:00 07:00 Intake Total 720 ml Output Total 900 ml 2600 ml Balance -180 ml -2600 ml Intake Oral 720 ml Output Urine Total 900 ml 2600 ml # Voids 2 General Appearance: WD/WN, no acute distress HEENT: normocephalic, atraumatic, anicteric, mucous membranes moist Respiratory/Chest: chest wall non-tender, lungs clear, normal breath sounds, no respiratory distress, no accessory muscle use Cardiovascular: normal peripheral pulses, normal rate, regular rhythm Abdomen: normal bowel sounds, soft, non tender, no organomegaly, non distended , no mass Extremities: no cyanosis, no clubbing, no edema Microbiology Date/Time Source Procedure Growth Status 10/20/18 00:10 Rectum Received Laboratory Tests 10/21/18 05:30: White Blood Count 5.3, Red Blood Count 4.99, Hemoglobin 15.6, Hematocrit 46.6, Mean Corpuscular Volume 93, Mean Corpuscular Hemoglobin 31.2H, Mean Corpuscular Hemoglobin Concent 33.3, Red Cell Distribution Width 13.7, Platelet Count 228, Mean Platelet Volume 5.8L, Neutrophils (%) (Auto) 48.1, Lymphocytes (%) (Auto) 33.0, Monocytes (%) (Auto) 13.3H, Eosinophils (%) (Auto) 3.9H, Basophils (%) ( Auto) 1.7, Sodium Level 137, Potassium Level 3.7, Chloride Level 103, Carbon Dioxide Level 26, Anion Gap 8, Blood Urea Nitrogen 12, Creatinine 1.5H, Estimat Glomerular Filtration Rate 58.3, Glucose Level 97, Uric Acid 7.0, Calcium Level 9.3, Total Bilirubin 0.5, Gamma Glutamyl Transpeptidase 18, Aspartate Amino Transf (AST/SGOT) 25, Alanine Aminotransferase (ALT/SGPT) 20, Alkaline Phosphatase 81, Total Creatine Kinase 148, Troponin I 0.052, C-Reactive Protein , Quantitative 0.7, Pro-B-Type Natriuretic Peptide 1246H, Total Protein 6.9, Albumin 3.0L, Globulin 3.9, Albumin/Globulin Ratio 0.8L, Vitamin B12 Level 329, Folate 10.5, Thyroid Stimulating Hormone (TSH) 1.054 Current Medications Medications (Trade) Dose Ordered Sig/[place] Route PRN Reason Start Time Stop Time Status Last Admin Dose Admin Acetaminophen (Tylenol) 500 mg Q4H PRN ORAL Mild Pain/Temp > 100.5 10/19/18 23:45 11/18/18 23:44 Albuterol/ Ipratropium (Albuterol/ Ipratropium) 3 ml Q4H PRN HHN Shortness of Breath 10/20/18 13:00 10/25/18 12:59 Apixaban (Eliquis) 5 mg BID ORAL 10/20/18 09:00 11/19/18 08:59 10/21/18 08:31 Aspirin (Ecotrin) 81 mg DAILY ORAL 10/20/18 09:00 11/19/18 08:59 10/21/18 08:31 Atorvastatin Calcium (Lipitor) 10 mg BEDTIME ORAL 10/20/18 21:00 11/19/18 20:59 10/20/18 21:34 Azithromycin (Zithromax) 250 mg DAILY ORAL 10/21/18 09:00 10/28/18 08:59 10/21/18 08:31 Carvedilol (Coreg) 3.125 mg EVERY 12 HOURS ORAL 10/20/18 21:00 11/19/18 08:59 10/21/18 08:31 Furosemide (Lasix) 40 mg EVERY 12 HOURS ORAL 10/20/18 21:00 11/19/18 08:59 10/21/18 08:30 Iopamidol (Isovue-370 150ml) 150 ml NOW PRN INJ Radiology Procedure 10/19/18 20:00 10/21/18 19:52 Nitroglycerin (Ntg) 0.4 mg Q5M PRN SL Prn Chest Pain 10/20/18 13:30 11/19/18 13:29 Ananda Vance MD Oct 21, 2018 16:22
--- NOTE | 2018-10-21 16:52 | General Progress Note ---
Assessment/Plan Assessment/Plan (1) B/L knee pain (2) B/L knee OA (3) CHF (4) ACS (5) Cocaine abuse We will start patient on [place] 10/325mg PO 1 tab Q8H PRN severe pain. D/w Dr. Sanchez and he concurred. Subjective Date patient seen: Oct 21, 2018 Time patient seen: 03:45 - pm Allergies: Coded Allergies: LISINOPRIL (Unverified Allergy, Unknown, 03/03/18) Subjective REVIEW OF SYSTEMS: Denies rash, fever, chills, sweating, dizziness, drowsiness, blurred vision, sore throat, change in her weight. No nausea, vomiting, diarrhea, or blood in the stool or urine. No bowel or bladder incontinence. No dysuria. He is complaining of knee pain. SUBJECTIVE: Patient is a known patient from prior admission and was admitted under the care of Dr. Calzada due to ACS. Continues to c/o knee pain. Objective Last 24 Hour Vital Signs Date Time Temp Pulse Resp B/P (MAP) Pulse Ox O2 Delivery O2 Flow Rate FiO2 10/21/18 16:00 97 10/21/18 12:00 97.7 86 19 97/64 (75) 99 10/21/18 12:00 91 10/21/18 09:00 Room Air 10/21/18 08:31 93 124/54 10/21/18 08:00 98.8 88 19 124/54 (77) 96 10/21/18 08:00 94 10/21/18 04:00 83 10/21/18 00:00 94 10/21/18 00:00 98.3 94 18 114/68 (83) 96 10/20/18 21:34 96 107/71 10/20/18 21:00 Room Air 10/20/18 20:00 96 10/20/18 20:00 98.2 93 20 107/71 (83) 98 Intake and Output 10/20/18 10/21/18 19:00 07:00 Intake Total 720 ml Output Total 900 ml 2600 ml Balance -180 ml -2600 ml Intake Oral 720 ml Output Urine Total 900 ml 2600 ml # Voids 2 Laboratory Tests 10/21/18 05:30: White Blood Count 5.3, Red Blood Count 4.99, Hemoglobin 15.6, Hematocrit 46.6, Mean Corpuscular Volume 93, Mean Corpuscular Hemoglobin 31.2H, Mean Corpuscular Hemoglobin Concent 33.3, Red Cell Distribution Width 13.7, Platelet Count 228, Mean Platelet Volume 5.8L, Neutrophils (%) (Auto) 48.1, Lymphocytes (%) (Auto) 33.0, Monocytes (%) (Auto) 13.3H, Eosinophils (%) (Auto) 3.9H, Basophils (%) ( Auto) 1.7, Sodium Level 137, Potassium Level 3.7, Chloride Level 103, Carbon Dioxide Level 26, Anion Gap 8, Blood Urea Nitrogen 12, Creatinine 1.5H, Estimat Glomerular Filtration Rate 58.3, Glucose Level 97, Uric Acid 7.0, Calcium Level 9.3, Total Bilirubin 0.5, Gamma Glutamyl Transpeptidase 18, Aspartate Amino Transf (AST/SGOT) 25, Alanine Aminotransferase (ALT/SGPT) 20, Alkaline Phosphatase 81, Total Creatine Kinase 148, Troponin I 0.052, C-Reactive Protein , Quantitative 0.7, Pro-B-Type Natriuretic Peptide 1246H, Total Protein 6.9, Albumin 3.0L, Globulin 3.9, Albumin/Globulin Ratio 0.8L, Vitamin B12 Level 329, Folate 10.5, Thyroid Stimulating Hormone (TSH) 1.054 Height (Feet): 6 Height (Inches): 0.00 Weight (Pounds): 190 Objective GENERAL: Alert, awake, and oriented. LUNGS: Decreased breath sounds bilaterally. HEART: S1 and S2 irregular. ABDOMEN: Benign. EXTREMITIES: No cyanosis. No clubbing. Mike De La Rosa Oct 21, 2018 16:52
--- NOTE | 2018-10-21 17:04 | Nephrology Progress Note ---
Assessment/Plan Problem List: (1) Pacemaker (2) Acute on chronic renal failure (3) Cardiomyopathy Assessment Renal failure, likely chronic CHF Pacer HTN Low Albumin Plan Plan: UA optimize cardiac status Z Pack for RML Bronchitis urine for tox screen Subjective ROS Limited/Unobtainable: No Objective Objective Last 24 Hour Vital Signs Date Time Temp Pulse Resp B/P (MAP) Pulse Ox O2 Delivery O2 Flow Rate FiO2 10/21/18 16:00 97 10/21/18 12:00 97.7 86 19 97/64 (75) 99 10/21/18 12:00 91 10/21/18 09:00 Room Air 10/21/18 08:31 93 124/54 10/21/18 08:00 98.8 88 19 124/54 (77) 96 10/21/18 08:00 94 10/21/18 04:00 83 10/21/18 00:00 94 10/21/18 00:00 98.3 94 18 114/68 (83) 96 10/20/18 21:34 96 107/71 10/20/18 21:00 Room Air 10/20/18 20:00 96 10/20/18 20:00 98.2 93 20 107/71 (83) 98 Intake and Output 10/20/18 10/21/18 19:00 07:00 Intake Total 720 ml Output Total 900 ml 2600 ml Balance -180 ml -2600 ml Intake Oral 720 ml Output Urine Total 900 ml 2600 ml # Voids 2 Laboratory Tests 10/21/18 05:30: White Blood Count 5.3, Red Blood Count 4.99, Hemoglobin 15.6, Hematocrit 46.6, Mean Corpuscular Volume 93, Mean Corpuscular Hemoglobin 31.2H, Mean Corpuscular Hemoglobin Concent 33.3, Red Cell Distribution Width 13.7, Platelet Count 228, Mean Platelet Volume 5.8L, Neutrophils (%) (Auto) 48.1, Lymphocytes (%) (Auto) 33.0, Monocytes (%) (Auto) 13.3H, Eosinophils (%) (Auto) 3.9H, Basophils (%) ( Auto) 1.7, Sodium Level 137, Potassium Level 3.7, Chloride Level 103, Carbon Dioxide Level 26, Anion Gap 8, Blood Urea Nitrogen 12, Creatinine 1.5H, Estimat Glomerular Filtration Rate 58.3, Glucose Level 97, Uric Acid 7.0, Calcium Level 9.3, Total Bilirubin 0.5, Gamma Glutamyl Transpeptidase 18, Aspartate Amino Transf (AST/SGOT) 25, Alanine Aminotransferase (ALT/SGPT) 20, Alkaline Phosphatase 81, Total Creatine Kinase 148, Troponin I 0.052, C-Reactive Protein , Quantitative 0.7, Pro-B-Type Natriuretic Peptide 1246H, Total Protein 6.9, Albumin 3.0L, Globulin 3.9, Albumin/Globulin Ratio 0.8L, Vitamin B12 Level 329, Folate 10.5, Thyroid Stimulating Hormone (TSH) 1.054 Height (Feet): 6 Height (Inches): 0.00 Weight (Pounds): 190 General Appearance: no apparent distress Objective no change Elias Thorne MD Oct 21, 2018 17:04
[2018-10-21] MEDS: HYDROcodone/Acetamin 10/325 tab ORAL PRN (18:12)
--- NOTE | 2018-10-21 19:53 | General Progress Note ---
Assessment/Plan Assessment/Plan ASSESSMENT AND RECOMMENDATIONS # Monocytosis. Likely related to underlying infection versus reactive process. Continues to persist from last admission 10-20% --> ID has seen him before, and s/p course of antibiotics on prior admission --> Peripheral has been ordered, results are pending --> Medications have been reviewed --> Imaging has been reviewed. CXR shows apparent mild accentuation of the bronchovascular and interstitial markings. Could be from mild edema. Mild reticulonodular opacities in the upper lung patrick. Query dominant nodule measuring 12 mm in left mid - upper lung field. --> Blood cultures and urine cultures prn --> On abx, empiric tx per ID. # History of DVT and history of PE as well, on Eliquis. --> CTA was completed and is negative for acute pe --> as per pulm management, given now new episodes/events, continue same anticoagulation # Lung nodule. CXR shows mild reticulonodular opacities in the upper lung patrick. --> pulm is aware, continue recs. Query dominant nodule measuring 12 mm in left mid - upper lung field. # Hemoptysis, likely secondary to pneumonia and bronchitis, ascites, severe infection. # Exacerbation of congestive heart failure. Cardiology is following, appreciate recs. --> The patient's ejection fraction of 10%. --> Continue Lasix 20 mg daily and Cozaar # Status post [facility] defibrillator implantation. # Schizophrenia. GREATLY APPRECIATE CONSULTATION. Subjective Constitutional: Denies: no symptoms, chills, diaphoresis, fever, malaise, weakness, other HEENT: Denies: no symptoms, eye pain, blurred vision, tearing, double vision, ear pain, ear discharge, nose pain, nose congestion, throat pain, throat swelling, mouth pain, mouth swelling, other Respiratory: Denies: no symptoms, cough, orthopnea, shortness of breath, SOB with excertion, SOB at rest, sputum, stridor, wheezing, other Gastrointestinal/Abdominal: Denies: no symptoms, abdomen distended, abdominal pain, black stools, tarry stools, blood in stool, constipated, diarrhea, difficulty swallowing, nausea, poor appetite, poor fluid intake, rectal bleeding , vomiting, other Genitourinary: Denies: no symptoms, burning, discharge, frequency, flank pain, hematuria, incontinence, pain, urgency, other Neurologic/Psychiatric: Denies: no symptoms, anxiety, depressed, emotional problems, headache, numbness, paresthesia, pre-existing deficit, seizure, tingling, tremors, weakness, other Endocrine: Denies: no symptoms, excessive sweating, flushing, intolerance to cold, intolerance to heat, increased hunger, increased thirst, increased urine, unexplained weight gain, unexplained weight loss, other Hematologic/Lymphatic: Denies: no symptoms, anemia, easy bleeding, easy bruising, other Allergies: Coded Allergies: LISINOPRIL (Unverified Allergy, Unknown, 03/03/18) Subjective 10/21: seen by bedside, awake, complains of chest pain but refuses nitroglycerin Objective Last 24 Hour Vital Signs Date Time Temp Pulse Resp B/P (MAP) Pulse Ox O2 Delivery O2 Flow Rate FiO2 10/21/18 16:00 95 10/21/18 16:00 97 10/21/18 12:00 97.7 86 19 97/64 (75) 99 10/21/18 12:00 91 10/21/18 09:00 Room Air 10/21/18 08:31 93 124/54 10/21/18 08:00 98.8 88 19 124/54 (77) 96 10/21/18 08:00 94 10/21/18 04:00 83 10/21/18 00:00 94 10/21/18 00:00 98.3 94 18 114/68 (83) 96 10/20/18 21:34 96 107/71 10/20/18 21:00 Room Air 10/20/18 20:00 96 10/20/18 20:00 98.2 93 20 107/71 (83) 98 Intake and Output 10/20/18 10/21/18 19:00 07:00 Intake Total 720 ml Output Total 900 ml 2600 ml Balance -180 ml -2600 ml Intake Oral 720 ml Output Urine Total 900 ml 2600 ml # Voids 2 Laboratory Tests 10/21/18 05:30: White Blood Count 5.3, Red Blood Count 4.99, Hemoglobin 15.6, Hematocrit 46.6, Mean Corpuscular Volume 93, Mean Corpuscular Hemoglobin 31.2H, Mean Corpuscular Hemoglobin Concent 33.3, Red Cell Distribution Width 13.7, Platelet Count 228, Mean Platelet Volume 5.8L, Neutrophils (%) (Auto) 48.1, Lymphocytes (%) (Auto) 33.0, Monocytes (%) (Auto) 13.3H, Eosinophils (%) (Auto) 3.9H, Basophils (%) ( Auto) 1.7, Sodium Level 137, Potassium Level 3.7, Chloride Level 103, Carbon Dioxide Level 26, Anion Gap 8, Blood Urea Nitrogen 12, Creatinine 1.5H, Estimat Glomerular Filtration Rate 58.3, Glucose Level 97, Uric Acid 7.0, Calcium Level 9.3, Total Bilirubin 0.5, Gamma Glutamyl Transpeptidase 18, Aspartate Amino Transf (AST/SGOT) 25, Alanine Aminotransferase (ALT/SGPT) 20, Alkaline Phosphatase 81, Total Creatine Kinase 148, Troponin I 0.052, C-Reactive Protein , Quantitative 0.7, Pro-B-Type Natriuretic Peptide 1246H, Total Protein 6.9, Albumin 3.0L, Globulin 3.9, Albumin/Globulin Ratio 0.8L, Vitamin B12 Level 329, Folate 10.5, Thyroid Stimulating Hormone (TSH) 1.054 Height (Feet): 6 Height (Inches): 0.00 Weight (Pounds): 190 Objective PHYSICAL EXAMINATION: VITAL SIGNS: Have been reviewed HEAD AND NECK: Positive JVD. LUNGS: Decreased breath sounds. CARDIOVASCULAR: Regular S1 and S2 with no gallop or murmur. GASTROINTESTINAL: His abdomen is soft. EXTREMITIES: 1+ pitting edema. Odilon Shay MD Oct 21, 2018 19:53
[2018-10-21 20:00] VITALS: BP 98/64
--- NOTE | 2018-10-21 21:29 | General Progress Note ---
Assessment/Plan Problem List: (1) Chronic paranoid schizophrenia ICD Codes: F20.0 - Paranoid schizophrenia SNOMED: 65895791 (2) Cocaine abuse ICD Codes: F14.10 - Cocaine abuse, uncomplicated SNOMED: 78216736 (3) Pacemaker ICD Codes: Z95.0 - Presence of cardiac pacemaker SNOMED: 118115640 (4) ACS (acute coronary syndrome) ICD Codes: I24.9 - Acute ischemic heart disease, unspecified SNOMED: 113785416 (5) Cardiomyopathy ICD Codes: I42.9 - Cardiomyopathy, unspecified SNOMED: 11315416 Status: progressing Assessment/Plan cp chronic pain r/o acs afebrile reviewed chart and labs Subjective ROS Limited/Unobtainable: Yes Allergies: Coded Allergies: LISINOPRIL (Unverified Allergy, Unknown, 03/03/18) Objective Last 24 Hour Vital Signs Date Time Temp Pulse Resp B/P (MAP) Pulse Ox O2 Delivery O2 Flow Rate FiO2 10/21/18 20:51 92 98/64 10/21/18 16:00 95 10/21/18 16:00 97 10/21/18 12:00 97.7 86 19 97/64 (75) 99 10/21/18 12:00 91 10/21/18 09:00 Room Air 10/21/18 08:31 93 124/54 10/21/18 08:00 98.8 88 19 124/54 (77) 96 10/21/18 08:00 94 10/21/18 04:00 83 10/21/18 00:00 94 10/21/18 00:00 98.3 94 18 114/68 (83) 96 10/20/18 21:34 96 107/71 Intake and Output 10/20/18 10/21/18 18:59 06:59 Intake Total 720 ml Output Total 900 ml 2600 ml Balance -180 ml -2600 ml Intake Oral 720 ml Output Urine Total 900 ml 2600 ml # Voids 2 Laboratory Tests 10/21/18 05:30: White Blood Count 5.3, Red Blood Count 4.99, Hemoglobin 15.6, Hematocrit 46.6, Mean Corpuscular Volume 93, Mean Corpuscular Hemoglobin 31.2H, Mean Corpuscular Hemoglobin Concent 33.3, Red Cell Distribution Width 13.7, Platelet Count 228, Mean Platelet Volume 5.8L, Neutrophils (%) (Auto) 48.1, Lymphocytes (%) (Auto) 33.0, Monocytes (%) (Auto) 13.3H, Eosinophils (%) (Auto) 3.9H, Basophils (%) ( Auto) 1.7, Sodium Level 137, Potassium Level 3.7, Chloride Level 103, Carbon Dioxide Level 26, Anion Gap 8, Blood Urea Nitrogen 12, Creatinine 1.5H, Estimat Glomerular Filtration Rate 58.3, Glucose Level 97, Uric Acid 7.0, Calcium Level 9.3, Total Bilirubin 0.5, Gamma Glutamyl Transpeptidase 18, Aspartate Amino Transf (AST/SGOT) 25, Alanine Aminotransferase (ALT/SGPT) 20, Alkaline Phosphatase 81, Total Creatine Kinase 148, Troponin I 0.052, C-Reactive Protein , Quantitative 0.7, Pro-B-Type Natriuretic Peptide 1246H, Total Protein 6.9, Albumin 3.0L, Globulin 3.9, Albumin/Globulin Ratio 0.8L, Vitamin B12 Level 329, Folate 10.5, Thyroid Stimulating Hormone (TSH) 1.054 Height (Feet): 6 Height (Inches): 0.00 Weight (Pounds): 190 Neck: supple Cardiovascular: normal rate Respiratory/Chest: lungs clear Abdomen: soft Anne Calzada MD Oct 21, 2018 21:28
--- NOTE | 2018-10-21 23:51 | Cardiology Progress Note ---
Assessment/Plan Assessment/Plan 1. Dilated cardiomyopathy, possibly due to cocaine use, add aldactone to the regimen, he is [place] allergic, may have to use combination of hydralazine and nitrates. 2. Hx of PE on Eliquis 3. Pleuritic chest pain. 4. Slight elevation of troponin likely due to myocarditis in association with cocaine poisoning. 5. Acute systolic and diastolic CHF, continue diuretics and GDMT. 6. CKD 7. Hemoptysis. 8. Cocaine poisoning Subjective Subjective Sinus rhythm at rate of 95. Isolation room. Objective Last 24 Hour Vital Signs Date Time Temp Pulse Resp B/P (MAP) Pulse Ox O2 Delivery O2 Flow Rate FiO2 10/21/18 21:00 Room Air 10/21/18 20:51 92 98/64 10/21/18 20:00 90 20 Room Air 21 10/21/18 20:00 98.7 92 18 98/64 (75) 99 10/21/18 16:00 95 10/21/18 16:00 97 10/21/18 12:00 97.7 86 19 97/64 (75) 99 10/21/18 12:00 91 10/21/18 09:00 Room Air 10/21/18 08:31 93 124/54 10/21/18 08:00 98.8 88 19 124/54 (77) 96 10/21/18 08:00 94 10/21/18 04:00 83 10/21/18 00:00 94 10/21/18 00:00 98.3 94 18 114/68 (83) 96 Intake and Output 10/20/18 10/21/18 18:59 06:59 Intake Total 720 ml Output Total 900 ml 2600 ml Balance -180 ml -2600 ml Intake Oral 720 ml Output Urine Total 900 ml 2600 ml # Voids 2 2D Echo: LVEF 15%, Global LV hypokinesia, Mod MR, RVSp 33 mmHg Laboratory Tests Test 10/21/18 05:30 White Blood Count 5.3 K/UL (4.8-10.8) Red Blood Count 4.99 M/UL (4.70-6.10) Hemoglobin 15.6 G/DL (14.2-18.0) Hematocrit 46.6 % (42.0-52.0) Mean Corpuscular Volume 93 FL (80-99) Mean Corpuscular Hemoglobin 31.2 PG (27.0-31.0) H Mean Corpuscular Hemoglobin Concent 33.3 G/DL (32.0-36.0) Red Cell Distribution Width 13.7 % (11.6-14.8) Platelet Count 228 K/UL (150-450) Mean Platelet Volume 5.8 FL (6.5-10.1) L Neutrophils (%) (Auto) 48.1 % (45.0-75.0) Lymphocytes (%) (Auto) 33.0 % (20.0-45.0) Monocytes (%) (Auto) 13.3 % (1.0-10.0) H Eosinophils (%) (Auto) 3.9 % (0.0-3.0) H Basophils (%) (Auto) 1.7 % (0.0-2.0) Sodium Level 137 MMOL/L (136-145) Potassium Level 3.7 MMOL/L (3.5-5.1) Chloride Level 103 MMOL/L (98-107) Carbon Dioxide Level 26 MMOL/L (21-32) Anion Gap 8 mmol/L (5-15) Blood Urea Nitrogen 12 mg/dL (7-18) Creatinine 1.5 MG/DL (0.55-1.30) H Estimat Glomerular Filtration Rate 58.3 mL/min (>60) Glucose Level 97 MG/DL (74-106) Uric Acid 7.0 MG/DL (2.6-7.2) Calcium Level 9.3 MG/DL (8.5-10.1) Total Bilirubin 0.5 MG/DL (0.2-1.0) Gamma Glutamyl Transpeptidase 18 U/L (5-85) Aspartate Amino Transf (AST/SGOT) 25 U/L (15-37) Alanine Aminotransferase (ALT/SGPT) 20 U/L (12-78) Alkaline Phosphatase 81 U/L (46-116) Total Creatine Kinase 148 U/L (26-308) Troponin I 0.052 ng/mL (0.000-0.056) C-Reactive Protein, Quantitative 0.7 mg/dL (0.00-0.90) Pro-B-Type Natriuretic Peptide 1246 pg/mL (0-125) H Total Protein 6.9 G/DL (6.4-8.2) Albumin 3.0 G/DL (3.4-5.0) L Globulin 3.9 g/dL Albumin/Globulin Ratio 0.8 (1.0-2.7) L Vitamin B12 Level 329 PG/ML (193-986) Folate 10.5 NG/ML (8.6-58.9) Thyroid Stimulating Hormone (TSH) 1.054 uiU/mL (0.358-3.740) Microbiology Date/Time Source Procedure Growth Status 10/20/18 00:10 Rectum Received Objective HEENT: Normocephalic and atraumatic. PERRLA, EOMI. NECK: Elevated JVD, no carotid bruit. CHEST: Scattered coarse breath sounds. HEART: Regular rate and rhythm, 2/6 HSM at apex, no gallops or rubs. ABDOMEN: Soft, nontender, and nondistended, + BS EXTREMITIES: No cyanosis, clubbing, or edema. Mitch Santiago MD Oct 21, 2018 23:51
--- NOTE | 2018-10-21 23:58 | Cardiology Progress Note ---
Assessment/Plan Assessment/Plan 1. Dilated cardiomyopathy, possibly due to cocaine use, he is EVERETT allergic, may have to use combination of hydralazine and nitrates. 2. Hx of PE on Eliquis 3. Pleuritic chest pain. 4. Slight elevation of troponin likely due to myocarditis in association with cocaine poisoning. 5. Acute systolic and diastolic CHF, continue diuretics and GDMT. 6. Hemoptysis possibly due to Eliquis. Subjective Subjective Sinus rhythm at rate of 90. Objective Last 24 Hour Vital Signs Date Time Temp Pulse Resp B/P (MAP) Pulse Ox O2 Delivery O2 Flow Rate FiO2 10/21/18 21:00 Room Air 10/21/18 20:51 92 98/64 10/21/18 20:00 90 20 Room Air 21 10/21/18 20:00 98.7 92 18 98/64 (75) 99 10/21/18 16:00 95 10/21/18 16:00 97 10/21/18 12:00 97.7 86 19 97/64 (75) 99 10/21/18 12:00 91 10/21/18 09:00 Room Air 10/21/18 08:31 93 124/54 10/21/18 08:00 98.8 88 19 124/54 (77) 96 10/21/18 08:00 94 10/21/18 04:00 83 10/21/18 00:00 94 10/21/18 00:00 98.3 94 18 114/68 (83) 96 Intake and Output 10/20/18 10/21/18 18:59 06:59 Intake Total 720 ml Output Total 900 ml 2600 ml Balance -180 ml -2600 ml Intake Oral 720 ml Output Urine Total 900 ml 2600 ml # Voids 2 2D Echo: EF 15%, DCM, Mod MR, Grade II LVDD (pseudo-nl physio), RVSP 33 Laboratory Tests Test 10/21/18 05:30 White Blood Count 5.3 K/UL (4.8-10.8) Red Blood Count 4.99 M/UL (4.70-6.10) Hemoglobin 15.6 G/DL (14.2-18.0) Hematocrit 46.6 % (42.0-52.0) Mean Corpuscular Volume 93 FL (80-99) Mean Corpuscular Hemoglobin 31.2 PG (27.0-31.0) H Mean Corpuscular Hemoglobin Concent 33.3 G/DL (32.0-36.0) Red Cell Distribution Width 13.7 % (11.6-14.8) Platelet Count 228 K/UL (150-450) Mean Platelet Volume 5.8 FL (6.5-10.1) L Neutrophils (%) (Auto) 48.1 % (45.0-75.0) Lymphocytes (%) (Auto) 33.0 % (20.0-45.0) Monocytes (%) (Auto) 13.3 % (1.0-10.0) H Eosinophils (%) (Auto) 3.9 % (0.0-3.0) H Basophils (%) (Auto) 1.7 % (0.0-2.0) Sodium Level 137 MMOL/L (136-145) Potassium Level 3.7 MMOL/L (3.5-5.1) Chloride Level 103 MMOL/L (98-107) Carbon Dioxide Level 26 MMOL/L (21-32) Anion Gap 8 mmol/L (5-15) Blood Urea Nitrogen 12 mg/dL (7-18) Creatinine 1.5 MG/DL (0.55-1.30) H Estimat Glomerular Filtration Rate 58.3 mL/min (>60) Glucose Level 97 MG/DL (74-106) Uric Acid 7.0 MG/DL (2.6-7.2) Calcium Level 9.3 MG/DL (8.5-10.1) Total Bilirubin 0.5 MG/DL (0.2-1.0) Gamma Glutamyl Transpeptidase 18 U/L (5-85) Aspartate Amino Transf (AST/SGOT) 25 U/L (15-37) Alanine Aminotransferase (ALT/SGPT) 20 U/L (12-78) Alkaline Phosphatase 81 U/L (46-116) Total Creatine Kinase 148 U/L (26-308) Troponin I 0.052 ng/mL (0.000-0.056) C-Reactive Protein, Quantitative 0.7 mg/dL (0.00-0.90) Pro-B-Type Natriuretic Peptide 1246 pg/mL (0-125) H Total Protein 6.9 G/DL (6.4-8.2) Albumin 3.0 G/DL (3.4-5.0) L Globulin 3.9 g/dL Albumin/Globulin Ratio 0.8 (1.0-2.7) L Vitamin B12 Level 329 PG/ML (193-986) Folate 10.5 NG/ML (8.6-58.9) Thyroid Stimulating Hormone (TSH) 1.054 uiU/mL (0.358-3.740) Microbiology Date/Time Source Procedure Growth Status 10/20/18 00:10 Rectum Received Objective HEENT: Normocephalic and atraumatic. PERRLA, EOMI. NECK: Elevated JVD, no carotid bruit. CHEST: Scattered coarse breath sounds. HEART: Regular rate and rhythm, 2/6 HSM at apex, no gallops or rubs. ABDOMEN: Soft, nontender, and nondistended, + BS EXTREMITIES: No cyanosis, clubbing, or edema. Mitch Santiago MD Oct 21, 2018 23:58
[2018-10-22] VITALS: BP 113/78
[2018-10-22 08:00] VITALS: BP 96/61
[2018-10-22] MEDS: HYDROcodone/Acetamin 10/325 tab ORAL PRN ×2 (08:40→17:13)
[2018-10-22] MEDS: Azithromycin 250mg tab ORAL SCH (08:40)
[2018-10-22] MEDS: Aspirin EC 81mg tab ORAL SCH (08:40)
[2018-10-22] MEDS: Eliquis 2.5mg tablet ORAL SCH ×2 (08:41→17:12)
[2018-10-22] MEDS: Furosemide 40mg tab ORAL SCH ×2 (08:44→20:32)
--- NOTE | 2018-10-22 08:48 | General Progress Note ---
Assessment/Plan Assessment/Plan (1) B/L knee pain (2) B/L knee OA (3) CHF (4) ACS (5) Cocaine abuse We will start patient on [place] D/w Dr. Sanchez and he concurred. Subjective Date patient seen: Oct 22, 2018 Time patient seen: 07:30 - am Allergies: Coded Allergies: LISINOPRIL (Unverified Allergy, Unknown, 03/03/18) Subjective REVIEW OF SYSTEMS: Denies rash, fever, chills, sweating, dizziness, drowsiness, blurred vision, sore throat, change in her weight. No nausea, vomiting, diarrhea, or blood in the stool or urine. No bowel or bladder incontinence. No dysuria. He is complaining of knee pain. SUBJECTIVE: Patient is in bed and has no new complaints pain is tolerated on the [place]. Objective Last 24 Hour Vital Signs Date Time Temp Pulse Resp B/P (MAP) Pulse Ox O2 Delivery O2 Flow Rate FiO2 10/22/18 08:43 90 96/61 10/22/18 07:45 91 17 Room Air 21 10/22/18 03:47 91 10/22/18 00:00 98.7 95 18 113/78 (90) 97 10/21/18 23:22 87 10/21/18 21:00 Room Air 10/21/18 20:51 92 98/64 10/21/18 20:00 90 20 Room Air 21 10/21/18 20:00 98.7 92 18 98/64 (75) 99 10/21/18 19:33 90 10/21/18 16:00 95 10/21/18 16:00 97 10/21/18 12:00 97.7 86 19 97/64 (75) 99 10/21/18 12:00 91 10/21/18 09:00 Room Air Intake and Output 10/21/18 10/22/18 19:00 07:00 Intake Total 500 ml 300 ml Output Total 1000 ml 500 ml Balance -500 ml -200 ml Intake Oral 500 ml 300 ml Output Urine Total 1000 ml 500 ml Height (Feet): 6 Height (Inches): 0.00 Weight (Pounds): 189 Objective GENERAL: Alert, awake, and oriented. LUNGS: Decreased breath sounds bilaterally. HEART: S1 and S2 irregular. ABDOMEN: Benign. EXTREMITIES: No cyanosis. No clubbing. Zedner,Mike N. PA Oct 22, 2018 08:48
[2018-10-22 12:00] VITALS: BP 111/78
--- NOTE | 2018-10-22 13:20 | General Progress Note ---
Assessment/Plan Assessment/Plan ASSESSMENT AND RECOMMENDATIONS # Monocytosis. Likely related to underlying infection versus reactive process. Continues to persist from last admission 10-20% --> ID has seen him before, and s/p course of antibiotics on prior admission --> Peripheral has been ordered, results are pending --> Medications have been reviewed --> Imaging has been reviewed. CXR shows apparent mild accentuation of the bronchovascular and interstitial markings. Could be from mild edema. Mild reticulonodular opacities in the upper lung patrick. Query dominant nodule measuring 12 mm in left mid - upper lung field. --> Blood cultures and urine cultures prn --> On abx, empiric tx per ID. # History of DVT and history of PE as well, on Eliquis. --> CTA was completed and is negative for acute pe --> as per pulm management, given now new episodes/events, continue same anticoagulation # Lung nodule. CXR shows mild reticulonodular opacities in the upper lung patrick. --> pulm is aware, continue recs. Query dominant nodule measuring 12 mm in left mid - upper lung field. # Hemoptysis, likely secondary to pneumonia and bronchitis, ascites, severe infection. # Exacerbation of congestive heart failure. Cardiology is following, appreciate recs. --> The patient's ejection fraction of 10%. --> Continue Lasix 20 mg daily and Cozaar # Status post [facility] [facility] defibrillator implantation. # Schizophrenia. GREATLY APPRECIATE CONSULTATION. Subjective Constitutional: Reports: diaphoresis; Denies: no symptoms, chills, fever, malaise, weakness, other HEENT: Denies: no symptoms, eye pain, blurred vision, tearing, double vision, ear pain, ear discharge, nose pain, nose congestion, throat pain, throat swelling, mouth pain, mouth swelling, other Cardiovascular: Denies: no symptoms, chest pain, edema, irregular heart rate, lightheadedness, palpitations, syncope, other Respiratory: Denies: no symptoms, cough, orthopnea, shortness of breath, SOB with excertion, SOB at rest, sputum, stridor, wheezing, other Gastrointestinal/Abdominal: Denies: no symptoms, abdomen distended, abdominal pain, black stools, tarry stools, blood in stool, constipated, diarrhea, difficulty swallowing, nausea, poor appetite, poor fluid intake, rectal bleeding , vomiting, other Genitourinary: Denies: no symptoms, burning, discharge, frequency, flank pain, hematuria, incontinence, pain, urgency, other Neurologic/Psychiatric: Denies: no symptoms, anxiety, depressed, emotional problems, headache, numbness, paresthesia, pre-existing deficit, seizure, tingling, tremors, weakness, other Endocrine: Denies: no symptoms, excessive sweating, flushing, intolerance to cold, intolerance to heat, increased hunger, increased thirst, increased urine, unexplained weight gain, unexplained weight loss, other Hematologic/Lymphatic: Denies: no symptoms, anemia, easy bleeding, easy bruising, other Allergies: Coded Allergies: LISINOPRIL (Unverified Allergy, Unknown, 03/03/18) Subjective 10/21: seen by bedside, awake, complains of chest pain but refuses nitroglycerin 10/22: pt is awake, comfortable, complaining of pain, on norco, no events Objective Last 24 Hour Vital Signs Date Time Temp Pulse Resp B/P (MAP) Pulse Ox O2 Delivery O2 Flow Rate FiO2 10/22/18 09:00 Room Air 10/22/18 08:43 90 96/61 10/22/18 08:00 90 18 96/61 (73) 97 10/22/18 07:45 91 17 Room Air 21 10/22/18 03:47 91 10/22/18 00:00 98.7 95 18 113/78 (90) 97 10/21/18 23:22 87 10/21/18 21:00 Room Air 10/21/18 20:51 92 98/64 10/21/18 20:00 90 20 Room Air 21 10/21/18 20:00 98.7 92 18 98/64 (75) 99 10/21/18 19:33 90 10/21/18 16:00 95 10/21/18 16:00 97 Intake and Output 10/21/18 10/22/18 19:00 07:00 Intake Total 500 ml 300 ml Output Total 1000 ml 500 ml Balance -500 ml -200 ml Intake Oral 500 ml 300 ml Output Urine Total 1000 ml 500 ml Laboratory Tests 10/22/18 11:30: Urine Opiates Screen Negative, Urine Barbiturates Screen Negative, Phencyclidine (PCP) Screen Negative, Urine Amphetamines Screen Negative, Urine Benzodiazepines Screen Negative, Urine Cocaine Screen PositiveH, Urine Marijuana (THC) Screen PositiveH Height (Feet): 6 Height (Inches): 0.00 Weight (Pounds): 189 Objective PHYSICAL EXAMINATION: VITAL SIGNS: Have been reviewed HEAD AND NECK: Positive JVD. LUNGS: Decreased breath sounds. CARDIOVASCULAR: Regular S1 and S2 with no gallop or murmur. GASTROINTESTINAL: His abdomen is soft. EXTREMITIES: 1+ pitting edema. Odilon Shay MD Oct 22, 2018 13:20
[2018-10-22 16:00] VITALS: BP 92/71
--- NOTE | 2018-10-22 17:20 | Nephrology Progress Note ---
Assessment/Plan Problem List: (1) Pacemaker (2) Acute on chronic renal failure (3) Cardiomyopathy (4) Cocaine abuse Assessment Renal failure, likely chronic CHF Pacer HTN Low Albumin Plan Plan: no labs today UA optimize cardiac status Z Pack for RML Bronchitis urine for tox screen + for cocaine and MJ Subjective ROS Limited/Unobtainable: No Constitutional: Reports: malaise Objective Objective Last 24 Hour Vital Signs Date Time Temp Pulse Resp B/P (MAP) Pulse Ox O2 Delivery O2 Flow Rate FiO2 10/22/18 16:00 97.7 85 20 92/71 (78) 99 10/22/18 12:00 93 10/22/18 12:00 98.4 82 20 111/78 (89) 99 10/22/18 09:00 Room Air 10/22/18 08:43 90 96/61 10/22/18 08:00 90 18 96/61 (73) 97 10/22/18 08:00 88 10/22/18 07:45 91 17 Room Air 21 10/22/18 03:47 91 10/22/18 00:00 98.7 95 18 113/78 (90) 97 10/21/18 23:22 87 10/21/18 21:00 Room Air 10/21/18 20:51 92 98/64 10/21/18 20:00 90 20 Room Air 21 10/21/18 20:00 98.7 92 18 98/64 (75) 99 10/21/18 19:33 90 Intake and Output 10/21/18 10/22/18 19:00 07:00 Intake Total 500 ml 300 ml Output Total 1000 ml 500 ml Balance -500 ml -200 ml Intake Oral 500 ml 300 ml Output Urine Total 1000 ml 500 ml Laboratory Tests 10/22/18 11:30: Urine Opiates Screen Negative, Urine Barbiturates Screen Negative, Phencyclidine (PCP) Screen Negative, Urine Amphetamines Screen Negative, Urine Benzodiazepines Screen Negative, Urine Cocaine Screen PositiveH, Urine Marijuana (THC) Screen PositiveH Height (Feet): 6 Height (Inches): 0.00 Weight (Pounds): 189 General Appearance: no apparent distress Objective no change Elias Thorne MD Oct 22, 2018 17:20
--- NOTE | 2018-10-22 19:04 | Pulmonology Progress Note ---
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 He has mild elevation of his cardiac biomarkers, likely demand ischemia and CTA though limited, does not demonstrate any evidence of obvious PE. His signs and symptoms are likely secondary to bronchitis/URI with possible underlying COPD. PROBLEM LIST: 1. Bronchitis/URI. 2. Trace hemoptysis likely in the setting of bronchitis and anticoagulation. 3. CHF with ischemic cardiomyopathy, EF of 15%, status post AICD, now with decompensated heart failure. 4. Likely underlying COPD. 5. Faint bronchiolitis. 6. DVT and PE, on anticoagulation. 7. CKD. 8. Schizophrenia. 9. Utox + for cocaine and MJ 10. History of tobacco use in the past. 11. Recent cellulitis. TREATMENT PLAN: 1. Optimize pulmonary hygiene/mobilize as tolerated. 2. Titrate on FiO2 to keep saturations greater than 90%. 3. Continue Eliquis 5 mg p.o. b.i.d. 4. Monitor for further bleeding. 5. Monitor volumes and renal function, continue p.o. Lasix as tolerated. 6. Continue azithromycin p.o. (today is day #3). 7. Monitor for signs of worsening respiratory infection. 8. P.r.n. breathing treatments. 9. Aspiration precautions. 10. Cardiology recs 11. Continue to abstain from smoking. Subjective Allergies: Coded Allergies: LISINOPRIL (Unverified Allergy, Unknown, 03/03/18) Subjective AFVSS on RA Utox + for cocaine and MJ Less cough no hemoptysis demetria AC no FC no wheezing Objective Last 24 Hour Vital Signs Date Time Temp Pulse Resp B/P (MAP) Pulse Ox O2 Delivery O2 Flow Rate FiO2 10/22/18 16:00 95 10/22/18 16:00 97.7 85 20 92/71 (78) 99 10/22/18 12:00 93 10/22/18 12:00 98.4 82 20 111/78 (89) 99 10/22/18 09:00 Room Air 10/22/18 08:43 90 96/61 10/22/18 08:00 90 18 96/61 (73) 97 10/22/18 08:00 88 10/22/18 07:45 91 17 Room Air 21 10/22/18 03:47 91 10/22/18 00:00 98.7 95 18 113/78 (90) 97 10/21/18 23:22 87 10/21/18 21:00 Room Air 10/21/18 20:51 92 98/64 10/21/18 20:00 90 20 Room Air 21 10/21/18 20:00 98.7 92 18 98/64 (75) 99 10/21/18 19:33 90 Intake and Output 10/21/18 10/22/18 19:00 07:00 Intake Total 500 ml 300 ml Output Total 1000 ml 500 ml Balance -500 ml -200 ml Intake Oral 500 ml 300 ml Output Urine Total 1000 ml 500 ml General Appearance: WD/WN, no acute distress HEENT: normocephalic, atraumatic Respiratory/Chest: chest wall non-tender, lungs clear, normal breath sounds, no respiratory distress, no accessory muscle use Cardiovascular: normal peripheral pulses, normal rate, regular rhythm Abdomen: normal bowel sounds, soft, non tender, no organomegaly, non distended , no mass Extremities: no cyanosis, no clubbing, no edema Microbiology Date/Time Source Procedure Growth Status 10/20/18 00:10 Nasal Nares MRSA Culture - Final NO METHICILLIN RESISTANT STAPH AUREUS... Complete 10/20/18 00:10 Rectum - Final NO CARBAPENEM-RESISTANT ENTEROBACTERI... Complete 10/20/18 00:10 Rectum VRE Culture - Final NO VANCOMYCIN RESISTANT ENTEROCOCCUS ... Complete Laboratory Tests 10/22/18 11:30: Urine Opiates Screen Negative, Urine Barbiturates Screen Negative, Phencyclidine (PCP) Screen Negative, Urine Amphetamines Screen Negative, Urine Benzodiazepines Screen Negative, Urine Cocaine Screen PositiveH, Urine Marijuana (THC) Screen PositiveH 10/22/18 18:25: C-Reactive Protein, Quantitative [Pending] Current Medications Medications (Trade) Dose Ordered Sig/[place] Route PRN Reason Start Time Stop Time Status Last Admin Dose Admin Acetaminophen (Tylenol) 500 mg Q4H PRN ORAL Mild Pain/Temp > 100.5 10/19/18 23:45 11/18/18 23:44 Acetaminophen/ Hydrocodone Bitart ([place] 10/325) 1 tab Q8H PRN ORAL severe pain 10/21/18 17:00 10/28/18 16:59 10/22/18 17:13 Albuterol/ Ipratropium (Albuterol/ Ipratropium) 3 ml Q4H PRN HHN Shortness of Breath 10/20/18 13:00 10/25/18 12:59 Apixaban (Eliquis) 5 mg BID ORAL 10/20/18 09:00 11/19/18 08:59 10/22/18 17:12 Aspirin (Ecotrin) 81 mg DAILY ORAL 10/20/18 09:00 11/19/18 08:59 10/22/18 08:40 Atorvastatin Calcium (Lipitor) 10 mg BEDTIME ORAL 10/20/18 21:00 11/19/18 20:59 10/21/18 20:54 Azithromycin (Zithromax) 250 mg DAILY ORAL 10/21/18 09:00 10/28/18 08:59 10/22/18 08:40 Carvedilol (Coreg) 3.125 mg EVERY 12 HOURS ORAL 10/20/18 21:00 11/19/18 08:59 10/21/18 08:31 Furosemide (Lasix) 40 mg EVERY 12 HOURS ORAL 10/20/18 21:00 11/19/18 08:59 10/21/18 08:30 Nitroglycerin (Ntg) 0.4 mg Q5M PRN SL Prn Chest Pain 10/20/18 13:30 11/19/18 13:29 Ananda Vance MD Oct 22, 2018 19:04
[2018-10-22 20:00] VITALS: BP 125/81
--- NOTE | 2018-10-22 21:55 | General Progress Note ---
Assessment/Plan Problem List: (1) Chronic paranoid schizophrenia ICD Codes: F20.0 - Paranoid schizophrenia SNOMED: 30427784 (2) Cocaine abuse ICD Codes: F14.10 - Cocaine abuse, uncomplicated SNOMED: 20213405 (3) Pacemaker ICD Codes: Z95.0 - Presence of cardiac pacemaker SNOMED: 048141747 (4) ACS (acute coronary syndrome) ICD Codes: I24.9 - Acute ischemic heart disease, unspecified SNOMED: 614464883 (5) Cardiomyopathy ICD Codes: I42.9 - Cardiomyopathy, unspecified SNOMED: 97513938 Status: stable Assessment/Plan cp chronic pain r/o acs negative trop dc in am Subjective ROS Limited/Unobtainable: Yes Allergies: Coded Allergies: LISINOPRIL (Unverified Allergy, Unknown, 03/03/18) Objective Last 24 Hour Vital Signs Date Time Temp Pulse Resp B/P (MAP) Pulse Ox O2 Delivery O2 Flow Rate FiO2 10/22/18 20:32 98 125/81 10/22/18 20:00 98.0 98 18 125/81 (96) 99 10/22/18 19:58 99 18 Room Air 21 10/22/18 16:00 95 10/22/18 16:00 97.7 85 20 92/71 (78) 99 10/22/18 12:00 93 10/22/18 12:00 98.4 82 20 111/78 (89) 99 10/22/18 09:00 Room Air 10/22/18 08:43 90 96/61 10/22/18 08:00 90 18 96/61 (73) 97 10/22/18 08:00 88 10/22/18 07:45 91 17 Room Air 21 10/22/18 03:47 91 10/22/18 00:00 98.7 95 18 113/78 (90) 97 10/21/18 23:22 87 Intake and Output 10/21/18 10/22/18 18:59 06:59 Intake Total 500 ml 300 ml Output Total 1000 ml 500 ml Balance -500 ml -200 ml Intake Oral 500 ml 300 ml Output Urine Total 1000 ml 500 ml Laboratory Tests 10/22/18 11:30: Urine Opiates Screen Negative, Urine Barbiturates Screen Negative, Phencyclidine (PCP) Screen Negative, Urine Amphetamines Screen Negative, Urine Benzodiazepines Screen Negative, Urine Cocaine Screen PositiveH, Urine Marijuana (THC) Screen PositiveH 10/22/18 18:25: C-Reactive Protein, Quantitative < 0.4 Height (Feet): 6 Height (Inches): 0.00 Weight (Pounds): 189 Cardiovascular: normal rate Respiratory/Chest: lungs clear Abdomen: soft Anne Calzada MD Oct 22, 2018 21:55
--- NOTE | 2018-10-22 22:46 | Cardiology Progress Note ---
Assessment/Plan Assessment/Plan 1. Dilated cardiomyopathy, possibly due to cocaine use, add aldactone to the regimen, he is [place]T allergic, may have to use combination of hydralazine and nitrates. 2. Hx of PE on Eliquis 3. Pleuritic chest pain. 4. Slight elevation of troponin likely due to myocarditis in association with cocaine poisoning. 5. Acute systolic and diastolic CHF, continue diuretics and GDMT. Subjective Subjective Sinus rhythm at rate of 98. Objective Last 24 Hour Vital Signs Date Time Temp Pulse Resp B/P (MAP) Pulse Ox O2 Delivery O2 Flow Rate FiO2 10/22/18 21:00 Room Air 10/22/18 20:32 98 125/81 10/22/18 20:00 88 10/22/18 20:00 98.0 98 18 125/81 (96) 99 10/22/18 19:58 99 18 Room Air 21 10/22/18 16:00 95 10/22/18 16:00 97.7 85 20 92/71 (78) 99 10/22/18 12:00 93 10/22/18 12:00 98.4 82 20 111/78 (89) 99 10/22/18 09:00 Room Air 10/22/18 08:43 90 96/61 10/22/18 08:00 90 18 96/61 (73) 97 10/22/18 08:00 88 10/22/18 07:45 91 17 Room Air 21 10/22/18 03:47 91 10/22/18 00:00 98.7 95 18 113/78 (90) 97 10/21/18 23:22 87 Intake and Output 10/21/18 10/22/18 19:00 07:00 Intake Total 500 ml 300 ml Output Total 1000 ml 500 ml Balance -500 ml -200 ml Intake Oral 500 ml 300 ml Output Urine Total 1000 ml 500 ml 2D Echo: EF 15%, DCM, Mod MR, Grade II LVDD (pseudo-nl physio), RVSP 33 Laboratory Tests Test 10/22/18 11:30 10/22/18 18:25 Urine Opiates Screen Negative (NEGATIVE) Urine Barbiturates Screen Negative (NEGATIVE) Phencyclidine (PCP) Screen Negative (NEGATIVE) Urine Amphetamines Screen Negative (NEGATIVE) Urine Benzodiazepines Screen Negative (NEGATIVE) Urine Cocaine Screen Positive (NEGATIVE) H Urine Marijuana (THC) Screen Positive (NEGATIVE) H C-Reactive Protein, Quantitative < 0.4 mg/dL (0.00-0.90) Microbiology Date/Time Source Procedure Growth Status 10/20/18 00:10 Nasal Nares MRSA Culture - Final NO METHICILLIN RESISTANT STAPH AUREUS... Complete 10/20/18 00:10 Rectum - Final NO CARBAPENEM-RESISTANT ENTEROBACTERI... Complete 10/20/18 00:10 Rectum VRE Culture - Final NO VANCOMYCIN RESISTANT ENTEROCOCCUS ... Complete Objective HEENT: Normocephalic and atraumatic. PERRLA, EOMI. NECK: Elevated JVD, no carotid bruit. CHEST: Scattered coarse breath sounds. HEART: Regular rate and rhythm, 2/6 HSM at apex, no gallops or rubs. ABDOMEN: Soft, nontender, and nondistended, + BS EXTREMITIES: No cyanosis, clubbing, or edema. Mitch Santiago MD Oct 22, 2018 22:46
[2018-10-23] VITALS: BP 106/74
[2018-10-23 04:00] VITALS: BP 115/61
[2018-10-23 05:07] LABS: BASOPHILS % (AUTO) 1.7 % (0.0-2.0); EOSINOPHILS % (AUTO) 3.4 % (0.0-3.0); HEMATOCRIT 50.5 % (42.0-52.0); HEMOGLOBIN 16.6 G/DL (14.2-18.0); LYMPHOCYTES % (AUTO) 31.2 % (20.0-45.0); MEAN CORPUSCULAR VOLUME 94 FL (80-99); MONOCYTES % (AUTO) 16.4 % (1.0-10.0); NEUTROPHILS % (AUTO) 47.4 % (45.0-75.0); PLATELET COUNT 260 K/UL (150-450); RED BLOOD COUNT 5.39 M/UL (4.70-6.10); RED CELL DISTRIBUTION WIDTH 14.2 % (11.6-14.8)
[2018-10-23 05:34] LABS: ALANINE AMINOTRANSFERASE 27 U/L (12-78); ALBUMIN 3.3 G/DL (3.4-5.0); ALBUMIN/GLOBULIN RATIO 0.8 (1.0-2.7); ALKALINE PHOSPHATASE 80 U/L (46-116); ANION GAP 9 mmol/L (5-15); ASPARTATE AMINO TRANSFERASE 26 U/L (15-37); BILIRUBIN,TOTAL 0.5 MG/DL (0.2-1.0); BLOOD UREA NITROGEN 16 mg/dL (7-18); CALCIUM 9.2 MG/DL (8.5-10.1); CARBON DIOXIDE 27 MMOL/L (21-32); CHLORIDE 103 MMOL/L (98-107); CREATININE 1.5 MG/DL (0.55-1.30); PHOSPHORUS 4.4 MG/DL (2.5-4.9); POTASSIUM 3.9 MMOL/L (3.5-5.1); SODIUM 139 MMOL/L (136-145)
[2018-10-23 08:00] VITALS: BP 123/69
--- NOTE | 2018-10-23 08:46 | General Progress Note ---
Assessment/Plan Assessment/Plan (1) B/L knee pain (2) B/L knee OA (3) CHF (4) ACS (5) Cocaine abuse We will continue the patient on [place] D/w Dr. Sanchez and he concurred. Subjective Date patient seen: Oct 23, 2018 Time patient seen: 07:15 - am Allergies: Coded Allergies: LISINOPRIL (Unverified Allergy, Unknown, 03/03/18) Subjective REVIEW OF SYSTEMS: Denies rash, fever, chills, sweating, dizziness, drowsiness, blurred vision, sore throat, change in her weight. No nausea, vomiting, diarrhea, or blood in the stool or urine. No bowel or bladder incontinence. No dysuria. He is complaining of knee pain. SUBJECTIVE: Patient reports that the pain has been unchanged and continues to be tolerated on the [place]. No new complaints at this time. Objective Last 24 Hour Vital Signs Date Time Temp Pulse Resp B/P (MAP) Pulse Ox O2 Delivery O2 Flow Rate FiO2 10/23/18 08:41 98 18 Room Air 21 10/23/18 04:00 85 10/23/18 04:00 98.1 87 18 115/61 (79) 99 10/23/18 00:00 90 10/23/18 00:00 98.4 87 18 106/74 (85) 97 10/22/18 21:00 Room Air 10/22/18 20:32 98 125/81 10/22/18 20:00 88 10/22/18 20:00 98.0 98 18 125/81 (96) 99 10/22/18 19:58 99 18 Room Air 21 10/22/18 16:00 95 10/22/18 16:00 97.7 85 20 92/71 (78) 99 10/22/18 12:00 93 10/22/18 12:00 98.4 82 20 111/78 (89) 99 10/22/18 09:00 Room Air Intake and Output 10/22/18 10/23/18 19:00 07:00 Intake Total 500 ml Output Total 700 ml 1400 ml Balance -200 ml -1400 ml Intake Oral 500 ml Output Urine Total 700 ml 1400 ml Laboratory Tests 10/22/18 11:30: Urine Opiates Screen Negative, Urine Barbiturates Screen Negative, Phencyclidine (PCP) Screen Negative, Urine Amphetamines Screen Negative, Urine Benzodiazepines Screen Negative, Urine Cocaine Screen PositiveH, Urine Marijuana (THC) Screen PositiveH 10/22/18 18:25: C-Reactive Protein, Quantitative < 0.4 10/23/18 04:45: White Blood Count 6.0, Red Blood Count 5.39, Hemoglobin 16.6, Hematocrit 50.5, Mean Corpuscular Volume 94, Mean Corpuscular Hemoglobin 30.8, Mean Corpuscular Hemoglobin Concent 32.9, Red Cell Distribution Width 14.2, Platelet Count 260, Mean Platelet Volume 5.7L, Neutrophils (%) (Auto) 47.4, Lymphocytes (%) (Auto) 31.2, Monocytes (%) (Auto) 16.4H, Eosinophils (%) (Auto) 3.4H, Basophils (%) ( Auto) 1.7, Sodium Level 139, Potassium Level 3.9, Chloride Level 103, Carbon Dioxide Level 27, Anion Gap 9, Blood Urea Nitrogen 16, Creatinine 1.5H, Estimat Glomerular Filtration Rate 58.3, Glucose Level 97, Calcium Level 9.2, Phosphorus Level 4.4, Magnesium Level 1.9, Total Bilirubin 0.5, Aspartate Amino Transf (AST/SGOT) 26, Alanine Aminotransferase (ALT/SGPT) 27, Alkaline Phosphatase 80, Pro-B-Type Natriuretic Peptide 707H, Total Protein 7.4, Albumin 3.3L, Globulin 4.1, Albumin/Globulin Ratio 0.8L Height (Feet): 6 Height (Inches): 0.00 Weight (Pounds): 189 Objective GENERAL: Alert, awake, and oriented. LUNGS: Decreased breath sounds bilaterally. HEART: S1 and S2 irregular. ABDOMEN: Benign. EXTREMITIES: No cyanosis. No clubbing. Mike De La Rosa Oct 23, 2018 08:46
[2018-10-23] MEDS: Aspirin EC 81mg tab ORAL SCH (09:26)
[2018-10-23] MEDS: HYDROcodone/Acetamin 10/325 tab ORAL PRN ×2 (09:26→18:31)
[2018-10-23] MEDS: Azithromycin 250mg tab ORAL SCH (09:27)
[2018-10-23] MEDS: Furosemide 40mg tab ORAL SCH ×2 (09:27→20:26)
[2018-10-23] MEDS: Eliquis 2.5mg tablet ORAL SCH ×2 (09:27→17:02)
--- NOTE | 2018-10-23 12:11 | Nephrology Progress Note ---
Assessment/Plan Problem List: (1) Pacemaker (2) Acute on chronic renal failure (3) Cardiomyopathy (4) Cocaine abuse Assessment Renal failure, likely chronic CHF Pacer HTN Low Albumin stable Plan Plan: stable optimize cardiac status Z Pack for RML Bronchitis urine for tox screen + for cocaine and MJ Subjective ROS Limited/Unobtainable: No Constitutional: Reports: malaise Objective Objective Last 24 Hour Vital Signs Date Time Temp Pulse Resp B/P (MAP) Pulse Ox O2 Delivery O2 Flow Rate FiO2 10/23/18 09:56 98.1 10/23/18 09:26 93 123/74 10/23/18 09:00 Room Air 10/23/18 08:41 98 18 Room Air 21 10/23/18 08:00 98.1 85 18 123/69 (87) 99 10/23/18 04:00 85 10/23/18 04:00 98.1 87 18 115/61 (79) 99 10/23/18 00:00 90 10/23/18 00:00 98.4 87 18 106/74 (85) 97 10/22/18 21:00 Room Air 10/22/18 20:32 98 125/81 10/22/18 20:00 88 10/22/18 20:00 98.0 98 18 125/81 (96) 99 10/22/18 19:58 99 18 Room Air 21 10/22/18 16:00 95 10/22/18 16:00 97.7 85 20 92/71 (78) 99 Intake and Output 10/22/18 10/23/18 19:00 07:00 Intake Total 500 ml Output Total 700 ml 1400 ml Balance -200 ml -1400 ml Intake Oral 500 ml Output Urine Total 700 ml 1400 ml Laboratory Tests 10/22/18 18:25: C-Reactive Protein, Quantitative < 0.4 10/23/18 04:45: White Blood Count 6.0, Red Blood Count 5.39, Hemoglobin 16.6, Hematocrit 50.5, Mean Corpuscular Volume 94, Mean Corpuscular Hemoglobin 30.8, Mean Corpuscular Hemoglobin Concent 32.9, Red Cell Distribution Width 14.2, Platelet Count 260, Mean Platelet Volume 5.7L, Neutrophils (%) (Auto) 47.4, Lymphocytes (%) (Auto) 31.2, Monocytes (%) (Auto) 16.4H, Eosinophils (%) (Auto) 3.4H, Basophils (%) ( Auto) 1.7, Sodium Level 139, Potassium Level 3.9, Chloride Level 103, Carbon Dioxide Level 27, Anion Gap 9, Blood Urea Nitrogen 16, Creatinine 1.5H, Estimat Glomerular Filtration Rate 58.3, Glucose Level 97, Calcium Level 9.2, Phosphorus Level 4.4, Magnesium Level 1.9, Total Bilirubin 0.5, Aspartate Amino Transf (AST/SGOT) 26, Alanine Aminotransferase (ALT/SGPT) 27, Alkaline Phosphatase 80, Pro-B-Type Natriuretic Peptide 707H, Total Protein 7.4, Albumin 3.3L, Globulin 4.1, Albumin/Globulin Ratio 0.8L Height (Feet): 6 Height (Inches): 0.00 Weight (Pounds): 189 General Appearance: no apparent distress Objective no change Elias Thorne MD Oct 23, 2018 12:11
[2018-10-23 16:00] VITALS: BP 129/74
--- NOTE | 2018-10-23 17:58 | General Progress Note ---
Assessment/Plan Assessment/Plan ASSESSMENT AND RECOMMENDATIONS # Monocytosis. Likely related to underlying infection versus reactive process. Continues to persist from last admission 10-20% --> ID has seen him before, and s/p course of antibiotics on prior admission --> Peripheral has been ordered, results are pending --> Medications have been reviewed --> Imaging has been reviewed. CXR shows apparent mild accentuation of the bronchovascular and interstitial markings. Could be from mild edema. Mild reticulonodular opacities in the upper lung patrick. Query dominant nodule measuring 12 mm in left mid - upper lung field. --> Blood cultures and urine cultures prn --> On abx, empiric tx per ID. # History of DVT and history of PE as well, on Eliquis. --> CTA was completed and is negative for acute pe --> as per pulm management, given now new episodes/events, continue same anticoagulation # Lung nodule. CXR shows mild reticulonodular opacities in the upper lung patrick. --> pulm is aware, continue recs. Query dominant nodule measuring 12 mm in left mid - upper lung field. # Hemoptysis, likely secondary to pneumonia and bronchitis, ascites, severe infection. # Exacerbation of congestive heart failure. Cardiology is following, appreciate recs. --> The patient's ejection fraction of 10%. --> Continue Lasix 20 mg daily and Cozaar # Status post [employer] defibrillator implantation. # Schizophrenia. GREATLY APPRECIATE CONSULTATION. Subjective Constitutional: Denies: no symptoms, chills, diaphoresis, fever, malaise, weakness, other HEENT: Denies: no symptoms, eye pain, blurred vision, tearing, double vision, ear pain, ear discharge, nose pain, nose congestion, throat pain, throat swelling, mouth pain, mouth swelling, other Cardiovascular: Denies: no symptoms, chest pain, edema, irregular heart rate, lightheadedness, palpitations, syncope, other Respiratory: Denies: no symptoms, cough, orthopnea, shortness of breath, SOB with excertion, SOB at rest, sputum, stridor, wheezing, other Gastrointestinal/Abdominal: Denies: no symptoms, abdomen distended, abdominal pain, black stools, tarry stools, blood in stool, constipated, diarrhea, difficulty swallowing, nausea, poor appetite, poor fluid intake, rectal bleeding , vomiting, other Neurologic/Psychiatric: Denies: no symptoms, anxiety, depressed, emotional problems, headache, numbness, paresthesia, pre-existing deficit, seizure, tingling, tremors, weakness, other Endocrine: Denies: no symptoms, excessive sweating, flushing, intolerance to cold, intolerance to heat, increased hunger, increased thirst, increased urine, unexplained weight gain, unexplained weight loss, other Hematologic/Lymphatic: Denies: no symptoms, anemia, easy bleeding, easy bruising, other Allergies: Coded Allergies: LISINOPRIL (Unverified Allergy, Unknown, 03/03/18) Subjective 10/21: seen by bedside, awake, complains of chest pain but refuses nitroglycerin 10/22: pt is awake, comfortable, complaining of pain, on norco, no events 10/23: Pt is awake and comfortable, no events, denies acute distress. Objective Last 24 Hour Vital Signs Date Time Temp Pulse Resp B/P (MAP) Pulse Ox O2 Delivery O2 Flow Rate FiO2 10/23/18 16:00 98.1 80 18 129/74 (92) 98 10/23/18 12:00 86 10/23/18 09:56 98.1 10/23/18 09:26 93 123/74 10/23/18 09:00 Room Air 10/23/18 08:41 98 18 Room Air 21 10/23/18 08:00 98.1 85 18 123/69 (87) 99 10/23/18 08:00 91 10/23/18 04:00 85 10/23/18 04:00 98.1 87 18 115/61 (79) 99 10/23/18 00:00 90 10/23/18 00:00 98.4 87 18 106/74 (85) 97 10/22/18 21:00 Room Air 10/22/18 20:32 98 125/81 10/22/18 20:00 88 10/22/18 20:00 98.0 98 18 125/81 (96) 99 10/22/18 19:58 99 18 Room Air 21 Intake and Output 10/22/18 10/23/18 19:00 07:00 Intake Total 500 ml Output Total 700 ml 1400 ml Balance -200 ml -1400 ml Intake Oral 500 ml Output Urine Total 700 ml 1400 ml Laboratory Tests 10/22/18 18:25: C-Reactive Protein, Quantitative < 0.4 10/23/18 04:45: White Blood Count 6.0, Red Blood Count 5.39, Hemoglobin 16.6, Hematocrit 50.5, Mean Corpuscular Volume 94, Mean Corpuscular Hemoglobin 30.8, Mean Corpuscular Hemoglobin Concent 32.9, Red Cell Distribution Width 14.2, Platelet Count 260, Mean Platelet Volume 5.7L, Neutrophils (%) (Auto) 47.4, Lymphocytes (%) (Auto) 31.2, Monocytes (%) (Auto) 16.4H, Eosinophils (%) (Auto) 3.4H, Basophils (%) ( Auto) 1.7, Sodium Level 139, Potassium Level 3.9, Chloride Level 103, Carbon Dioxide Level 27, Anion Gap 9, Blood Urea Nitrogen 16, Creatinine 1.5H, Estimat Glomerular Filtration Rate 58.3, Glucose Level 97, Calcium Level 9.2, Phosphorus Level 4.4, Magnesium Level 1.9, Total Bilirubin 0.5, Aspartate Amino Transf (AST/SGOT) 26, Alanine Aminotransferase (ALT/SGPT) 27, Alkaline Phosphatase 80, Pro-B-Type Natriuretic Peptide 707H, Total Protein 7.4, Albumin 3.3L, Globulin 4.1, Albumin/Globulin Ratio 0.8L Height (Feet): 6 Height (Inches): 0.00 Weight (Pounds): 189 Objective PHYSICAL EXAMINATION: VITAL SIGNS: Have been reviewed HEAD AND NECK: Positive JVD. LUNGS: Decreased breath sounds. CARDIOVASCULAR: Regular S1 and S2 with no gallop or murmur. GASTROINTESTINAL: His abdomen is soft. EXTREMITIES: 1+ pitting edema. Odilon Shay MD Oct 23, 2018 17:58
[2018-10-23 20:00] VITALS: BP 106/69
--- NOTE | 2018-10-23 20:35 | Cardiology Progress Note ---
Assessment/Plan Assessment/Plan 1. Non-ischemic cardiomyopathy, possibly due to cocaine use, continue aldactone , he is [place] allergic, may have to use combination of hydralazine and nitrates. 2. Hx of PE on Eliquis 3. Pleuritic chest pain. 4. Slight elevation of troponin likely due to myocarditis in association with cocaine poisoning. 5. Acute systolic and diastolic CHF, continue diuretics and GDMT. 6. CKD 7. Hemoptysis. 8. Cocaine poisoning Subjective Subjective Sinus rhythm at rate of 94. Objective Last 24 Hour Vital Signs Date Time Temp Pulse Resp B/P (MAP) Pulse Ox O2 Delivery O2 Flow Rate FiO2 10/23/18 20:30 94 20 Room Air 21 10/23/18 20:26 94 97/63 10/23/18 19:01 98.1 10/23/18 16:00 98.1 80 18 129/74 (92) 98 10/23/18 16:00 93 10/23/18 12:00 86 10/23/18 09:26 93 123/74 10/23/18 09:00 Room Air 10/23/18 08:41 98 18 Room Air 21 10/23/18 08:00 98.1 85 18 123/69 (87) 99 10/23/18 08:00 91 10/23/18 04:00 85 10/23/18 04:00 98.1 87 18 115/61 (79) 99 10/23/18 00:00 90 10/23/18 00:00 98.4 87 18 106/74 (85) 97 10/22/18 21:00 Room Air Intake and Output 10/22/18 10/23/18 19:00 07:00 Intake Total 500 ml Output Total 700 ml 1400 ml Balance -200 ml -1400 ml Intake Oral 500 ml Output Urine Total 700 ml 1400 ml 2D Echo: EF 15%, DCM, Mod MR, Grade II LVDD (pseudo-nl physio), RVSP 33 Laboratory Tests Test 10/23/18 04:45 White Blood Count 6.0 K/UL (4.8-10.8) Red Blood Count 5.39 M/UL (4.70-6.10) Hemoglobin 16.6 G/DL (14.2-18.0) Hematocrit 50.5 % (42.0-52.0) Mean Corpuscular Volume 94 FL (80-99) Mean Corpuscular Hemoglobin 30.8 PG (27.0-31.0) Mean Corpuscular Hemoglobin Concent 32.9 G/DL (32.0-36.0) Red Cell Distribution Width 14.2 % (11.6-14.8) Platelet Count 260 K/UL (150-450) Mean Platelet Volume 5.7 FL (6.5-10.1) L Neutrophils (%) (Auto) 47.4 % (45.0-75.0) Lymphocytes (%) (Auto) 31.2 % (20.0-45.0) Monocytes (%) (Auto) 16.4 % (1.0-10.0) H Eosinophils (%) (Auto) 3.4 % (0.0-3.0) H Basophils (%) (Auto) 1.7 % (0.0-2.0) Sodium Level 139 MMOL/L (136-145) Potassium Level 3.9 MMOL/L (3.5-5.1) Chloride Level 103 MMOL/L (98-107) Carbon Dioxide Level 27 MMOL/L (21-32) Anion Gap 9 mmol/L (5-15) Blood Urea Nitrogen 16 mg/dL (7-18) Creatinine 1.5 MG/DL (0.55-1.30) H Estimat Glomerular Filtration Rate 58.3 mL/min (>60) Glucose Level 97 MG/DL (74-106) Calcium Level 9.2 MG/DL (8.5-10.1) Phosphorus Level 4.4 MG/DL (2.5-4.9) Magnesium Level 1.9 MG/DL (1.8-2.4) Total Bilirubin 0.5 MG/DL (0.2-1.0) Aspartate Amino Transf (AST/SGOT) 26 U/L (15-37) Alanine Aminotransferase (ALT/SGPT) 27 U/L (12-78) Alkaline Phosphatase 80 U/L (46-116) Pro-B-Type Natriuretic Peptide 707 pg/mL (0-125) H Total Protein 7.4 G/DL (6.4-8.2) Albumin 3.3 G/DL (3.4-5.0) L Globulin 4.1 g/dL Albumin/Globulin Ratio 0.8 (1.0-2.7) L Objective HEENT: Normocephalic and atraumatic. PERRLA, EOMI. NECK: Elevated JVD, no carotid bruit. CHEST: Scattered coarse breath sounds. HEART: Regular rate and rhythm, 2/6 HSM at apex, no gallops or rubs. ABDOMEN: Soft, nontender, and nondistended, + BS EXTREMITIES: No cyanosis, clubbing, or edema. Mitch Santiago MD Oct 23, 2018 20:35
--- NOTE | 2018-10-23 21:06 | General Progress Note ---
Assessment/Plan Problem List: (1) Chronic paranoid schizophrenia ICD Codes: F20.0 - Paranoid schizophrenia SNOMED: 56097750 (2) Cocaine abuse ICD Codes: F14.10 - Cocaine abuse, uncomplicated SNOMED: 71885063 (3) Pacemaker ICD Codes: Z95.0 - Presence of cardiac pacemaker SNOMED: 670250985 (4) ACS (acute coronary syndrome) ICD Codes: I24.9 - Acute ischemic heart disease, unspecified SNOMED: 888737373 (5) Cardiomyopathy ICD Codes: I42.9 - Cardiomyopathy, unspecified SNOMED: 16946246 Status: progressing Assessment/Plan negative cp afebrile dc to safe place chf rewieved chart Subjective ROS Limited/Unobtainable: Yes Allergies: Coded Allergies: LISINOPRIL (Unverified Allergy, Unknown, 03/03/18) Objective Last 24 Hour Vital Signs Date Time Temp Pulse Resp B/P (MAP) Pulse Ox O2 Delivery O2 Flow Rate FiO2 10/23/18 20:30 94 20 Room Air 21 10/23/18 20:26 94 97/63 10/23/18 19:01 98.1 10/23/18 16:00 98.1 80 18 129/74 (92) 98 10/23/18 16:00 93 10/23/18 12:00 86 10/23/18 09:26 93 123/74 10/23/18 09:00 Room Air 10/23/18 08:41 98 18 Room Air 21 10/23/18 08:00 98.1 85 18 123/69 (87) 99 10/23/18 08:00 91 10/23/18 04:00 85 10/23/18 04:00 98.1 87 18 115/61 (79) 99 10/23/18 00:00 90 10/23/18 00:00 98.4 87 18 106/74 (85) 97 Intake and Output 10/22/18 10/23/18 19:00 07:00 Intake Total 500 ml Output Total 700 ml 1400 ml Balance -200 ml -1400 ml Intake Oral 500 ml Output Urine Total 700 ml 1400 ml Laboratory Tests 10/23/18 04:45: White Blood Count 6.0, Red Blood Count 5.39, Hemoglobin 16.6, Hematocrit 50.5, Mean Corpuscular Volume 94, Mean Corpuscular Hemoglobin 30.8, Mean Corpuscular Hemoglobin Concent 32.9, Red Cell Distribution Width 14.2, Platelet Count 260, Mean Platelet Volume 5.7L, Neutrophils (%) (Auto) 47.4, Lymphocytes (%) (Auto) 31.2, Monocytes (%) (Auto) 16.4H, Eosinophils (%) (Auto) 3.4H, Basophils (%) ( Auto) 1.7, Sodium Level 139, Potassium Level 3.9, Chloride Level 103, Carbon Dioxide Level 27, Anion Gap 9, Blood Urea Nitrogen 16, Creatinine 1.5H, Estimat Glomerular Filtration Rate 58.3, Glucose Level 97, Calcium Level 9.2, Phosphorus Level 4.4, Magnesium Level 1.9, Total Bilirubin 0.5, Aspartate Amino Transf (AST/SGOT) 26, Alanine Aminotransferase (ALT/SGPT) 27, Alkaline Phosphatase 80, Pro-B-Type Natriuretic Peptide 707H, Total Protein 7.4, Albumin 3.3L, Globulin 4.1, Albumin/Globulin Ratio 0.8L Height (Feet): 6 Height (Inches): 0.00 Weight (Pounds): 189 Neck: supple Cardiovascular: normal rate Respiratory/Chest: lungs clear Abdomen: soft Anne Calzada MD Oct 23, 2018 21:06
--- NOTE | 2018-10-23 22:56 | Pulmonology Progress Note ---
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 He has mild elevation of his cardiac biomarkers, likely demand ischemia and CTA though limited, does not demonstrate any evidence of obvious PE. His signs and symptoms are likely secondary to bronchitis/URI with possible underlying COPD. PROBLEM LIST: 1. Bronchitis/URI. 2. Trace hemoptysis likely in the setting of bronchitis and anticoagulation. 3. CHF with ischemic cardiomyopathy, EF of 15%, status post AICD, now with decompensated heart failure. 4. Likely underlying COPD. 5. Faint bronchiolitis. 6. DVT and PE, on anticoagulation. 7. CKD. 8. Schizophrenia. 9. Utox + for cocaine and MJ 10. History of tobacco use in the past. 11. Recent cellulitis. TREATMENT PLAN: 1. Optimize pulmonary hygiene/mobilize as tolerated. 2. Titrate on FiO2 to keep saturations greater than 90%. 3. Continue Eliquis 5 mg p.o. b.i.d. 4. Monitor for further bleeding. 5. Monitor volumes and renal function, continue p.o. Lasix as tolerated. 6. Continue azithromycin p.o. (today is day #4). 7. Monitor for signs of worsening respiratory infection. 8. P.r.n. breathing treatments. 9. Aspiration precautions. 10. Cardiology recs 11. Continue to abstain from smoking. Subjective Allergies: Coded Allergies: LISINOPRIL (Unverified Allergy, Unknown, 03/03/18) Subjective AFVSS on RA Less cough no hemoptysis demetria AC no FC no wheezing Objective Last 24 Hour Vital Signs Date Time Temp Pulse Resp B/P (MAP) Pulse Ox O2 Delivery O2 Flow Rate FiO2 10/23/18 21:00 Room Air 10/23/18 20:30 94 20 Room Air 21 10/23/18 20:26 94 97/63 10/23/18 20:00 97.7 94 19 106/69 (81) 97 10/23/18 19:01 98.1 10/23/18 16:00 98.1 80 18 129/74 (92) 98 10/23/18 16:00 93 10/23/18 12:00 86 10/23/18 09:26 93 123/74 10/23/18 09:00 Room Air 10/23/18 08:41 98 18 Room Air 21 10/23/18 08:00 98.1 85 18 123/69 (87) 99 10/23/18 08:00 91 10/23/18 04:00 85 10/23/18 04:00 98.1 87 18 115/61 (79) 99 10/23/18 00:00 90 10/23/18 00:00 98.4 87 18 106/74 (85) 97 Intake and Output 10/22/18 10/23/18 19:00 07:00 Intake Total 500 ml Output Total 700 ml 1400 ml Balance -200 ml -1400 ml Intake Oral 500 ml Output Urine Total 700 ml 1400 ml General Appearance: WD/WN, no acute distress HEENT: normocephalic, atraumatic, anicteric, mucous membranes moist Respiratory/Chest: chest wall non-tender, lungs clear, normal breath sounds, no respiratory distress, no accessory muscle use Cardiovascular: normal peripheral pulses, normal rate, regular rhythm Abdomen: normal bowel sounds, soft, non tender, no organomegaly, non distended , no mass Extremities: no cyanosis, no clubbing, no edema Laboratory Tests 10/23/18 04:45: White Blood Count 6.0, Red Blood Count 5.39, Hemoglobin 16.6, Hematocrit 50.5, Mean Corpuscular Volume 94, Mean Corpuscular Hemoglobin 30.8, Mean Corpuscular Hemoglobin Concent 32.9, Red Cell Distribution Width 14.2, Platelet Count 260, Mean Platelet Volume 5.7L, Neutrophils (%) (Auto) 47.4, Lymphocytes (%) (Auto) 31.2, Monocytes (%) (Auto) 16.4H, Eosinophils (%) (Auto) 3.4H, Basophils (%) ( Auto) 1.7, Sodium Level 139, Potassium Level 3.9, Chloride Level 103, Carbon Dioxide Level 27, Anion Gap 9, Blood Urea Nitrogen 16, Creatinine 1.5H, Estimat Glomerular Filtration Rate 58.3, Glucose Level 97, Calcium Level 9.2, Phosphorus Level 4.4, Magnesium Level 1.9, Total Bilirubin 0.5, Aspartate Amino Transf (AST/SGOT) 26, Alanine Aminotransferase (ALT/SGPT) 27, Alkaline Phosphatase 80, Pro-B-Type Natriuretic Peptide 707H, Total Protein 7.4, Albumin 3.3L, Globulin 4.1, Albumin/Globulin Ratio 0.8L Current Medications Medications (Trade) Dose Ordered Sig/[place] Route PRN Reason Start Time Stop Time Status Last Admin Dose Admin Acetaminophen (Tylenol) 500 mg Q4H PRN ORAL Mild Pain/Temp > 100.5 10/19/18 23:45 11/18/18 23:44 Acetaminophen/ Hydrocodone Bitart (Irving 10/325) 1 tab Q8H PRN ORAL severe pain 10/21/18 17:00 10/28/18 16:59 10/23/18 18:31 Albuterol/ Ipratropium (Albuterol/ Ipratropium) 3 ml Q4H PRN HHN Shortness of Breath 10/20/18 13:00 10/25/18 12:59 Apixaban (Eliquis) 5 mg BID ORAL 10/20/18 09:00 11/19/18 08:59 10/23/18 17:02 Aspirin (Ecotrin) 81 mg DAILY ORAL 10/20/18 09:00 11/19/18 08:59 10/23/18 09:26 Atorvastatin Calcium (Lipitor) 10 mg BEDTIME ORAL 10/20/18 21:00 11/19/18 20:59 10/23/18 20:25 Azithromycin (Zithromax) 250 mg DAILY ORAL 10/21/18 09:00 10/28/18 08:59 10/23/18 09:27 Carvedilol (Coreg) 3.125 mg EVERY 12 HOURS ORAL 10/20/18 21:00 11/19/18 08:59 10/23/18 09:26 Furosemide (Lasix) 40 mg EVERY 12 HOURS ORAL 10/20/18 21:00 11/19/18 08:59 10/23/18 09:27 Nitroglycerin (Ntg) 0.4 mg Q5M PRN SL Prn Chest Pain 10/20/18 13:30 11/19/18 13:29 Spironolactone (Aldactone) 25 mg DAILY ORAL 10/24/18 09:00 11/23/18 08:59 Ananda Vance MD Oct 23, 2018 22:56
[2018-10-24] VITALS: BP 103/72
--- NOTE | 2018-10-24 05:00 | Consultation ---
DATE OF CONSULTATION: 10/20/2018 CONSULTING PHYSICIAN: Mitch Santiago M.D. REFERRING PHYSICIAN: Anne Calzada M.D. REASON FOR CONSULTATION: Management of chest pain. HISTORY OF PRESENT ILLNESS: The patient is a very unfortunate 58-year-old gentleman, presents to emergency department for evaluation of chest pain for two days as well as productive cough. The patient has also had hemoptysis. Chest pain is described as sharp, 8/10 with no associated fever or chills. The patient states that he has history of thromboembolism and had been taking Eliquis. At the time of arrival to the hospital, his blood pressure was 90/50 mmHg and heart rate of 91. A 12-lead electrocardiogram showed normal sinus rhythm with no evidence of acute ischemic features. Chest x-ray was significant for cardiomegaly and dual-chamber pacemaker. There was some evidence of mild interstitial congestion as well. Patient was admitted to the hospital for evaluation of hemoptysis as well as chest pain. Cardiology consultation was made at request of Dr. Calzada to address and manage the chest pain. The patient is currently in the isolation room for evaluation of hemoptysis and to rule out tuberculosis. Chest pain is described as pleuritic and sharp. The patient does not have any prior history of coronary artery disease, stent placement, or coronary artery bypass graft surgery. PAST MEDICAL HISTORY: 1. History of hypertension. 2. History of pulmonary embolism. 3. History of heart failure. 4. History of dual-chamber pacemaker implantation. ALLERGIES: Lisinopril. PAST SURGICAL HISTORY: Dual-chamber pacemaker implantation. SOCIAL HISTORY: Denies any tobacco, alcohol, or illicit drug use. FAMILY HISTORY: No history of premature coronary artery disease or arrhythmogenic in the first-degree relatives. MEDICATIONS: List of medication at home includes Eliquis 2.5 mg twice daily, aspirin 81 mg p.o. daily, carvedilol 3.125 mg twice daily, furosemide 20 mg p.o. daily, and simvastatin 10 mg p.o. nightly. REVIEW OF SYSTEMS: HEENT: Denies any headache, diplopia, or blurred vision. CONSTITUTIONAL: Denies any fever, chills, night sweats, or weight loss. CARDIOVASCULAR: Complains of sharp chest pain, 8/10, pleuritic in the right side of the chest. No shortness of breath. No PND, orthopnea, or leg swelling. Complaining of hemoptysis. No wheezing. GASTROINTESTINAL: Denies any nausea, vomiting, diarrhea, constipation, abdominal pain, or GI bleed. GENITOURINARY: Denies any hematuria, dysuria, or incontinence. NEUROLOGY: Denies any motor dysfunction, sensory deficit, or altered speech. PHYSICAL EXAMINATION: VITAL SIGNS: Blood pressure was 90/50, respirations 15, pulse 91, temperature 98.4 degrees Fahrenheit, and O2 saturation 99% on room air. GENERAL: The patient is a very unfortunate 58-year-old gentleman, in isolation room, in no apparent respiratory distress. HEENT: Atraumatic and normocephalic. Anicteric. Pupils are equal, round, and reactive to light and accommodation. Extraocular muscles intact. NECK: JVP less than 5 cm. No carotid bruit. Carotid upstroke is 2+ bilaterally. CVS: Normal S1, S2. No murmurs, gallops, or rubs. PMI is at fourth intercostal space at the left midclavicular line. LUNGS: Clear to auscultation bilaterally. ABDOMEN: Soft, nontender, and nondistended. No hepatosplenomegaly. Positive bowel sounds. EXTREMITIES: No evidence of edema, clubbing, or cyanosis. LABORATORY FINDINGS: WBC 6.1, hemoglobin of 14.7, hematocrit of 45.5, and platelet count is 222,000. Sodium is 139, potassium is 3.7, chloride 104, bicarbonate 22, BUN of 13, creatinine 1.5, and glucose is 80. Calcium is 8.8. Troponin I 0.044 and 0.063. ProBNP was 1197. INR is 1.0. Toxicology showed positive cocaine and marijuana in his urine. ASSESSMENT AND PLAN: The patient is a very unfortunate 58-year-old gentleman, seen in Cardiology consultation. 1. Chest pain, appears to be pleuritic, right-sided, sharp in quality could be secondary to cocaine poisoning. At this time, the patient is being evaluated for hemoptysis. A 12-lead electrocardiogram does not show any evidence of ischemia. We will obtain 2D echocardiography for assessment of LV systolic and diastolic function. Of note, 2D echocardiography is significant for severe LV systolic dysfunction with LVEF of 15%. We will discuss with the patient regarding workup of this condition including the right and left heart catheterization if this study has not ordered to be done and the workup has not be performed. 2. Acute systolic and diastolic congestive heart failure with elevated BNP. We will continue the patient on diuretics. 3. Hemoptysis, could be secondary to Eliquis use or could be due to pulmonary venous hypertension. The patient is currently being worked up for ruling out tuberculosis. 4. History of thromboembolism, on Eliquis therapy. 5. History of congestive heart failure in the past. 6. History of hypertension. 7. History of dual-chamber pacemaker implantation. I would like to thank, Dr. Calzada, for allowing me to participate in the care of this patient. Mitch Santiago M.D. DR: PRITI JOB#: [id number] CC:
[2018-10-24] MEDS: HYDROcodone/Acetamin 10/325 tab ORAL PRN ×2 (05:44→14:52)
--- NOTE | 2018-10-24 08:53 | General Progress Note ---
Assessment/Plan Assessment/Plan (1) B/L knee pain (2) B/L knee OA (3) CHF (4) ACS (5) Cocaine abuse We will continue the patient on [place] D/w Dr. Sanchez and he concurred. Subjective Date patient seen: Oct 24, 2018 Time patient seen: 07:30 - am Allergies: Coded Allergies: LISINOPRIL (Unverified Allergy, Unknown, 03/03/18) Subjective REVIEW OF SYSTEMS: Denies rash, fever, chills, sweating, dizziness, drowsiness, blurred vision, sore throat, change in her weight. No nausea, vomiting, diarrhea, or blood in the stool or urine. No bowel or bladder incontinence. No dysuria. He is complaining of knee pain. SUBJECTIVE: Patient is in bed and showing no signs of pain or distress. His pain has been stable on the norco and has no new complaints at this time. Objective Last 24 Hour Vital Signs Date Time Temp Pulse Resp B/P (MAP) Pulse Ox O2 Delivery O2 Flow Rate FiO2 10/24/18 04:00 90 10/24/18 00:00 98.4 96 18 103/72 (82) 97 10/24/18 00:00 94 10/23/18 21:00 Room Air 10/23/18 20:30 94 20 Room Air 21 10/23/18 20:26 94 97/63 10/23/18 20:00 90 10/23/18 20:00 97.7 94 19 106/69 (81) 97 10/23/18 19:01 98.1 10/23/18 16:00 98.1 80 18 129/74 (92) 98 10/23/18 16:00 93 10/23/18 12:00 86 10/23/18 09:26 93 123/74 10/23/18 09:00 Room Air Intake and Output 10/23/18 10/24/18 18:59 06:59 Intake Total 1000 ml Output Total 400 ml Balance 600 ml Other 1000 ml Output Urine Total 400 ml Height (Feet): 6 Height (Inches): 0.00 Weight (Pounds): 189 Objective GENERAL: Alert, awake, and oriented. LUNGS: Decreased breath sounds bilaterally. HEART: S1 and S2 irregular. ABDOMEN: Benign. EXTREMITIES: No cyanosis. No clubbing. Mike De La Rosa Oct 24, 2018 08:53
[2018-10-24] MEDS ORDERED: Spironolactone 25mg tab ORAL SCH (09:00)
[2018-10-24] MEDS: Eliquis 2.5mg tablet ORAL SCH (10:09)
[2018-10-24] MEDS: Furosemide 40mg tab ORAL SCH (10:10)
[2018-10-24] MEDS: Azithromycin 250mg tab ORAL SCH (10:10)
[2018-10-24] MEDS: Aspirin EC 81mg tab ORAL SCH (10:10)
[2018-10-24 12:00] VITALS: BP 109/77
--- NOTE | 2018-10-24 16:14 | Pulmonology Progress Note ---
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 He has mild elevation of his cardiac biomarkers, likely demand ischemia and CTA though limited, does not demonstrate any evidence of obvious PE. His signs and symptoms are likely secondary to bronchitis/URI with possible underlying COPD. PROBLEM LIST: 1. Bronchitis/URI. 2. Trace hemoptysis likely in the setting of bronchitis and anticoagulation. 3. CHF with ischemic cardiomyopathy, EF of 15%, status post AICD, now with decompensated heart failure. 4. Likely underlying COPD. 5. Faint bronchiolitis. 6. DVT and PE, on anticoagulation. 7. CKD. 8. Schizophrenia. 9. Utox + for cocaine and MJ 10. History of tobacco use in the past. 11. Recent cellulitis. TREATMENT PLAN: 1. Optimize pulmonary hygiene/mobilize as tolerated. 2. Titrate on FiO2 to keep saturations greater than 90%. 3. Continue Eliquis 5 mg p.o. b.i.d. 4. Monitor for further bleeding. 5. Monitor volumes and renal function, continue p.o. Lasix as tolerated. 6. Continue azithromycin p.o. (today is day #4). 7. Monitor for signs of worsening respiratory infection. 8. P.r.n. breathing treatments. 9. Aspiration precautions. 10. Cardiology recs 11. Continue to abstain from smoking. Subjective Allergies: Coded Allergies: LISINOPRIL (Unverified Allergy, Unknown, 03/03/18) Subjective AFVSS on RA Less cough no hemoptysis demetria AC no FC no wheezing Objective Vital Signs Noted General Appearance: WD/WN, no acute distress HEENT: normocephalic, atraumatic, anicteric, mucous membranes moist Respiratory/Chest: chest wall non-tender, lungs clear, normal breath sounds, no respiratory distress, no accessory muscle use Cardiovascular: normal peripheral pulses, normal rate, regular rhythm Abdomen: normal bowel sounds, soft, non tender, no organomegaly, non distended , no mass Extremities: no cyanosis, no clubbing, no edema Laboratory Tests 10/23/18 04:45: White Blood Count 6.0, Red Blood Count 5.39, Hemoglobin 16.6, Hematocrit 50.5, Mean Corpuscular Volume 94, Mean Corpuscular Hemoglobin 30.8, Mean Corpuscular Hemoglobin Concent 32.9, Red Cell Distribution Width 14.2, Platelet Count 260, Mean Platelet Volume 5.7L, Neutrophils (%) (Auto) 47.4, Lymphocytes (%) (Auto) 31.2, Monocytes (%) (Auto) 16.4H, Eosinophils (%) (Auto) 3.4H, Basophils (%) ( Auto) 1.7, Sodium Level 139, Potassium Level 3.9, Chloride Level 103, Carbon Dioxide Level 27, Anion Gap 9, Blood Urea Nitrogen 16, Creatinine 1.5H, Estimat Glomerular Filtration Rate 58.3, Glucose Level 97, Calcium Level 9.2, Phosphorus Level 4.4, Magnesium Level 1.9, Total Bilirubin 0.5, Aspartate Amino Transf (AST/SGOT) 26, Alanine Aminotransferase (ALT/SGPT) 27, Alkaline Phosphatase 80, Pro-B-Type Natriuretic Peptide 707H, Total Protein 7.4, Albumin 3.3L, Globulin 4.1, Albumin/Globulin Ratio 0.8L Current Medications Medications (Trade) Dose Ordered Sig/[place] Route PRN Reason Start Time Stop Time Status Last Admin Dose Admin Acetaminophen (Tylenol) 500 mg Q4H PRN ORAL Mild Pain/Temp > 100.5 10/19/18 23:45 11/18/18 23:44 Acetaminophen/ Hydrocodone Bitart (Satin 10/325) 1 tab Q8H PRN ORAL severe pain 10/21/18 17:00 10/28/18 16:59 10/23/18 18:31 Albuterol/ Ipratropium (Albuterol/ Ipratropium) 3 ml Q4H PRN HHN Shortness of Breath 10/20/18 13:00 10/25/18 12:59 Apixaban (Eliquis) 5 mg BID ORAL 10/20/18 09:00 11/19/18 08:59 10/23/18 17:02 Aspirin (Ecotrin) 81 mg DAILY ORAL 10/20/18 09:00 11/19/18 08:59 10/23/18 09:26 Atorvastatin Calcium (Lipitor) 10 mg BEDTIME ORAL 10/20/18 21:00 11/19/18 20:59 10/23/18 20:25 Azithromycin (Zithromax) 250 mg DAILY ORAL 10/21/18 09:00 10/28/18 08:59 10/23/18 09:27 Carvedilol (Coreg) 3.125 mg EVERY 12 HOURS ORAL 10/20/18 21:00 11/19/18 08:59 10/23/18 09:26 Furosemide (Lasix) 40 mg EVERY 12 HOURS ORAL 10/20/18 21:00 11/19/18 08:59 10/23/18 09:27 Nitroglycerin (Ntg) 0.4 mg Q5M PRN SL Prn Chest Pain 10/20/18 13:30 11/19/18 13:29 Spironolactone (Aldactone) 25 mg DAILY ORAL 10/24/18 09:00 11/23/18 08:59 Subjective ROS Limited/Unobtainable: No Allergies: Coded Allergies: LISINOPRIL (Unverified Allergy, Unknown, 03/03/18) Objective Last 24 Hour Vital Signs Date Time Temp Pulse Resp B/P (MAP) Pulse Ox O2 Delivery O2 Flow Rate FiO2 10/24/18 15:22 98.2 10/24/18 12:00 98.2 89 16 109/77 (88) 96 10/24/18 12:00 87 10/24/18 10:10 90 112/65 10/24/18 09:00 Room Air 10/24/18 08:00 89 10/24/18 04:00 90 10/24/18 00:00 98.4 96 18 103/72 (82) 97 10/24/18 00:00 94 10/23/18 21:00 Room Air 10/23/18 20:30 94 20 Room Air 21 10/23/18 20:26 94 97/63 10/23/18 20:00 90 10/23/18 20:00 97.7 94 19 106/69 (81) 97 Intake and Output 10/23/18 10/24/18 19:00 07:00 Intake Total 1000 ml Output Total 400 ml Balance 600 ml Other 1000 ml Output Urine Total 400 ml Current Medications Medications (Trade) Dose Ordered Sig/[place] Route PRN Reason Start Time Stop Time Status Last Admin Dose Admin Acetaminophen (Tylenol) 500 mg Q4H PRN ORAL Mild Pain/Temp > 100.5 10/19/18 23:45 11/18/18 23:44 Acetaminophen/ Hydrocodone Bitart (Satin 10/325) 1 tab Q8H PRN ORAL severe pain 10/21/18 17:00 10/28/18 16:59 10/24/18 14:52 Albuterol/ Ipratropium (Albuterol/ Ipratropium) 3 ml Q4H PRN HHN Shortness of Breath 10/20/18 13:00 10/25/18 12:59 Apixaban (Eliquis) 5 mg BID ORAL 10/20/18 09:00 11/19/18 08:59 10/24/18 10:09 Aspirin (Ecotrin) 81 mg DAILY ORAL 10/20/18 09:00 11/19/18 08:59 10/24/18 10:10 Atorvastatin Calcium (Lipitor) 10 mg BEDTIME ORAL 10/20/18 21:00 11/19/18 20:59 10/23/18 20:25 Azithromycin (Zithromax) 250 mg DAILY ORAL 10/21/18 09:00 10/28/18 08:59 10/24/18 10:10 Carvedilol (Coreg) 3.125 mg EVERY 12 HOURS ORAL 10/20/18 21:00 11/19/18 08:59 10/24/18 10:10 Furosemide (Lasix) 40 mg EVERY 12 HOURS ORAL 10/20/18 21:00 11/19/18 08:59 10/24/18 10:10 Nitroglycerin (Ntg) 0.4 mg Q5M PRN SL Prn Chest Pain 10/20/18 13:30 11/19/18 13:29 Spironolactone (Aldactone) 25 mg DAILY ORAL 10/24/18 09:00 11/23/18 08:59 10/24/18 10:10 Maxx Ashley MD Oct 24, 2018 16:14
--- NOTE | 2018-10-24 16:37 | Nephrology Progress Note ---
Assessment/Plan Problem List: (1) Pacemaker (2) Acute on chronic renal failure (3) Cardiomyopathy (4) Cocaine abuse Assessment Renal failure, likely chronic Cr 1.5 CHF Pacer HTN Low Albumin stable Plan Plan: stable optimize cardiac status Z Pack for RML Bronchitis urine for tox screen + for cocaine and MJ Subjective ROS Limited/Unobtainable: No Constitutional: Reports: malaise Objective Objective Last 24 Hour Vital Signs Date Time Temp Pulse Resp B/P (MAP) Pulse Ox O2 Delivery O2 Flow Rate FiO2 10/24/18 15:22 98.2 10/24/18 12:00 98.2 89 16 109/77 (88) 96 10/24/18 12:00 87 10/24/18 10:10 90 112/65 10/24/18 09:00 Room Air 10/24/18 08:00 89 10/24/18 04:00 90 10/24/18 00:00 98.4 96 18 103/72 (82) 97 10/24/18 00:00 94 10/23/18 21:00 Room Air 10/23/18 20:30 94 20 Room Air 21 10/23/18 20:26 94 97/63 10/23/18 20:00 90 10/23/18 20:00 97.7 94 19 106/69 (81) 97 Intake and Output 10/23/18 10/24/18 19:00 07:00 Intake Total 1000 ml Output Total 400 ml Balance 600 ml Other 1000 ml Output Urine Total 400 ml Height (Feet): 6 Height (Inches): 0.00 Weight (Pounds): 189 General Appearance: no apparent distress Cardiovascular: normal rate Respiratory/Chest: decreased breath sounds Abdomen: soft Objective no change Elias Thorne MD Oct 24, 2018 16:36
--- NOTE | 2018-10-24 19:49 | General Progress Note ---
Assessment/Plan Assessment/Plan ASSESSMENT AND RECOMMENDATIONS # Monocytosis. Likely related to underlying infection versus reactive process. Continues to persist from last admission 10-20% --> ID has seen him before, and s/p course of antibiotics on prior admission --> Peripheral has been ordered, results are pending --> Medications have been reviewed --> Imaging has been reviewed. CXR shows apparent mild accentuation of the bronchovascular and interstitial markings. Could be from mild edema. Mild reticulonodular opacities in the upper lung patrick. Query dominant nodule measuring 12 mm in left mid - upper lung field. --> Blood cultures and urine cultures prn --> On abx, empiric tx per ID. # History of DVT and history of PE as well, on Eliquis. --> CTA was completed and is negative for acute pe --> as per pulm management, given now new episodes/events, continue same anticoagulation # Lung nodule. CXR shows mild reticulonodular opacities in the upper lung patrick. --> pulm is aware, continue recs. Query dominant nodule measuring 12 mm in left mid - upper lung field. # Hemoptysis, likely secondary to pneumonia and bronchitis, ascites, severe infection. # Exacerbation of congestive heart failure. Cardiology is following, appreciate recs. --> The patient's ejection fraction of 10%. --> Continue Lasix 20 mg daily and Cozaar # Status post [employer] defibrillator implantation. # Schizophrenia. GREATLY APPRECIATE CONSULTATION. Subjective Constitutional: Denies: no symptoms, chills, diaphoresis, fever, malaise, weakness, other HEENT: Denies: no symptoms, eye pain, blurred vision, tearing, double vision, ear pain, ear discharge, nose pain, nose congestion, throat pain, throat swelling, mouth pain, mouth swelling, other Cardiovascular: Denies: no symptoms, chest pain, edema, irregular heart rate, lightheadedness, palpitations, syncope, other Respiratory: Denies: no symptoms, cough, orthopnea, shortness of breath, SOB with excertion, SOB at rest, sputum, stridor, wheezing, other Gastrointestinal/Abdominal: Denies: no symptoms, abdomen distended, abdominal pain, black stools, tarry stools, blood in stool, constipated, diarrhea, difficulty swallowing, nausea, poor appetite, poor fluid intake, rectal bleeding , vomiting, other Genitourinary: Denies: no symptoms, burning, discharge, frequency, flank pain, hematuria, incontinence, pain, urgency, other Neurologic/Psychiatric: Denies: no symptoms, anxiety, depressed, emotional problems, headache, numbness, paresthesia, pre-existing deficit, seizure, tingling, tremors, weakness, other Hematologic/Lymphatic: Denies: no symptoms, anemia, easy bleeding, easy bruising, other Allergies: Coded Allergies: LISINOPRIL (Unverified Allergy, Unknown, 03/03/18) Subjective 10/21: seen by bedside, awake, complains of chest pain but refuses nitroglycerin 10/22: pt is awake, comfortable, complaining of pain, on norco, no events 10/23: Pt is awake and comfortable, no events, denies acute distress. 10/24: Pt is awake, denies fevers and chills, no events Objective Last 24 Hour Vital Signs Date Time Temp Pulse Resp B/P (MAP) Pulse Ox O2 Delivery O2 Flow Rate FiO2 10/24/18 15:22 98.2 10/24/18 12:00 98.2 89 16 109/77 (88) 96 10/24/18 12:00 87 10/24/18 10:10 90 112/65 10/24/18 09:00 Room Air 10/24/18 08:00 89 10/24/18 04:00 90 10/24/18 00:00 98.4 96 18 103/72 (82) 97 10/24/18 00:00 94 10/23/18 21:00 Room Air 10/23/18 20:30 94 20 Room Air 21 10/23/18 20:26 94 97/63 10/23/18 20:00 90 10/23/18 20:00 97.7 94 19 106/69 (81) 97 Intake and Output 10/23/18 10/24/18 19:00 07:00 Intake Total 1000 ml Output Total 400 ml Balance 600 ml Other 1000 ml Output Urine Total 400 ml Height (Feet): 6 Height (Inches): 0.00 Weight (Pounds): 189 Objective PHYSICAL EXAMINATION: VITAL SIGNS: Have been reviewed HEAD AND NECK: Positive JVD. LUNGS: Decreased breath sounds. CARDIOVASCULAR: Regular S1 and S2 with no gallop or murmur. GASTROINTESTINAL: His abdomen is soft. EXTREMITIES: 1+ pitting edema. Odilon Shay MD Oct 24, 2018 19:49
--- NOTE | 2018-10-25 16:12 | Discharge Summary ---
Discharge Summary Discharge Summary _ DATE OF ADMISSION: 10/19/2018 DATE OF DISCHARGE: 10/24/2018 DISCHARGED BY: Dr. Calzada REASON FOR ADMISSION: 58 years old male with past medical history of hypertension, congestive heart failure, DVT and pulmonary emboli, presented to emergency department complaining of cough and chest pain for 2 days. Pain reported to be sharp, nonradiating ,8 out of 10 on a scale 1-10. Patient reported seeing blood in sputum. Patient on anticoagulation with Eliquis due to history of DVT and PE. Patient reported compliance with his medication regimen. He denied fever and chills. He denied illicit drug use. He denied current smoking, but has past history of smoking. Upon evaluation vital signs revealed low blood pressure 90/50 , otherwise stable . Laboratory workup revealed no leukocytosis ,stable hemoglobin and hematocrit , stable coagulation profile ,stable electrolytes. BUN 13 creatinine 1.5 , stable LFT. Troponin - 0.044 , pro BNP 1197 . EKG revealed sinus rhythm, no acute ischemic changes. Chest x-ray revealed AICD and cardiomegaly with some interstitial congestion. CT chest angiogram revealed no evidence of gross large vessel central pulmonary emboli. Distal pulmonary emboli were not excluded. Possible right middle lobe bronchiolitis. Basilar atelectatic changes. Cardiomegaly. Patient was admitted for further management. CONSULTANTS: inside contractor sales Dr. Santiago pulmonary receiver/laborer Dr. Thorne restaurant worker/oncologist Dr. Shay pain specialist Dr. Sanchez HOSPITAL COURSE: Patient was admitted to telemetry floor. Loan Consultant and pumping plant operator closely followed . Supplemental oxygen provided as needed to keep pulse oximetry above 92%. Pulmonary toilet provided as needed. Patient was mobilized as tolerated. Anticoagulation with Eliquis was continued. Venous duplex bilateral lower extremity revealed no evidence of DVT. Patient had a trace hemoptysis likely in the setting of bronchitis and anticoagulation. No further bleeding. Hemoglobin and hematocrit remained stable. Patient was on antibiotic. Aspiration precautions were maintained. Patient was counseled Echocardiogram revealed ejection fraction of 15% with global left ventricular hypokinesis and grade 2 diastolic dysfunction, moderate mitral regurgitation and right ventricular systolic pressure of 33. Patient was on oral diuretic. Volumes and cardiorenal parameters were closely monitored. Pro BNP trended down. Urine toxicology screen was positive for cocaine and marijuana. Per inside contractor sales, nonischemic cardiomyopathy was possibly due to cocaine use. Medical management was continued with diuretic, beta ivan and Aldactone. Patient allergic to EVERETT inhibitor. Anticoagulation with Eliquis was continued. Second troponin was minimally elevated. Slight elevation of troponin was likely due to myocarditis in association with cocaine poisoning, as per inside contractor sales. Last troponin was negative . Anti-platelet therapy with aspirin and statin were continued. Renal parameters and electrolytes were closely monitored , electrolytes corrected as needed. Pain management provided as per pain specialist recommendations for bilateral knee osteoarthritis Watch Assembly Instructor closely follow for renal failure. Renal parameters and electrolytes were closely monitored, electrolytes corrected as needed , and nephrotoxins were avoided as possible. Per receiver/laborer renal failure was likely chronic , creatinine - 1.5, without change. It Web Development Consultant followed and recommended in view of the history of PE and DVT, continue same anticoagulation/Eliquis. Patient was counseled on abstinence from illicit street drugs and to continue abstinence from smoking. Patient was clinically stabilized and ready for discharge home. FINAL DIAGNOSES: Acute systolic and diastolic CHF Nonischemic cardiomyopathy, possibly due to cocaine use History of PE and DVT (on chronic anticoagulation therapy with Eliquis) Pleuritic chest pain Bronchitis Upper respiratory infection Trace hemoptysis (likely in the setting of bronchitis and anticoagulation) Slight elevation of troponin, likely secondary to myocarditis in association with cocaine poisoning Chronic renal failure AICD Likely underlying COPD Slight bronchiolitis Cocaine abuse History of tobacco use Bilateral knee osteoarthritis Schizophrenia DISCHARGE MEDICATIONS: See Medication Reconciliation list. DISCHARGE INSTRUCTIONS: Patient was discharged home. Follow up with primary care provider in one week. I have been assigned to dictate discharge summary for this account. I was not involved in the patient's management. Indu Valderrama NP Oct 25, 2018 16:11
--- NOTE | 2018-10-27 18:40 | Cardiology Report ---
APPROVED REPORT EKG Measurement Heart [id number] Normal sinus rhythm Voltage criteria for left ventricular hypertrophy T wave abnormality, consider lateral ischemia Prolonged QT Abnormal ECG
--- NOTE | 2018-10-27 18:48 | Cardiology Report ---
APPROVED REPORT EXAM: Two-dimensional and M-mode echocardiogram with Doppler and color Doppler. INDICATION Congestive Heart Failure M-Mode DIMENSIONS IVSd0.9 (0.7-1.1cm)Left Atrium (MM)5.1 (1.6-4.0cm) LVDd7.9 (3.5-5.6cm)Aortic Root3.4 (2.0-3.7cm) PWd0.8 (0.7-1.1cm)Aortic Cusp Exc.2.0 (1.5-2.0cm) LVDs6.9 (2.5-4.0cm) PWs0.9 cm Severe left ventricular enlargement. Global left ventricular hypokinesis. Ischemic cardiomyopathy cannot be excluded. Left ventricular ejection fraction estimated to be 15 %. No evidence of left ventricular hypertrophy. No evidence of pericardial effusion. Severe left atrial enlargement. Right cardiac chamber sizes are within normal limits. Mild focal aortic valve sclerosis with adequate cusp excursion. Mildly thickened mitral valve leaflets with normal excursion. Mild mitral annulus and aortic root calcification. Normal pulmonic valve structure. Normal tricuspid valve structure. IVC measures at 2.1 cm without physiological collapse. A color flow and spectral Doppler study was performed and revealed: Trace aortic insufficiency. Moderate mitral regurgitation. Mitral inflow velocities indicates possible pseudo normalization pattern implying significant left ventricular diastolic dysfunction (Grade II). Mild tricuspid regurgitation. Tricuspid systolic velocities suggests peak right ventricular systolic pressure of 33 mmHg. Trace pulmonic regurgitation present.
== END 2018-10-24 16:00 | disposition home or self-care (01) | DRG 194 ==
LOC: EMR 20:30 → 2E 21:02 → EDBEDREQ 21:20 → 2E 23:26
DX: I13.0 Hypertensive heart and chronic kidney disease with heart failure and stage 1 through stage 4 chronic kidney disease, or unspecified chronic kidney disease (principal); N17.9 Acute kidney failure, unspecified; F20.0 Paranoid schizophrenia; J44.0 Chronic obstructive pulmonary disease with (acute) lower respiratory infection; I51.4 Myocarditis, unspecified; I50.23 Acute on chronic systolic (congestive) heart failure; N18.9 Chronic kidney disease, unspecified; R91.1 Solitary pulmonary nodule; J21.9 Acute bronchiolitis, unspecified; F14.188 Cocaine abuse with other cocaine-induced disorder; F12.90 Cannabis use, unspecified, uncomplicated; Z59.0 Homelessness; M17.0 Bilateral primary osteoarthritis of knee; R07.81 Pleurodynia; I25.5 Ischemic cardiomyopathy; E78.5 Hyperlipidemia, unspecified; Z79.01 Long term (current) use of anticoagulants; Z86.718 Personal history of other venous thrombosis and embolism; Z87.891 Personal history of nicotine dependence; Z86.711 Personal history of pulmonary embolism; Z95.0 Presence of cardiac pacemaker
CPT/HCPCS: 36415; 71045; 71275; 80053; 80061; 80307; 81001; 82550; 82553; 82607; 82746; 82977; 83036; 83735; 83880; 84100; 84443; 84484; 84550; 85025; 85610; 85730; 86140; 87081; 93005; 93306; 93970; 94640; 94664; 96374; 96375; 99285

== ENCOUNTER 2018-12-21 19:45 | Inpatient (IN) | payer OTHER ==
[~2018-12-21] VITALS: Ht 185.4 cm; Wt 89.0 kg
--- NOTE | 2018-12-21 20:07 | NUR ---
ED Nurse Note: Patient presents with complaints of chest pain and SOB>
[2018-12-21 20:15] VITALS: BP 108/65
--- NOTE | 2018-12-21 20:15 | NUR ---
ED Nurse Note: pt came to ED via wheelchair c/o chest pain radiating to back, sob, cough, and nightsweat x 2 days. pt AA&ox4, gcs=15, skin warm and dry, resp even and unlabored on RA, LS=clear, -n/v/d at this time, VSS, NSR on cardiac rehabilitation program director, will cont monitor.
--- NOTE | 2018-12-21 20:40 | NUR ---
ED Nurse Note: report given to ABRIL Dior and endorsed care.
[2018-12-21] MEDS ORDERED: Albuterol ud Inhalation HHN ONE (20:45)
[2018-12-21] MEDS ORDERED: Nitroglycerin 2% oint pkt TOPIC ONE (20:45)
[2018-12-21] MEDS ORDERED: Aspirin Baby 81mg ORAL ONE (20:45)
[2018-12-21] MEDS ORDERED: Ipratropium 0.02% Inh Soln 2.5ml UD HHN ONE (20:45)
[2018-12-21] MEDS ORDERED: Isovue-370 150ml vial INJ PRN (20:45)
[2018-12-21] MEDS ORDERED: Morphine Sulfate 4mg/ml Inj (IV USE ONLY) IVP ONE (20:45)
[2018-12-21 21:08] LABS: BASOPHILS % (AUTO) 2.4 % (0.0-2.0); EOSINOPHILS % (AUTO) 2.2 % (0.0-3.0); HEMATOCRIT 46.7 % (42.0-52.0); HEMOGLOBIN 15.6 G/DL (14.2-18.0); LYMPHOCYTES % (AUTO) 49.3 % (20.0-45.0); MEAN CORPUSCULAR VOLUME 91 FL (80-99); MONOCYTES % (AUTO) 11.7 % (1.0-10.0); NEUTROPHILS % (AUTO) 34.4 % (45.0-75.0); PLATELET COUNT 392 K/UL (150-450); RED BLOOD COUNT 5.12 M/UL (4.70-6.10); RED CELL DISTRIBUTION WIDTH 12.9 % (11.6-14.8); WHITE BLOOD COUNT 4.8 K/UL (4.8-10.8)
--- NOTE | 2018-12-21 21:12 | Emergency Room Report ---
History of Present Illness General Chief Complaint: Dyspnea/Respdistress Source: Patient Present Illness HPI Patient presents with 2 days of chest pain and coughing up blood. He's felt feverish but denies any productive phlegm. The patient has a history of pulmonary embolus and in the past was taking Eliquis. He's not been taking it recently. He reports having night sweats and losing weight recently along with coughing up the blood. He was previously in shelters but now is on the streets. He was seen at [facility] 2 days ago on the and got medication refills but I was not evaluated for this problem. He states the pain is 10/10 at this time pleuritic left-sided and pressure. The patient is in a wheelchair because of chronic left knee injury. He's unable to straighten his knee and apparently surgery is being planned in the future. Last drank alcohol this AM. Denies drugs (see Tox). Allergies: Coded Allergies: LISINOPRIL (Unverified Allergy, Unknown, 03/03/18) Patient History Past Medical History: see triage record Social History: Reports: smoking, alcohol use, drug use Social History Narrative was in winter shelters, now homeless without a place to stay Reviewed Nursing Documentation: PMH: Agreed; PSxH: Agreed Nursing Documentation-PMH Hx Cardiac Problems: Yes - CHF Hx Hypertension: Yes Hx Pacemaker: Yes Hx Asthma: Yes Hx Cancer: No Hx Gastrointestinal Problems: No Hx Neurological Problems: No Review of Systems All Other Systems: negative except mentioned in HPI Physical Exam Vital Signs Date Time Temp Pulse Resp B/P (MAP) Pulse Ox O2 Delivery O2 Flow Rate FiO2 12/21/18 20:07 98.4 92 16 99/63 95 Room Air Sp02 EP Interpretation: reviewed, normal General Appearance: well appearing, no apparent distress, GCS 15 Head: normocephalic Eyes: bilateral eye normal inspection, bilateral eye fluoroscene uptake, bilateral eye Scleral Injection ENT: moist mucus membranes Neck: supple Respiratory: crackles, wheezing Cardiovascular #1: regular rate, rhythm Cardiovascular #2: 2+ radial (R) Gastrointestinal: normal inspection, normal bowel sounds, non tender, no mass, non-distended Musculoskeletal: back normal, digits/nails normal, no calf tenderness, decreased range of motion - L knee with swelling and DJD, Jonnathan's Sign negative Neurologic: alert, oriented x3, grossly normal Psychiatric: mood/affect normal Skin: normal inspection, warm/dry Medical Decision Making Diagnostic Impression: Primary Impression: RLL pneumonia Qualified Codes: J18.1 - Lobar pneumonia, unspecified organism Additional Impressions: ACS (acute coronary syndrome) Cocaine abuse Hemoptysis Renal insufficiency ER Course Patient presents with chest pain hemoptysis history of pulmonary emboli. Differential includes pneumonia, tuberculosis, or embolus, acute coronary syndrome amongst others. The patient will be evaluated with EKG, CT angiogram, chest x-ray and labs. The patient will be treated with aspirin, nitrates, Zofran and morphine. Because of the history of night sweats hemoptysis weight loss the patient will be placed in respiratory isolation. EKG sinus rhythm left atrial enlargement left ventricular hypertrophy nonspecific ST-T wave changes and QT prolongation of 489 ms. Chest x- raypacemaker, right lower lobe increased langston and cardiomegaly. Normal white count. Troponin negative. Elevated BNP and tox positive for cocaine. Renal insufficiency Patient improved. Concern over possible TB -= placed in resp isolation. CTA no PE but RML and RLL infiltrative process. Antibiotics begun. Admit. Signed out to Dr. Ho. Laboratory Tests Test 12/21/18 20:50 12/21/18 21:25 White Blood Count 4.8 K/UL (4.8-10.8) Red Blood Count 5.12 M/UL (4.70-6.10) Hemoglobin 15.6 G/DL (14.2-18.0) Hematocrit 46.7 % (42.0-52.0) Mean Corpuscular Volume 91 FL (80-99) Mean Corpuscular Hemoglobin 30.4 PG (27.0-31.0) Mean Corpuscular Hemoglobin Concent 33.3 G/DL (32.0-36.0) Red Cell Distribution Width 12.9 % (11.6-14.8) Platelet Count 392 K/UL (150-450) Mean Platelet Volume 4.5 FL (6.5-10.1) L Neutrophils (%) (Auto) 34.4 % (45.0-75.0) L Lymphocytes (%) (Auto) 49.3 % (20.0-45.0) H Monocytes (%) (Auto) 11.7 % (1.0-10.0) H Eosinophils (%) (Auto) 2.2 % (0.0-3.0) Basophils (%) (Auto) 2.4 % (0.0-2.0) H Prothrombin Time 11.3 SEC (9.30-11.50) Prothrombin Time INR 1.1 (0.9-1.1) PTT 39 SEC (23-33) H Sodium Level 140 MMOL/L (136-145) Potassium Level 3.5 MMOL/L (3.5-5.1) Chloride Level 101 MMOL/L (98-107) Carbon Dioxide Level 25 MMOL/L (21-32) Anion Gap 14 mmol/L (5-15) Blood Urea Nitrogen 17 mg/dL (7-18) Creatinine 1.7 MG/DL (0.55-1.30) H Estimate Glomerular Filtration Rate 50.4 mL/min (>60) Glucose Level 83 MG/DL (74-106) Calcium Level 9.4 MG/DL (8.5-10.1) Total Bilirubin 0.4 MG/DL (0.2-1.0) Aspartate Amino Transferase (AST) 23 U/L (15-37) Alanine Aminotransferase (ALT) 21 U/L (12-78) Alkaline Phosphatase 87 U/L (46-116) Total Creatine Kinase 166 U/L (26-308) Troponin I 0.014 ng/mL (0.000-0.056) Pro-B-Type Natriuretic Peptide 1293 pg/mL (0-125) H Total Protein 7.8 G/DL (6.4-8.2) Albumin 3.5 G/DL (3.4-5.0) Globulin 4.3 g/dL Albumin/Globulin Ratio 0.8 (1.0-2.7) L Urine Color Pale yellow Urine Appearance Clear Urine pH 6 (4.5-8.0) Urine Specific [place] 1.010 (1.005-1.035) Urine Protein Negative (NEGATIVE) Urine Glucose (UA) Negative (NEGATIVE) Urine Ketones Negative (NEGATIVE) Urine Blood Negative (NEGATIVE) Urine Nitrite Negative (NEGATIVE) Urine Bilirubin Negative (NEGATIVE) Urine Urobilinogen Normal MG/DL (0.0-1.0) Urine Leukocyte Esterase Negative (NEGATIVE) Urine Opiates Screen Negative (NEGATIVE) Urine Barbiturates Screen Negative (NEGATIVE) Phencyclidine (PCP) Screen Negative (NEGATIVE) Urine Amphetamines Screen Negative (NEGATIVE) Urine Benzodiazepines Screen Negative (NEGATIVE) Urine Cocaine Screen Positive (NEGATIVE) H Urine Marijuana (THC) Screen Negative (NEGATIVE) EKG Diagnostic Results Rate: normal Rhythm: NSR ST Segments: no acute changes - Nonspecific ST-T wave changes, LA E, LVH, QT prolongation Rhythm Strip Diag. Results EP Interpretation: yes Rhythm: NSR, no PVC's, no ectopy Chest X-Ray Diagnostic Results Chest X-Ray Diagnostic Results : Chest X-Ray Ordered: Yes # of Views/Limited/Complete: 1 View Indication: Chest Pain Interpretation: no effusion, no pneumothorax, other - Increased langston and cardiomegaly with a pacemaker Impression: Other Electronically Signed by: Electronically signed by Maxx Barreto MD CT/MRI/US Diagnostic Results CT/MRI/US Diagnostic Results : Imaging Test Ordered: CTA chest Impression No PE. RLL infiltrative process Last Vital Signs Date Time Temp Pulse Resp B/P (MAP) Pulse Ox O2 Delivery O2 Flow Rate FiO2 12/21/18 23:14 98.4 94 23 95/61 100 Room Air 12/21/18 21:41 21 Status: improved Disposition: ADMITTED INPATIENT Condition: Serious Maxx Barreto MD Dec 21, 2018 21:12
[2018-12-21 21:13] LABS: INR 1.1 (0.9-1.1)
[2018-12-21 21:20] LABS: ANION GAP 14 mmol/L (5-15); BLOOD UREA NITROGEN 17 mg/dL (7-18); CALCIUM 9.4 MG/DL (8.5-10.1); CARBON DIOXIDE 25 MMOL/L (21-32); CHLORIDE 101 MMOL/L (98-107); CREATININE 1.7 MG/DL (0.55-1.30); POTASSIUM 3.5 MMOL/L (3.5-5.1); SODIUM 140 MMOL/L (136-145)
--- NOTE | 2018-12-21 21:23 | NUR ---
ED Nurse Note: Patient eating and drinking, appears comfortable, no s/s of acute distress but reports a pain 10/10 of chest and back.
[2018-12-21 21:31] LABS: ALANINE AMINOTRANSFERASE 21 U/L (12-78); ALBUMIN 3.5 G/DL (3.4-5.0); ALBUMIN/GLOBULIN RATIO 0.8 (1.0-2.7); ALKALINE PHOSPHATASE 87 U/L (46-116); ASPARTATE AMINO TRANSFERASE 23 U/L (15-37); BILIRUBIN,TOTAL 0.4 MG/DL (0.2-1.0); CREATINE KINASE 166 U/L (26-308)
[2018-12-21 21:47] LABS: APPEARANCE,URINE CLEAR; BILIRUBIN, URINE NEGATIVE (NEGATIVE); COLOR,URINE PALE YELLOW; GLUCOSE, URINE (UA) NEGATIVE (NEGATIVE); KETONES,URINE NEGATIVE (NEGATIVE); LEUKOCYTE ESTERASE ,URINE NEGATIVE (NEGATIVE); NITRITE,URINE NEGATIVE (NEGATIVE); PH,URINE 6 (4.5-8.0); PROTEIN,URINE NEGATIVE (NEGATIVE); UROBILINOGEN,URINE NORMAL MG/DL (0.0-1.0)
--- NOTE | 2018-12-21 22:05 | NUR ---
ED Nurse Note: Patient went down for CT with conrtast.
--- NOTE | 2018-12-21 22:35 | NUR ---
ED Nurse Note: Patient returned from CT.
[2018-12-21] MEDS ORDERED: cefTRIAXone 1 GM in NS 55 ML IVPB ONE (23:00)
[2018-12-21 23:14] VITALS: BP 95/61
--- NOTE | 2018-12-21 23:15 | NUR ---
ED Nurse Note: Patient resting, drinking juice, no complaints at this time.
--- NOTE | 2018-12-22 01:45 | NUR ---
ED Nurse Note: Patient cleared for transport to floor. Report called in to Mansoor SAMUELS prior to transport. PAtient A&Ox4, no s/s of acute distress. Patietn accompanied to floor by Katie lacey.
[2018-12-22 02:00] VITALS: BP 103/69
--- NOTE | 2018-12-22 02:00 | NUR ---
NURSE NOTES: Received pt from ED via gurney. Pt is awake, AOx4. In no acute distress. IV line intact and patent. Placed on ceramics test engineer showing SR. VS stable. Oriented pt to room and unit. Airborne precaution in place for suspected TB. Bed in lowest position, call light within reach. Will contact MD for admission orders.
[2018-12-22] MEDS ORDERED: HYDROcodone/Acetamin 10/325 tab ORAL PRN (03:45)
[2018-12-22 04:00] VITALS: BP 95/65
[2018-12-22] MEDS ORDERED: Zolpidem 5mg tab ORAL PRN (04:00)
[2018-12-22] MEDS ORDERED: Albuterol/Ipratropium 3ml neb HHN PRN (04:00)
--- NOTE | 2018-12-22 07:25 | NUR ---
HAND-OFF: Report given to ABRIL Roche.
--- NOTE | 2018-12-22 07:30 | NUR ---
NURSE NOTES: Received pt from ABRIL Max. Pt is asleep in bed. No acute distress noted. Patient is on flange machine operator. VS stable. Airborne precaution in place for suspected TB. Bed in lowest position, locked, and side rails x2 up, and call light within reach. Will will follow with plan of care.
[2018-12-22 08:00] VITALS: BP 102/67
[2018-12-22] MEDS: Furosemide 40mg tab ORAL SCH ×2 (08:40→18:00)
[2018-12-22] MEDS: Aspirin EC 81mg tab ORAL SCH (08:40)
--- NOTE | 2018-12-22 08:49 | Diagnostic Imaging Report ---
ndication: Chest pain Technique: IV administration nonionic contrast. Spiral acquisitions obtained from the lung bases to the lung apices. Multiplanar and 3-D reconstructions were generated. Total dose length product 728.08 mGycm. CTDIvol(s) 19.92 mGy. Dose reduction achieved using automated exposure control Comparison: Conventional chest CT dated 10/19/2018 Findings: No intraluminal filling defects or other findings to suggest acute pulmonary embolus are demonstrated. Normal caliber pulmonary arteries. There is four-chamber cardiomegaly but no evidence of right ventricular dilatation. There is variant arch anatomy of separate origin of the left vertebral artery. Great neck vessels are patent. No evidence of thoracic aortic aneurysm or dissection. Unusually prominent bronchial arteries are seen within the mediastinum. The lungs demonstrate mild interstitial septal thickening and generalized mild and more focal geographic areas of groundglass opacity. Some patchy reticular opacities are seen in the mid to lower lung periphery bilaterally. Findings are somewhat more striking than on the previous study, although this may be in part due to much better contrast bolus on the current exam. No dense consolidation. No effusions. No definite masses or nodules. Small bullae or peripheral blebs are seen within the lung parenchyma bilaterally, right greater than left. As mentioned above, there is four-chamber cardiomegaly. No pericardial effusion is demonstrated. There is a left chest pacemaker. There is soft tissues prominence to the bilateral nakul without definite discrete adenopathy. Prominent but not frankly enlarged mediastinal lymph nodes are demonstrated. The included portion of the thyroid is unremarkable. No axillary or chest wall mass or adenopathy. The included upper abdominal viscera are remarkable for a cyst in segment 8 of the liver, as well as subcentimeter low-attenuation lesions which are too small to characterize. Impression: Negative for evidence of acute pulmonary embolus Mild interstitial septal thickening and very slight groundglass opacity, may reflect very mild pulmonary edema. Patchy right lung opacities could indicate an infectious/inflammatory process Chronic pulmonary parenchymal changes as well Four-chamber cardiomegaly Unusual prominent bronchial arteries are seen within the mediastinum. Significance of this finding is uncertain Pacemaker Incidental finding left lobe liver cyst as well as small subcentimeter low-attenuation lesions which are too small to characterize, most likely benign simple cysts. No further follow-up necessary This agrees with the preliminary interpretation provided overnight by [facility] teleradiology service, with minor variation. The CT scanner at [facility] is accredited by the [employer] and the scans are performed using protocols designed to limit radiation exposure to as low as reasonably achievable to attain images of sufficient resolution adequate for diagnostic evaluation.
[2018-12-22] MEDS ORDERED: PPD Tuberculin Skin Test 5TU IDERMAL ONE (09:00)
--- NOTE | 2018-12-22 09:39 | NUR ---
NURSE NOTES: 2D echo done and awaiting results. PPD completed on left arm and ryann/dated. Remind patient to give specimen on sputum culture.
[2018-12-22 12:00] VITALS: BP 105/70
--- NOTE | 2018-12-22 12:26 | Diagnostic Imaging Report ---
Indication: Chest pain Technique: One view of the chest Comparison: 11/08/2018 Findings: Less optimal inspiration currently. The heart is borderline enlarged. There is a left chest AICD. No acute infiltrates, effusions, or congestion. Impression: Borderline cardiomegaly. No definite acute process
--- NOTE | 2018-12-22 12:36 | NUR ---
NURSE NOTES: Although patient states he was spitting out sputum and coughing before 7am. No spumtum was collect from 7am-12:36pm. Patient states mild chest discomfort and no coughing noted throughout shift. Reminded patient about sputum culture collection. In addition, patient refused 3 times labs to be drawn in the morning. Morgue Librarian made the nurse aware.
--- NOTE | 2018-12-22 13:18 | NUR ---
NURSE NOTES: 13:00- Spoke to Dr. Bennett about patient non-compliance with lab draws and afb/sputum culture. States to notify Dr. Montana, ID and Dr. Son, Psychologist with the update. 13:10- Spoke with Dr. Montana and updated on patient's actions on 12/22/18. Received order for respiratory therapist to obtain sputum culture and quantiferon gold lab. Unable to enter because of system down. 13:15- Spoke to Dr. Bourgeois about new consult about patient's mental capacity/judgment. Unable to enter new consult because system is down.
--- NOTE | 2018-12-22 13:57 | History & Physical ---
History and Physical History & Physicial seen and examined. Full Dictation completed Heaven Bennett MD Dec 22, 2018 13:57
--- NOTE | 2018-12-22 14:00 | NUR ---
NURSE NOTES: Orders were entered.
--- NOTE | 2018-12-22 14:13 | NUR ---
CASE MANAGEMENT:REVIEW 58 YR OLD MALE FROM STREET CC: SOB AND CHEST PAIN SI: ACS. COCAINE ABUSE. RLL PNA HEMOPTYSIS. RENAL INSUFFICIENCY 98.5 92 16 99/63 95% ON RA CR+1.7 TROPONIN(-) BNP+1293 URINE(+) COCAINE IS: IV ROCEPHIN IV LEVAQUIN DUONEB HHN ASA PO NITRO 1" IV ZOFRAN 1L NS BOLUS CTA CHEST CXR : TO TELEMETRY PLAN: SOCIAL SERVICE CONSULT INTERQUAL CRITERIA MET
--- NOTE | 2018-12-22 15:00 | NUR ---
NURSE NOTES: Patient states need for cake, ice cream or PB&J sandwich. No sputum produce. Patient was shouting about getting food now. Reassured patient and gave jello. 1505: Notified RT Narciso to attempt suction for sputum culture.
--- NOTE | 2018-12-22 15:05 | NUR ---
Social Service Note SW very familiar with patient from multiple admissions. Patient is chronically homeless. Patient is non-compliant with follow up care. Patient continues to use cocaine on a regular basis. Patient has utilized [facility] in the past and has arranged for his own placement previously. Patient has requested SNF placement however has not met with criteria for authorization from health plan for placement. Patient is not receptive to substance abuse treatment referral. Patient's follow up care provider is [facility] [phone], [address] [facility], [address]. Patient can walk in anytime M-F 830-12 or 130-3pm. Homeless outreach team didn't locate patient after previous discharge Nov 11. Patient's w/c is at bedside. Patient recently seen at [facility]. Patient currently r/o for TB. Patient options available will be determined based on level of service upon discharge. Will continue to monitor. Homeless checklist initiated.
[2018-12-22 15:33] VITALS: BP 106/72
--- NOTE | 2018-12-22 15:40 | NUR ---
NURSE NOTES: Patient refused suction for sputum culture by RT Narciso.
--- NOTE | 2018-12-22 16:16 | Infectious Diseases Prog Note ---
Assessment/Plan Problems: (1) RLL pneumonia Assessment & Plan: continue ceftriaxone and add doxycycline empirically, stop levaquin, send sputum culture (2) Hemoptysis Assessment & Plan: rule out TB VS Cocaine SE , will order T spot test, and AFB smears and culture x3 , keep in air born isolation for now (3) Cocaine abuse Assessment & Plan: recommend counseling and rehabilitation (4) Renal insufficiency Assessment & Plan: continue hydration , with renally dosed meds (5) ACS (acute coronary syndrome) Assessment & Plan: could be due to cocaien , consult cards for work up Subjective Allergies: Coded Allergies: LISINOPRIL (Unverified Allergy, Unknown, 03/03/18) Objective Vital Signs Last 24 Hour Vital Signs Date Time Temp Pulse Resp B/P (MAP) Pulse Ox O2 Delivery O2 Flow Rate FiO2 12/22/18 15:33 97.5 80 18 106/72 (83) 99 12/22/18 12:00 98.3 78 20 105/70 (82) 100 12/22/18 11:48 78 12/22/18 08:44 Room Air 12/22/18 08:32 85 102/67 12/22/18 08:00 98.3 85 18 102/67 (79) 99 12/22/18 07:40 81 12/22/18 04:00 93 12/22/18 04:00 97.9 93 18 95/65 (75) 96 12/22/18 02:26 94 12/22/18 02:00 Room Air 12/22/18 02:00 98.2 94 18 103/69 (80) 98 12/22/18 01:57 98.4 94 23 95/61 100 Room Air 21 12/21/18 23:14 98.4 94 23 95/61 100 Room Air 12/21/18 21:41 88 20 99 Room Air 21 12/21/18 21:29 98.4 12/21/18 21:27 86 20 Room Air 21 12/21/18 21:27 86 20 97 Room Air 21 12/21/18 20:57 108/65 12/21/18 20:15 98.4 84 16 108/65 98 Room Air 12/21/18 20:15 84 18 Room Air 12/21/18 20:07 98.4 92 16 99/63 95 Room Air Height (Feet): 6 Height (Inches): 1.00 Weight (Pounds): 194 Microbiology Date/Time Source Procedure Growth Status 12/22/18 04:00 Rectum Received Laboratory Tests Test 12/21/18 20:50 12/21/18 21:25 12/22/18 06:15 12/22/18 13:05 White Blood Count 4.8 K/UL (4.8-10.8) Red Blood Count 5.12 M/UL (4.70-6.10) Hemoglobin 15.6 G/DL (14.2-18.0) Hematocrit 46.7 % (42.0-52.0) Mean Corpuscular Volume 91 FL (80-99) Mean Corpuscular Hemoglobin 30.4 PG (27.0-31.0) Mean Corpuscular Hemoglobin Concent 33.3 G/DL (32.0-36.0) Red Cell Distribution Width 12.9 % (11.6-14.8) Platelet Count 392 K/UL (150-450) Mean Platelet Volume 4.5 FL (6.5-10.1) L Neutrophils (%) (Auto) 34.4 % (45.0-75.0) L Lymphocytes (%) (Auto) 49.3 % (20.0-45.0) H Monocytes (%) (Auto) 11.7 % (1.0-10.0) H Eosinophils (%) (Auto) 2.2 % (0.0-3.0) Basophils (%) (Auto) 2.4 % (0.0-2.0) H Prothrombin Time 11.3 SEC (9.30-11.50) Prothromb Time International Ratio 1.1 (0.9-1.1) Activated Partial Thromboplast Time 39 SEC (23-33) H Sodium Level 140 MMOL/L (136-145) Potassium Level 3.5 MMOL/L (3.5-5.1) Chloride Level 101 MMOL/L (98-107) Carbon Dioxide Level 25 MMOL/L (21-32) Anion Gap 14 mmol/L (5-15) Blood Urea Nitrogen 17 mg/dL (7-18) Creatinine 1.7 MG/DL (0.55-1.30) H Estimat Glomerular Filtration Rate 50.4 mL/min (>60) Glucose Level 83 MG/DL (74-106) Calcium Level 9.4 MG/DL (8.5-10.1) Total Bilirubin 0.4 MG/DL (0.2-1.0) Aspartate Amino Transf (AST/SGOT) 23 U/L (15-37) Alanine Aminotransferase (ALT/SGPT) 21 U/L (12-78) Alkaline Phosphatase 87 U/L (46-116) Total Creatine Kinase 166 U/L (26-308) Troponin I 0.014 ng/mL (0.000-0.056) 0.031 ng/mL (0.000-0.056) 0.018 ng/mL (0.000-0.056) Pro-B-Type Natriuretic Peptide 1293 pg/mL (0-125) H Total Protein 7.8 G/DL (6.4-8.2) Albumin 3.5 G/DL (3.4-5.0) Globulin 4.3 g/dL Albumin/Globulin Ratio 0.8 (1.0-2.7) L Urine Color Pale yellow Urine Appearance Clear Urine pH 6 (4.5-8.0) Urine Specific [place] 1.010 (1.005-1.035) Urine Protein Negative (NEGATIVE) Urine Glucose (UA) Negative (NEGATIVE) Urine Ketones Negative (NEGATIVE) Urine Blood Negative (NEGATIVE) Urine Nitrite Negative (NEGATIVE) Urine Bilirubin Negative (NEGATIVE) Urine Urobilinogen Normal MG/DL (0.0-1.0) Urine Leukocyte Esterase Negative (NEGATIVE) Urine Opiates Screen Negative (NEGATIVE) Urine Barbiturates Screen Negative (NEGATIVE) Phencyclidine (PCP) Screen Negative (NEGATIVE) Urine Amphetamines Screen Negative (NEGATIVE) Urine Benzodiazepines Screen Negative (NEGATIVE) Urine Cocaine Screen Positive (NEGATIVE) H Urine Marijuana (THC) Screen Negative (NEGATIVE) Current Medications Medications (Trade) Dose Ordered Sig/[place] Route PRN Reason Start Time Stop Time Status Last Admin Dose Admin Acetaminophen/ Hydrocodone Bitart ([place] 10/325) 1 tab Q6H PRN ORAL Moderate Pain (Pain Scale 4-6) 12/22/18 03:45 12/29/18 03:44 Albuterol/ Ipratropium (Albuterol/ Ipratropium) 3 ml Q4H PRN HHN Shortness of Breath 12/22/18 04:00 12/27/18 03:59 Aspirin (Ecotrin) 162 mg DAILY ORAL 12/22/18 09:00 01/21/19 08:59 12/22/18 08:40 Atorvastatin Calcium (Lipitor) 10 mg BEDTIME ORAL 12/22/18 21:00 01/21/19 20:59 Carvedilol (Coreg) 3.125 mg EVERY 12 HOURS ORAL 12/22/18 09:00 01/21/19 08:59 Ceftriaxone Sodium 2 gm/ Dextrose 55 ml @ 110 mls/hr Q24H IVPB 12/22/18 23:00 12/29/18 22:59 Doxycycline Hyclate 100 mg/ Dextrose 110 ml @ 110 mls/hr Q12HR IV 12/22/18 21:00 12/29/18 20:59 Furosemide (Lasix) 40 mg TWICE A DAY ORAL 12/22/18 09:00 01/21/19 08:59 12/22/18 08:40 Iopamidol (Isovue-370 150ml) 150 ml NOW PRN INJ Radiology Procedure 12/21/18 20:45 12/23/18 20:31 Zolpidem Tartrate (Ambien) 5 mg HSPRN PRN ORAL Insomnia 12/22/18 04:00 12/29/18 03:59 Maeve Montana M.D. Dec 22, 2018 16:16
--- NOTE | 2018-12-22 16:35 | Diagnostic Imaging Report ---
Indication: Abnormal renal function tests Technique: Grayscale and duplex images of the kidneys, retroperitoneum, and bladder were obtained. Comparison: none Findings: Right kidney measures 9.7 cm in length. Left kidney measures 9.4 cm in length. Both kidneys demonstrate normal echogenicity. No hydronephrosis. 9 shadowing echogenic foci are seen in the left renal sinus. Normal inferior vena cava. Bladder is normal. Urinary jets are seen bilaterally. Impression: Nonshadowing echogenic foci within left renal sinus, could represent small nonobstructive calculi Negative for hydronephrosis.
--- NOTE | 2018-12-22 17:10 | NUR ---
NURSE NOTES: 2nd attempt by RT Narciso for inducement of suction for tb. Patient refused. He states he will do it manually. Notified Dr. Montana.
--- NOTE | 2018-12-22 19:35 | NUR ---
HAND-OFF: Report given to ABRIL Madrigal. Patient is sleeping in bed.
--- NOTE | 2018-12-22 19:40 | NUR ---
NURSE NOTES: Received report from Tiffani George RN. Patient in bed AAO X4 with HOB elevated at semi fowlers and no complaints of acute pain or discomfort at this time. Kept clean, dry, and comfortable in bed. IV line intact and patent. Kept on strict airborne isolation precaution to R/O TB. No S/S of resp distress or SOB noted at this time. Able to verbally express needs and wants with no difficulty. Placed on continuos cardiac monitoring per protocol and safety precaution in place; siderails x2 up, call light within reach, bed in lowest position, brakes and alarm on at all times. Needs and wants anticipated and attended, will continue plan of care and monitor for any changes noted.
[2018-12-22 20:00] VITALS: BP 102/63
--- NOTE | 2018-12-22 21:00 | NUR ---
NURSE NOTES: Offered to put on SCDs. Patient refused, explained risks and benefits X3 but still refused. Will continue to monitor
--- NOTE | 2018-12-22 21:12 | Consultation ---
History of Present Illness General Chief Complaint: Dyspnea/Respdistress Present Illness HPI 58-year-old male with hx of depression and homelessness who presented with productive cough. the pt is irritable and uncooperative the pt was able to understand and process the info was given to him Allergies: Coded Allergies: LISINOPRIL (Unverified Allergy, Unknown, 03/03/18) Medication History Scheduled Apixaban (Eliquis), 2.5 MG PO BID, (Reported) Aspirin* (Aspir 81*), 81 MG ORAL DAILY, (Reported) Carvedilol (Coreg), 3.125 MG ORAL EVERY 12 HOURS, (Reported) Furosemide* (Lasix*), 40 MG ORAL TWICE A DAY, (Reported) Simvastatin (Zocor), 10 MG ORAL DAILY, (Reported) Scheduled PRN Hydrocodone Bit/Acetaminophen 10-325* ([place] 10-325*), 1 TAB ORAL Q6H PRN for For Pain, (Reported) Patient History Limited by: medical condition History Provided By: Patient, Medical Record, PMD Healthcare decision maker Resuscitation status Full Code Advanced Directive on File Past Medical/Surgical History Past Medical/Surgical History: (1) Acute kidney injury (2) Chronic paranoid schizophrenia (3) Pacemaker (4) Dyspnea (5) Rhabdomyolysis (6) Cardiomyopathy (7) Acute on chronic renal failure (8) Cardiac defibrillator in place (9) RLL pneumonia (10) Hemoptysis (11) Cocaine abuse (12) Renal insufficiency (13) ACS (acute coronary syndrome) (14) MDD (major depressive disorder) Review of Systems Psychiatric: Reports: prior hx, anxiety, depressed feelings, emotional problems Physical Exam General Appearance: WD/WN, no apparent distress, alert Last 24 Hour Vital Signs Date Time Temp Pulse Resp B/P (MAP) Pulse Ox O2 Delivery O2 Flow Rate FiO2 12/22/18 16:00 79 12/22/18 15:33 97.5 80 18 106/72 (83) 99 12/22/18 12:00 98.3 78 20 105/70 (82) 100 12/22/18 11:48 78 12/22/18 08:44 Room Air 12/22/18 08:32 85 102/67 12/22/18 08:00 98.3 85 18 102/67 (79) 99 12/22/18 07:40 81 12/22/18 04:00 93 4/1/19 04:00 97.9 93 18 95/65 (75) 96 12/22/18 02:26 94 12/22/18 02:00 Room Air 12/22/18 02:00 98.2 94 18 103/69 (80) 98 12/22/18 01:57 98.4 94 23 95/61 100 Room Air 21 12/21/18 23:14 98.4 94 23 95/61 100 Room Air 12/21/18 21:41 88 20 99 Room Air 21 12/21/18 21:29 98.4 12/21/18 21:27 86 20 Room Air 21 12/21/18 21:27 86 20 97 Room Air 21 Intake and Output 12/21/18 12/22/18 18:59 06:59 Intake Total 310 ml Balance 310 ml Intake Oral 300 ml IV Total 10 ml # Voids 1 # Bowel Movements 3 Laboratory Tests Test 12/21/18 21:25 12/22/18 06:15 12/22/18 13:05 Urine Color Pale yellow Urine Appearance Clear Urine pH 6 (4.5-8.0) Urine Specific [place] 1.010 (1.005-1.035) Urine Protein Negative (NEGATIVE) Urine Glucose (UA) Negative (NEGATIVE) Urine Ketones Negative (NEGATIVE) Urine Blood Negative (NEGATIVE) Urine Nitrite Negative (NEGATIVE) Urine Bilirubin Negative (NEGATIVE) Urine Urobilinogen Normal MG/DL (0.0-1.0) Urine Leukocyte Esterase Negative (NEGATIVE) Urine Opiates Screen Negative (NEGATIVE) Urine Barbiturates Screen Negative (NEGATIVE) Phencyclidine (PCP) Screen Negative (NEGATIVE) Urine Amphetamines Screen Negative (NEGATIVE) Urine Benzodiazepines Screen Negative (NEGATIVE) Urine Cocaine Screen Positive (NEGATIVE) H Urine Marijuana (THC) Screen Negative (NEGATIVE) Troponin I 0.031 ng/mL (0.000-0.056) 0.018 ng/mL (0.000-0.056) Microbiology Date/Time Source Procedure Growth Status 12/22/18 04:00 Rectum Received Height (Feet): 6 Height (Inches): 1.00 Weight (Pounds): 194 Medications Current Medications Medications (Trade) Dose Ordered Sig/Sarwat Route PRN Reason Start Time Stop Time Status Last Admin Dose Admin Acetaminophen/ Hydrocodone Bitart ([place] 10/325) 1 tab Q6H PRN ORAL Moderate Pain (Pain Scale 4-6) 12/22/18 03:45 12/29/18 03:44 Albuterol/ Ipratropium (Albuterol/ Ipratropium) 3 ml Q4H PRN HHN Shortness of Breath 12/22/18 04:00 12/27/18 03:59 Aspirin (Ecotrin) 162 mg DAILY ORAL 12/22/18 09:00 01/21/19 08:59 12/22/18 08:40 Atorvastatin Calcium (Lipitor) 10 mg BEDTIME ORAL 12/22/18 21:00 01/21/19 20:59 Carvedilol (Coreg) 3.125 mg EVERY 12 HOURS ORAL 12/22/18 09:00 01/21/19 08:59 Ceftriaxone Sodium 2 gm/ Dextrose 55 ml @ 110 mls/hr Q24H IVPB 12/22/18 23:00 12/29/18 22:59 Doxycycline Hyclate 100 mg/ Dextrose 110 ml @ 110 mls/hr Q12HR IV 12/22/18 21:00 12/29/18 20:59 Furosemide (Lasix) 40 mg TWICE A DAY ORAL 12/22/18 09:00 01/21/19 08:59 12/22/18 08:40 Iopamidol (Isovue-370 150ml) 150 ml NOW PRN INJ Radiology Procedure 12/21/18 20:45 12/23/18 20:31 Zolpidem Tartrate (Ambien) 5 mg HSPRN PRN ORAL Insomnia 12/22/18 04:00 12/29/18 03:59 Assessment/Plan Problem List: (1) MDD (major depressive disorder) ICD Codes: F32.9 - Major depressive disorder, single episode, unspecified SNOMED: 280128430 Status: stable Assessment/Plan the pt has capacity to make decisions. Joey Bourgeois MD Dec 22, 2018 21:12
--- NOTE | 2018-12-22 21:15 | History and Physical Report ---
DATE OF ADMISSION: 12/21/2018 SOURCE OF INFORMATION: The patient and EMR. HISTORY OF PRESENT ILLNESS: The patient is a 58-year-old male who is homeless who presented with productive cough associated with blood-tinged sputum for the last couple of weeks. At the time of evaluation, the patient denies any chest pain or shortness of breath. No nausea. No vomitus. No diarrhea. No constipation. ALLERGIES: Lisinopril. PAST SURGICAL HISTORY: Left upper-sided chest pacemaker placement. SOCIAL HISTORY: Positive for illicit drug abuse, smoking, alcohol abuse. The patient reported that he is homeless. MEDICATIONS: Current hospital medications including, but not limited to aspirin, atorvastatin, Lasix. PHYSICAL EXAMINATION: VITAL SIGNS: Blood pressure 100/80, temperature 98.2, pulse ox 98% on room air, respiratory rate 18. HEAD AND NECK: Atraumatic and normocephalic. CHEST: Diffuse bronchial breathing sounds. HEART: S1 and S2. Regular rate and rhythm. ABDOMEN: Soft. No organomegaly. MUSCULOSKELETAL: No gross motor deficit. NEUROLOGIC: The patient is awake, alert, and oriented x3. LABORATORY AND DIAGNOSTIC DATA: Labs dated 12/21/2018, WBC 4.8, hemoglobin 15.6, platelets 392. Sodium 140, potassium 3.5, BUN 17, and creatinine 1.7. BNP of 1300. Chest x-ray dated December 21, 2018 shows borderline cardiomegaly. ASSESSMENT: 1. Acute hemoptysis. Differential diagnosis including but not limited to infectious underlying etiology including TB. 2. Chest pain, possibility of ACS merits additional workup. 3. Renal failure - age indeterminate. 4. Abnormal BNP. The possibility of heart failure cannot be excluded. 5. Social issues/homelessness. PLAN OF CARE: We will keep the patient on isolation. We will discuss the care with Infectious Diseases and Pulmonary. I agree to continue isolation for now. We will start the patient on low-dose aspirin, secondary to contraindication for any additional dosage in light of increasing chances of bleeding. Heaven Bennett M.D. DR: Rachell JOB#: [id number] CC: NIA
[2018-12-22] MEDS: Doxycycline Hyclate 100 MG in D5W 110 ML IV SCH (21:47)
[2018-12-22] MEDS ORDERED: cefTRIAXone 2 GM in D5W 55 ML IVPB SCH (23:00)
[2018-12-22] MEDS: cefTRIAXone 2 GM in D5W 55 ML IVPB SCH (23:00)
--- NOTE | 2018-12-22 23:00 | NUR ---
NURSE NOTES: IV pulled out by patient, asked if i can start a new one d/t ABX to be given at 2300. Patient stated "I dont want no more IVs tonight". Called MD Donald. and relayed info. Will hold ABX, No new orders given and will continue to monitor.
--- NOTE | 2018-12-22 23:00 | Consultation ---
DATE OF CONSULTATION: 12/22/2018 INFECTIOUS DISEASE CONSULTATION CONSULTING PHYSICIAN: Maeve Montana M.D. REQUESTING PHYSICIAN: Heaven Bennett M.D. REASON FOR CONSULTATION: Right lower lobe pneumonia with hemoptysis, rule out tuberculosis in high-risk patient. Recommendation for antimicrobial treatment. HISTORY OF PRESENT ILLNESS: The patient is a 58-year-old male with past medical history of congestive heart failure, hypertension, status post pacemaker, and asthma, presented to [facility] with chest pain and coughing up blood for two days. He had fever. The patient is well known to have history of PE and he was supposed to be on Eliquis, but he has not been taking it recently. The patient also reported night sweats and losing weight with coughing up blood. Previously, he was in a assisted, but now is on the street. The patient was seen recently at [facility] on 12/19/2018 and he got his medication refilled and was discharged. The patient described the pain as 10/10 in the left side of chest with some pressure. He normally drinks alcohol and last drink he had was this morning. The patient underwent a CT angio of the chest the result of which did not show any PE, but right middle lobe and right lower lobe infiltrative process. So, he was started on antibiotics. An Infectious Disease consultation was requested to rule out tuberculosis and further management of his pneumonia. REVIEW OF SYSTEMS: A 14-point of system reviewed were all negative apart from the one I mentioned above in my History and Physical. PAST MEDICAL HISTORY: Significant for congestive heart failure, hypertension, asthma, and status post pacemaker placement. PAST SURGICAL HISTORY: Negative. MEDICATIONS: The patient was started on levofloxacin and ceftriaxone. For the rest of his medications, please refer to MAR. ALLERGIES: He is allergic to lisinopril. SOCIAL HISTORY: He is homeless. He has been living with a friend recently. He drinks alcohol almost on daily basis. Denies using any drugs. Unemployed. PHYSICAL EXAMINATION: VITAL SIGNS: Temperature 98.3, pulse 78, respirations 20, blood pressure 105/70, and saturation 100% on room air. GENERAL: A middle-aged male, lying in bed, awake, alert, and not in acute distress. HEENT: Normocephalic and atraumatic. Pupils reactive to light equally. Moist oral mucosa. No exudate or thrush. NECK: Supple. No lymphadenopathy. CARDIOVASCULAR: Regular rate and rhythm. No murmur or gallop. LUNGS: He had diminished breathing sound on the right lower lobe. No wheezing or rhonchi. Normal breathing efforts. ABDOMEN: Soft, nontender, and nondistended. Normal bowel sounds. No hepatosplenomegaly. No ascites. EXTREMITIES: No edema or cyanosis. SKIN: No rash. No hives. GENITOURINARY: No dysuria or hematuria. No [place]. LABORATORY DATA: Labs showed white count of 4.8, hemoglobin of 15.6, and platelet count of 392,000. BUN of 17 and creatinine of 1.7. Urinalysis negative for infection. Toxicology screening tested positive for cocaine. IMAGING: CT chest and thorax angiogram showed negative for a PE. Mild interstitial septal thickening and very slight ground-glass opacity may reflect very mild pulmonary edema. Patchy right lung opacities could indicate an infectious inflammatory process. Chronic pulmonary parenchymal changes. ASSESSMENT AND RECOMMENDATION: 1. Right lower lobe lung infiltrate, suspect community-acquired pneumonia. We will continue ceftriaxone and add doxycycline empiric coverage. We will stop his Levaquin and send sputum culture. 2. Hemoptysis, rule out TB versus cocaine side effect. We will order T-spot test and AFB smears and cultures x3. Keep in airborne isolation for now until ruled out for TB. 3. Cocaine abuse. Recommend counseling and rehabilitation. 4. Renal insufficiency. Continue hydration with renally dosed medicine. 5. Acute coronary syndrome. Could be due to cocaine. Consult Cardiology for further workup and management. Thank you for the consult. ID will continue to follow. Maeve Montana M.D. DR: PROSPER JOB#: [id number] CC:
--- NOTE | 2018-12-22 23:57 | Cardiology Progress Note ---
Objective Last 24 Hour Vital Signs Date Time Temp Pulse Resp B/P (MAP) Pulse Ox O2 Delivery O2 Flow Rate FiO2 12/22/18 21:00 87 102/63 12/22/18 20:30 82 18 Room Air 21 12/22/18 16:00 79 12/22/18 15:33 97.5 80 18 106/72 (83) 99 12/22/18 12:00 98.3 78 20 105/70 (82) 100 12/22/18 11:48 78 12/22/18 08:44 Room Air 12/22/18 08:32 85 102/67 12/22/18 08:00 98.3 85 18 102/67 (79) 99 12/22/18 07:40 81 12/22/18 04:00 93 12/22/18 04:00 97.9 93 18 95/65 (75) 96 12/22/18 02:26 94 12/22/18 02:00 Room Air 12/22/18 02:00 98.2 94 18 103/69 (80) 98 12/22/18 01:57 98.4 94 23 95/61 100 Room Air 21 Intake and Output 12/21/18 12/22/18 18:59 06:59 Intake Total 310 ml Balance 310 ml Intake Oral 300 ml IV Total 10 ml # Voids 1 # Bowel Movements 3 Laboratory Tests Test 12/22/18 06:15 12/22/18 13:05 Troponin I 0.031 ng/mL (0.000-0.056) 0.018 ng/mL (0.000-0.056) Microbiology Date/Time Source Procedure Growth Status 12/22/18 04:00 Rectum Received Mitch Santiago MD Dec 22, 2018 23:57
[2018-12-23] VITALS: BP 106/72
--- NOTE | 2018-12-23 03:39 | NUR ---
NURSE NOTES: Patient in bed with no S/S of distress at this time. Will continue to monitor
--- NOTE | 2018-12-23 07:11 | NUR ---
HAND-OFF: Report given to Tiffani George RN. Patient in bed awake with no S/S of distress or SOB. Endorsed plan of care.
[2018-12-23 07:13] LABS: EOSINOPHILS % (AUTO) 2.3 % (0.0-3.0); HEMATOCRIT 48.5 % (42.0-52.0); LYMPHOCYTES % (AUTO) 40.1 % (20.0-45.0); MEAN CORPUSCULAR VOLUME 92 FL (80-99); MONOCYTES % (AUTO) 17.8 % (1.0-10.0); NEUTROPHILS % (AUTO) 37.8 % (45.0-75.0); PLATELET COUNT 360 K/UL (150-450); RED BLOOD COUNT 5.27 M/UL (4.70-6.10); RED CELL DISTRIBUTION WIDTH 13.2 % (11.6-14.8); WHITE BLOOD COUNT 4.1 K/UL (4.8-10.8)
--- NOTE | 2018-12-23 07:20 | NUR ---
NURSE NOTES: Received report from Rohan Barraza RN. Patient is in bed and AAO X4. OB elevated at semi fowlers and no complaints of acute pain or discomfort at this time. Patient was setup to eat breakfast. Kept on strict airborne isolation precaution to R/O TB. No S/S of resp distress or SOB noted at this time. Able to verbally express needs and wants with no difficulty. Patient is on continuos cardiac monitoring and safety precaution in place; side rails x2 up, call light within reach, bed in lowest position, brakes and alarm on at all times. Patient still refused IV insertion and reminded patient about sputum culture collection. Will continue plan of care of patient.
[2018-12-23 07:22] LABS: ANION GAP 10 mmol/L (5-15); BLOOD UREA NITROGEN 16 mg/dL (7-18); CALCIUM 9.1 MG/DL (8.5-10.1); CARBON DIOXIDE 24 MMOL/L (21-32); CHLORIDE 103 MMOL/L (98-107); CREATININE 1.4 MG/DL (0.55-1.30); POTASSIUM 3.9 MMOL/L (3.5-5.1); SODIUM 137 MMOL/L (136-145)
[2018-12-23 08:00] VITALS: BP 104/68
[2018-12-23] MEDS: Furosemide 40mg tab ORAL SCH ×2 (08:56→18:00)
[2018-12-23] MEDS: Aspirin EC 81mg tab ORAL SCH (08:56)
[2018-12-23] MEDS: Doxycycline Hyclate 100 MG in D5W 110 ML IV SCH ×2 (09:14→20:26)
--- NOTE | 2018-12-23 09:31 | NUR ---
CASE MANAGEMENT:REVIEW 12/23/18 SI: RLL PNA W/HEMOPTYSIS R/O TB 97.1 79 20 104/68 98% ON RA WBC-4.1 CR+1.4 IS: IV ROCEPHIN Q24 IV DOXYCYCLINE Q12 ASA PO QD COREG PO Q12 LASIX PO BID : TELEMETRY STATUS
--- NOTE | 2018-12-23 11:00 | NUR ---
NURSE NOTES: Patient shouted about not having sandwich. Stated to patient that a sandwich was called 30 minutes ago. Patient states he will sign out AMA and he is not being fed. Charge nurse spoke to patient. [place] was delivered to patient.
--- NOTE | 2018-12-23 11:49 | General Progress Note ---
Assessment/Plan Problem List: (1) MDD (major depressive disorder) ICD Codes: F32.9 - Major depressive disorder, single episode, unspecified SNOMED: 529173583 Status: stable Assessment/Plan the pt has capacity to make decisions. lexapro 10mg po qam Subjective Neurologic/Psychiatric: Reports: anxiety, depressed, emotional problems Allergies: Coded Allergies: LISINOPRIL (Unverified Allergy, Unknown, 03/03/18) Subjective the pt was irritable cooperated Objective Last 24 Hour Vital Signs Date Time Temp Pulse Resp B/P (MAP) Pulse Ox O2 Delivery O2 Flow Rate FiO2 12/23/18 09:00 79 104/68 12/23/18 09:00 Room Air 12/23/18 08:00 97.1 79 20 104/68 (80) 98 12/23/18 07:40 77 12/23/18 06:56 88 16 Room Air 21 12/23/18 04:00 73 12/23/18 00:00 98.1 82 18 106/72 (83) 97 12/23/18 00:00 91 12/22/18 21:00 87 102/63 12/22/18 21:00 Room Air 12/22/18 20:30 82 18 Room Air 21 12/22/18 20:00 97.9 87 18 102/63 (76) 96 12/22/18 20:00 81 12/22/18 16:00 79 12/22/18 15:33 97.5 80 18 106/72 (83) 99 12/22/18 12:00 98.3 78 20 105/70 (82) 100 Intake and Output 12/22/18 12/23/18 19:00 07:00 Intake Total 600 ml Output Total 800 ml Balance -200 ml Intake Oral 600 ml Output Urine Total 800 ml # Voids 3 2 Laboratory Tests 12/22/18 13:05: Troponin I 0.018 12/23/18 06:40: White Blood Count 4.1L, Red Blood Count 5.27, Hemoglobin 16.0, Hematocrit 48.5, Mean Corpuscular Volume 92, Mean Corpuscular Hemoglobin 30.4, Mean Corpuscular Hemoglobin Concent 33.0, Red Cell Distribution Width 13.2, Platelet Count 360, Mean Platelet Volume 5.0L, Neutrophils (%) (Auto) 37.8L, Lymphocytes (%) (Auto) 40.1, Monocytes (%) (Auto) 17.8H, Eosinophils (%) (Auto) 2.3, Basophils (%) ( Auto) 2.0, Sodium Level 137, Potassium Level 3.9, Chloride Level 103, Carbon Dioxide Level 24, Anion Gap 10, Blood Urea Nitrogen 16, Creatinine 1.4H, Estimat Glomerular Filtration Rate > 60, Glucose Level 96, Calcium Level 9.1, TB Test (T-Spot) [Pending], TB Test Nil Control (T-Spot) [Pending], TB Test Panel A (T-Spot) [Pending], TB Test Panel B (T-Spot) [Pending], TB Test Positive Control (T-Spot) [Pending] Height (Feet): 6 Height (Inches): 1.00 Weight (Pounds): 194 General Appearance: WD/WN, no apparent distress, alert Neurologic: oriented x 3, responsive, depressed affect Joey Bourgeois MD Dec 23, 2018 11:49
--- NOTE | 2018-12-23 13:09 | NUR ---
*-* INSURANCE *-* ALL CLINICALS AND REVIEWS HAVE BEENF AXED TO: [facility] NCM:ANAMIKA P: [phone] F: [phone]
--- NOTE | 2018-12-23 15:00 | NUR ---
NURSE NOTES: Reminded patient for sputum culture. Educated about amount and necessity to further treatment.
--- NOTE | 2018-12-23 15:06 | Infectious Diseases Prog Note ---
Assessment/Plan Problems: (1) RLL pneumonia Assessment & Plan: continue ceftriaxone and doxycycline empirically, send sputum culture (2) Hemoptysis Assessment & Plan: rule out TB VS Cocaine SE , await T spot test, and AFB smears and culture x3 , keep in air born isolation for now (3) Cocaine abuse Assessment & Plan: recommend counseling and rehabilitation (4) Renal insufficiency Assessment & Plan: continue hydration , with renally dosed meds (5) ACS (acute coronary syndrome) Assessment & Plan: could be due to cocaien , consult cards for work up Subjective Constitutional: Reports: no symptoms HEENT: Reports: no symptoms Respiratory: Reports: dry cough Breasts: Reports: no symptoms Cardiovascular: Reports: no symptoms Gastrointestinal/Abdominal: Reports: no symptoms Genitourinary: Reports: no symptoms Neurologic: Reports: no symptoms Psychiatric: Reports: no symptoms Skin: Reports: no symptoms Endocrine: Reports: no symptoms Hematologic: Reports: no symptoms Musculoskeletal: Reports: no symptoms Allergies: Coded Allergies: LISINOPRIL (Unverified Allergy, Unknown, 03/03/18) Objective Vital Signs Last 24 Hour Vital Signs Date Time Temp Pulse Resp B/P (MAP) Pulse Ox O2 Delivery O2 Flow Rate FiO2 12/23/18 11:40 80 12/23/18 09:00 79 104/68 12/23/18 09:00 Room Air 12/23/18 08:00 97.1 79 20 104/68 (80) 98 12/23/18 07:40 77 12/23/18 06:56 88 16 Room Air 21 12/23/18 04:00 73 12/23/18 00:00 98.1 82 18 106/72 (83) 97 12/23/18 00:00 91 12/22/18 21:00 87 102/63 12/22/18 21:00 Room Air 12/22/18 20:30 82 18 Room Air 21 12/22/18 20:00 97.9 87 18 102/63 (76) 96 12/22/18 20:00 81 12/22/18 16:00 79 12/22/18 15:33 97.5 80 18 106/72 (83) 99 Height (Feet): 6 Height (Inches): 1.00 Weight (Pounds): 194 General Appearance: WD/WN, no acute distress HEENT: normocephalic, atraumatic, anicteric, mucous membranes moist, PERRL Respiratory/Chest: chest wall non-tender, lungs clear, normal breath sounds, no respiratory distress, no accessory muscle use Cardiovascular: normal peripheral pulses, normal rate, regular rhythm, no gallop/murmur, no JVD Abdomen: normal bowel sounds, soft, non tender, no organomegaly, non distended , no mass, no scars Genitourinary: normal external genitalia Extremities: no cyanosis, no clubbing Skin: no rash, no lesions, no ulcers Neurologic/Psychiatric: mill tender second operator II-XII grossly normal, no motor/sensory deficits, alert, oriented x 3, responsive Microbiology Date/Time Source Procedure Growth Status 12/22/18 04:00 Rectum Received Laboratory Tests Test 12/23/18 06:40 White Blood Count 4.1 K/UL (4.8-10.8) L Red Blood Count 5.27 M/UL (4.70-6.10) Hemoglobin 16.0 G/DL (14.2-18.0) Hematocrit 48.5 % (42.0-52.0) Mean Corpuscular Volume 92 FL (80-99) Mean Corpuscular Hemoglobin 30.4 PG (27.0-31.0) Mean Corpuscular Hemoglobin Concent 33.0 G/DL (32.0-36.0) Red Cell Distribution Width 13.2 % (11.6-14.8) Platelet Count 360 K/UL (150-450) Mean Platelet Volume 5.0 FL (6.5-10.1) L Neutrophils (%) (Auto) 37.8 % (45.0-75.0) L Lymphocytes (%) (Auto) 40.1 % (20.0-45.0) Monocytes (%) (Auto) 17.8 % (1.0-10.0) H Eosinophils (%) (Auto) 2.3 % (0.0-3.0) Basophils (%) (Auto) 2.0 % (0.0-2.0) Sodium Level 137 MMOL/L (136-145) Potassium Level 3.9 MMOL/L (3.5-5.1) Chloride Level 103 MMOL/L (98-107) Carbon Dioxide Level 24 MMOL/L (21-32) Anion Gap 10 mmol/L (5-15) Blood Urea Nitrogen 16 mg/dL (7-18) Creatinine 1.4 MG/DL (0.55-1.30) H Estimat Glomerular Filtration Rate > 60 mL/min (>60) Glucose Level 96 MG/DL (74-106) Calcium Level 9.1 MG/DL (8.5-10.1) HIV (1&2) Antibody Rapid Negative (NEGATIVE) TB Test (T-Spot) Pending TB Test Nil Control (T-Spot) Pending TB Test Panel A (T-Spot) Pending TB Test Panel B (T-Spot) Pending TB Test Positive Control (T-Spot) Pending Current Medications Medications (Trade) Dose Ordered Sig/Sarwat Route PRN Reason Start Time Stop Time Status Last Admin Dose Admin Acetaminophen/ Hydrocodone Bitart ([place] 10/325) 1 tab Q6H PRN ORAL Moderate Pain (Pain Scale 4-6) 12/22/18 03:45 12/29/18 03:44 Albuterol/ Ipratropium (Albuterol/ Ipratropium) 3 ml Q4H PRN HHN Shortness of Breath 12/22/18 04:00 12/27/18 03:59 Aspirin (Ecotrin) 162 mg DAILY ORAL 12/22/18 09:00 01/21/19 08:59 12/23/18 08:56 Atorvastatin Calcium (Lipitor) 10 mg BEDTIME ORAL 12/22/18 21:00 01/21/19 20:59 12/22/18 21:47 Carvedilol (Coreg) 3.125 mg EVERY 12 HOURS ORAL 12/22/18 09:00 01/21/19 08:59 Ceftriaxone Sodium 2 gm/ Dextrose 55 ml @ 110 mls/hr Q24H IVPB 12/22/18 23:00 12/29/18 22:59 Doxycycline Hyclate 100 mg/ Dextrose 110 ml @ 110 mls/hr Q12HR IV 12/22/18 21:00 12/29/18 20:59 12/23/18 09:14 Escitalopram Oxalate (Lexapro) 10 mg DAILY ORAL 12/24/18 09:00 01/23/19 08:59 Furosemide (Lasix) 40 mg TWICE A DAY ORAL 12/22/18 09:00 01/21/19 08:59 12/23/18 08:56 Iopamidol (Isovue-370 150ml) 150 ml NOW PRN INJ Radiology Procedure 12/21/18 20:45 12/23/18 20:31 Zolpidem Tartrate (Ambien) 5 mg HSPRN PRN ORAL Insomnia 12/22/18 04:00 12/29/18 03:59 Maeve Montana M.D. Dec 23, 2018 15:06
[2018-12-23 15:24] VITALS: BP 100/47
--- NOTE | 2018-12-23 16:18 | General Progress Note ---
Assessment/Plan Assessment/Plan S: I am ok O: NO sob, No cp PHYSICAL EXAMINATION: HEAD AND NECK: Atraumatic and normocephalic. CHEST: Diffuse bronchial breathing sounds. HEART: S1 and S2. Regular rate and rhythm. ABDOMEN: Soft. No organomegaly. MUSCULOSKELETAL: No gross motor deficit. NEUROLOGIC: The patient is awake, alert, and oriented x3. Meds: including Doxycycline and ceftriaxone ASSESSMENT: 1. Acute hemoptysis. Differential diagnosis including but not limited to infectious underlying etiology including TB vs pna 2. Chest pain, possibility of ACS merits additional workup. 3. Renal failure - age indeterminate. 4. Abnormal BNP. no evidence of active hf 5. Social issues/homelessness. 6. Cocain abuser Plan: Current isolation , per ID Current empirical abx Subjective Allergies: Coded Allergies: LISINOPRIL (Unverified Allergy, Unknown, 03/03/18) Objective Last 24 Hour Vital Signs Date Time Temp Pulse Resp B/P (MAP) Pulse Ox O2 Delivery O2 Flow Rate FiO2 12/23/18 15:24 96.8 89 20 100/47 (64) 96 12/23/18 11:40 80 12/23/18 09:00 79 104/68 12/23/18 09:00 Room Air 12/23/18 08:00 97.1 79 20 104/68 (80) 98 12/23/18 07:40 77 12/23/18 06:56 88 16 Room Air 21 12/23/18 04:00 73 12/23/18 00:00 98.1 82 18 106/72 (83) 97 12/23/18 00:00 91 12/22/18 21:00 87 102/63 12/22/18 21:00 Room Air 12/22/18 20:30 82 18 Room Air 21 12/22/18 20:00 97.9 87 18 102/63 (76) 96 12/22/18 20:00 81 Intake and Output 12/22/18 12/23/18 19:00 07:00 Intake Total 600 ml Output Total 800 ml Balance -200 ml Intake Oral 600 ml Output Urine Total 800 ml # Voids 3 2 Laboratory Tests 12/23/18 06:40: White Blood Count 4.1L, Red Blood Count 5.27, Hemoglobin 16.0, Hematocrit 48.5, Mean Corpuscular Volume 92, Mean Corpuscular Hemoglobin 30.4, Mean Corpuscular Hemoglobin Concent 33.0, Red Cell Distribution Width 13.2, Platelet Count 360, Mean Platelet Volume 5.0L, Neutrophils (%) (Auto) 37.8L, Lymphocytes (%) (Auto) 40.1, Monocytes (%) (Auto) 17.8H, Eosinophils (%) (Auto) 2.3, Basophils (%) ( Auto) 2.0, Sodium Level 137, Potassium Level 3.9, Chloride Level 103, Carbon Dioxide Level 24, Anion Gap 10, Blood Urea Nitrogen 16, Creatinine 1.4H, Estimat Glomerular Filtration Rate > 60, Glucose Level 96, Calcium Level 9.1, HIV (1&2) Antibody Rapid Negative, TB Test (T-Spot) [Pending], TB Test Nil Control (T-Spot) [Pending], TB Test Panel A (T-Spot) [Pending], TB Test Panel B (T-Spot) [Pending], TB Test Positive Control (T-Spot) [Pending] Height (Feet): 6 Height (Inches): 1.00 Weight (Pounds): 194 Heaven Bennett MD Dec 23, 2018 16:18
--- NOTE | 2018-12-23 17:00 | NUR ---
NURSE NOTES: Patient is resting in bed. Educated about sputum culture.
--- NOTE | 2018-12-23 19:56 | NUR ---
HAND-OFF: Report given to ABRIL Mehta. Endorse about x2 AFB needed.
[2018-12-23 20:00] VITALS: BP 111/79
--- NOTE | 2018-12-23 20:05 | NUR ---
NURSE NOTES: RECEIVED PATIENT RESTING IN BED, NO COMPLAINTS OF PAIN AT THIS TIME. FALL PRECAUTIONS IN PLACE: CALL LIGHT, BEDSIDE TABLE AND URINAL WITHIN REACH, BED IN LOW POSITION. PLAN OF CARE REVIEWED.
--- NOTE | 2018-12-23 21:22 | Cardiology Report ---
APPROVED REPORT EXAM: Two-dimensional and M-mode echocardiogram with Doppler and color Doppler. INDICATION Chest Pain M-Mode DIMENSIONS IVSd0.9 (0.7-1.1cm)Left Atrium (MM)4.1 (1.6-4.0cm) LVDd6.7 (3.5-5.6cm)Aortic Root3.3 (2.0-3.7cm) PWd1.2 (0.7-1.1cm)Aortic Cusp Exc.2.2 (1.5-2.0cm) IVSs1.0 cm LVDs5.6 (2.5-4.0cm) PWs1.2 cm Severe left ventricular enlargement. Severe global left ventricular hypokinesis. Ischemic cardiomyopathy cannot be excluded. Left ventricular ejection fraction estimated to be 10-15 %. No evidence of left ventricular hypertrophy. No evidence of pericardial effusion. Moderate left atrial enlargement. Right cardiac chamber sizes are within normal limits. Mild focal aortic valve sclerosis with adequate cusp excursion. Mildly thickened mitral valve leaflets with normal excursion. Mild mitral annulus and aortic root calcification. Normal pulmonic valve structure. Normal tricuspid valve structure. IVC measures at 1.9 cm with slight physiological collapse. Pacemaker wire present in the right side chambers. A color flow and spectral Doppler study was performed and revealed: Trace aortic insufficiency. Moderate mitral regurgitation. Mitral inflow velocities indicates possible pseudo normalization pattern implying significant left ventricular diastolic dysfunction (Grade II). Mild tricuspid regurgitation. Tricuspid systolic velocities suggests peak right ventricular systolic pressure of 31 mmHg. Mild pulmonic regurgitation present.
--- NOTE | 2018-12-23 21:28 | Cardiology Report ---
APPROVED REPORT EKG Measurement Heart [id number] Normal sinus rhythm Possible Left atrial enlargement Left ventricular hypertrophy Nonspecific T wave abnormality Prolonged QT Abnormal ECG
[2018-12-23] MEDS: cefTRIAXone 2 GM in D5W 55 ML IVPB SCH ×2 (23:00→23:35)
--- NOTE | 2018-12-24 00:45 | Consultation ---
DATE OF CONSULTATION: 12/22/2018 CARDIOLOGY CONSULTATION CONSULTING PHYSICIAN: Mitch Santiago M.D. REFERRING PHYSICIAN: Heaven Bennett M.D. REASON FOR CONSULTATION: Management of chest pain. HISTORY OF PRESENT ILLNESS: The patient is a very unfortunate 58-year-old gentleman with known history of cardiomyopathy, status post single-chamber AICD implantation about seven years ago and history of pulmonary embolism, on Eliquis, who was recently admitted to [facility]. He presented to this facility with pleuritic chest pain and hemoptysis that has been going on for about two days. The patient also complains of fever, weight loss, and night sweats. The patient is currently homeless. In the emergency department, the patient's blood pressure was 99/63 mmHg and heart rate of 92. A 12-lead electrocardiogram was significant for sinus rhythm rate of 92 with left atrial enlargement, left ventricular hypertrophy with associated repolarization abnormality. QT interval was prolonged at 489 millisecond. The patient was found to have cocaine in the urine. Also laboratory finding was significant for renal failure with BUN and creatinine of 17 and 1.7 as well as cardiomegaly on the chest x-ray. His beta-natriuretic peptide was also at 1293. He was admitted to telemetry for evaluation and management of pleuritic chest pain with hemoptysis. Cardiology consultation was made at the request of Dr. Bennett. PAST MEDICAL HISTORY: 1. Cardiomyopathy. 2. Status post single-chamber AICD implantation. 3. History of pulmonary embolism. 4. History of recent hospitalization to [facility]. 5. History of chronic left knee injury, on wheelchair. 6. History of congestive heart failure. 7. Asthma. ALLERGIES: Lisinopril. SOCIAL HISTORY: Reports to smoking cigarettes, also using cocaine as well as alcohol. The patient was in winter shelters in winter and now homeless without a place to stay. REVIEW OF SYSTEMS: A 12-system review done essentially negative except what was mentioned in history of present illness. PAST SURGICAL HISTORY: Single-chamber AICD implantation. MEDICATIONS: List of medications - apixaban 2.5 mg twice daily, aspirin 81 mg p.o. daily, Coreg 3.125 mg twice daily, furosemide 40 mg p.o. twice daily, [place] 10/325 mg one tablet q.6 h. p.r.n. pain, and simvastatin 10 mg p.o. daily. PHYSICAL EXAMINATION: VITAL SIGNS: Blood pressure at time of arrival to the hospital was 99/63, respirations 16, pulse 92, and temperature 98.4 degrees Fahrenheit. O2 saturation 95% on room air. GENERAL: This is a very unfortunate 58-year-old gentleman, in no apparent respiratory distress. Alert and oriented x4. HEENT: Atraumatic and normocephalic. Anicteric. Pupils are equal, round, and reactive to light and accommodation. Extraocular muscles intact. NECK: JVP less than 5 cm. No carotid bruit. Carotid upstroke is 2+ bilaterally LUNGS: Clear to auscultation bilaterally. CARDIOVASCULAR: Normal S1, S2. Regular rate and rhythm. No murmurs, gallops, or rubs. PMI is at fourth intercostal space in the midclavicular line. ABDOMEN: Soft, nontender, and nondistended. No hepatosplenomegaly. Positive bowel sounds. EXTREMITIES: Decreased range of motion of left knee with swelling and degenerative changes. Otherwise, no edema, clubbing, or cyanosis. IMAGING: Chest x-ray showed cardiomegaly with presence of a single chamber AICD. No pulmonary edema or infiltration. LABORATORY FINDINGS: Sodium was 140, potassium 3.5, chloride 101, bicarbonate 35, BUN 17, and creatinine 1.7. Glucose is 83. Calcium is 9.4. Troponin I x3 negative. ProBNP was 1293. INR is 1.1. Toxicology showed positive cocaine in the urine. ASSESSMENT AND PLAN: The patient is a very unfortunate 58-year-old gentleman, seen in Cardiology consultation. 1. Possibly nonischemic cardiomyopathy with LVEF approximately 10% to 15% according to 2-D echocardiography obtained in this facility. LV physiology was also significant for a moderately elevated left atrial pressure. Therefore, the patient will be continued on diuretic. Also addition of guideline-directed medical therapy including aldosterone antagonists, beta-blockers, and ARBs. 2. Status post single-chamber automatic implanted cardioverter defibrillator implantation. 3. Pleuritic chest pain, most likely acute bronchitis, TB pneumonia, currently in isolation. ID and Pulmonary recommendations. 4. History of pulmonary embolism, on Eliquis in the past. The patient's CHADS-VASc score on Eliquis treatment claiming that he has not be taking Eliquis recently. 5. Chronic knee pain/gait imbalance. I would like to thank, Dr. Bennett, for the courtesy of this consultation. Mitch Santiago M.D. DR: THOMAS JOB#: [id number] CC:
--- NOTE | 2018-12-24 06:24 | NUR ---
NURSE NOTES: DR. LEHMAN IS HERE TO SEE PATIENT. MADE MD AWARE PATIENT REFUSED ABX IV, AND REFUSED TO INSERT NEW IV HL. NO NEW ORDERS.
[2018-12-24 07:29] LABS: BASOPHILS % (AUTO) 2.4 % (0.0-2.0); EOSINOPHILS % (AUTO) 2.9 % (0.0-3.0); HEMATOCRIT 48.9 % (42.0-52.0); HEMOGLOBIN 15.9 G/DL (14.2-18.0); LYMPHOCYTES % (AUTO) 41.2 % (20.0-45.0); MEAN CORPUSCULAR VOLUME 92 FL (80-99); MONOCYTES % (AUTO) 19.2 % (1.0-10.0); NEUTROPHILS % (AUTO) 34.3 % (45.0-75.0); PLATELET COUNT 337 K/UL (150-450); RED CELL DISTRIBUTION WIDTH 13.1 % (11.6-14.8); WHITE BLOOD COUNT 4.1 K/UL (4.8-10.8)
[2018-12-24 07:40] LABS: ANION GAP 9 mmol/L (5-15); BLOOD UREA NITROGEN 21 mg/dL (7-18); CALCIUM 9.4 MG/DL (8.5-10.1); CARBON DIOXIDE 24 MMOL/L (21-32); CHLORIDE 104 MMOL/L (98-107); CREATININE 1.4 MG/DL (0.55-1.30); POTASSIUM 4.2 MMOL/L (3.5-5.1); SODIUM 137 MMOL/L (136-145)
--- NOTE | 2018-12-24 07:41 | NUR ---
HAND-OFF: Report given to ABRIL BOWMAN. PATIENT RESTING IN BED, NO SIGNS OF DISTRESS NOTED. 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
--- NOTE | 2018-12-24 07:50 | NUR ---
NURSE NOTES: Received patient from ABRIL Mehta in bed resting, denies any pain. Patient is alert and oriented x4, able to start IV abx and infusing now on RFA, IV is intact and patent. Bed is in lowest level, brakes engaged for safety. Call light is within reach. Will continue with the plan of care.
[2018-12-24 08:00] VITALS: BP 101/63
--- NOTE | 2018-12-24 08:58 | General Progress Note ---
Assessment/Plan Assessment/Plan S: I am ok O: NO sob, No cp PHYSICAL EXAMINATION: HEAD AND NECK: Atraumatic and normocephalic. CHEST: Diffuse bronchial breathing sounds. HEART: S1 and S2. Regular rate and rhythm. ABDOMEN: Soft. No organomegaly. MUSCULOSKELETAL: No gross motor deficit. NEUROLOGIC: The patient is awake, alert, and oriented x3. Meds: including Doxycycline and ceftriaxone ASSESSMENT: 1. Acute hemoptysis. Differential diagnosis including but not limited to infectious underlying etiology including TB vs pna 2. Chest pain, possibility of ACS merits additional workup. 3. Renal failure - age indeterminate. 4. Abnormal BNP. no evidence of active hf 5. Social issues/homelessness. 6. Cocain abuser Plan: Current isolation , per ID Current empirical abx stool softner PRN Subjective Allergies: Coded Allergies: LISINOPRIL (Unverified Allergy, Unknown, 03/03/18) Objective Last 24 Hour Vital Signs Date Time Temp Pulse Resp B/P (MAP) Pulse Ox O2 Delivery O2 Flow Rate FiO2 12/24/18 04:00 88 12/24/18 00:00 80 12/23/18 21:00 Room Air 12/23/18 20:26 84 111/79 12/23/18 20:10 83 18 Room Air 21 12/23/18 20:00 97.9 84 18 111/79 (90) 99 12/23/18 20:00 88 12/23/18 15:32 89 12/23/18 15:24 96.8 89 20 100/47 (64) 96 12/23/18 11:40 80 12/23/18 09:00 79 104/68 12/23/18 09:00 Room Air Intake and Output 12/23/18 12/24/18 19:00 07:00 Intake Total 1090 ml 350 ml Output Total 800 ml Balance 290 ml 350 ml Intake Oral 1090 ml 240 ml IV Total 110 ml Output Urine Total 800 ml # Voids 3 Laboratory Tests 12/24/18 07:20: White Blood Count 4.1L, Red Blood Count 5.30, Hemoglobin 15.9, Hematocrit 48.9, Mean Corpuscular Volume 92, Mean Corpuscular Hemoglobin 30.0, Mean Corpuscular Hemoglobin Concent 32.6, Red Cell Distribution Width 13.1, Platelet Count 337, Mean Platelet Volume 5.5L, Neutrophils (%) (Auto) 34.3L, Lymphocytes (%) (Auto) 41.2, Monocytes (%) (Auto) 19.2H, Eosinophils (%) (Auto) 2.9, Basophils (%) ( Auto) 2.4H, Sodium Level 137, Potassium Level 4.2, Chloride Level 104, Carbon Dioxide Level 24, Anion Gap 9, Blood Urea Nitrogen 21H, Creatinine 1.4H, Estimat Glomerular Filtration Rate > 60, Glucose Level 96, Calcium Level 9.4, TB Test (T-Spot) [Pending], TB Test Nil Control (T-Spot) [Pending], TB Test Panel A (T-Spot) [Pending], TB Test Panel B (T-Spot) [Pending], TB Test Positive Control (T-Spot) [Pending] Height (Feet): 6 Height (Inches): 1.00 Weight (Pounds): 196 Heaven Bennett MD Dec 24, 2018 08:58
[2018-12-24] MEDS: Doxycycline Hyclate 100 MG in D5W 110 ML IV SCH ×3 (09:00→21:13)
--- NOTE | 2018-12-24 09:00 | NUR ---
PPD READ, NOT RAISED, NO REDNESS, NEGATIVE.
[2018-12-24] MEDS: Furosemide 40mg tab ORAL SCH ×2 (09:33→18:28)
[2018-12-24] MEDS: Aspirin EC 81mg tab ORAL SCH (09:33)
--- NOTE | 2018-12-24 11:22 | NUR ---
CASE MANAGEMENT:REVIEW 12/24/18 SI: RLL PNA W/HEMOPTYSIS R/O TB 98.3 89 20 101/63 99% ON RA BUN+21 CR+1.4 IS: IV ROCEPHIN Q24 IV DOXYCYCLINE Q12 ASA PO QD COREG PO Q12 LASIX PO BID : TELEMETRY STATUS PLAN: TRANSFER TO [facility] IF WRITTEN CLEARANCE OBTAINED FROM HEALTH DEPARTMENT
--- NOTE | 2018-12-24 11:34 | NUR ---
INSURANCE FAXED CLINICALS AND REVIEWS TO [facility] T: [phone] F: [phone] Addendum: 12/24/18 at 1143 by CORRINE BASS LVN LVN HEALTH PLAN WANTS PATIENT TRANSFERRED TO [facility] KENNEL ATTENDANT WANTS US TO OBTAIN WRITTEN AUTHORIZATION FROM HEALTH DEPT STATING IT'S OK TO TRANSFER LEFT VMM FOR HEALTH DEPARTMENT TB COORDINATOR~FERD[place] T: [phone] REQUESTING WRITTEN AUTHORIZATION
[2018-12-24 12:00] VITALS: BP 109/72
--- NOTE | 2018-12-24 13:20 | NUR ---
NURSE NOTES: PATIENT REMOVED IV, STATED "I WANT PO ABX". MD NOTIFIED AND WILL CHANGE IV ABX TO PO
[2018-12-24 16:00] VITALS: BP 111/76
--- NOTE | 2018-12-24 18:09 | Infectious Diseases Prog Note ---
Assessment/Plan Problems: (1) RLL pneumonia Assessment & Plan: continue ceftriaxone and doxycycline empirically, pending sputum culture (2) Hemoptysis Assessment & Plan: rule out TB VS Cocaine SE , await T spot test, and AFB smears and culture x3 , keep in air born isolation for now (3) Cocaine abuse Assessment & Plan: recommend counseling and rehabilitation (4) Renal insufficiency Assessment & Plan: continue hydration , with renally dosed meds (5) ACS (acute coronary syndrome) Assessment & Plan: could be due to cocaien , consult cards for work up Subjective Constitutional: Reports: no symptoms HEENT: Reports: no symptoms Respiratory: Reports: dry cough Breasts: Reports: no symptoms Cardiovascular: Reports: no symptoms Gastrointestinal/Abdominal: Reports: no symptoms Genitourinary: Reports: no symptoms Neurologic: Reports: no symptoms Psychiatric: Reports: no symptoms Skin: Reports: no symptoms Endocrine: Reports: no symptoms Hematologic: Reports: no symptoms Musculoskeletal: Reports: no symptoms Allergies: Coded Allergies: LISINOPRIL (Unverified Allergy, Unknown, 03/03/18) Objective Vital Signs Last 24 Hour Vital Signs Date Time Temp Pulse Resp B/P (MAP) Pulse Ox O2 Delivery O2 Flow Rate FiO2 12/24/18 16:00 94 12/24/18 16:00 98.5 94 20 111/76 (88) 12/24/18 12:00 80 12/24/18 12:00 98.3 81 20 109/72 (84) 12/24/18 09:48 79 20 Room Air 21 12/24/18 09:32 87 101/63 12/24/18 09:00 Room Air 12/24/18 08:00 98.3 89 20 101/63 (76) 12/24/18 08:00 89 12/24/18 04:00 88 12/24/18 00:00 80 12/23/18 21:00 Room Air 12/23/18 20:26 84 111/79 12/23/18 20:10 83 18 Room Air 21 12/23/18 20:00 97.9 84 18 111/79 (90) 99 12/23/18 20:00 88 Height (Feet): 6 Height (Inches): 1.00 Weight (Pounds): 196 General Appearance: WD/WN, no acute distress HEENT: normocephalic, atraumatic, anicteric, mucous membranes moist, PERRL Respiratory/Chest: chest wall non-tender, lungs clear, normal breath sounds, no respiratory distress, no accessory muscle use Cardiovascular: normal peripheral pulses, normal rate, regular rhythm, no gallop/murmur, no JVD Abdomen: normal bowel sounds, soft, non tender, no organomegaly, non distended , no mass, no scars Genitourinary: normal external genitalia Extremities: no cyanosis, no clubbing Skin: no rash, no lesions, no ulcers 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 Resulted 12/22/18 20:30 Sputum Expectorated AFB Specimen Processing Tissue - Final Resulted 12/22/18 20:30 Sputum Expectorated Acid Fast Bacilli Smear - Final Resulted 12/22/18 20:30 Sputum Expectorated Acid Fast Bacilli Culture Pending Resulted 12/22/18 04:00 Nasal Nares MRSA Culture - Final NO METHICILLIN RESISTANT STAPH AUREUS... Complete 12/22/18 04:00 Rectum VRE Culture - Final NO VANCOMYCIN RESISTANT ENTEROCOCCUS ... Complete Laboratory Tests Test 12/24/18 07:20 White Blood Count 4.1 K/UL (4.8-10.8) L Red Blood Count 5.30 M/UL (4.70-6.10) Hemoglobin 15.9 G/DL (14.2-18.0) Hematocrit 48.9 % (42.0-52.0) Mean Corpuscular Volume 92 FL (80-99) Mean Corpuscular Hemoglobin 30.0 PG (27.0-31.0) Mean Corpuscular Hemoglobin Concent 32.6 G/DL (32.0-36.0) Red Cell Distribution Width 13.1 % (11.6-14.8) Platelet Count 337 K/UL (150-450) Mean Platelet Volume 5.5 FL (6.5-10.1) L Neutrophils (%) (Auto) 34.3 % (45.0-75.0) L Lymphocytes (%) (Auto) 41.2 % (20.0-45.0) Monocytes (%) (Auto) 19.2 % (1.0-10.0) H Eosinophils (%) (Auto) 2.9 % (0.0-3.0) Basophils (%) (Auto) 2.4 % (0.0-2.0) H Sodium Level 137 MMOL/L (136-145) Potassium Level 4.2 MMOL/L (3.5-5.1) Chloride Level 104 MMOL/L (98-107) Carbon Dioxide Level 24 MMOL/L (21-32) Anion Gap 9 mmol/L (5-15) Blood Urea Nitrogen 21 mg/dL (7-18) H Creatinine 1.4 MG/DL (0.55-1.30) H Estimat Glomerular Filtration Rate > 60 mL/min (>60) Glucose Level 96 MG/DL (74-106) Calcium Level 9.4 MG/DL (8.5-10.1) TB Test (T-Spot) Pending TB Test Nil Control (T-Spot) Pending TB Test Panel A (T-Spot) Pending TB Test Panel B (T-Spot) Pending TB Test Positive Control (T-Spot) Pending Current Medications Medications (Trade) Dose Ordered Sig/[place] Route PRN Reason Start Time Stop Time Status Last Admin Dose Admin Acetaminophen/ Hydrocodone Bitart ([place] 10/325) 1 tab Q6H PRN ORAL Moderate Pain (Pain Scale 4-6) 12/22/18 03:45 12/29/18 03:44 Albuterol/ Ipratropium (Albuterol/ Ipratropium) 3 ml Q4H PRN HHN Shortness of Breath 12/22/18 04:00 12/27/18 03:59 Aspirin (Ecotrin) 162 mg DAILY ORAL 12/22/18 09:00 01/21/19 08:59 12/24/18 09:33 Atorvastatin Calcium (Lipitor) 10 mg BEDTIME ORAL 12/22/18 21:00 01/21/19 20:59 12/23/18 20:26 Carvedilol (Coreg) 3.125 mg EVERY 12 HOURS ORAL 12/22/18 09:00 5/1/19 08:59 12/24/18 09:32 Ceftriaxone Sodium 2 gm/ Dextrose 55 ml @ 110 mls/hr Q24H IVPB 12/22/18 23:00 12/29/18 22:59 Doxycycline Hyclate 100 mg/ Dextrose 110 ml @ 110 mls/hr Q12HR IV 12/22/18 21:00 12/29/18 20:59 12/23/18 20:26 Escitalopram Oxalate (Lexapro) 10 mg DAILY ORAL 12/24/18 09:00 01/23/19 08:59 12/24/18 09:28 Furosemide (Lasix) 40 mg TWICE A DAY ORAL 12/22/18 09:00 01/21/19 08:59 12/24/18 09:33 Zolpidem Tartrate (Ambien) 5 mg HSPRN PRN ORAL Insomnia 12/22/18 04:00 12/29/18 03:59 Maeve Montana M.D. Dec 24, 2018 18:09
[2018-12-24 20:00] VITALS: BP 121/83
--- NOTE | 2018-12-24 20:01 | NUR ---
NURSE NOTES: patient received. patient in no acute distress at this time. patient complains of no pain at this time. patient awake alert and oriented x4. urinal by bedside. no IV patient pulled out. doc aware. will change all antibiotic IV medications to PO. bed in lowest position and locked bryanna light within reach. will continue to monitor.
--- NOTE | 2018-12-24 21:11 | General Progress Note ---
Assessment/Plan Problem List: (1) MDD (major depressive disorder) ICD Codes: F32.9 - Major depressive disorder, single episode, unspecified SNOMED: [id number] Assessment/Plan the pt has capacity to make decisions. lexapro 10mg po qam Subjective Neurologic/Psychiatric: Reports: anxiety, depressed, emotional problems Allergies: Coded Allergies: LISINOPRIL (Unverified Allergy, Unknown, 03/03/18) Subjective the pt was irritable cooperated Objective Last 24 Hour Vital Signs Date Time Temp Pulse Resp B/P (MAP) Pulse Ox O2 Delivery O2 Flow Rate FiO2 12/24/18 18:49 82 16 Room Air 21 12/24/18 16:00 94 12/24/18 16:00 98.5 94 20 111/76 (88) 12/24/18 12:00 80 12/24/18 12:00 98.3 81 20 109/72 (84) 12/24/18 09:48 79 20 Room Air 21 12/24/18 09:32 87 101/63 12/24/18 09:00 Room Air 12/24/18 08:00 98.3 89 20 101/63 (76) 12/24/18 08:00 89 12/24/18 04:00 88 12/24/18 00:00 80 Intake and Output 12/23/18 12/24/18 19:00 07:00 Intake Total 1090 ml 350 ml Output Total 800 ml Balance 290 ml 350 ml Intake Oral 1090 ml 240 ml IV Total 110 ml Output Urine Total 800 ml # Voids 3 Laboratory Tests 12/24/18 07:20: White Blood Count 4.1L, Red Blood Count 5.30, Hemoglobin 15.9, Hematocrit 48.9, Mean Corpuscular Volume 92, Mean Corpuscular Hemoglobin 30.0, Mean Corpuscular Hemoglobin Concent 32.6, Red Cell Distribution Width 13.1, Platelet Count 337, Mean Platelet Volume 5.5L, Neutrophils (%) (Auto) 34.3L, Lymphocytes (%) (Auto) 41.2, Monocytes (%) (Auto) 19.2H, Eosinophils (%) (Auto) 2.9, Basophils (%) ( Auto) 2.4H, Sodium Level 137, Potassium Level 4.2, Chloride Level 104, Carbon Dioxide Level 24, Anion Gap 9, Blood Urea Nitrogen 21H, Creatinine 1.4H, Estimat Glomerular Filtration Rate > 60, Glucose Level 96, Calcium Level 9.4, TB Test (T-Spot) [Pending], TB Test Nil Control (T-Spot) [Pending], TB Test Panel A (T-Spot) [Pending], TB Test Panel B (T-Spot) [Pending], TB Test Positive Control (T-Spot) [Pending] Height (Feet): 6 Height (Inches): 1.00 Weight (Pounds): 196 General Appearance: WD/WN, no apparent distress, alert Neurologic: oriented x 3, responsive, depressed affect Joey Bourgeois MD Dec 24, 2018 21:11
[2018-12-24] MEDS: cefTRIAXone 2 GM in D5W 55 ML IVPB SCH (22:17)
--- NOTE | 2018-12-24 23:26 | Cardiology Progress Note ---
Assessment/Plan Assessment/Plan 1. Nonischemic cardiomyopathy with LVEF approximately 10-15% according to 2-D echocardiography obtained in this facility. Pseudo-normal LV physiology significant for a moderately elevated left atrial pressure. Continue guideline- directed medical therapy including aldosterone antagonists, beta-blockers, and ARBs. 2. Status post single-chamber automatic implanted cardioverter defibrillator implantation. 3. Pleuritic chest pain, most likely acute bronchitis, TB pneumonia, currently in isolation. ID and Pulmonary recommendations. 4. History of pulmonary embolism, on Eliquis in the past. 5. Chronic knee pain/gait imbalance. Subjective Subjective Sinus rhythm at rate of 82. Objective Last 24 Hour Vital Signs Date Time Temp Pulse Resp B/P (MAP) Pulse Ox O2 Delivery O2 Flow Rate FiO2 12/24/18 21:13 82 111/76 12/24/18 21:00 Room Air 12/24/18 20:00 92 12/24/18 20:00 98.4 93 20 121/83 (96) 100 12/24/18 18:49 82 16 Room Air 21 12/24/18 16:00 94 12/24/18 16:00 98.5 94 20 111/76 (88) 12/24/18 12:00 80 12/24/18 12:00 98.3 81 20 109/72 (84) 12/24/18 09:48 79 20 Room Air 21 12/24/18 09:32 87 101/63 12/24/18 09:00 Room Air 12/24/18 08:00 98.3 89 20 101/63 (76) 12/24/18 08:00 89 12/24/18 04:00 88 12/24/18 00:00 80 Intake and Output 12/23/18 12/24/18 19:00 07:00 Intake Total 1090 ml 350 ml Output Total 800 ml Balance 290 ml 350 ml Intake Oral 1090 ml 240 ml IV Total 110 ml Output Urine Total 800 ml # Voids 3 Laboratory Tests Test 12/24/18 07:20 White Blood Count 4.1 K/UL (4.8-10.8) L Red Blood Count 5.30 M/UL (4.70-6.10) Hemoglobin 15.9 G/DL (14.2-18.0) Hematocrit 48.9 % (42.0-52.0) Mean Corpuscular Volume 92 FL (80-99) Mean Corpuscular Hemoglobin 30.0 PG (27.0-31.0) Mean Corpuscular Hemoglobin Concent 32.6 G/DL (32.0-36.0) Red Cell Distribution Width 13.1 % (11.6-14.8) Platelet Count 337 K/UL (150-450) Mean Platelet Volume 5.5 FL (6.5-10.1) L Neutrophils (%) (Auto) 34.3 % (45.0-75.0) L Lymphocytes (%) (Auto) 41.2 % (20.0-45.0) Monocytes (%) (Auto) 19.2 % (1.0-10.0) H Eosinophils (%) (Auto) 2.9 % (0.0-3.0) Basophils (%) (Auto) 2.4 % (0.0-2.0) H Sodium Level 137 MMOL/L (136-145) Potassium Level 4.2 MMOL/L (3.5-5.1) Chloride Level 104 MMOL/L (98-107) Carbon Dioxide Level 24 MMOL/L (21-32) Anion Gap 9 mmol/L (5-15) Blood Urea Nitrogen 21 mg/dL (7-18) H Creatinine 1.4 MG/DL (0.55-1.30) H Estimat Glomerular Filtration Rate > 60 mL/min (>60) Glucose Level 96 MG/DL (74-106) Calcium Level 9.4 MG/DL (8.5-10.1) TB Test (T-Spot) Pending TB Test Nil Control (T-Spot) Pending TB Test Panel A (T-Spot) Pending TB Test Panel B (T-Spot) Pending TB Test Positive Control (T-Spot) Pending Microbiology Date/Time Source Procedure Growth Status 12/22/18 20:30 Sputum Expectorated Gram Stain - Final Resulted 12/22/18 20:30 Sputum Expectorated Sputum Culture - Preliminary NORMAL UPPER RESPIRATORY DEVON AT 24 ... Resulted 12/22/18 20:30 Sputum Expectorated AFB Specimen Processing Tissue - Final Resulted 12/22/18 20:30 Sputum Expectorated Acid Fast Bacilli Smear - Final Resulted 12/22/18 20:30 Sputum Expectorated Acid Fast Bacilli Culture Pending Resulted 12/22/18 04:00 Nasal Nares MRSA Culture - Final NO METHICILLIN RESISTANT STAPH AUREUS... Complete 12/22/18 04:00 Rectum VRE Culture - Final NO VANCOMYCIN RESISTANT ENTEROCOCCUS ... Complete Objective HEENT: Atraumatic and normocephalic. Anicteric. Pupils are equal, round, and reactive to light and accommodation. Extraocular muscles intact. NECK: JVP less than 5 cm. No carotid bruit. Carotid upstroke is 2+ bilaterally LUNGS: Clear to auscultation bilaterally. CARDIOVASCULAR: Normal S1, S2. Regular rate and rhythm. No murmurs, gallops, or rubs. PMI is at fourth intercostal space in the midclavicular line. ABDOMEN: Soft, nontender, and nondistended. No hepatosplenomegaly. Positive bowel sounds. EXTREMITIES: Decreased range of motion of left knee with swelling and degenerative changes. Otherwise, no edema, clubbing, or cyanosis. Mitch Santiago MD Dec 24, 2018 23:26
[2018-12-25] VITALS: BP 102/73
--- NOTE | 2018-12-25 07:04 | NUR ---
HAND-OFF: Report given to alexandria acuna.
[2018-12-25 07:40] LABS: BASOPHILS % (AUTO) 2.5 % (0.0-2.0); EOSINOPHILS % (AUTO) 2.5 % (0.0-3.0); HEMOGLOBIN 16.7 G/DL (14.2-18.0); LYMPHOCYTES % (AUTO) 42.4 % (20.0-45.0); MEAN CORPUSCULAR VOLUME 93 FL (80-99); MONOCYTES % (AUTO) 19.6 % (1.0-10.0); PLATELET COUNT 330 K/UL (150-450); RED CELL DISTRIBUTION WIDTH 13.4 % (11.6-14.8); WHITE BLOOD COUNT 5.5 K/UL (4.8-10.8)
[2018-12-25 07:42] LABS: ANION GAP 11 mmol/L (5-15); BLOOD UREA NITROGEN 23 mg/dL (7-18); CALCIUM 9.4 MG/DL (8.5-10.1); CARBON DIOXIDE 25 MMOL/L (21-32); CHLORIDE 101 MMOL/L (98-107); CREATININE 1.5 MG/DL (0.55-1.30); POTASSIUM 4.2 MMOL/L (3.5-5.1); SODIUM 137 MMOL/L (136-145)
[2018-12-25 08:00] VITALS: BP 101/66
--- NOTE | 2018-12-25 08:14 | NUR ---
NURSE NOTES Received report from Cinthya SAMUELS. Pt watching tv in bed. pt on nurse monitoring. Bed in lowest position. Pt has no IV access and refuses to have a new IV put in. Doct is aware of no IV access and will change all IV meds to PO. Call light with in reach. Will continue plan of care.
[2018-12-25] MEDS: Furosemide 40mg tab ORAL SCH ×2 (08:49→17:38)
[2018-12-25] MEDS: Aspirin EC 81mg tab ORAL SCH (08:49)
[2018-12-25] MEDS: Doxycycline Hyclate 100 MG in D5W 110 ML IV SCH (08:55)
--- NOTE | 2018-12-25 08:56 | NUR ---
NURSE NOTES: pt refusing to keep soft boarder. Pt very agitated and refusing psych. med escitalopram. Pt "I fucking want to leave I'm tired of being here you are getting on my nerves.
[2018-12-25 12:00] VITALS: BP 110/73
--- NOTE | 2018-12-25 12:18 | NUR ---
CASE MANAGEMENT:REVIEW 12/25/18 SI: RLL PNA W/HEMOPTYSIS R/O TB 98.0 94 20 101/66 96% ON RA BUN+23 CR+1.5 IS: VIBRAMYCIN PO Q12 CEFDNIR PO Q12 LEXAPRO PO QD ASA PO QD COREG PO Q12 LASIX PO BID ASA PO QD COREG PO Q12 LASIX PO BID : TELEMETRY STATUS PLAN: TRANSFER TO [facility] WAITING FOR WRITTEN CLEARANCE OBTAINED FROM HEALTH DEPARTMENT TO TRANSFER
--- NOTE | 2018-12-25 12:33 | NUR ---
NURSE NOTES: L/M for Andreia clinical social work therapist in regards to a message left from Deni at [facility]. He will like a call back to set up placement for this pt.
--- NOTE | 2018-12-25 13:42 | General Progress Note ---
Assessment/Plan Assessment/Plan S: I am ok O: NO sob, No cp PHYSICAL EXAMINATION: HEAD AND NECK: Atraumatic and normocephalic. CHEST: Diffuse bronchial breathing sounds. HEART: S1 and S2. Regular rate and rhythm. ABDOMEN: Soft. No organomegaly. MUSCULOSKELETAL: No gross motor deficit. NEUROLOGIC: The patient is awake, alert, and oriented x3. Meds: including Doxycycline and ceftriaxone ASSESSMENT: 1. Acute hemoptysis. Differential diagnosis including but not limited to infectious underlying etiology including TB vs pna 2. Chest pain, possibility of ACS merits additional workup. 3. Renal failure - age indeterminate. 4. Abnormal BNP. no evidence of active hf 5. Social issues/homelessness. 6. Cocain abuser Plan: Current isolation , per ID Current empirical abx stool softener PRN PATIENT STATED THAT WANTS TO LEAVE HOSPITAL. I EXPLAINED IT WILL BE AMA Subjective Allergies: Coded Allergies: LISINOPRIL (Unverified Allergy, Unknown, 03/03/18) Objective Last 24 Hour Vital Signs Date Time Temp Pulse Resp B/P (MAP) Pulse Ox O2 Delivery O2 Flow Rate FiO2 12/25/18 08:54 94 101/66 12/25/18 08:00 98.0 94 20 101/66 (78) 96 12/25/18 04:00 87 12/25/18 00:00 98.7 98 20 102/73 (83) 98 12/25/18 00:00 93 12/24/18 21:13 82 111/76 12/24/18 21:00 Room Air 12/24/18 20:00 92 12/24/18 20:00 98.4 93 20 121/83 (96) 100 12/24/18 18:49 82 16 Room Air 21 12/24/18 16:00 94 12/24/18 16:00 98.5 94 20 111/76 (88) Intake and Output 12/24/18 12/25/18 19:00 07:00 Intake Total 250 ml 120 ml Output Total 200 ml Balance 50 ml 120 ml Intake Oral 240 ml 120 ml IV Total 10 ml Output Urine Total 200 ml # Voids 4 # Bowel Movements 3 Laboratory Tests 12/25/18 07:07: White Blood Count 5.5, Red Blood Count 5.50, Hemoglobin 16.7, Hematocrit 51.0, Mean Corpuscular Volume 93, Mean Corpuscular Hemoglobin 30.4, Mean Corpuscular Hemoglobin Concent 32.8, Red Cell Distribution Width 13.4, Platelet Count 330, Mean Platelet Volume 5.3L, Neutrophils (%) (Auto) 33.0L, Lymphocytes (%) (Auto) 42.4, Monocytes (%) (Auto) 19.6H, Eosinophils (%) (Auto) 2.5, Basophils (%) ( Auto) 2.5H, Sodium Level 137, Potassium Level 4.2, Chloride Level 101, Carbon Dioxide Level 25, Anion Gap 11, Blood Urea Nitrogen 23H, Creatinine 1.5H, Estimat Glomerular Filtration Rate 58.3, Glucose Level 94, Calcium Level 9.4 Height (Feet): 6 Height (Inches): 1.00 Weight (Pounds): 196 Heaven Bennett MD Dec 25, 2018 13:42
[2018-12-25] MEDS ORDERED: Cefdinir 300mg cap ORAL SCH ×2 (14:00→21:00)
--- NOTE | 2018-12-25 14:16 | NUR ---
CASE MANAGEMENT: FAXED HEALTH DEPARTMENT CLEARANCE TO HEALTH PLAN FOR DISCHARGE
--- NOTE | 2018-12-25 15:08 | NUR ---
Social Service Note SW spoke with Deni at [facility] [phone] who recently assisted patient with interm housing and [facility] placement. Deni would like to be notified of transfer and contact number for follow up.
[2018-12-25 16:00] VITALS: BP 102/69
--- NOTE | 2018-12-25 17:36 | NUR ---
nurse notes received from tele via wheelchair , patient awake, alert, oriented x4, no sign of distress, on RA,No IV access noted MD aware per tele nurse, on airborne isolation , on fall precaution , plan of care done needs reinforcement, call light w/n reach, will continue to monitor patient condition alexandria rosario
--- NOTE | 2018-12-25 18:21 | Infectious Diseases Prog Note ---
Assessment/Plan Problems: (1) RLL pneumonia Assessment & Plan: continue ceftriaxone and doxycycline empirically, pending sputum culture (2) Hemoptysis Assessment & Plan: rule out TB VS Cocaine SE , await T spot test, and AFB smears and culture x3 , keep in air born isolation for now (3) Cocaine abuse Assessment & Plan: recommend counseling and rehabilitation (4) Renal insufficiency Assessment & Plan: continue hydration , with renally dosed meds (5) ACS (acute coronary syndrome) Assessment & Plan: could be due to cocaien , consult cards for work up Subjective Constitutional: Reports: no symptoms HEENT: Reports: no symptoms Respiratory: Reports: dry cough Breasts: Reports: no symptoms Cardiovascular: Reports: no symptoms Gastrointestinal/Abdominal: Reports: no symptoms Genitourinary: Reports: no symptoms Neurologic: Reports: no symptoms Psychiatric: Reports: no symptoms Skin: Reports: no symptoms Endocrine: Reports: no symptoms Hematologic: Reports: no symptoms Musculoskeletal: Reports: no symptoms Allergies: Coded Allergies: LISINOPRIL (Unverified Allergy, Unknown, 03/03/18) Objective Vital Signs Last 24 Hour Vital Signs Date Time Temp Pulse Resp B/P (MAP) Pulse Ox O2 Delivery O2 Flow Rate FiO2 12/25/18 16:00 98.5 91 22 102/69 (80) 100 12/25/18 12:00 98.0 91 21 110/73 (85) 97 12/25/18 09:00 Room Air 12/25/18 08:54 94 101/66 12/25/18 08:00 98.0 94 20 101/66 (78) 96 12/25/18 04:00 87 12/25/18 00:00 98.7 98 20 102/73 (83) 98 12/25/18 00:00 93 12/24/18 21:13 82 111/76 12/24/18 21:00 Room Air 12/24/18 20:00 92 12/24/18 20:00 98.4 93 20 121/83 (96) 100 12/24/18 18:49 82 16 Room Air 21 Height (Feet): 6 Height (Inches): 1.00 Weight (Pounds): 196 General Appearance: WD/WN, no acute distress HEENT: normocephalic, atraumatic, anicteric, mucous membranes moist, PERRL Respiratory/Chest: chest wall non-tender, no respiratory distress, no accessory muscle use, decreased breath sounds Cardiovascular: normal peripheral pulses, normal rate, regular rhythm, no gallop/murmur, no JVD Abdomen: normal bowel sounds, soft, non tender, no organomegaly, non distended , no mass, no scars Extremities: no cyanosis, no clubbing Skin: no rash, no lesions, no ulcers Neurologic/Psychiatric: head wrestling coach II-XII grossly normal, alert, oriented x 3, responsive Lymphatic: no neck adenopathy, no groin adenopathy Musculoskeletal: normal muscle bulk, no effusion Microbiology Date/Time Source Procedure Growth Status 12/24/18 11:00 Sputum AFB Specimen Processing Tissue - Final Resulted 12/24/18 11:00 Sputum Acid Fast Bacilli Smear - Final Resulted 12/24/18 11:00 Sputum Acid Fast Bacilli Culture Pending Resulted 12/22/18 20:30 Sputum Expectorated Gram Stain - Final Complete 12/22/18 20:30 Sputum Expectorated Sputum Culture - Final NORMAL UPPER RESPIRATORY DEVON PRESENT Complete 12/22/18 20:30 Sputum Expectorated AFB Specimen Processing Tissue - Final Resulted 12/22/18 20:30 Sputum Expectorated Acid Fast Bacilli Smear - Final Resulted 12/22/18 20:30 Sputum Expectorated Acid Fast Bacilli Culture Pending Resulted Laboratory Tests Test 12/25/18 07:07 White Blood Count 5.5 K/UL (4.8-10.8) Red Blood Count 5.50 M/UL (4.70-6.10) Hemoglobin 16.7 G/DL (14.2-18.0) Hematocrit 51.0 % (42.0-52.0) Mean Corpuscular Volume 93 FL (80-99) Mean Corpuscular Hemoglobin 30.4 PG (27.0-31.0) Mean Corpuscular Hemoglobin Concent 32.8 G/DL (32.0-36.0) Red Cell Distribution Width 13.4 % (11.6-14.8) Platelet Count 330 K/UL (150-450) Mean Platelet Volume 5.3 FL (6.5-10.1) L Neutrophils (%) (Auto) 33.0 % (45.0-75.0) L Lymphocytes (%) (Auto) 42.4 % (20.0-45.0) Monocytes (%) (Auto) 19.6 % (1.0-10.0) H Eosinophils (%) (Auto) 2.5 % (0.0-3.0) Basophils (%) (Auto) 2.5 % (0.0-2.0) H Sodium Level 137 MMOL/L (136-145) Potassium Level 4.2 MMOL/L (3.5-5.1) Chloride Level 101 MMOL/L (98-107) Carbon Dioxide Level 25 MMOL/L (21-32) Anion Gap 11 mmol/L (5-15) Blood Urea Nitrogen 23 mg/dL (7-18) H Creatinine 1.5 MG/DL (0.55-1.30) H Estimat Glomerular Filtration Rate 58.3 mL/min (>60) Glucose Level 94 MG/DL (74-106) Calcium Level 9.4 MG/DL (8.5-10.1) Current Medications Medications (Trade) Dose Ordered Sig/[place] Route PRN Reason Start Time Stop Time Status Last Admin Dose Admin Acetaminophen/ Hydrocodone Bitart ([place] 10/325) 1 tab Q6H PRN ORAL Moderate Pain (Pain Scale 4-6) 12/22/18 03:45 12/29/18 03:44 Albuterol/ Ipratropium (Albuterol/ Ipratropium) 3 ml Q4H PRN HHN Shortness of Breath 12/22/18 04:00 12/27/18 03:59 Aspirin (Ecotrin) 162 mg DAILY ORAL 12/22/18 09:00 01/21/19 08:59 12/25/18 08:49 Atorvastatin Calcium (Lipitor) 10 mg BEDTIME ORAL 12/22/18 21:00 01/21/19 20:59 12/24/18 21:13 Carvedilol (Coreg) 3.125 mg EVERY 12 HOURS ORAL 12/22/18 09:00 01/21/19 08:59 12/24/18 21:13 Cefdinir (Cefdinir) 300 mg Q12HR ORAL 12/25/18 14:00 01/01/19 13:59 12/25/18 14:46 Doxycycline Monohydrate (Vibramycin) 100 mg EVERY 12 HOURS ORAL 12/25/18 14:00 01/01/19 13:59 12/25/18 14:46 Escitalopram Oxalate (Lexapro) 10 mg DAILY ORAL 12/24/18 09:00 01/23/19 08:59 12/24/18 09:28 Furosemide (Lasix) 40 mg TWICE A DAY ORAL 12/22/18 09:00 01/21/19 08:59 12/25/18 17:38 Zolpidem Tartrate (Ambien) 5 mg HSPRN PRN ORAL Insomnia 12/22/18 04:00 12/29/18 03:59 Maeve Montana M.D. Dec 25, 2018 18:21
[2018-12-25] MEDS ORDERED: HYDROcodone/Acetamin 10/325 tab ORAL PRN (18:32)
[2018-12-25] MEDS ORDERED: Albuterol/Ipratropium 3ml neb HHN PRN (18:32)
[2018-12-25] MEDS ORDERED: Zolpidem 5mg tab ORAL PRN (18:32)
--- NOTE | 2018-12-25 19:30 | NUR ---
NURSE NOTES: Patient ambulating in the room, no complaints of pain at this time, not in acute respiratory distress. Instructed the use of call light. Call light and needs in reach. Bed in lowest position and lock engaged. Instructed patient to collect sputum in AM. Specimen bottle at bedside. Patient verbalized understanding. Will continue to monitor.
--- NOTE | 2018-12-25 19:35 | NUR ---
HAND-OFF: Report given to ABRIL Vences RN
[2018-12-25 20:00] VITALS: BP 110/78
--- NOTE | 2018-12-25 22:15 | General Progress Note ---
Assessment/Plan Problem List: (1) MDD (major depressive disorder) ICD Codes: F32.9 - Major depressive disorder, single episode, unspecified SNOMED: 988098979 Assessment/Plan the pt has capacity to make decisions. lexapro 10mg po qam Subjective Neurologic/Psychiatric: Reports: anxiety, depressed, emotional problems Allergies: Coded Allergies: LISINOPRIL (Unverified Allergy, Unknown, 03/03/18) Subjective the pt was irritable cooperated Objective Last 24 Hour Vital Signs Date Time Temp Pulse Resp B/P (MAP) Pulse Ox O2 Delivery O2 Flow Rate FiO2 12/25/18 20:52 94 110/78 12/25/18 20:00 97.6 94 18 110/78 (89) 100 12/25/18 16:00 98.5 91 22 102/69 (80) 100 12/25/18 12:00 98.0 91 21 110/73 (85) 97 12/25/18 09:00 Room Air 12/25/18 08:54 94 101/66 12/25/18 08:00 98.0 94 20 101/66 (78) 96 12/25/18 04:00 87 12/25/18 00:00 98.7 98 20 102/73 (83) 98 12/25/18 00:00 93 Intake and Output 12/24/18 12/25/18 19:00 07:00 Intake Total 250 ml 120 ml Output Total 200 ml Balance 50 ml 120 ml Intake Oral 240 ml 120 ml IV Total 10 ml Output Urine Total 200 ml # Voids 4 # Bowel Movements 3 Laboratory Tests 12/25/18 07:07: White Blood Count 5.5, Red Blood Count 5.50, Hemoglobin 16.7, Hematocrit 51.0, Mean Corpuscular Volume 93, Mean Corpuscular Hemoglobin 30.4, Mean Corpuscular Hemoglobin Concent 32.8, Red Cell Distribution Width 13.4, Platelet Count 330, Mean Platelet Volume 5.3L, Neutrophils (%) (Auto) 33.0L, Lymphocytes (%) (Auto) 42.4, Monocytes (%) (Auto) 19.6H, Eosinophils (%) (Auto) 2.5, Basophils (%) ( Auto) 2.5H, Sodium Level 137, Potassium Level 4.2, Chloride Level 101, Carbon Dioxide Level 25, Anion Gap 11, Blood Urea Nitrogen 23H, Creatinine 1.5H, Estimat Glomerular Filtration Rate 58.3, Glucose Level 94, Calcium Level 9.4 Height (Feet): 6 Height (Inches): 1.00 Weight (Pounds): 196 General Appearance: WD/WN, no apparent distress, alert Joey Bourgeois MD Dec 25, 2018 22:15
[2018-12-26] VITALS: BP 90/53
--- NOTE | 2018-12-26 07:36 | NUR ---
NURSE NOTES: RN educated and reminded pt to leave AFB sample. Pt refused. Will follow up.
--- NOTE | 2018-12-26 07:40 | NUR ---
NURSE NOTES: RECEIVED PATIENT IN BED, RESTING AND ALERT TO NAME, PLACE, TIME AND PURPOSE. PATIENT DENIES PAIN. PATIENT REQUESTING TO BE DISCHARGED. VERBALIZED TO PATIENT TESTS HAVE TO BE COMPLETED AND RESULTED BEFORE DISCHARGE PER PROTOCOL FOR HIS DIAGNOSIS. PATIENT ANGRY, VERBALIZING "BRING ME MY BREAKFAST AND I'LL LEAVE AFTER THAT". GROUND INSTRUCTOR ADVANCED NOTIFIED OF SITUATION. WILL CONTACT DR. LEHMAN AND CONTINUE TO MONITOR.
--- NOTE | 2018-12-26 08:02 | NUR ---
HAND-OFF: Report given to ABRIL Hsu.
--- NOTE | 2018-12-26 08:10 | NUR ---
NURSE NOTES: PATIENT LEFT AMA IN WHEELCHAIR WITH BELONGINGS. PATIENT ANGRY, THREATENING STAFF AND REFUSING TO STAY IN ROOM. TONSORIAL ARTIST MADE AWARE THAT PATIENT REFUSED TO STAY DESPITE EDUCATION ON TB ISOLATION AND TESTS. PATIENT LEFT WITH MASK ON. PATIENT REFUSED TO SIGN AMA FORM OR GO OVER BELONGINGS. NO IV TO REMOVE. SECURITY NOTIFIED. DR. LEHMAN MADE AWARE. WILL CONTINUE TO MONITOR.
--- NOTE | 2018-12-26 08:30 | NUR ---
NURSE NOTES: AWAITING DEVULCANIZER HEAD TO DISCUSS AMA AND TO REPORT TO DEPARTMENT OF PUBLIC HEALTH.
[2018-12-26] MEDS ORDERED: Aspirin EC 81mg tab ORAL SCH (09:00)
[2018-12-26] MEDS ORDERED: Furosemide 40mg tab ORAL SCH (09:00)
--- NOTE | 2018-12-26 18:55 | NUR ---
CHARGE NURSE NOTES: 0800 PATIENT ALERT, ORIENTED. LEFT AMA. EXPLAINED RISK AND BENEFITS. ATTEMPTED TO CONTACT GENE MENDIOLA, NO ANSWER AT THIS TIME. GRAIN ELEVATOR OPERATOR MADE AWARE. SECURITY WAS CALLED TO HELP. PATIENT INSISTED TO LEAVE. DR. LEHMAN MADE AWARE.
--- NOTE | 2018-12-26 22:18 | General Progress Note ---
Assessment/Plan Problem List: (1) MDD (major depressive disorder) ICD Codes: F32.9 - Major depressive disorder, single episode, unspecified SNOMED: 450997971 Status: stable Assessment/Plan the pt has capacity to make decisions. lexapro 10mg po qam Subjective Neurologic/Psychiatric: Reports: anxiety, depressed, emotional problems Allergies: Coded Allergies: LISINOPRIL (Unverified Allergy, Unknown, 03/03/18) Subjective the pt was irritable the pt was able to make decisions. Objective Last 24 Hour Vital Signs Date Time Temp Pulse Resp B/P (MAP) Pulse Ox O2 Delivery O2 Flow Rate FiO2 12/26/18 00:00 98.1 88 18 90/53 (65) 97 12/25/18 23:48 90 20 Room Air 21 Intake and Output 12/25/18 12/26/18 19:00 07:00 Intake Total 100 ml Balance 100 ml Intake Oral 100 ml # Voids 2 Height (Feet): 6 Height (Inches): 1.00 Weight (Pounds): 196 General Appearance: WD/WN, no apparent distress, alert Joey Bourgeois MD Dec 26, 2018 22:18
--- NOTE | 2018-12-29 08:42 | Discharge Summary ---
Discharge Summary Discharge Summary _ DATE OF ADMISSION: 12/21/2018 DATE OF DISCHARGE: 12/26 Patient left AGAINST MEDICAL ADVICE REASON FOR ADMISSION: 58 years old male with past medical history of hypertension, asthma, pacemaker, congestive heart failure, pulmonary embolism, presented to emergency department with chief complaint of 2 days of chest pain and coughing up blood. Patient felt feverish , but denied any productive phlegm. Patient with a history of pulmonary emboli and in the past was taking Eliquis. Patient was not taking it recently. He reported night sweats and losing weight recently along with coughing up blood. He was previously in the longterm , but now on the streets. Patient was seen at [facility] 2 days ago got medication refill , but was not evaluated for this problem. Chest pain reported pleuritic , with cough, left-sided . Patient was wheelchair-bound due to chronic left knee injury. He was unable to straighten his left knee , and apparently surgery was planned for that in the future. Upon evaluation vital signs revealed no fever ; pulse oximetry was stable on room air. Laboratory workup revealed no leukocytosis , stable hemoglobin and hematocrit. Troponin negative. Pro BNP 1293. ECG revealed no acute ischemic changes. BUN 17 , creatinine 1.7 . Albumin 3.5. Stable coagulation profile. Urinalysis revealed no evidence of UTI. Urine toxicology screen was positive for cocaine. Chest x-ray revealed borderline cardiomegaly , evidence of left chest AICD , no acute infiltrates, effusion , or congestion. Patient undergone CT angiogram of the chest and thorax , which demonstrated no evidence of acute pulmonary emboli. Chronic pulmonary parenchymal changes. Pacemaker . Four-chamber cardiomegaly. Slight ground-glass opacity. Patchy right lung opacity, possibly indicative of infectious/inflammatory process. In emergency department patient started on empiric antibiotics. There was a concern of possible TB infection, given clinical picture of night sweats, hemoptysis, weight loss along with factor of homelessness. Patient was placed in respiratory isolation and subsequently was admitted for further management. CONSULTANTS: unemployment specialist Dr. Santiago ID specialist psychiatrist [facility] COURSE: Patient admitted to monitored floor initially. Cardiology and ID specialists clsoely followed. Echocardiogram revealed ejection fraction of 10-15% with severe global left ventricular hypokinesis. No evidence of left ventricular hypertrophy. No evidence of pericardial effusion. Moderate mitral regurgitation noted. Grade 2 left ventricular diastolic dysfunction. Right ventricular systolic pressure of 31. Serial troponin were negative. EKG revealed no acute ischemic changes. Patient was ruled out for acute coronary syndrome. Per unemployment specialist, patient had nonischemic cardiomyopathy , likely due to cocaine abuse. Guideline directed medical therapy , including beta-ivan , ARB , aldosterone antagonist and Lasix was continued. Antiplatelet therapy with aspirin and statin were continued. Chest pain with pleuritic, likely due to pneumonia. Patient also had a single-chamber automatic implanted cardioverter defibrillator implantation. Supplemental oxygen provided as needed to keep pulse oximetry above 90%. Pulmonary toilet with bronchodilator provided as needed. Patient started on empiric antibiotic for pneumonia. Patient was on respiratory isolation. Sputum culture was negative. AFB smear x2 was negative . TB test was negative. PPD negative. HIV test was nonreactive. Patient was counseled on abstinence from illicit street drugs and recommended rehabilitation. Renal parameters and electrolytes were closely monitored. Medications were renally dosed. Nephrotoxins were avoided. Electrolytes corrected as needed. Renal ultrasound revealed no evidence of hydronephrosis , Normal bilateral kidney echogenicity. Possible small nonobstructive calculi. Prior to signing AMA, creatinine from initial 1.7 down to 1.5 . Pain management was addressed as needed. Supportive care provided. Patient started on stool softener. Hemoglobin and hematocrit were closely monitored , remained stable at baseline. No further evidence of hemoptysis. Psychiatrist closely followed. Per psychiatrist, patient had major depressive disorder. Psychiatry determined, that patient had capacity to make informed decision regarding his care. Patient started on Lexapro. Supportive therapy provided. Patient decided to leave AGAINST MEDICAL ADVICE. The risks and consequences of signing AGAINST MEDICAL ADVICE were discussed with patient in detail. Patient verbalized understanding, nevertheless signed AMA form and left. FINAL DIAGNOSES: Nonischemic cardiomyopathy with ejection fraction 10-15% Right lower lobe pneumonia Status post single-chamber automatic implanted cardioverter defibrillator implantation History of PE Cocaine abuse Pleuritic chest pain Hemoptysis Rule out TB Renal failure Chronic knee pain Major depressive disorder. Homelessness I have been assigned to dictate discharge summary for this account. I was not involved in the patient's management. Indu Valderrama NP Dec 29, 2018 08:42
== END 2018-12-26 08:37 | disposition left against medical advice (07) | DRG 139 ==
LOC: EMR 20:20 → EDBEDREQ 22:24 → 2E 23:01 → EDBEDREQ 23:36 → 4E 12-25 17:14
DX: J18.8 Other pneumonia, unspecified organism (principal); I42.8 Other cardiomyopathies; F20.0 Paranoid schizophrenia; N19 Unspecified kidney failure; R04.2 Hemoptysis; F32.9 Major depressive disorder, single episode, unspecified; F14.10 Cocaine abuse, uncomplicated; Z95.0 Presence of cardiac pacemaker; Z59.0 Homelessness; Z86.711 Personal history of pulmonary embolism; R07.81 Pleurodynia; G89.29 Other chronic pain; M25.569 Pain in unspecified knee; Z88.8 Allergy status to other drugs, medicaments and biological substances; J45.909 Unspecified asthma, uncomplicated; F17.200 Nicotine dependence, unspecified, uncomplicated
CPT/HCPCS: 36415; 71045; 71275; 76770; 80048; 80053; 80307; 81003; 82550; 83880; 84484; 85025; 85610; 85730; 86580; 86703; 87070; 87081; 87116; 87205; 93005; 93306; 94640; 94664; 96361; 96365; 96368; 96375; 99285; J2405; J3490

== ENCOUNTER 2019-09-13 17:31 | Emergency (ER) | payer OTHER ==
[~2019-09-13] VITALS: Ht 175.3 cm; Wt 88.5 kg
[2019-09-13 18:00] VITALS: BP 117/69
--- NOTE | 2019-09-13 18:00 | NUR ---
ED Nurse Note: Patient walked in to ED c/o CP and high blood pressure. BP at triage is 117/69. Patient is also c/o pacemaker battery replacement. Pacemaker on left upper chest noted. No SOB. Breating even and unlabored. Afebrile. VSS. Placed on bus monitor.
[2019-09-13] MEDS ORDERED: Albuterol ud Inhalation HHN ONE (18:45)
--- NOTE | 2019-09-13 18:45 | NUR ---
ED Nurse Note: Xray at bedside.
--- NOTE | 2019-09-13 18:46 | Emergency Room Report ---
History of Present Illness General Chief Complaint: Chest Pain Source: Patient, Medical Record Present Illness HPI Patient 59-year-old male presents after increased chest discomfort. He reports having increased leg swelling bilaterally. He has prior history of congestive heart failure. He states he had been out of his Lasix. Patient states he normally takes 20 mg a day. He reports having prior history of pacemaker placement. He states he wants the battery change to his pacemaker. Patient denies any fever. He reports having generalized body discomfort. Allergies: Coded Allergies: LISINOPRIL (Unverified Allergy, Unknown, 03/03/18) Patient History Past Medical History: see triage record Reviewed Nursing Documentation: PMH: Agreed; PSxH: Agreed Nursing Documentation-PMH Past Medical History: No History, Except For Hx Cardiac Problems: Yes - CHF Hx Hypertension: Yes Hx Pacemaker: Yes - ICD Hx Asthma: Yes Hx COPD: No Hx Diabetes: No Hx Cancer: No Hx Gastrointestinal Problems: No Hx Dialysis: No History Of Psychiatric Problem: No Hx Neurological Problems: No Hx Cerebrovascular Accident: Yes Hx Seizures: No Review of Systems All Other Systems: limited Physical Exam Vital Signs Date Time Temp Pulse Resp B/P (MAP) Pulse Ox O2 Delivery O2 Flow Rate FiO2 09/13/19 17:47 98.2 87 14 117/69 (85) 98 Room Air Sp02 EP Interpretation: reviewed, normal General Appearance: normal inspection, no apparent distress, alert, GCS 15, Chronically Ill Head: atraumatic ENT: normal ENT inspection, hearing grossly normal, normal voice Neck: normal inspection, full range of motion, supple, no bony tend Respiratory: normal inspection, no respiratory distress, no retraction Cardiovascular #1: regular rate, rhythm, no edema Gastrointestinal: normal inspection, normal bowel sounds, non tender, soft, no guarding, no hernia Genitourinary: no CVA tenderness Musculoskeletal: normal inspection, back normal, normal range of motion Neurologic: alert, entry level paralegal III-XII nml as tested, oriented x3, responsive, speech normal, normal inspection, other - Right side of extremities slightly weak patient able to move both upper and lower but with poor coordination due to prior CVA Psychiatric: normal inspection, judgement/insight normal, mood/affect normal Medical Decision Making Diagnostic Impression: Primary Impression: CHF (congestive heart failure) ER Course Patient presented for chest pain. Differential diagnosis include was not limited to pneumonia, bronchitis, COPD among others. Because of complexity of patient's case laboratory tests and imaging studies were ordered. Patient does not appear to be in any acute distress. patient was noted to be sitting in the room reading a magazine and in no apparent distress. Patient does have some prior history of congestive heart failure. Laboratory testing did show some mild elevation of his BNP. Patient was given IV Lasix. He was noted to be able to lie supine with no change in oxygen saturation and respiratory difficulty. 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 The patient is advised to follow up with primary care doctor in 1-2 days. Patient is advised to return if any worsening condition or if any changes in status that are concerning. This report is dictated with [employer] care trainer software which may occasionally lead to discrepancies related to use of this software. Labs Test 09/13/19 18:52 White Blood Count 5.5 K/UL (4.8-10.8) Red Blood Count 5.25 M/UL (4.70-6.10) Hemoglobin 16.3 G/DL (14.2-18.0) Hematocrit 48.1 % (42.0-52.0) Mean Corpuscular Volume 92 FL (80-99) Mean Corpuscular Hemoglobin 31.0 PG (27.0-31.0) Mean Corpuscular Hemoglobin Concent 33.8 G/DL (32.0-36.0) Red Cell Distribution Width 12.1 % (11.6-14.8) Platelet Count 250 K/UL (150-450) Mean Platelet Volume 5.0 FL (6.5-10.1) Neutrophils (%) (Auto) 39.9 % (45.0-75.0) Lymphocytes (%) (Auto) 41.3 % (20.0-45.0) Monocytes (%) (Auto) 12.8 % (1.0-10.0) Eosinophils (%) (Auto) 4.7 % (0.0-3.0) Basophils (%) (Auto) 1.3 % (0.0-2.0) Sodium Level 137 MMOL/L (136-145) Potassium Level 3.4 MMOL/L (3.5-5.1) Chloride Level 102 MMOL/L (98-107) Carbon Dioxide Level 27 MMOL/L (21-32) Anion Gap 9 mmol/L (5-15) Blood Urea Nitrogen 14 mg/dL (7-18) Creatinine 1.3 MG/DL (0.55-1.30) Estimat Glomerular Filtration Rate > 60 mL/min (>60) Glucose Level 87 MG/DL (74-106) Calcium Level 9.4 MG/DL (8.5-10.1) Total Bilirubin 0.4 MG/DL (0.2-1.0) Aspartate Amino Transf (AST/SGOT) 51 U/L (15-37) Alanine Aminotransferase (ALT/SGPT) 36 U/L (12-78) Alkaline Phosphatase 83 U/L (46-116) Troponin I 0.023 ng/mL (0.000-0.056) Pro-B-Type Natriuretic Peptide 669 pg/mL (0-125) Total Protein 8.1 G/DL (6.4-8.2) Albumin 3.5 G/DL (3.4-5.0) Globulin 4.6 g/dL Albumin/Globulin Ratio 0.8 (1.0-2.7) Lipase 149 U/L (73-393) Urine Opiates Screen Negative (NEGATIVE) Urine Barbiturates Screen Negative (NEGATIVE) Phencyclidine (PCP) Screen Negative (NEGATIVE) Urine Amphetamines Screen Negative (NEGATIVE) Urine Benzodiazepines Screen Negative (NEGATIVE) Urine Cocaine Screen Negative (NEGATIVE) Urine Marijuana (THC) Screen Negative (NEGATIVE) Last Vital Signs Date Time Temp Pulse Resp B/P (MAP) Pulse Ox O2 Delivery O2 Flow Rate FiO2 09/13/19 18:00 98.2 87 14 117/69 98 Room Air Status: improved Disposition: HOME, SELF-CARE Condition: Stable Scripts Furosemide* (LASIX*) 20 Mg Tablet 20 MG ORAL DAILY, #20 TAB Prov: Clark Saez MD 09/13/19 Clark Saez MD Sep 13, 2019 18:46
--- NOTE | 2019-09-13 18:50 | NUR ---
ED Nurse Note: IV line established. Blood and urine specimen collected and sent to lab.
--- NOTE | 2019-09-13 19:03 | NUR ---
HAND-OFF: Report given to Taylor SAMUELS. Endorsed plan of care.
[2019-09-13 19:22] LABS: BASOPHILS % (AUTO) 1.3 % (0.0-2.0); EOSINOPHILS % (AUTO) 4.7 % (0.0-3.0); HEMATOCRIT 48.1 % (42.0-52.0); HEMOGLOBIN 16.3 G/DL (14.2-18.0); LYMPHOCYTES % (AUTO) 41.3 % (20.0-45.0); MEAN CORPUSCULAR VOLUME 92 FL (80-99); MONOCYTES % (AUTO) 12.8 % (1.0-10.0); NEUTROPHILS % (AUTO) 39.9 % (45.0-75.0); PLATELET COUNT 250 K/UL (150-450); RED BLOOD COUNT 5.25 M/UL (4.70-6.10); RED CELL DISTRIBUTION WIDTH 12.1 % (11.6-14.8); WHITE BLOOD COUNT 5.5 K/UL (4.8-10.8)
[2019-09-13 19:51] LABS: ANION GAP 9 mmol/L (5-15); BLOOD UREA NITROGEN 14 mg/dL (7-18); CALCIUM 9.4 MG/DL (8.5-10.1); CARBON DIOXIDE 27 MMOL/L (21-32); CHLORIDE 102 MMOL/L (98-107); CREATININE 1.3 MG/DL (0.55-1.30); POTASSIUM 3.4 MMOL/L (3.5-5.1); SODIUM 137 MMOL/L (136-145)
[2019-09-13 20:11] LABS: ALANINE AMINOTRANSFERASE 36 U/L (12-78); ALBUMIN 3.5 G/DL (3.4-5.0); ALBUMIN/GLOBULIN RATIO 0.8 (1.0-2.7); ALKALINE PHOSPHATASE 83 U/L (46-116); ASPARTATE AMINO TRANSFERASE 51 U/L (15-37); BILIRUBIN,TOTAL 0.4 MG/DL (0.2-1.0)
[2019-09-13] MEDS ORDERED: FUROSEMIDE20 M1 ORAL (20:20)
[2019-09-13 20:30] VITALS: BP 122/71
--- NOTE | 2019-09-13 20:30 | NUR ---
ER DISCHARGE NOTE: Patient is cleared to be discharged per ERMD, pt is aox4, on room air, with stable vital signs. pt was given dc and prescription instructions, pt was able to verbalize understanding, pt id band and iv site removed without complications. pt is able to ambulate with steady gait. pt took all belongings. Pt refused potassium medication, ERMD aware, pt refused to sign dc paperwork
--- NOTE | 2019-09-14 12:44 | Diagnostic Imaging Report ---
Indication: Dyspnea Comparison: 12/21/2018 A single view chest radiograph was obtained. Findings: No definite infiltrate or pulmonary vascular congestion identified. There is a pacemaker on the left again noted. The heart is enlarged. The aorta is mildly enlarged consistent with atherosclerotic vascular disease. The bones are unremarkable. Impression: No acute disease
== END 2019-09-13 20:30 | disposition home or self-care (01) ==
LOC: EMR 19:10
DX: I11.0 Hypertensive heart disease with heart failure (principal); I50.9 Heart failure, unspecified; Z88.8 Allergy status to other drugs, medicaments and biological substances; Z86.73 Personal history of transient ischemic attack (TIA), and cerebral infarction without residual deficits; Z95.0 Presence of cardiac pacemaker
CPT/HCPCS: 36415; 71045; 80053; 80307; 83690; 83880; 84484; 85025; 93005; 94640; 94664; 96374; J1940; Z7502; 99284; J8499

== ENCOUNTER 2020-05-21 22:17 | Emergency (ER) | payer MEDICAID, OTHER ==
[~2020-05-21] VITALS: Ht 172.7 cm; Wt 79.4 kg
--- NOTE | 2020-05-21 22:20 | NUR ---
ED Nurse Note: Patient brought in by ambulance [id number] with c/o abdominal pain onset 5 hours ago, cause unk. Patient was found lying in the middle of the street. Patient denies any injury/ trauma. Patient denies drug use. Placed on monitor bed
--- NOTE | 2020-05-21 22:25 | NUR ---
ED Nurse Note: ERMD at bedside
[2020-05-21 22:30] VITALS: BP 117/74
--- NOTE | 2020-05-21 22:31 | Emergency Room Report ---
History of Present Illness General Chief Complaint: To Be Triaged Source: Patient Present Illness HPI 59-year-old male here with generalized abdominal pain. Patient says that he drank a large amount of alcohol earlier tonight and began having severe diffuse abdominal pain. He is vomiting in the emergency department nonbilious nonbloody. Says that the pain started 5 hours prior to coming in. Denies fevers, chills, chest pain, palpitations, shortness of breath, back pain, diarrhea, dysuria. Says the pain is sharp in nature, diffuse, however located mostly in the epigastric region. Allergies: Coded Allergies: LISINOPRIL (Unverified Allergy, Unknown, 03/03/18) COVID-19 Screening Contact w/high risk pt: No Experienced COVID-19 symptoms?: No COVID-19 Testing performed PATENT LAWYER: No Nursing Documentation-PMH Hx Cardiac Problems: Yes - CHF Hx Hypertension: Yes Hx Pacemaker: Yes - ICD Hx Asthma: Yes Hx COPD: No Hx Diabetes: Yes Hx Cancer: No Hx Gastrointestinal Problems: No Hx Dialysis: No Hx Neurological Problems: No Hx Cerebrovascular Accident: Yes Hx Seizures: No Review of Systems All Other Systems: negative except mentioned in HPI Physical Exam Vital Signs Date Time Temp Pulse Resp B/P (MAP) Pulse Ox O2 Delivery O2 Flow Rate FiO2 05/21/20 22:14 98.4 88 16 117/74 (88) 98 Room Air Sp02 EP Interpretation: reviewed, normal General Appearance: alert, non-toxic, other - Writhing in the bed and groaning in pain clutching abdomen Head: normocephalic, atraumatic Eyes: bilateral eye normal inspection, bilateral eye PERRL ENT: hearing grossly normal, normal pharynx, no angioedema, normal voice Neck: full range of motion, supple/symm/no masses Respiratory: chest non-tender, lungs clear, normal breath sounds, speaking full sentences Cardiovascular #1: regular rate, rhythm, no edema Cardiovascular #2: 2+ carotid (R), 2+ carotid (L), 2+ radial (R), 2+ radial (L) , 2+ dorsalis pedis (R), 2+ dorsalis pedis (L) Gastrointestinal: normal bowel sounds, soft, non-distended, no guarding, no rebound, other - Diffuse generalized abdominal tenderness on palpation. No focal tenderness. Non-peritoneal neck. No guarding or rebound Rectal: deferred Genitourinary: normal inspection, no CVA tenderness Musculoskeletal: back normal, normal range of motion, calf tenderness, gait/ station normal, non-tender Neurologic: alert, motor strength/tone normal, oriented x3, sensory intact, responsive, speech normal Psychiatric: judgement/insight normal, memory normal, mood/affect normal, no suicidal/homicidal ideation Reflexes: 3+ bicep (R), 3+ bicep (L), 3+ tricep (R), 3+ tricep (L), 3+ knee (R) , 3+ knee (L) Lymphatic: no adenopathy Medical Decision Making Diagnostic Impression: Primary Impression: Cocaine abuse Additional Impressions: ACS (acute coronary syndrome) Amphetamine abuse ER Course EKG: Sinus rhythm, 95 bpm. T wave inversions in lead I, V3, V4, V5, V6. No obvious ST abnormalities. No ectopy. Normal axis Laboratory Tests Test 05/21/20 23:00 White Blood Count 6.1 K/UL (4.8-10.8) Red Blood Count 4.99 M/UL (4.70-6.10) Hemoglobin 15.9 G/DL (14.2-18.0) Hematocrit 48.0 % (42.0-52.0) Mean Corpuscular Volume 96 FL (80-99) Mean Corpuscular Hemoglobin 31.8 PG (27.0-31.0) H Mean Corpuscular Hemoglobin Concent 33.0 G/DL (32.0-36.0) Red Cell Distribution Width 14.2 % (11.6-14.8) Platelet Count 160 K/UL (150-450) Mean Platelet Volume 6.0 FL (6.5-10.1) L Neutrophils (%) (Auto) 72.2 % (45.0-75.0) Lymphocytes (%) (Auto) 17.0 % (20.0-45.0) L Monocytes (%) (Auto) 9.2 % (1.0-10.0) Eosinophils (%) (Auto) 0.4 % (0.0-3.0) Basophils (%) (Auto) 1.2 % (0.0-2.0) Prothrombin Time 11.3 SEC (9.30-11.50) Prothrombin Time INR 1.0 (0.9-1.1) Activated Partial Thromboplast Time 27 SEC (23-33) Urine Color Yellow Urine Appearance Clear Urine pH 6 (4.5-8.0) Urine Specific [place] 1.020 (1.005-1.035) Urine Protein Negative (NEGATIVE) Urine Glucose (UA) Negative (NEGATIVE) Urine Ketones Negative (NEGATIVE) Urine Blood Negative (NEGATIVE) Urine Nitrite Negative (NEGATIVE) Urine Bilirubin Negative (NEGATIVE) Urine Urobilinogen 1 MG/DL (0.0-1.0) H Urine Leukocyte Esterase Negative (NEGATIVE) Sodium Level 136 MMOL/L (136-145) Potassium Level 3.8 MMOL/L (3.5-5.1) Chloride Level 101 MMOL/L (98-107) Carbon Dioxide Level 22 MMOL/L (21-32) Anion Gap 13 mmol/L (5-15) Blood Urea Nitrogen 10 mg/dL (7-18) Creatinine 1.4 MG/DL (0.55-1.30) H Estimated Glomerular Filtration Rate > 60 mL/min (>60) Glucose Level 97 MG/DL (74-106) Calcium Level 8.6 MG/DL (8.5-10.1) Total Bilirubin 0.8 MG/DL (0.2-1.0) Aspartate Amino Transferase (AST) 39 U/L (15-37) H Alanine Aminotransferase (ALT) 26 U/L (12-78) Alkaline Phosphatase 93 U/L (46-116) Ammonia 39 umol/L (11-32) H Troponin I 0.044 ng/mL (0.000-0.056) Total Protein 7.4 G/DL (6.4-8.2) Albumin 3.5 G/DL (3.4-5.0) Globulin 3.9 g/dL Albumin/Globulin Ratio 0.9 (1.0-2.7) L Lipase 88 U/L (73-393) Urine Opiates Screen Negative (NEGATIVE) Urine Barbiturates Screen Negative (NEGATIVE) Phencyclidine (PCP) Screen Positive (NEGATIVE) H Urine Amphetamines Screen Negative (NEGATIVE) Urine Benzodiazepines Screen Negative (NEGATIVE) Urine Cocaine Screen Positive (NEGATIVE) H Urine Marijuana (THC) Screen Positive (NEGATIVE) H Serum Alcohol 31 mg/dL 59-year-old male here with chest pain and nausea and vomiting. Patient vomited one time in the emergency department nonbilious nonbloody. He received aspirin and morphine with good resolution of his chest pain. He had an EKG performed on arrival that revealed new T wave inversions in leads I and V3 and V4. These were new compared to an old EKG. Also had T wave inversions in V5 and V6 which also appeared on a previous EKG. Initial troponin 0.044. Chest x-ray showed: Diffuse interstitial pulmonary infiltrates. Left upper chest AICD in place with normal positioning of the wires. Covid test pending. Labs otherwise unremarkable. Patient will be transferred to [facility] under the care of Dr. Delcid. Transferred in stable condition. Last Vital Signs Date Time Temp Pulse Resp B/P (MAP) Pulse Ox O2 Delivery O2 Flow Rate FiO2 05/21/20 22:14 98.4 88 16 117/74 (88) 98 Room Air James Miranda M.D. May 21, 2020 22:31
[2020-05-21] MEDS ORDERED: Omnipaque-300 100ml vial INJ PRN (22:45)
[2020-05-21] MEDS ORDERED: Morphine Sulfate 4mg/ml Inj (IV USE ONLY) IVP ONE (22:45)
--- NOTE | 2020-05-21 23:00 | NUR ---
ED Nurse Note: Blood and urine sent for workup
[2020-05-21 23:07] LABS: BASOPHILS % (AUTO) 1.2 % (0.0-2.0); EOSINOPHILS % (AUTO) 0.4 % (0.0-3.0); HEMOGLOBIN 15.9 G/DL (14.2-18.0); MEAN CORPUSCULAR VOLUME 96 FL (80-99); MONOCYTES % (AUTO) 9.2 % (1.0-10.0); NEUTROPHILS % (AUTO) 72.2 % (45.0-75.0); PLATELET COUNT 160 K/UL (150-450); RED BLOOD COUNT 4.99 M/UL (4.70-6.10); RED CELL DISTRIBUTION WIDTH 14.2 % (11.6-14.8); WHITE BLOOD COUNT 6.1 K/UL (4.8-10.8)
[2020-05-21 23:08] LABS: APPEARANCE,URINE CLEAR; BILIRUBIN, URINE NEGATIVE (NEGATIVE); GLUCOSE, URINE (UA) NEGATIVE (NEGATIVE); KETONES,URINE NEGATIVE (NEGATIVE); LEUKOCYTE ESTERASE ,URINE NEGATIVE (NEGATIVE); NITRITE,URINE NEGATIVE (NEGATIVE); PH,URINE 6 (4.5-8.0); PROTEIN,URINE NEGATIVE (NEGATIVE); UROBILINOGEN,URINE 1 MG/DL (0.0-1.0)
[2020-05-21 23:18] LABS: COLOR,URINE YELLOW
[2020-05-21 23:19] LABS: ANION GAP 13 mmol/L (5-15); BLOOD UREA NITROGEN 10 mg/dL (7-18); CALCIUM 8.6 MG/DL (8.5-10.1); CARBON DIOXIDE 22 MMOL/L (21-32); CHLORIDE 101 MMOL/L (98-107); CREATININE 1.4 MG/DL (0.55-1.30); POTASSIUM 3.8 MMOL/L (3.5-5.1); SODIUM 136 MMOL/L (136-145)
[2020-05-21 23:23] LABS: ALANINE AMINOTRANSFERASE 26 U/L (12-78); ALBUMIN 3.5 G/DL (3.4-5.0); ALBUMIN/GLOBULIN RATIO 0.9 (1.0-2.7); ALKALINE PHOSPHATASE 93 U/L (46-116); ASPARTATE AMINO TRANSFERASE 39 U/L (15-37); BILIRUBIN,TOTAL 0.8 MG/DL (0.2-1.0)
[2020-05-21 23:34] LABS: AMMONIA 39 umol/L (11-32)
[2020-05-22] MEDS ORDERED: Aspirin Baby 81mg ORAL ONE (00:30)
--- NOTE | 2020-05-22 01:00 | NUR ---
ED Nurse Note: Xray done at bedside
--- NOTE | 2020-05-22 01:10 | NUR ---
ED Nurse Note: Pt to CT-scan per bed
--- NOTE | 2020-05-22 01:15 | NUR ---
ED Nurse Note: Report given to Maegan at [phone]
--- NOTE | 2020-05-22 01:25 | NUR ---
ED Nurse Note: Pt back from CT Rapid covid test sent
[2020-05-22 01:34] VITALS: BP 132/85
--- NOTE | 2020-05-22 01:43 | Diagnostic Imaging Report ---
INDICATION: Pain COMPARISON: 09/13/2019 FINDINGS: Single frontal view demonstrates a normal cardiomediastinal silhouette. Left chest wall cardiac base of the extending into the right heart. The lungs are clear. No pleural effusions. The visualized osseous structures are within normal limits. IMPRESSION: 1. No active disease no change from prior exam.
--- NOTE | 2020-05-22 01:52 | Diagnostic Imaging Report ---
CT abdomen and pelvis with contrast History: Abdominal pain Technique: Axial contrast-enhanced CT of the abdomen and pelvis with coronal, sagittal reformatted images. Technique more: CTDI is 7.50 mGy and DLP is 393.70 mGy-cm. Technique more: One or more of the following dose reduction techniques were used: automated exposure control, adjustment of the mA and/or kV according to patient size, use of iterative reconstruction technique. Comparison: None Findings: Lung bases: Mild right basilar atelectasis. Distal heart and esophagus: Single lead cardiac pacer wire is seen extending into the anterior right ventricle. Liver: Intrahepatic 7 mm low-density lesion seen near segment 1 just superior to the right portal vein and 1.8 cm low density in the superior anterior right segment 5. Gallbladder: Normal Spleen: Mild infarct in the upper pole of spleen. Pancreas: Normal. Medial duodenal diverticula. Adrenals: Normal Kidneys: Negative for hydronephrosis or stones. Bowel: Nondistended slightly thick-walled appearance to the rectum, mucosal wall measures up to 9.8 mm. Please correlate with any recent colonoscopy to exclude possibility of a mass. Also consider proctitis. Mild upstream left-sided and sigmoid diverticulosis. Negative for diverticulitis. Scattered colonic stool. Caliber of the small bowel loops is normal. Right lower quadrant is normal. Pelvis: Small bilateral inguinal fat-containing hernias. Normal sized prostate. Nondistended slightly thick-walled urinary bladder Aorta: Normal caliber. Lymph nodes: Negative. Bones: No lytic or blastic bony lesion. L4-5, L5-S1 disc space narrowing. No loss of vertebral body height. Impression: 1. Incompletely characterized hepatic low densities in segment 1 in segment 5 2. Nondistended rectum versus mucosal thickening. Consider proctitis or mucosal mass. 3. No other acute intra-abdominal or pelvic finding.
--- NOTE | 2020-05-22 01:58 | NUR ---
ER DISCHARGE NOTE: Patient was picked up by [facility] ambulance going to [facility]. Report and packet given to ambulance personnel. Patient is cleared to be discharged per ERMD, pt is aox4, on room air, with stable vital signs. Pt with iv site at left hand. Pt was transferred to ambulance safely. pt took all belongings.
[2020-05-22 02:07] VITALS: BP 127/84
== END 2020-05-22 02:11 | disposition short-term general hospital (02) ==
LOC: EDBD 22:17 → EMR 22:45 → CANBEDREQ 23:32 → EMR 05-22 02:11
DX: F14.10 Cocaine abuse, uncomplicated (principal); F15.10 Other stimulant abuse, uncomplicated; I24.9 Acute ischemic heart disease, unspecified; I11.0 Hypertensive heart disease with heart failure; I50.9 Heart failure, unspecified; E11.9 Type 2 diabetes mellitus without complications; Z86.73 Personal history of transient ischemic attack (TIA), and cerebral infarction without residual deficits; Z88.8 Allergy status to other drugs, medicaments and biological substances; R07.9 Chest pain, unspecified
CPT/HCPCS: 36415; 71045; 74177; 80053; 80307; 81003; 82140; 83690; 84484; 85025; 85610; 85730; 93005; 96361; 96374; 96375; G0480; J2270; J2405; J7030; Q9965; U0002; Z7502; 99284

== ENCOUNTER 2020-06-04 12:25 | Emergency (ER) | payer MEDICAID ==
[~2020-06-04] VITALS: Ht 182.9 cm; Wt 77.1 kg
[2020-06-04] MEDS ORDERED: fentaNYL 100 mcg/2 mL IV ONE (12:30)
--- NOTE | 2020-06-04 12:32 | Emergency Room Report ---
History of Present Illness General Chief Complaint: Pain Source: Patient, Medical Record, EMS Present Illness HPI Patient is a 59-year-old male past medical history of cocaine abuse, CHF, CAD, depression on Eliquis who was brought in by EMS for 3 days of lower leg pain on the right. She denies any trauma. He states the maximal pain is in his right calf. He states that he has not been on any of his medications for the past month. Patient denies any chest pain or shortness of breath. He denies any fever or chills. He denies any abdominal pain nausea or vomiting. Allergies: Coded Allergies: LISINOPRIL (Unverified Allergy, Unknown, 03/03/18) COVID-19 Screening Contact w/high risk pt: No Experienced COVID-19 symptoms?: No COVID-19 Testing performed SUPPLY CH[employer] MANAGER: No Patient History Reviewed Nursing Documentation: PMH: Agreed; PSxH: Agreed Nursing Documentation-PMH Past Medical History: No History, Except For Hx Cardiac Problems: Yes - CHF Hx Hypertension: Yes Hx Pacemaker: Yes - ICD Hx Asthma: Yes Hx COPD: No Hx Diabetes: Yes Hx Cancer: No Hx Gastrointestinal Problems: No Hx Dialysis: No Hx Neurological Problems: No Hx Cerebrovascular Accident: Yes Hx Seizures: No Review of Systems All Other Systems: negative except mentioned in HPI Physical Exam Vital Signs Date Time Temp Pulse Resp B/P (MAP) Pulse Ox O2 Delivery O2 Flow Rate FiO2 06/04/20 12:25 98.1 103 16 128/75 (92) 97 Room Air Sp02 EP Interpretation: reviewed, normal General Appearance: no apparent distress, alert, GCS 15, non-toxic Head: normocephalic, atraumatic Eyes: bilateral eye normal inspection, bilateral eye PERRL ENT: hearing grossly normal, normal pharynx, no angioedema, normal voice Neck: full range of motion, supple/symm/no masses Respiratory: chest non-tender, lungs clear, normal breath sounds, speaking full sentences Cardiovascular #1: regular rate, rhythm, no edema Gastrointestinal: non tender, soft, no guarding, no rebound Rectal: deferred Musculoskeletal: other - Right calf tenderness to palpation with palpable varicose veins Neurologic: wheel grinder III-XII nml as tested, oriented x3 Psychiatric: no suicidal/homicidal ideation Skin: no rash Lymphatic: no adenopathy Medical Decision Making Diagnostic Impression: Primary Impression: Varicose vein of leg Additional Impressions: Calf pain Cocaine abuse ER Course Patient presents with right calf pain. Patient has palpable varicose veins. Ultrasound demonstrates no evidence for DVT. Patient's labs demonstrate no significant acute abnormalities. Patient is positive for cocaine. Patient counseled on the dangers of drug abuse. Patient also asking for medication refills. He states that he is on amlodipine 10 mg, atorvastatin 20 mg, Lasix 20 mg, carvedilol 25 mg and Eliquis 2.5 mg. He states that he cannot see his doctor for a few weeks. I refilled all of his home medications. After discussing risks and benefits of further diagnostics, treatment plans, as well as indications for and risks of admission, the patient is agreeable to being discharged home. I have explained that their evaluation and treatment in the emergency department today is an important step towards them achieving better health but that their evaluation today is not intended to replace further evaluation and treatment by a physician in their local clinic. I have explained that while the current findings suggest no immediate life threatening emergency they will require further evaluation and treatment by a physician of their choice in their area. They understand that it will be necessary for them to review the final reports of their ED visit with their clinic physician. We have reviewed indications for return to the Emergency Department. I have explained that additional time may need to pass and/or additional testing as an outpatient may be necessary before a definitive diagnosis can be made. They tell me they are willing to follow up as instructed within the timeframe I recommend. They appear to understand what we discussed. Additionally they understand that if they are unable to be seen by an outpatient physician they are welcome, and in fact should, return to the Emergency Department for a repeat evaluation. The patient is stable at time of discharge. Laboratory Tests Test 06/04/20 12:40 White Blood Count 5.2 K/UL (4.8-10.8) Red Blood Count 5.35 M/UL (4.70-6.10) Hemoglobin 16.4 G/DL (14.2-18.0) Hematocrit 49.5 % (42.0-52.0) Mean Corpuscular Volume 92 FL (80-99) Mean Corpuscular Hemoglobin 30.7 PG (27.0-31.0) Mean Corpuscular Hemoglobin Concent 33.2 G/DL (32.0-36.0) Red Cell Distribution Width 13.4 % (11.6-14.8) Platelet Count 214 K/UL (150-450) Mean Platelet Volume 5.6 FL (6.5-10.1) L Neutrophils (%) (Auto) 60.9 % (45.0-75.0) Lymphocytes (%) (Auto) 25.4 % (20.0-45.0) Monocytes (%) (Auto) 11.2 % (1.0-10.0) H Eosinophils (%) (Auto) 1.0 % (0.0-3.0) Basophils (%) (Auto) 1.5 % (0.0-2.0) Prothrombin Time 10.9 SEC (9.30-11.50) Prothrombin Time INR 1.0 (0.9-1.1) Activated Partial Thromboplast Time 34 SEC (23-33) H Sodium Level 136 MMOL/L (136-145) Potassium Level 4.1 MMOL/L (3.5-5.1) Chloride Level 103 MMOL/L (98-107) Carbon Dioxide Level 22 MMOL/L (21-32) Anion Gap 11 mmol/L (5-15) Blood Urea Nitrogen 11 mg/dL (7-18) Creatinine 1.3 MG/DL (0.55-1.30) Estimated Glomerular Filtration Rate > 60 mL/min (>60) Glucose Level 104 MG/DL (74-106) Calcium Level 9.4 MG/DL (8.5-10.1) Magnesium Level 2.0 MG/DL (1.8-2.4) Total Bilirubin 0.7 MG/DL (0.2-1.0) Aspartate Amino Transferase (AST) 52 U/L (15-37) H Alanine Aminotransferase (ALT) 43 U/L (12-78) Alkaline Phosphatase 92 U/L (46-116) Total Protein 7.5 G/DL (6.4-8.2) Albumin 3.4 G/DL (3.4-5.0) Globulin 4.1 g/dL Albumin/Globulin Ratio 0.8 (1.0-2.7) L Urine Opiates Screen Negative (NEGATIVE) Urine Barbiturates Screen Negative (NEGATIVE) Phencyclidine (PCP) Screen Negative (NEGATIVE) Urine Amphetamines Screen Negative (NEGATIVE) Urine Benzodiazepines Screen Negative (NEGATIVE) Urine Cocaine Screen Positive (NEGATIVE) H Urine Marijuana (THC) Screen Positive (NEGATIVE) H Last Vital Signs Date Time Temp Pulse Resp B/P (MAP) Pulse Ox O2 Delivery O2 Flow Rate FiO2 06/04/20 12:25 98.1 103 16 128/75 (92) 97 Room Air Disposition: HOME, SELF-CARE Condition: Stable Scripts Apixaban (ELIQUIS) 2.5 Mg Tablet 2.5 MG PO DAILY for 30 Days, TAB Prov: Hilary Cueva M.D. 06/04/20 Carvedilol* (CARVEDILOL*) 25 Mg Tablet 25 MG ORAL EVERY 12 HOURS for 30 Days, TAB Prov: Hilary Cueva M.D. 06/04/20 Furosemide* (LASIX*) 40 Mg Tablet 20 MG ORAL DAILY, #30 TAB Prov: Hilary Cueva M.D. 06/04/20 Atorvastatin Calcium* (ATORVASTATIN CALCIUM*) 20 Mg Tablet 20 MG ORAL BEDTIME, #30 TAB Prov: Hilary Cueva M.D. 06/04/20 Amlodipine Besylate* (AMLODIPINE BESYLATE*) 10 Mg Tablet 10 MG ORAL DAILY for 30 Days, TAB Prov: Hilary Cueva M.D. 06/04/20 Hydrocodone Bit/Acetaminophen 5-325* (NORCO 5-325 TABLET*) 1 Each Tablet 1 TAB ORAL Q6H PRN for FOR PAIN, #12 TAB 0 Refills Prov: Hilary Cueva M.D. 06/04/20 Additional Instructions: The patient was provided with discharge instructions, notified to follow-up with a primary care doctor and or specialist in the next 24-48 hours, and to return to the ED if they have worsening of their symptoms. Please note that this report is being documented using [employer] technology. This can lead to erroneous entry secondary to incorrect interpretation by the dictating instrument. Hilary Cueva M.D. Jun 04, 2020 12:32
[2020-06-04 12:40] VITALS: BP 128/75
[2020-06-04 13:15] LABS: ANION GAP 11 mmol/L (5-15); BLOOD UREA NITROGEN 11 mg/dL (7-18); CALCIUM 9.4 MG/DL (8.5-10.1); CARBON DIOXIDE 22 MMOL/L (21-32); CHLORIDE 103 MMOL/L (98-107); CREATININE 1.3 MG/DL (0.55-1.30); POTASSIUM 4.1 MMOL/L (3.5-5.1); SODIUM 136 MMOL/L (136-145)
[2020-06-04 13:19] LABS: ALANINE AMINOTRANSFERASE 43 U/L (12-78); ALBUMIN 3.4 G/DL (3.4-5.0); ALBUMIN/GLOBULIN RATIO 0.8 (1.0-2.7); ALKALINE PHOSPHATASE 92 U/L (46-116); ASPARTATE AMINO TRANSFERASE 52 U/L (15-37); BILIRUBIN,TOTAL 0.7 MG/DL (0.2-1.0)
[2020-06-04 13:24] LABS: BASOPHILS % (AUTO) 1.5 % (0.0-2.0); HEMATOCRIT 49.5 % (42.0-52.0); HEMOGLOBIN 16.4 G/DL (14.2-18.0); LYMPHOCYTES % (AUTO) 25.4 % (20.0-45.0); MEAN CORPUSCULAR VOLUME 92 FL (80-99); MONOCYTES % (AUTO) 11.2 % (1.0-10.0); NEUTROPHILS % (AUTO) 60.9 % (45.0-75.0); PLATELET COUNT 214 K/UL (150-450); RED BLOOD COUNT 5.35 M/UL (4.70-6.10); RED CELL DISTRIBUTION WIDTH 13.4 % (11.6-14.8); WHITE BLOOD COUNT 5.2 K/UL (4.8-10.8)
--- NOTE | 2020-06-04 13:26 | Diagnostic Imaging Report ---
EXAM: US Duplex Bilateral Lower Extremities Veins CLINICAL HISTORY: PAIN TECHNIQUE: Real-time duplex ultrasound scan of the bilateral lower extremity veins integrating B-mode two-dimensional vascular structure, Doppler spectral analysis, color flow Doppler imaging and compression. COMPARISON: No relevant prior studies available. FINDINGS: Right deep veins: Unremarkable. No DVT in the right common femoral, femoral, proximal deep femoral or popliteal veins. The veins demonstrate normal color flow, are normally compressible, with normal phasic flow and/or augmentation response. Right superficial veins: Unremarkable. No thrombus in the visualized right great saphenous vein. Left deep veins: Unremarkable. No DVT in the left common femoral, femoral, proximal deep femoral or popliteal veins. The veins demonstrate normal color flow, are normally compressible, with normal phasic flow and/or augmentation response. Left superficial veins: Unremarkable. No thrombus in the visualized left great saphenous vein. IMPRESSION: No DVT
[2020-06-04] MEDS ORDERED: NORCO 5-325 TA1 EAC1 ORAL (13:28)
[2020-06-04] MEDS ORDERED: AMLODIPINE BESY10 MG ORAL (13:36)
[2020-06-04] MEDS ORDERED: ELIQUIS2.5 MG PO (13:36)
[2020-06-04] MEDS ORDERED: ATORVASTATIN CA20 MG ORAL (13:36)
[2020-06-04] MEDS ORDERED: FUROSEMIDE40 MG ORAL (13:36)
[2020-06-04] MEDS ORDERED: CARVEDILOL25 MG ORAL (13:36)
[2020-06-04] MEDS ORDERED: HYDROcodone/Acetamin 5/325 tab ORAL ONE (13:45)
[2020-06-04 13:50] VITALS: BP 130/78
== END 2020-06-04 13:50 | disposition home or self-care (01) ==
LOC: EDBD 12:25 → EDUNIT# 12:25 → EMR 12:50
DX: I83.91 Asymptomatic varicose veins of right lower extremity (principal); F14.10 Cocaine abuse, uncomplicated; M79.661 Pain in right lower leg; I11.0 Hypertensive heart disease with heart failure; I50.9 Heart failure, unspecified; F32.9 Major depressive disorder, single episode, unspecified; Z79.01 Long term (current) use of anticoagulants; E11.9 Type 2 diabetes mellitus without complications; Z86.73 Personal history of transient ischemic attack (TIA), and cerebral infarction without residual deficits
CPT/HCPCS: 36415; 80053; 80307; 83735; 85025; 85610; 85730; 93970; 96374; J3010; U0002; Z7502; 99284